=== PATIENT | female | born 1955 | race Caucasian/White ===

== ENCOUNTER → 2016-10-09 | Outpatient (CLI) | payer MEDICARE, BC ==
[~2016-10-09] MED LIST: CYCL10TA2 PO; DICL75TA PO; DILT240C2 PO; DULO60CA6 PO; FLUT1DIS3 IH; FURO40TA4 PO; LEVO150T5 PO; MONT10TA9 PO; OMEP20CA9 PO; PRED-220 PO; RIVA20TA2 PO; ROPI1TAB2 PO
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
== END | disposition home or self-care (01) ==
LOC: PNCL 13:11
PROVIDERS: ATTEND Anesthesiology
DX: M54.5 Low back pain (principal)
CPT/HCPCS: G0463

== ENCOUNTER → 2016-10-23 | Outpatient (CLI) | payer MEDICARE, BC ==
[~2016-10-23] MED LIST changes: +IOHEXOL 180 MG/ML 10 ML VIAL. ONE; +methylPREDNISolone ACETATE 40 MG/ML VIAL. ONE; +methylPREDNISolone ACETATE 80 MG/ML VIAL. ONE
--- NOTE | 2016-10-24 06:00 | PAIN ---
DATE OF SERVICE: 10/23/2016 DIAGNOSES: Lumbar radiculopathy with lumbar degenerative disk disease. HISTORY OF PRESENT ILLNESS: The patient is a 61-year-old female who returns for followup status post initial evaluation and holding for Xarelto, which was cleared by her prescribing physician; she has been off of it for the past 3 days now. The patient reports still pain in the low back and right lower extremity, mostly in the posterior gluteus and posterior thigh. The patient reports no new motor or sensory deficits. She has significant pain, it is rated as a 6-8 on a scale of 10, currently it is 6, but worse with walking and standing. The patient reports an aching, dull, radiating constant pain; it awakens her up from sleep occasionally but not every night. The patient reports it is much better with lying down or sitting down, much worse with standing and walking. The patient reports no new motor or sensory deficits, no new bowel or bladder incontinence or other complaints. PHYSICAL EXAMINATION: VITAL SIGNS: Today, the patient's blood pressure is 141/100, pulse is 96, respirations are 18, temperature is 98.2 degrees Fahrenheit, height is 5 feet 3 inches, weight is 357 pounds. GENERAL: The patient is awake, alert, oriented, appropriate, very pleasant demeanor. HEENT: Shows normocephalic and atraumatic. Extraocular movements are intact, symmetrical. Oral cavity: Mucous membranes are moist and pink. Dentition is intact. NECK: Shows anterior throat supple without palpable lymphadenopathy noted. Swallow reflex is symmetrical. CHEST: Shows normal on inspection. Breath sounds are clear to auscultation bilaterally. HEART: Shows S1 and S2 clear. No murmurs auscultated. ABDOMEN: Obese, soft, nontender, nondistended. Sizable pannus is again appreciated. BACK: The patient's back shows spine grossly in the midline. Slight exaggeration of thoracic kyphosis and some flattening of the lumbar lordotic curvature. Lumbar lordosis is again flattened; with inspection, it shows symmetrical lumbar paraspinous musculature; with palpation, it shows some tenderness more on the right than the left in the lower lumbar distribution, but only with deep palpation and without significant asymmetry. No tenderness over the sacrum and sacroiliac regions. EXTREMITIES: The patient's lower extremities showed deep tendon reflexes at 1+ in the patellar and tendo calcaneus tendons. Motor exam is approximately 4 on a scale of 5, but equal with quadriceps and hamstring flexion and dorsiflexion and extension bilaterally. Options were discussed with the patient at this time. The patient's old chart was reviewed as her current medication regimen and updated. Current review of systems updated today as well, and we will proceed with a lumbar epidural steroid injection today with fluoroscopic guidance. Risks were again discussed including but not limited to bleeding, infection, possibility of epidural hematoma and subsequent neurologic compromise, dural puncture, headaches, spinal cord and/or nerve damage, side effects of steroid medication and poor results regarding pain control. The patient understands and wishes to proceed. The patient will return to the clinic in approximately 2 weeks for followup, was counseled on return appointment, activity level and side effects to be aware of. DIAGNOSIS: Lumbar radiculopathy with lumbar degenerative disk disease. PROCEDURE: Lumbar epidural steroid injection in translaminar approach at the L4-L5 level using C-arm fluoroscopic guidance under sterile prep and drape using local anesthetic. MEDICATIONS INJECTED: Depo-Medrol 120 mg plus 10 mL of preservative-free normal saline and 2 mL of Isovue for contrast. CONDITION AT DISCHARGE: Stable. The patient tolerated procedure well, had no complications. YEISON SINGLETON MD DR: JIMMIE/samreen JOB#: [id number] / [id number]
== END | disposition home or self-care (01) ==
LOC: PNCL 13:36
PROVIDERS: ATTEND Anesthesiology
DX: M51.16 Intervertebral disc disorders with radiculopathy, lumbar region (principal)
CPT/HCPCS: 62323; J1030; J1040

== ENCOUNTER → 2016-11-22 | Outpatient (CLI) | payer MEDICARE, BC ==
[~2016-11-22] MED LIST changes: -IOHEXOL 180 MG/ML 10 ML VIAL. ONE; -methylPREDNISolone ACETATE 40 MG/ML VIAL. ONE; -methylPREDNISolone ACETATE 80 MG/ML VIAL. ONE
--- NOTE | 2016-11-22 16:32 | KCIC ---
Chest, 2 views, 11/22/2016: HISTORY: Pneumonia The heart is at the upper limits of normal in size. The pulmonary vascularity is normal. There are prominent epicardial fat pads. No pulmonary infiltrate is seen. There is no evidence of pleural fluid. Mild spurring is present in the spine. IMPRESSION: 1. Borderline cardiomegaly. 2. No acute abnormality is detected. Electronically signed by: Gavin Michaud MD (11/22/2016 4:28 PM)
== END | disposition home or self-care (01) ==
LOC: KCIC 16:05
PROVIDERS: ATTEND Family Medicine
DX: I51.7 Cardiomegaly (principal); J18.9 Pneumonia, unspecified organism
CPT/HCPCS: 71020

== ENCOUNTER 2018-12-17 11:22 | Day surgery (SDC) | payer MEDICARE, BC ==
[~2018-12-17 11:22] MED LIST changes: +ALBU2.5V5 NEB; +ALBU2.5V8 INH; +BUPR300T4 PO; +CLON0.5T11 PO; +DEXTROSE 5% IV PRN; +DIGO125T PO; +FERR325T14 PO; +GABA600T7 PO; +GENTAMICIN SULFATE IV PRN; +HYDROmorphone 2 MG/ML VIAL IV PRN; +IV RINGERS,LACTATED 1000ML 1,000 ML IV SCH; +LIDOCAINE 1% PF 2 ML VIAL. ID PRN; +LOPE2CAP88 PO; +METO-239 PO; +MOME13HF IH; +MONT10TA49 PO; -MONT10TA9 PO; +MORPHINE SULFATE 2 MG/ML VIAL. IV PRN; +OMEP20CA10 PO; -OMEP20CA9 PO; +ONDANSETRON PF 4 MG/2 ML VIAL. IV PRN; +POTA20TA82 PO; +PROCHLORPERAZINE 10 MG/2 ML VIAL. IV PRN; +TIOT18CA IH; +fentaNYL PF VIAL 100 MCG/2 ML VIAL IV PRN
[2018-12-17] MEDS ORDERED: IOHEXOL 300 MG/ML 50 ML VIAL. ONE (11:45)
[2018-12-17] MEDS ORDERED: LIDOCAINE 2% JELLY 6ML IN APPLICATOR. ONE (11:46)
[2018-12-17] MEDS ORDERED: DEXAMETHASONE SOD PHOS 4 MG/ML VIAL ONE (12:37)
[2018-12-17] MEDS ORDERED: ONDANSETRON PF 4 MG/2 ML VIAL. ONE (12:38)
[2018-12-17] MEDS ORDERED: MIDAZOLAM HCL/PF 2 MG/2 ML VIAL. ONE (12:38)
[2018-12-17] MEDS ORDERED: LIDOCAINE 2% PF 5 ML VIAL. ONE (12:38)
[2018-12-17] MEDS ORDERED: PROPOFOL 20 ML IV ONE (12:38)
[2018-12-17] MEDS ORDERED: HYDROCORTISONE SOD SUCC/PF 100 MG/2 ML VIAL. ONE (13:12)
[2018-12-17] MEDS ORDERED: SEVOFLURANE 61 TO 120 MINUTES. IH ONE (13:42)
--- NOTE | 2018-12-17 14:18 | PDOC4 ---
OPERATIVE NOTE Date: Date: Dec 17, 2018 Pre-Op Diagnosis: right kidney stone Post-Op Diagnosis: same Procedure Performed: right ureteroscopy, laser of stone, stent placement, retrograde pyelogram Surgeon: Pedro Montano MD Anesthesia Type: general Blood Loss: 0 Specimans Obtained: none Findings: right kidney stone pelvic kidney Complications: none Operative Note: see dictation PEDRO MONTANO MD Dec 17, 2018 14:18
[2018-12-17] MEDS ORDERED: HYDR-3164 PO (14:27)
--- NOTE | 2018-12-17 14:29 | DISCH ---
DISCHARGE INSTRUCTIONS Condition on Discharge Condition on Discharge: Stable Activity After Discharge Activity Instructions for Disc: No restrictions Diet after Discharge Diet after Discharge: Regular Contacting the DRTaty after DC Call your doctor for: Concerns you may have Follow-Up Follow up with: Dr. Montano 1 week for stent removal in office [phone] PEDRO MONTANO MD Dec 17, 2018 14:29
--- NOTE | 2018-12-17 15:19 | OP ---
DATE OF SURGERY: 12/17/2018 SURGEON: Pedro Montano MD [employer] GOODS: None. PREOPERATIVE DIAGNOSIS: Right kidney stones. POSTOPERATIVE DIAGNOSIS: Right kidney stones. PROCEDURE PERFORMED: Right ureteroscopy with laser of stone, stent placement and retrograde pyelogram. ANESTHESIA TYPE: General. DESCRIPTION OF PROCEDURE: This is a 63-year-old female with a 1.4 cm right kidney stone. After discussion of risks, benefits and alternatives, she agreed to the above procedure. Informed consent was obtained. The patient was taken to the operating room. General anesthesia was induced. She was placed in dorsal lithotomy position, sterilely prepped and draped. Timeout was performed. A rigid cystoscope was advanced through the urethra into the bladder. The right ureteral orifice was cannulated with a guidewire and advanced up into the renal pelvis. Retrograde pyelogram was performed, which showed a right pelvic kidney with an acute right angle of the ureter near the ureteropelvic junction. The guidewire was replaced and then an access sheath was easily advanced and a second wire was placed and the access sheath was repositioned. A flexible ureteroscope was easily able to advance up into the kidney. A large stone was seen within the central portion of the renal pelvis. The stone was fragmented with the holmium laser into multiple tiny fragments. The stone was very soft and easily fragmented. All the stone fragments were too small to grasp. Due to the acute angle of the proximal ureter, manipulation of the scope into the lateral and lower poles of the kidney was not possible; however, there did not appear to be any stone fragments in those locations on fluoroscopy or visually. The scope and access sheath were slowly withdrawn, and the ureter was inspected and was free of injury. A 6 x 22 cm stent was then advanced over the wire and deployed under fluoroscopic guidance. Due to the acute angle of the ureter, the stent would not properly curl despite multiple attempts involving manipulating the stent and removing and replacing it. Only about 1/2 curl of the stent was possible in the kidney. Appropriate stent curl was noted in the bladder. The bladder contents were emptied. The patient was then awoken and taken to the recovery room in stable condition. BLOOD LOSS: None. COMPLICATIONS: None. SPECIMENS: None. DISPOSITION: We will plan for stent removal in the office next week. PEDRO MONTANO MD DR: PRETTY/samreen JOB#: [id number] / [id number]
[2018-12-17] MEDS ORDERED: HYDROcodone/APAP 5/325MG 1 TAB TABLET PO ONE (15:30)
[2018-12-17] MEDS ORDERED: IPRATRPIUM/ALBUTEROL 0.5/2.5MG 3 ML NEBU. NEB ONE (16:30)
[2018-12-17 17:00] VITALS: BP 125/65
== END 2018-12-17 17:30 | disposition home or self-care (01) ==
LOC: SURG 11:22
PROVIDERS: ATTEND Urology
DX: N20.0 Calculus of kidney (principal); Z88.1 Allergy status to other antibiotic agents; Z88.0 Allergy status to penicillin; Z88.8 Allergy status to other drugs, medicaments and biological substances
CPT/HCPCS: 52356; 74420; 94640; A7015; C1769; C2617; J1100; J1720; J2001; J2405; J2704; J3010; J7620; Q9967; J2250

== ENCOUNTER 2019-01-13 14:31 | Inpatient (IN) | payer MEDICARE, BC ==
[2019-01-13] VITALS (8 sets, daily range): BP systolic 106–151; BP diastolic 53–84
[~2019-01-13] VITALS: Ht 157.5 cm; Wt 137.1 kg
[~2019-01-13 14:31] MED LIST changes: -DEXTROSE 5% IV PRN; -GENTAMICIN SULFATE IV PRN; +HYDR-3164 PO; -HYDROmorphone 2 MG/ML VIAL IV PRN; -IV RINGERS,LACTATED 1000ML 1,000 ML IV SCH; -LIDOCAINE 1% PF 2 ML VIAL. ID PRN; -MORPHINE SULFATE 2 MG/ML VIAL. IV PRN; -ONDANSETRON PF 4 MG/2 ML VIAL. IV PRN; -PROCHLORPERAZINE 10 MG/2 ML VIAL. IV PRN; -fentaNYL PF VIAL 100 MCG/2 ML VIAL IV PRN
[2019-01-13] MEDS ORDERED: DIGOXIN 125 MCG TABLET. PO STA (15:15)
[2019-01-13 15:24] LABS: BASO # 0.1 x10^3/uL (0.0-0.2); BASO % 1 % (0-3); EOS # 0.3 x10^3/uL (0.0-0.7); EOS % 1 % (0-3); HEMATOCRIT 25.4 % (36.0-47.0); LYMPH # 6.3 x10^3/uL (1.0-4.8); LYMPH % 27 % (24-48); MEAN CORPUSCULAR HEMOGLOBIN 28 pg (25-35); MEAN CORPUSCULAR HGB CONC 31 g/dL (31-37); MEAN CORPUSCULAR VOLUME 90 fL (79-100); MONO # 1.3 x10^3/uL (0.0-1.1); MONO % 6 % (0-9); NEUT # 15.6 x10^3/uL (1.8-7.7); NEUT % 66 % (31-73); PLATELET COUNT 252 x10^3/uL (140-400); RED BLOOD COUNT 2.82 x10^6/uL (3.50-5.40); RED CELL DISTRIBUTION WIDTH 17.5 % (11.5-14.5); WHITE BLOOD COUNT 23.7 x10^3/uL (4.0-11.0)
--- NOTE | 2019-01-13 15:32 | PHYS DOC ---
Past Medical History Past Medical History: A-Fib, Asthma, CHF, COPD, Other Additional Past Medical Histor: OBESITY Past Surgical History: Cholecystectomy, Other Additional Past Surgical Histo: R. BREAST BIOPSY Alcohol Use: None Drug Use: None Adult General Chief Complaint Chief Complaint: SHORTNESS OF BREATH HPI HPI Patient is a 63 year old female presents with multiple complaints. The patient states that she's been having rectal bleeding along with diarrhea since Friday night. Has a history of hemorrhoids. Is normally only on oxygen at night. Is on 3 L in the room at 93%. Also states that she's been having increased shortness of breath and dizziness since last night, and also states that she's been having a fever. Has a history of A. fib. States she stopped her Xarelto on Friday. Has had multiple clots in the past. Rates her pain is 1 out of 10 in severity at this time describes as achy. Has not taken any medicine at home for this pain. Review of Systems Review of Systems Constitutional: Reports subjective fever or chills [] Eyes: Denies change in visual acuity, redness, or eye pain [] HENT: Denies nasal congestion or sore throat [] Respiratory: Reports increased shortness of breath [] Cardiovascular: No additional information not addressed in HPI [] GI: Denies abdominal pain, nausea, vomiting Reports bloody stools and diarrhea [] : Denies dysuria or hematuria [] Musculoskeletal: Denies back pain or joint pain [] Integument: Denies rash or skin lesions [] Neurologic: Denies headache, focal weakness or sensory changes [] Endocrine: Denies polyuria or polydipsia [] Complete systems were reviewed and found to be within normal limits, except as documented in this note. Current Medications Current Medications Current Medications Medications (Trade) Dose Ordered Sig/Ijeoma Start Time Stop Time Status Last Admin Dose Admin Albuterol/ Ipratropium (Duoneb) 3 ml 1X ONCE 01/13/19 16:30 01/13/19 16:31 DC 01/13/19 16:07 3 ML Digoxin (Lanoxin) 125 mcg 1X STAT 01/13/19 15:15 01/13/19 15:19 DC 01/13/19 15:50 125 MCG Sodium Chloride 500 ml @ 500 mls/hr 1X ONCE 01/13/19 17:00 01/13/19 17:59 DC 01/13/19 19:41 500 MLS/HR Allergies Allergies Allergies Coded Allergies Type Severity Reaction Last Updated Verified levofloxacin Allergy Severe Anaphylaxis 12/17/18 Yes Influenza Virus Vaccines Adverse Reaction Intermediate 12/17/18 Yes Penicillins Adverse Reaction Intermediate Rash 12/17/18 Yes Sulfa (Sulfonamide Antibiotics) Adverse Reaction Intermediate Rash 12/17/18 Yes Physical Exam Physical Exam Constitutional: Well developed, well nourished HENT: Normocephalic, atraumatic, bilateral external ears normal, oropharynx moist, no oral exudates, nose normal. [] Eyes: PERRLA, EOMI, conjunctiva normal, no discharge. [] Neck: Normal range of motion, no tenderness, supple, no stridor. [] Cardiovascular:Heart rate irregular rhythm, no murmur [] Lungs & Thorax: Bilateral breath sounds with scattered rhonchi. Abdomen: Bowel sounds normal, soft, no tenderness, no masses, no pulsatile masses. [] Skin: Warm, dry, no erythema, no rash. [] Back: No tenderness, no CVA tenderness. [] Extremities: No tenderness, no cyanosis, no clubbing, ROM intact, no edema. [] Neurologic: Alert and oriented X 3, normal motor function, normal sensory function, no focal deficits noted. [] Psychologic: Affect normal, judgement normal, mood normal. [] Rectal Exam: Patient has dried blood around rectum, copious amounts of blood on finger during digital exam. No external hemorrhoids noted. Current Patient Data Vital Signs Vital Signs Date Time Temp Pulse Resp B/P (MAP) Pulse Ox O2 Delivery O2 Flow Rate FiO2 01/13/19 17:20 116 21 115/80 (92) 99 Nasal Cannula 3.0 01/13/19 14:55 98.5 98.5 Lab Values Laboratory Tests Test 01/13/19 15:15 01/13/19 15:38 01/13/19 15:50 01/13/19 17:05 White Blood Count 23.7 x10^3/uL (4.0-11.0) H Red Blood Count 2.82 x10^6/uL (3.50-5.40) L Hemoglobin 8.0 g/dL (12.0-15.5) L Hematocrit 25.4 % (36.0-47.0) L Mean Corpuscular Volume 90 fL (79-100) Mean Corpuscular Hemoglobin 28 pg (25-35) Mean Corpuscular Hemoglobin Concent 31 g/dL (31-37) Red Cell Distribution Width 17.5 % (11.5-14.5) H Platelet Count 252 x10^3/uL (140-400) Neutrophils (%) (Auto) 66 % (31-73) Lymphocytes (%) (Auto) 27 % (24-48) Monocytes (%) (Auto) 6 % (0-9) Eosinophils (%) (Auto) 1 % (0-3) Basophils (%) (Auto) 1 % (0-3) Neutrophils # (Auto) 15.6 x10^3/uL (1.8-7.7) H Lymphocytes # (Auto) 6.3 x10^3/uL (1.0-4.8) H Monocytes # (Auto) 1.3 x10^3/uL (0.0-1.1) H Eosinophils # (Auto) 0.3 x10^3/uL (0.0-0.7) Basophils # (Auto) 0.1 x10^3/uL (0.0-0.2) Segmented Neutrophils % 68 % (35-66) H Band Neutrophils % 3 % (0-9) Lymphocytes % 23 % (24-48) L Monocytes % 3 % (0-10) Eosinophils % 2 % (0-5) Myelocytes % 1 % (0-0) H Platelet Estimate Adequate (ADEQUATE) Polychromasia Slight Anisocytosis Slight Prothrombin Time 17.9 SEC (11.7-14.0) H Prothrombin Time INR 1.5 (0.8-1.1) H PTT 30 SEC (24-38) D-Dimer (Loretta) 0.52 ug/mlFEU (0.00-0.50) H Sodium Level 140 mmol/L (136-145) Potassium Level 4.2 mmol/L (3.5-5.1) Chloride Level 100 mmol/L (98-107) Carbon Dioxide Level 22 mmol/L (21-32) Anion Gap 18 (6-14) H Blood Urea Nitrogen 21 mg/dL (7-20) H Creatinine 1.4 mg/dL (0.6-1.0) H Estimated GFR (Cockcroft-Gault) 37.9 BUN/Creatinine Ratio 15 (6-20) Glucose Level 152 mg/dL (70-99) H Calcium Level 8.7 mg/dL (8.5-10.1) Total Bilirubin 0.4 mg/dL (0.2-1.0) Aspartate Amino Transferase (AST) 12 U/L (15-37) L Alanine Aminotransferase (ALT) 22 U/L (14-59) Alkaline Phosphatase 65 U/L (46-116) Troponin I Quantitative < 0.017 ng/mL (0.000-0.055) HM-Yio-T-Type Natriuretic Peptide 659 pg/mL (0-124) H Total Protein 6.8 g/dL (6.4-8.2) Albumin 3.0 g/dL (3.4-5.0) L Albumin/Globulin Ratio 0.8 (1.0-1.7) L Procalcitonin < 0.10 ng/mL (0.00-0.10) Lactic Acid Level 4.6 mmol/L (0.4-2.0) *H Stool Occult Blood Positive (NEG) Urine Collection Type U cath Urine Color Yellow Urine Clarity Clear Urine pH 8.5 Urine Specific Roland 1.020 Urine Protein 30 mg/dL (NEG-TRACE) Urine Glucose (UA) Negative mg/dL (NEG) Urine Ketones (Stick) 15 mg/dL (NEG) Urine Blood Negative (NEG) Urine Nitrite Negative (NEG) Urine Bilirubin Negative (NEG) Urine Urobilinogen Dipstick 0.2 mg/dL (0.2 mg/dL) Urine Leukocyte Esterase Moderate (NEG) Urine RBC Occ /HPF (0-2) Urine WBC >40 /HPF (0-4) Urine Squamous Epithelial Cells Mod /LPF Urine Bacteria Many /HPF (0-FEW) Laboratory Tests 01/13/19 15:15 Laboratory Tests 01/13/19 15:15 EKG EKG Interpreted by Dr. Ochoa EKG shows Afib with RVR at rate of 132. No STEMI.[] Radiology/Procedures Radiology/Procedures PATIENT: AARON MULLER ACCOUNT: [id number] : 1955 LOCATION: [facility] ICU AGE: 63 SEX: F EXAM STATUS: ADM IN ORD. PHYSICIAN: MONISHA AYALA APRN REASON: elevated d-dimer, shortness of breath, FLORIDALMA ON HER WAY PROCEDURE: LUNG VENT/PERFUSION SCAN(VQ) VQ Scan: Clinical History: Elevated d-dimer and dyspnea. Technique: 18 mCi of xenon gas was administered and spot views were obtained on a gamma camera for a Nuclear Medicine ventilation examination. 6.6 mCi of Tc 99m MAA was administered intravenously and spot views were obtained on the gamma camera for a Nuclear Medicine perfusion examination. Static images were reviewed as a V/Q scan in order to exclude pulmonary embolism. Correlation: Same day chest x-ray. Findings: There is poor ventilation and poor perfusion of the left lung base with no corresponding defect on chest x-ray. This is low probability for pulmonary embolism based on the modified PIOPED criteria. Impression: Low probability for pulmonary embolism. Electronically signed by: Ladonna Riggs III, MD (01/13/2019 7:56 PM) [facility] DICTATED and SIGNED BY: LADONNA RIGGS III, MD DATE: 01/13/191955 [][facility] [address] [place] [address] IMAGING REPORT Signed PATIENT: AARON MULLER ACCOUNT: [id number] : 1955 LOCATION: ER AGE: 63 SEX: F EXAM STATUS: REG ER ORD. PHYSICIAN: MONISHA AYALA APRN REASON: shortness of breath - @1539 nurses working on exams PROCEDURE: PORTABLE CHEST 1V PROCEDURE: PORTABLE CHEST 1V CLINICAL INDICATION: Shortness of breath. COMPARISON: None FINDINGS: No pneumothorax identified. Cardiac and mediastinal contours unremarkable. No pulmonary consolidation or acute airspace disease. No acute osseous abnormalities identified. IMPRESSION: No pulmonary consolidation or acute airspace disease. Electronically signed by: Lien Munroe DO (01/13/2019 4:16 PM) [facility] DICTATED and SIGNED BY: LIEN MUNROE DO DATE: 01/13/19 0833 Course & Med Decision Making Course & Med Decision Making Pertinent Labs and Imaging studies reviewed. (See chart for details) Has multiple complaints will get Labs, D-dimer, EKG, chest x-ray. Also will give patient 3 PM dose of digoxin as EKG shows A-fib with RVR. Labs show WBC of 23.7, Lactic of 4.6, Hemoglobin of 8.0 (Don't have labs to compare but states her last hemoglobin was 11 on October 14), D-Dimer of 0.52, and Positive Fecal Occult blood. Patient appears to be in Septic shock, and has a GI bleed. [place] body weight is 50 kg. Will give 30 mL/kg bolus to put at 1500 mL. Will also give Rocephin and Protonix due to GI bleed. Discussed with Dr. Cheung, who will admit to ICU. Dragon Disclaimer Dragon Disclaimer This electronic medical record was generated, in whole or in part, using a voice recognition dictation system. Departure Departure Impression: Primary Impression: Severe sepsis Additional Impressions: GI bleed Atrial fibrillation with RVR Elevated d-dimer Urinary tract infection Disposition: ADMITTED INPATIENT Admitting Physician: BHARATH Condition: CRITICAL Referrals: VARGHESE LAZARO MD (PCP) Date and Time of Reassessment Date: Jan 13, 2019 Time: 17:18 Fluid Challenge Is the fluid challenge complet: No IBW Target Volume Used: Yes BMI > 30: Yes Vital Signs Vital Signs: Vital Signs Date Time Temp Pulse Resp B/P (MAP) Pulse Ox O2 Delivery O2 Flow Rate FiO2 01/13/19 17:20 116 21 115/80 (92) 99 Nasal Cannula 3.0 01/13/19 14:55 98.5 98.5 Temperature Source: Oral Respirations Respiratory Effort: Labored Respiratory Pattern: Tachypnea Cardiovascular Pulse Rhythm: Irregular Heart: Irreg irreg rhythm w rate Lung Sounds Breath Sounds: Rhonchi Capillary Refil Capillary Refill: Rt Hand > 3 seconds Peripheral Pulse Pulse Location: Monitor Pulse Strength: Normal (2+) Pulse Assessment Method: Monitor Integumentary Skin: Warm Skin Moisture: Clammy Skin Turgor: Decreased Skin Color: warm, pallor Fingernail Color: WNL Problem Qualifiers Additional Impressions: GI bleed GI bleed type/associated pathology: unspecified gastrointestinal hemorrhage type Qualified Codes: K92.2 - Gastrointestinal hemorrhage, unspecified Urinary tract infection Urinary tract infection type: acute cystitis Hematuria presence: without hematuria Qualified Codes: N30.00 - Acute cystitis without hematuria MONISHA AYALA APRN Jan 13, 2019 15:32
[2019-01-13 15:35] LABS: CALCIUM 8.7 mg/dL (8.5-10.1); CREATININE 1.4 mg/dL (0.6-1.0); GFR 37.9; POTASSIUM 4.2 mmol/L (3.5-5.1)
[2019-01-13 15:37] LABS: PROTHROMBIN TIME PATIENT 17.9 SEC (11.7-14.0)
[2019-01-13 15:42] LABS: ALBUMIN/GLOBULIN RATIO 0.8 (1.0-1.7); TOTAL BILIRUBIN 0.4 mg/dL (0.2-1.0); TOTAL PROTEIN 6.8 g/dL (6.4-8.2)
[2019-01-13 15:51] LABS: % BANDS 3 % (0-9); % EOS 2 % (0-5); % LYMPHS 23 % (24-48); % MONOS 3 % (0-10); % MYELOS 1 % (0-0); % SEGS 68 % (35-66)
[2019-01-13 15:52] LABS: PLT ESTIMATE ADEQUATE (ADEQUATE)
--- NOTE | 2019-01-13 15:55 | EKG ---
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
[2019-01-13 15:57] LABS: ANISOCYTOSIS SLIGHT; POLYCHROMASIA SLIGHT
[2019-01-13 16:10] LABS: D-DIMER 0.52 ug/mlFEU (0.00-0.50)
--- NOTE | 2019-01-13 16:19 | RAD ---
PROCEDURE: PORTABLE CHEST 1V CLINICAL INDICATION: Shortness of breath. COMPARISON: None FINDINGS: No pneumothorax identified. Cardiac and mediastinal contours unremarkable. No pulmonary consolidation or acute airspace disease. No acute osseous abnormalities identified. IMPRESSION: No pulmonary consolidation or acute airspace disease. Electronically signed by: Arron Munroe DO (01/13/2019 4:16 PM) [facility]
[2019-01-13 16:26] LABS: FECAL OB PT POSITIVE (NEG)
[2019-01-13] MEDS ORDERED: IPRATRPIUM/ALBUTEROL 0.5/2.5MG 3 ML NEBU. NEB ONE (16:30)
[2019-01-13] MEDS ORDERED: IV NORMAL SALINE 500ML BAG 500 ML IV ONE (17:00)
--- NOTE | 2019-01-13 17:27 | PDOC1 ---
History and Physical Date of Admission Date of Admission DATE: 01/13/19 TIME: 17:27 Identification/Chief Complaint Chief Complaint SEEN IN ER , 63 year old female presents with multiple complaints. The patient states that she's been having rectal bleeding along with diarrhea since Friday night. Has a history of hemorrhoids. Is normally only on oxygen at night. Is on 3 L in the room at 93%. Also states that she's been having increased shortness of breath and dizziness since last night, and also states that she's been having a fever. Has a history of A. fib. States she stopped her Xarelto on Friday Past Medical History Past Medical History Past Medical History Past Medical History Past Medical History: A-Fib, Asthma, CHF, COPD, Other Additional Past Medical Histor: OBESITY Past Surgical History: Cholecystectomy, Other Additional Past Surgical Histo: R. BREAST BIOPSY Alcohol Use: None Drug Use: None FAMILY HX COPD, OBESITY Family History Family History: Hypertension Social History Smoke: No ALCOHOL: none Drugs: None Current Problem List Problem List Problems Medical Problems: (1) Atrial fibrillation with RVR Status: Acute (2) Elevated d-dimer Status: Acute (3) GI bleed Status: Acute (4) Severe sepsis Status: Acute Current Medications Current Medications Current Medications Digoxin (Lanoxin) 125 mcg 1X STAT PO Last administered on 01/13/19at 15:50; Start 01/13/19 at 15:15; Stop 01/13/19 at 15:19; Status DC Albuterol/ Ipratropium (Duoneb) 3 ml 1X ONCE NEB Last administered on 01/13/19 at 16:07; Start 01/13/19 at 16:30; Stop 01/13/19 at 16:31; Status DC Sodium Chloride 1,000 ml @ 1,000 mls/hr 1X ONCE IV ; Start 01/13/19 at 17:30; Stop 01/13/19 at 18:29 Sodium Chloride 500 ml @ 500 mls/hr 1X ONCE IV ; Start 01/13/19 at 17:00; Stop 01/13/19 at 17:59 Pantoprazole Sodium (PROTONIX VIAL for IV PUSH) 40 mg 1X ONCE IVP ; Start 01/13/19 at 17:30; Stop 01/13/19 at 17:31 Ceftriaxone Sodium (Rocephin) 1 gm 1X ONCE IVP ; Start 01/13/19 at 17:30; Stop 01/13/19 at 17:31 Active Scripts Active [place] 5-325 Tablet (Acetaminophen/Hydrocodone Bitart) 1 Each Tablet 1 Tab PO PRN Q6HRS PRN Reported Spiriva (Tiotropium [place]) 18 Mcg Cap.w.dev 1 Inh IH DAILY Proair Hfa Inhaler (Albuterol Sulfate) 8.5 Gm Hfa.aer.ad 2 Puff INH PRN Q6HRS PRN Metoprolol Succinate ( Xl ) (Metoprolol Succinate) 25 Mg Tab.er.24h 25 Mg PO DAILY Potassium Chloride 20 Meq Tablet.er 20 Meq PO DAILY Imodium A-D (Loperamide HCl) 2 Mg Capsule 2 Mg PO PRN DAILY PRN Digoxin 125 Mcg Tablet 125 Mcg PO DAILY Clonazepam 0.5 Mg Tablet 0.5 Mg PO HS Bupropion Xl (Bupropion Hcl) 300 Mg Tab.er.24h 300 Mg PO DAILY Albuterol Sulfate Neb Soln (Albuterol Sulfate) 2.5 Mg/3 Ml Vial.neb 2.5 Mg NEB PRN QID PRN Dulera 200 Mcg/5 Mcg Inhaler (Mometasone/Formoterol) 13 Gm Hfa.aer.ad 2 Puff IH BID Ferrous Sulfate 325 Mg Tablet 65 Mg PO DAILY Cyclobenzaprine Hcl 10 Mg Tablet 10 Mg PO PRN BID PRN Gabapentin 600 Mg Tablet 300 Mg PO BID Montelukast Sodium Tablet (Montelukast Sodium) 10 Mg Tablet 1 Tab PO HS Ropinirole Hcl 1 Mg Tablet 1 Mg PO HS Xarelto (Rivaroxaban) 20 Mg Tablet 20 Mg PO DAILY16 Cardizem Cd (Diltiazem Hcl) 240 Mg Cap.er.24h 1 Cap PO DAILY Prednisone (Prednisone) 10 Mg Tablet 15 Mg PO QODAY Furosemide 40 Mg Tablet 30 Mg PO DAILY Omeprazole 20 Mg Capsule.dr 1 Cap PO BID Diclofenac Sodium 75 Mg Tablet.dr 1 Tab PO BID Cymbalta (Duloxetine Hcl) 60 Mg Capsule.dr 1 Cap PO DAILY Levothyroxine Sodium 150 Mcg Tablet 175 Mcg PO DAILY Allergies Allergies: Coded Allergies: levofloxacin (Verified Allergy, Severe, Anaphylaxis, 12/17/18) Influenza Virus Vaccines (Verified Adverse Reaction, Intermediate, 12/17/18) asthma attack/reaction Penicillins (Verified Adverse Reaction, Intermediate, Rash, 12/17/18) also dyspnea Sulfa (Sulfonamide Antibiotics) (Verified Adverse Reaction, Intermediate, Rash, 12/17/18) ROS Review of System Review of Systems Review of Systems Constitutional: Reports subjective fever or chills [] Eyes: Denies change in visual acuity, redness, or eye pain [] HENT: Denies nasal congestion or sore throat [] Respiratory: Reports increased shortness of breath [] Cardiovascular: No additional information not addressed in HPI [] GI: Denies abdominal pain, nausea, vomiting Reports bloody stools and diarrhea [] : Denies dysuria or hematuria [] Musculoskeletal: Denies back pain or joint pain [] Integument: Denies rash or skin lesions [] Neurologic: Denies headache, focal weakness or sensory changes [] Endocrine: Denies polyuria or polydipsia [] 14 PT systems were reviewed and found to be within normal limits, except as documented Vitals Vitals Vital Signs Date Time Temp Pulse Resp B/P (MAP) Pulse Ox O2 Delivery O2 Flow Rate FiO2 01/13/19 16:08 96 Nasal Cannula 3.0 01/13/19 15:50 135 120/69 01/13/19 14:55 98.5 29 98.5 Labs Labs Laboratory Tests Test 01/13/19 15:15 01/13/19 15:38 01/13/19 15:50 White Blood Count 23.7 x10^3/uL (4.0-11.0) Red Blood Count 2.82 x10^6/uL (3.50-5.40) Hemoglobin 8.0 g/dL (12.0-15.5) Hematocrit 25.4 % (36.0-47.0) Mean Corpuscular Volume 90 fL (79-100) Mean Corpuscular Hemoglobin 28 pg (25-35) Mean Corpuscular Hemoglobin Concent 31 g/dL (31-37) Red Cell Distribution Width 17.5 % (11.5-14.5) Platelet Count 252 x10^3/uL (140-400) Neutrophils (%) (Auto) 66 % (31-73) Lymphocytes (%) (Auto) 27 % (24-48) Monocytes (%) (Auto) 6 % (0-9) Eosinophils (%) (Auto) 1 % (0-3) Basophils (%) (Auto) 1 % (0-3) Neutrophils # (Auto) 15.6 x10^3/uL (1.8-7.7) Lymphocytes # (Auto) 6.3 x10^3/uL (1.0-4.8) Monocytes # (Auto) 1.3 x10^3/uL (0.0-1.1) Eosinophils # (Auto) 0.3 x10^3/uL (0.0-0.7) Basophils # (Auto) 0.1 x10^3/uL (0.0-0.2) Segmented Neutrophils % 68 % (35-66) Band Neutrophils % 3 % (0-9) Lymphocytes % 23 % (24-48) Monocytes % 3 % (0-10) Eosinophils % 2 % (0-5) Myelocytes % 1 % (0-0) Platelet Estimate Adequate (ADEQUATE) Polychromasia Slight Anisocytosis Slight Prothrombin Time 17.9 SEC (11.7-14.0) Prothromb Time International Ratio 1.5 (0.8-1.1) Activated Partial Thromboplast Time 30 SEC (24-38) D-Dimer (Loretta) 0.52 ug/mlFEU (0.00-0.50) Sodium Level 140 mmol/L (136-145) Potassium Level 4.2 mmol/L (3.5-5.1) Chloride Level 100 mmol/L (98-107) Carbon Dioxide Level 22 mmol/L (21-32) Anion Gap 18 (6-14) Blood Urea Nitrogen 21 mg/dL (7-20) Creatinine 1.4 mg/dL (0.6-1.0) Estimated GFR (Cockcroft-Gault) 37.9 BUN/Creatinine Ratio 15 (6-20) Glucose Level 152 mg/dL (70-99) Calcium Level 8.7 mg/dL (8.5-10.1) Total Bilirubin 0.4 mg/dL (0.2-1.0) Aspartate Amino Transf (AST/SGOT) 12 U/L (15-37) Alanine Aminotransferase (ALT/SGPT) 22 U/L (14-59) Alkaline Phosphatase 65 U/L (46-116) Troponin I Quantitative < 0.017 ng/mL (0.000-0.055) WR-Fhh-K-Type Natriuretic Peptide 659 pg/mL (0-124) Total Protein 6.8 g/dL (6.4-8.2) Albumin 3.0 g/dL (3.4-5.0) Albumin/Globulin Ratio 0.8 (1.0-1.7) Lactic Acid Level 4.6 mmol/L (0.4-2.0) Stool Occult Blood Positive (NEG) Laboratory Tests Test 01/13/19 15:15 01/13/19 15:38 01/13/19 15:50 White Blood Count 23.7 x10^3/uL (4.0-11.0) Red Blood Count 2.82 x10^6/uL (3.50-5.40) Hemoglobin 8.0 g/dL (12.0-15.5) Hematocrit 25.4 % (36.0-47.0) Mean Corpuscular Volume 90 fL (79-100) Mean Corpuscular Hemoglobin 28 pg (25-35) Mean Corpuscular Hemoglobin Concent 31 g/dL (31-37) Red Cell Distribution Width 17.5 % (11.5-14.5) Platelet Count 252 x10^3/uL (140-400) Neutrophils (%) (Auto) 66 % (31-73) Lymphocytes (%) (Auto) 27 % (24-48) Monocytes (%) (Auto) 6 % (0-9) Eosinophils (%) (Auto) 1 % (0-3) Basophils (%) (Auto) 1 % (0-3) Neutrophils # (Auto) 15.6 x10^3/uL (1.8-7.7) Lymphocytes # (Auto) 6.3 x10^3/uL (1.0-4.8) Monocytes # (Auto) 1.3 x10^3/uL (0.0-1.1) Eosinophils # (Auto) 0.3 x10^3/uL (0.0-0.7) Basophils # (Auto) 0.1 x10^3/uL (0.0-0.2) Segmented Neutrophils % 68 % (35-66) Band Neutrophils % 3 % (0-9) Lymphocytes % 23 % (24-48) Monocytes % 3 % (0-10) Eosinophils % 2 % (0-5) Myelocytes % 1 % (0-0) Platelet Estimate Adequate (ADEQUATE) Polychromasia Slight Anisocytosis Slight Prothrombin Time 17.9 SEC (11.7-14.0) Prothromb Time International Ratio 1.5 (0.8-1.1) Activated Partial Thromboplast Time 30 SEC (24-38) D-Dimer (Loretta) 0.52 ug/mlFEU (0.00-0.50) Sodium Level 140 mmol/L (136-145) Potassium Level 4.2 mmol/L (3.5-5.1) Chloride Level 100 mmol/L (98-107) Carbon Dioxide Level 22 mmol/L (21-32) Anion Gap 18 (6-14) Blood Urea Nitrogen 21 mg/dL (7-20) Creatinine 1.4 mg/dL (0.6-1.0) Estimated GFR (Cockcroft-Gault) 37.9 BUN/Creatinine Ratio 15 (6-20) Glucose Level 152 mg/dL (70-99) Calcium Level 8.7 mg/dL (8.5-10.1) Total Bilirubin 0.4 mg/dL (0.2-1.0) Aspartate Amino Transf (AST/SGOT) 12 U/L (15-37) Alanine Aminotransferase (ALT/SGPT) 22 U/L (14-59) Alkaline Phosphatase 65 U/L (46-116) Troponin I Quantitative < 0.017 ng/mL (0.000-0.055) XH-Rae-L-Type Natriuretic Peptide 659 pg/mL (0-124) Total Protein 6.8 g/dL (6.4-8.2) Albumin 3.0 g/dL (3.4-5.0) Albumin/Globulin Ratio 0.8 (1.0-1.7) Lactic Acid Level 4.6 mmol/L (0.4-2.0) Stool Occult Blood Positive (NEG) Images Images PROCEDURE: PORTABLE CHEST 1V CLINICAL INDICATION: Shortness of breath. COMPARISON: None FINDINGS: No pneumothorax identified. Cardiac and mediastinal contours unremarkable. No pulmonary consolidation or acute airspace disease. No acute osseous abnormalities identified. IMPRESSION: No pulmonary consolidation or acute airspace disease. Electronically signed by: Arron Munroe DO (01/13/2019 4:16 PM) [facility] VQ Scan: Clinical History: Elevated d-dimer and dyspnea. Technique: 18 mCi of xenon gas was administered and spot views were obtained on a gamma camera for a Nuclear Medicine ventilation examination. 6.6 mCi of Tc 99m MAA was administered intravenously and spot views were obtained on the gamma camera for a Nuclear Medicine perfusion examination. Static images were reviewed as a V/Q scan in order to exclude pulmonary embolism. Correlation: Same day chest x-ray. Findings: There is poor ventilation and poor perfusion of the left lung base with no corresponding defect on chest x-ray. This is low probability for pulmonary embolism based on the modified PIOPED criteria. Impression: Low probability for pulmonary embolism. Electronically signed by: Bishop Reyna III, MD (01/13/2019 7:56 PM) [facility] VTE Prophylaxis Ordered VTE Prophylaxis Devices: Yes VTE Pharmacological Prophylaxi: Contraindicated Assessment/Plan Assessment/Plan Impression: Severe sepsis, ACUTE PYELONEPHRITIS GI bleed Atrial fibrillation with RVR No pulmonary consolidation or acute airspace disease. Elevated d-dimer MORBID OBESITY RECTAL BLEEDING, ACUTE ADMITTED/// INPATIENT ICU BED EMPERIC IV ANTIBIOTICS, ROCEPHIN 2 GM Q 24 HRS BLOOD CULT, URINE CULTURE ID CONSULT GI CONSULT 42 MIN CC TIME ZENY MAYA MD Jan 13, 2019 17:27
[2019-01-13 17:29] LABS: BILIRUBIN,URINE NEGATIVE (NEG); CLARITY,URINE CLEAR; COLOR,URINE YELLOW; NITRITE,URINE NEGATIVE (NEG); PH,URINE 8.5; PROTEIN,URINE 30 mg/dL (NEG-TRACE); UROBILINOGEN,URINE 0.2 mg/dL (0.2 mg/dL)
[2019-01-13] MEDS ORDERED: IV NORMAL SALINE 1000ML BAG 1,000 ML IV ONE (17:30)
[2019-01-13] MEDS ORDERED: cefTRIAXone IV Push 1 GM VIAL. IVP ONE (17:30)
[2019-01-13] MEDS ORDERED: ONDANSETRON PF 4 MG/2 ML VIAL. IV PRN (17:30)
[2019-01-13] MEDS ORDERED: PANTOPRAZOLE IV PUSH 40 MG VIAL. IVP ONE (17:30)
[2019-01-13 17:45] LABS: RBC,URINE OCC /HPF (0-2); WBC,URINE >40 /HPF (0-4)
[2019-01-13 17:46] LABS: BACTERIA,URINE MANY /HPF (0-FEW); SQUAMOUS EPITHELIAL CELL,UR MOD /LPF
--- NOTE | 2019-01-13 18:58 | NUR ---
1835: Pt brought from ED @ 1835 and settled into ICU bed. VQ scan RN at bedside ready to take pt to VQ scan. 1L NS infused. Pt taken to VQ scan at 1857, accompanied by LEI Mojica.
--- NOTE | 2019-01-13 19:10 | NUR ---
Routine consult paged to Dr. Kiser.
[2019-01-13] MEDS ORDERED: OMEP20CA10 PO (19:54)
--- NOTE | 2019-01-13 19:58 | RAD ---
VQ Scan: Clinical History: Elevated d-dimer and dyspnea. Technique: 18 mCi of xenon gas was administered and spot views were obtained on a gamma camera for a Nuclear Medicine ventilation examination. 6.6 mCi of Tc 99m MAA was administered intravenously and spot views were obtained on the gamma camera for a Nuclear Medicine perfusion examination. Static images were reviewed as a V/Q scan in order to exclude pulmonary embolism. Correlation: Same day chest x-ray. Findings: There is poor ventilation and poor perfusion of the left lung base with no corresponding defect on chest x-ray. This is low probability for pulmonary embolism based on the modified PIOPED criteria. Impression: Low probability for pulmonary embolism. Electronically signed by: Bishop Reyna III, MD (01/13/2019 7:56 PM) [facility]
[2019-01-13] MEDS ORDERED: CYCLOBENZAPRINE 10 MG TABLET. PO PRN (20:45)
[2019-01-13] MEDS ORDERED: HYDROcodone/APAP 5/325MG 1 TAB TABLET PO PRN (20:45)
[2019-01-13] MEDS ORDERED: ALBUTEROL SULFATE 2.5 MG/3 ML NEBU. NEB PRN (20:45)
[2019-01-13] MEDS ORDERED: IV NORMAL SALINE 1000ML BAG 1,500 ML IV SCH (20:47)
[2019-01-13] MEDS: MONTELUKAST SODIUM 10 MG TABLET. PO SCH (21:00)
[2019-01-13] MEDS ORDERED: NOREPINEPHRIN 8MG/250ML PREMIX 250 ML IV PRN (21:00)
[2019-01-13] MEDS ORDERED: cefTRIAXone IV Push 2 GM VIAL. IVP SCH (21:00)
[2019-01-13] MEDS: clonazePAM 0.5 MG TABLET PO SCH (21:00)
[2019-01-13] MEDS: rOPINIRole 1 MG TABLET. PO SCH (21:00)
[2019-01-13] MEDS ORDERED: IV NORMAL SALINE 500ML BAG 500 ML IV PRN (21:00)
[2019-01-13] MEDS: GABAPENTIN 300 MG CAPSULE. PO SCH (21:00)
[2019-01-13] MEDS: MEROPENEM 1 GM in IV NORMAL SALINE 100ML 100 ML IV SCH (21:39)
[2019-01-13] MEDS: BUDESONIDE 0.5 MG/2 ML NEBU. NEB SCH (22:00)
[2019-01-13] MEDS: IPRATRPIUM/ALBUTEROL 0.5/2.5MG 3 ML NEBU. NEB SCH (22:00)
[2019-01-13 22:27] LABS: BASO # 0.2 x10^3/uL (0.0-0.2); BASO % 1 % (0-3); EOS # 0.3 x10^3/uL (0.0-0.7); EOS % 2 % (0-3); LYMPH # 3.6 x10^3/uL (1.0-4.8); LYMPH % 24 % (24-48); MEAN CORPUSCULAR HEMOGLOBIN 29 pg (25-35); MEAN CORPUSCULAR HGB CONC 33 g/dL (31-37); MEAN CORPUSCULAR VOLUME 88 fL (79-100); MONO # 1.2 x10^3/uL (0.0-1.1); MONO % 8 % (0-9); NEUT # 10.1 x10^3/uL (1.8-7.7); NEUT % 66 % (31-73); PLATELET COUNT 193 x10^3/uL (140-400); RED BLOOD COUNT 2.25 x10^6/uL (3.50-5.40); RED CELL DISTRIBUTION WIDTH 17.7 % (11.5-14.5); WHITE BLOOD COUNT 15.5 x10^3/uL (4.0-11.0)
[2019-01-13 22:30] LABS: HEMATOCRIT 19.8 % (36.0-47.0); HEMOGLOBIN 6.4 g/dL (12.0-15.5)
[2019-01-13] MEDS: fentaNYL PF VIAL 100 MCG/2 ML VIAL IV PRN (23:05)
--- NOTE | 2019-01-13 23:24 | NUR ---
Patient went to V/Q scan, tolerated well. When patient returned, received the 500 mls of NS to complete the sepsis fluid bolus. Patient alert and oriented, able to answer admission questions when asked. VSS. Dr. Hoskins returned page for Dr. Kiser, no new orders given. Patient only received one antibiotic in the ED, notified Dr. Cheung, received orders. Sister aware of admission and given the passcode. At 2230, received a critical hgb/hct. Called Dr. Hoskins regarding critical results at 2240, received no call back. Called Dr. Cheung at 2310, orders received. Will continue to monitor.
[2019-01-13] MEDS: PANTOPRAZOLE SODIUM IV DRIP 80 MG in IV NORMAL SALINE 100ML 100 ML IV SCH (23:33)
[2019-01-14] VITALS (25 sets, daily range): BP systolic 96–140; BP diastolic 46–83
[2019-01-14] MEDS: fentaNYL PF VIAL 100 MCG/2 ML VIAL IV PRN (01:25)
[2019-01-14] MEDS: MEROPENEM 1 GM in IV NORMAL SALINE 100ML 100 ML IV SCH (05:29)
[2019-01-14] MEDS: LEVOTHYROXINE 175 MCG TABLET PO SCH ×2 (05:29→08:35)
--- NOTE | 2019-01-14 06:57 | PDOC ---
Infectious Disease Note Vital Sign Vital Signs Vital Signs Date Time Temp Pulse Resp B/P (MAP) Pulse Ox O2 Delivery O2 Flow Rate FiO2 01/14/19 06:00 98.4 99 24 135/83 (100) 100 Nasal Cannula 3.0 98.4 Labs Lab Laboratory Tests Test 01/13/19 15:15 01/13/19 15:38 01/13/19 15:50 01/13/19 17:05 White Blood Count 23.7 x10^3/uL (4.0-11.0) Red Blood Count 2.82 x10^6/uL (3.50-5.40) Hemoglobin 8.0 g/dL (12.0-15.5) Hematocrit 25.4 % (36.0-47.0) Mean Corpuscular Volume 90 fL (79-100) Mean Corpuscular Hemoglobin 28 pg (25-35) Mean Corpuscular Hemoglobin Concent 31 g/dL (31-37) Red Cell Distribution Width 17.5 % (11.5-14.5) Platelet Count 252 x10^3/uL (140-400) Neutrophils (%) (Auto) 66 % (31-73) Lymphocytes (%) (Auto) 27 % (24-48) Monocytes (%) (Auto) 6 % (0-9) Eosinophils (%) (Auto) 1 % (0-3) Basophils (%) (Auto) 1 % (0-3) Neutrophils # (Auto) 15.6 x10^3/uL (1.8-7.7) Lymphocytes # (Auto) 6.3 x10^3/uL (1.0-4.8) Monocytes # (Auto) 1.3 x10^3/uL (0.0-1.1) Eosinophils # (Auto) 0.3 x10^3/uL (0.0-0.7) Basophils # (Auto) 0.1 x10^3/uL (0.0-0.2) Segmented Neutrophils % 68 % (35-66) Band Neutrophils % 3 % (0-9) Lymphocytes % 23 % (24-48) Monocytes % 3 % (0-10) Eosinophils % 2 % (0-5) Myelocytes % 1 % (0-0) Platelet Estimate Adequate (ADEQUATE) Polychromasia Slight Anisocytosis Slight Prothrombin Time 17.9 SEC (11.7-14.0) Prothromb Time International Ratio 1.5 (0.8-1.1) Activated Partial Thromboplast Time 30 SEC (24-38) D-Dimer (Loretta) 0.52 ug/mlFEU (0.00-0.50) Sodium Level 140 mmol/L (136-145) Potassium Level 4.2 mmol/L (3.5-5.1) Chloride Level 100 mmol/L (98-107) Carbon Dioxide Level 22 mmol/L (21-32) Anion Gap 18 (6-14) Blood Urea Nitrogen 21 mg/dL (7-20) Creatinine 1.4 mg/dL (0.6-1.0) Estimated GFR (Cockcroft-Gault) 37.9 BUN/Creatinine Ratio 15 (6-20) Glucose Level 152 mg/dL (70-99) Calcium Level 8.7 mg/dL (8.5-10.1) Total Bilirubin 0.4 mg/dL (0.2-1.0) Aspartate Amino Transf (AST/SGOT) 12 U/L (15-37) Alanine Aminotransferase (ALT/SGPT) 22 U/L (14-59) Alkaline Phosphatase 65 U/L (46-116) Troponin I Quantitative < 0.017 ng/mL (0.000-0.055) AT-[id number]-Type Natriuretic Peptide 659 pg/mL (0-124) Total Protein 6.8 g/dL (6.4-8.2) Albumin 3.0 g/dL (3.4-5.0) Albumin/Globulin Ratio 0.8 (1.0-1.7) Procalcitonin < 0.10 ng/mL (0.00-0.10) Lactic Acid Level 4.6 mmol/L (0.4-2.0) Stool Occult Blood Positive (NEG) Urine Collection Type U cath Urine Color Yellow Urine Clarity Clear Urine pH 8.5 Urine Specific [place] 1.020 Urine Protein 30 mg/dL (NEG-TRACE) Urine Glucose (UA) Negative mg/dL (NEG) Urine Ketones (Stick) 15 mg/dL (NEG) Urine Blood Negative (NEG) Urine Nitrite Negative (NEG) Urine Bilirubin Negative (NEG) Urine Urobilinogen Dipstick 0.2 mg/dL (0.2 mg/dL) Urine Leukocyte Esterase Moderate (NEG) Urine RBC Occ /HPF (0-2) Urine WBC >40 /HPF (0-4) Urine Squamous Epithelial Cells Mod /LPF Urine Bacteria Many /HPF (0-FEW) Test 01/13/19 19:35 01/13/19 22:15 Lactic Acid Level 2.7 mmol/L (0.4-2.0) White Blood Count 15.5 x10^3/uL (4.0-11.0) Red Blood Count 2.25 x10^6/uL (3.50-5.40) Hemoglobin 6.4 g/dL (12.0-15.5) Hematocrit 19.8 % (36.0-47.0) Mean Corpuscular Volume 88 fL (79-100) Mean Corpuscular Hemoglobin 29 pg (25-35) Mean Corpuscular Hemoglobin Concent 33 g/dL (31-37) Red Cell Distribution Width 17.7 % (11.5-14.5) Platelet Count 193 x10^3/uL (140-400) Neutrophils (%) (Auto) 66 % (31-73) Lymphocytes (%) (Auto) 24 % (24-48) Monocytes (%) (Auto) 8 % (0-9) Eosinophils (%) (Auto) 2 % (0-3) Basophils (%) (Auto) 1 % (0-3) Neutrophils # (Auto) 10.1 x10^3/uL (1.8-7.7) Lymphocytes # (Auto) 3.6 x10^3/uL (1.0-4.8) Monocytes # (Auto) 1.2 x10^3/uL (0.0-1.1) Eosinophils # (Auto) 0.3 x10^3/uL (0.0-0.7) Basophils # (Auto) 0.2 x10^3/uL (0.0-0.2) Objective Assessment Rectal bleed Leukocytosis - reactive plus on steroids takes 15 mg po QOD for asthma ? UTI- POA - ? contamination with squamous cells and asymptomatic - recent kidney stones with stent and removal last month abx allergies - PCN - as child - rash and swelling - tolerated Rocephin, Sulfa- hives and swelling, Levoflox- swelling Low grade temp - likely from PRBCs Lactic acidosis Afib H/o PE and DVTs Plan Plan of Care D/c Rocephin Cont Meropenem but adjust dose with BOBO BMP this am labs in am F/u cults and hopefully taper to po May need Cardiology eval Thank you # [id number] ROHIT BLANCA MD Jan 14, 2019 06:57
[2019-01-14] MEDS: POTASSIUM CHLORIDE 20 MEQ TABLET.ER. PO SCH (08:00)
[2019-01-14] MEDS: IPRATRPIUM/ALBUTEROL 0.5/2.5MG 3 ML NEBU. NEB SCH ×4 (08:27→21:56)
[2019-01-14] MEDS ORDERED: DOCUSATE SODIUM 100 MG CAPSULE. PO ONE (08:27)
[2019-01-14] MEDS: BUDESONIDE 0.5 MG/2 ML NEBU. NEB SCH ×2 (08:27→20:00)
[2019-01-14] MEDS: FERROUS SULFATE 325 MG TABLET. PO SCH (08:35)
[2019-01-14] MEDS: DULoxetine HCL 30 MG CAPSULE.DR PO SCH (08:37)
[2019-01-14] MEDS: GABAPENTIN 300 MG CAPSULE. PO SCH ×2 (08:37→21:24)
[2019-01-14] MEDS: METOPROLOL SUCC 24HR ER 25 MG TAB.ER.24H. PO SCH (08:38)
[2019-01-14] MEDS: PANTOPRAZOLE SODIUM IV DRIP 80 MG in IV NORMAL SALINE 100ML 100 ML IV SCH (08:48)
[2019-01-14] MEDS: buPROPion XL 150 MG TAB.ER.24H. PO SCH (09:00)
[2019-01-14] MEDS ORDERED: DIGOXIN 125 MCG TABLET. PO SCH (09:00)
--- NOTE | 2019-01-14 10:32 | PDOC2 ---
GI CONSULT Reason For Consult: Rectal bleeding HPI: HPI: 63 y/o female w/ h/o A Fib and PE on Xarelto. Had diarrhea w/ red blood while traveling back from [place] on Friday. Took Imodium, diarrhea stopped, but bleeding continued w/ dark red clots. Stopped Xarelto when the bleeding didn't stop. Last occurred yesterday when arriving to ER. Associated w/ abd "pressure" once, sweats/chills, and SOA. Limited diet to [place] and other liquids. A Fib RVR. Noted w/ Hgb 8 to 6.4, fecal occult positive. S/p transfusion (has another ordered). Hospitalized for extended periods last year - describes sepsis, pneumonia, UTIs, renal failure, and anemia requiring transfusions. Thinks last Hgb was 11 ~3 months ago, on iron QD at home. H/o GERD controlled w/ omeprazole QD. Rare dysphagia w/ water and solid foods. No n/v. Typically no diarrhea or constipation. No melena. Weight loss w/ low sodium diet. No previous EGD. Colonoscopy >10 years ago in [place] w/ polyps but not diverticulosis. S/p vertical banded gastroplasty in the , says the pouch is still there but the suture line is not intact. Cholecystectomy during that surgery. No liver, pancreas, or PUD history. On diclofenac BID for OA pain, also hydrocodone PRN. PMH: PMH: A Fib, CAD, HTN, HLD, FREEMAN, pneumonia, PE, ureterolithiasis, OA, UTI, hemorrhoids, hypothyroidism cholecystectomy, vertical banded gastroplasty, right breast biopsy, tonsillectomy, right ureteroscopy/stent FH: Family History: Other (father - alcoholic liver disease) Social History: Smoke: No ALCOHOL: rare Drugs: None ROS: GEN: Denies fevers, chills, sweats HEENT: Denies blurred vision, sore throat CV: Denies chest pain RESP: +SOA GI: Per HPI : Denies hematuria, dysuria ENDO: +intentional weight loss NEURO: Denies confusion, dizziness MSK: +arthritis pain SKIN: Denies jaundice, pruritus Vitals: Vitals: Vital Signs Date Time Temp Pulse Resp B/P (MAP) Pulse Ox O2 Delivery O2 Flow Rate FiO2 01/14/19 09:00 98 123/60 (81) Nasal Cannula 3.0 01/14/19 08:34 98 01/14/19 08:00 98.0 98.0 01/14/19 06:00 24 Labs: Labs: Laboratory Tests Test 01/13/19 15:15 01/13/19 15:38 01/13/19 15:50 01/13/19 17:05 White Blood Count 23.7 x10^3/uL (4.0-11.0) Red Blood Count 2.82 x10^6/uL (3.50-5.40) Hemoglobin 8.0 g/dL (12.0-15.5) Hematocrit 25.4 % (36.0-47.0) Mean Corpuscular Volume 90 fL (79-100) Mean Corpuscular Hemoglobin 28 pg (25-35) Mean Corpuscular Hemoglobin Concent 31 g/dL (31-37) Red Cell Distribution Width 17.5 % (11.5-14.5) Platelet Count 252 x10^3/uL (140-400) Neutrophils (%) (Auto) 66 % (31-73) Lymphocytes (%) (Auto) 27 % (24-48) Monocytes (%) (Auto) 6 % (0-9) Eosinophils (%) (Auto) 1 % (0-3) Basophils (%) (Auto) 1 % (0-3) Neutrophils # (Auto) 15.6 x10^3/uL (1.8-7.7) Lymphocytes # (Auto) 6.3 x10^3/uL (1.0-4.8) Monocytes # (Auto) 1.3 x10^3/uL (0.0-1.1) Eosinophils # (Auto) 0.3 x10^3/uL (0.0-0.7) Basophils # (Auto) 0.1 x10^3/uL (0.0-0.2) Segmented Neutrophils % 68 % (35-66) Band Neutrophils % 3 % (0-9) Lymphocytes % 23 % (24-48) Monocytes % 3 % (0-10) Eosinophils % 2 % (0-5) Myelocytes % 1 % (0-0) Platelet Estimate Adequate (ADEQUATE) Polychromasia Slight Anisocytosis Slight Prothrombin Time 17.9 SEC (11.7-14.0) Prothromb Time International Ratio 1.5 (0.8-1.1) Activated Partial Thromboplast Time 30 SEC (24-38) D-Dimer (Loretta) 0.52 ug/mlFEU (0.00-0.50) Sodium Level 140 mmol/L (136-145) Potassium Level 4.2 mmol/L (3.5-5.1) Chloride Level 100 mmol/L (98-107) Carbon Dioxide Level 22 mmol/L (21-32) Anion Gap 18 (6-14) Blood Urea Nitrogen 21 mg/dL (7-20) Creatinine 1.4 mg/dL (0.6-1.0) Estimated GFR (Cockcroft-Gault) 37.9 BUN/Creatinine Ratio 15 (6-20) Glucose Level 152 mg/dL (70-99) Calcium Level 8.7 mg/dL (8.5-10.1) Total Bilirubin 0.4 mg/dL (0.2-1.0) Aspartate Amino Transf (AST/SGOT) 12 U/L (15-37) Alanine Aminotransferase (ALT/SGPT) 22 U/L (14-59) Alkaline Phosphatase 65 U/L (46-116) Troponin I Quantitative < 0.017 ng/mL (0.000-0.055) EZ-Unp-T-Type Natriuretic Peptide 659 pg/mL (0-124) Total Protein 6.8 g/dL (6.4-8.2) Albumin 3.0 g/dL (3.4-5.0) Albumin/Globulin Ratio 0.8 (1.0-1.7) Procalcitonin < 0.10 ng/mL (0.00-0.10) Lactic Acid Level 4.6 mmol/L (0.4-2.0) Stool Occult Blood Positive (NEG) Urine Collection Type U cath Urine Color Yellow Urine Clarity Clear Urine pH 8.5 Urine Specific [place] 1.020 Urine Protein 30 mg/dL (NEG-TRACE) Urine Glucose (UA) Negative mg/dL (NEG) Urine Ketones (Stick) 15 mg/dL (NEG) Urine Blood Negative (NEG) Urine Nitrite Negative (NEG) Urine Bilirubin Negative (NEG) Urine Urobilinogen Dipstick 0.2 mg/dL (0.2 mg/dL) Urine Leukocyte Esterase Moderate (NEG) Urine RBC Occ /HPF (0-2) Urine WBC >40 /HPF (0-4) Urine Squamous Epithelial Cells Mod /LPF Urine Bacteria Many /HPF (0-FEW) Test 01/13/19 19:35 01/13/19 22:15 Lactic Acid Level 2.7 mmol/L (0.4-2.0) White Blood Count 15.5 x10^3/uL (4.0-11.0) Red Blood Count 2.25 x10^6/uL (3.50-5.40) Hemoglobin 6.4 g/dL (12.0-15.5) Hematocrit 19.8 % (36.0-47.0) Mean Corpuscular Volume 88 fL (79-100) Mean Corpuscular Hemoglobin 29 pg (25-35) Mean Corpuscular Hemoglobin Concent 33 g/dL (31-37) Red Cell Distribution Width 17.7 % (11.5-14.5) Platelet Count 193 x10^3/uL (140-400) Neutrophils (%) (Auto) 66 % (31-73) Lymphocytes (%) (Auto) 24 % (24-48) Monocytes (%) (Auto) 8 % (0-9) Eosinophils (%) (Auto) 2 % (0-3) Basophils (%) (Auto) 1 % (0-3) Neutrophils # (Auto) 10.1 x10^3/uL (1.8-7.7) Lymphocytes # (Auto) 3.6 x10^3/uL (1.0-4.8) Monocytes # (Auto) 1.2 x10^3/uL (0.0-1.1) Eosinophils # (Auto) 0.3 x10^3/uL (0.0-0.7) Basophils # (Auto) 0.2 x10^3/uL (0.0-0.2) Allergies: Coded Allergies: levofloxacin (Verified Allergy, Severe, Anaphylaxis, 12/17/18) Influenza Virus Vaccines (Verified Adverse Reaction, Intermediate, 12/17/18) asthma attack/reaction Penicillins (Verified Adverse Reaction, Intermediate, Rash, 12/17/18) also dyspnea Sulfa (Sulfonamide Antibiotics) (Verified Adverse Reaction, Intermediate, Rash, 12/17/18) Medications: Current Medications Medications (Trade) Dose Ordered Sig/Ijeoma Route PRN Reason Start Time Stop Time Status Last Admin Dose Admin Digoxin (Lanoxin) 125 mcg 1X STAT PO 01/13/19 15:15 01/13/19 15:19 DC 01/13/19 15:50 Albuterol/ Ipratropium (Duoneb) 3 ml 1X ONCE NEB 01/13/19 16:30 01/13/19 16:31 DC 01/13/19 16:07 Sodium Chloride 1,000 ml @ 1,000 mls/hr 1X ONCE IV 01/13/19 17:30 01/13/19 18:29 DC 01/13/19 17:29 Sodium Chloride 500 ml @ 500 mls/hr 1X ONCE IV 01/13/19 17:00 01/13/19 17:59 DC 01/13/19 19:41 Pantoprazole Sodium (PROTONIX VIAL for IV PUSH) 40 mg 1X ONCE IVP 01/13/19 17:30 01/13/19 17:31 DC 01/13/19 17:45 Ceftriaxone Sodium (Rocephin) 1 gm 1X ONCE IVP 01/13/19 17:30 01/13/19 17:31 DC 01/13/19 17:47 Fentanyl Citrate (Fentanyl 2ml Vial) 50 mcg PRN Q1HR PRN IV PAIN 01/13/19 17:30 01/14/19 17:29 01/14/19 01:25 Cyclobenzaprine HCl (Flexeril) 10 mg PRN BID PRN PO MUSCLE SPASMS 01/13/19 20:45 01/14/19 08:36 Ferrous Sulfate (Feosol) 325 mg DAILY PO 01/14/19 09:00 01/14/19 08:35 Acetaminophen/ Hydrocodone Bitart (Lortab 5/325) 1 tab PRN Q6HRS PRN PO PAIN 01/13/19 20:45 01/14/19 08:34 Metoprolol Succinate (Toprol Xl) 25 mg DAILY PO 01/14/19 09:00 01/14/19 08:38 Diltiazem HCl (Cardizem 24hr Cd) 240 mg DAILY PO 01/14/19 09:00 01/14/19 08:35 Duloxetine HCl (Cymbalta) 60 mg DAILY PO 01/14/19 09:00 01/14/19 08:37 Gabapentin (Neurontin) 300 mg BID PO 01/13/19 21:00 01/14/19 08:37 Levothyroxine Sodium (Synthroid) 175 mcg DAILY06 PO 01/14/19 06:00 01/14/19 08:35 Budesonide (Pulmicort) 0.5 mg RTBID NEB 01/13/19 22:00 01/14/19 08:27 Albuterol/ Ipratropium (Duoneb) 3 ml RTQID NEB 01/13/19 22:00 01/14/19 08:27 Meropenem 1 gm/ Sodium Chloride 100 ml @ 200 mls/hr Q8HRS IV 01/13/19 22:00 01/14/19 07:32 DC 01/14/19 05:29 Pantoprazole Sodium 80 mg/ Sodium Chloride 100 ml @ 10 mls/hr Q10H IV 01/14/19 00:00 01/17/19 00:00 01/14/19 08:48 Imaging: Imaging: CXR IMPRESSION: No pulmonary consolidation or acute airspace disease. VQ scan Impression: Low probability for pulmonary embolism. PE: GEN: obese HEENT: Atraumatic, PERRL LUNGS: CTAB, NC HEART: irregularly irregular ABD: NABS, S/NT, large EXTREMITY: BLE edema SKIN: No rashes, no jaundice NEURO/PSYCH: A & O 3 A/P: A/P: SOA, sweats/chills, diarrhea (resolved) w/ hematochezia A Fib, h/o PE - on Xarelto (she held at home) Leukocytosis, lactic acidosis, ?BOBO/CKD Anemia - chronic, on iron QD at home GERD - controlled w/ PPI CRC screen, h/o polyps - last >10 years ago in [place] H/o hemorrhoids S/p vertical banded gastroplasty S/p cholecystectomy NSAID use -- Agree w/ NPO - ice chips okay. Continue PPI in some form. Monitor labs, observe for recurrent bleeding, transfuse as needed. Hold Xarelto. ?abd imaging JOSEPH ESCOBEDO Jan 14, 2019 10:32
[2019-01-14 10:47] LABS: BASO % 0 % (0-3); EOS # 0.4 x10^3/uL (0.0-0.7); EOS % 3 % (0-3); HEMATOCRIT 23.1 % (36.0-47.0); HEMOGLOBIN 7.5 g/dL (12.0-15.5); LYMPH # 1.8 x10^3/uL (1.0-4.8); LYMPH % 16 % (24-48); MEAN CORPUSCULAR HEMOGLOBIN 29 pg (25-35); MEAN CORPUSCULAR HGB CONC 33 g/dL (31-37); MEAN CORPUSCULAR VOLUME 89 fL (79-100); MONO % 9 % (0-9); NEUT # 8.4 x10^3/uL (1.8-7.7); NEUT % 72 % (31-73); PLATELET COUNT 160 x10^3/uL (140-400); RED CELL DISTRIBUTION WIDTH 16.7 % (11.5-14.5); WHITE BLOOD COUNT 11.6 x10^3/uL (4.0-11.0)
[2019-01-14 10:58] LABS: CALCIUM 7.7 mg/dL (8.5-10.1); CREATININE 1.1 mg/dL (0.6-1.0); POTASSIUM 3.4 mmol/L (3.5-5.1)
--- NOTE | 2019-01-14 12:36 | PDOC ---
PROGRESS NOTES Chief Complaint Chief Complaint Severe sepsis, ACUTE PYELONEPHRITIS GI bleed, acute blood loss anemia Atrial fibrillation with RVR No pulmonary consolidation or acute airspace disease. Elevated d-dimer morbid obesity, BMI 52 History of Present Illness History of Present Illness hgb stable fatigued, feels better sepsis treated, ID following hgb ok Vitals Vitals Vital Signs Date Time Temp Pulse Resp B/P (MAP) Pulse Ox O2 Delivery O2 Flow Rate FiO2 01/14/19 11:33 100 Nasal Cannula 2.0 01/14/19 10:00 70 17 101/62 (75) 01/14/19 08:00 98.0 98.0 Physical Exam General: Alert, Cooperative, No acute distress Heart: Regular rate, Normal S2 Lungs: Wheezing Extremities: No clubbing, No cyanosis Skin: No breakdown Labs LABS Laboratory Tests Test 01/13/19 15:15 01/13/19 15:38 01/13/19 15:50 01/13/19 17:05 White Blood Count 23.7 x10^3/uL (4.0-11.0) Red Blood Count 2.82 x10^6/uL (3.50-5.40) Hemoglobin 8.0 g/dL (12.0-15.5) Hematocrit 25.4 % (36.0-47.0) Mean Corpuscular Volume 90 fL (79-100) Mean Corpuscular Hemoglobin 28 pg (25-35) Mean Corpuscular Hemoglobin Concent 31 g/dL (31-37) Red Cell Distribution Width 17.5 % (11.5-14.5) Platelet Count 252 x10^3/uL (140-400) Neutrophils (%) (Auto) 66 % (31-73) Lymphocytes (%) (Auto) 27 % (24-48) Monocytes (%) (Auto) 6 % (0-9) Eosinophils (%) (Auto) 1 % (0-3) Basophils (%) (Auto) 1 % (0-3) Neutrophils # (Auto) 15.6 x10^3/uL (1.8-7.7) Lymphocytes # (Auto) 6.3 x10^3/uL (1.0-4.8) Monocytes # (Auto) 1.3 x10^3/uL (0.0-1.1) Eosinophils # (Auto) 0.3 x10^3/uL (0.0-0.7) Basophils # (Auto) 0.1 x10^3/uL (0.0-0.2) Segmented Neutrophils % 68 % (35-66) Band Neutrophils % 3 % (0-9) Lymphocytes % 23 % (24-48) Monocytes % 3 % (0-10) Eosinophils % 2 % (0-5) Myelocytes % 1 % (0-0) Platelet Estimate Adequate (ADEQUATE) Polychromasia Slight Anisocytosis Slight Prothrombin Time 17.9 SEC (11.7-14.0) Prothromb Time International Ratio 1.5 (0.8-1.1) Activated Partial Thromboplast Time 30 SEC (24-38) D-Dimer (Loretta) 0.52 ug/mlFEU (0.00-0.50) Sodium Level 140 mmol/L (136-145) Potassium Level 4.2 mmol/L (3.5-5.1) Chloride Level 100 mmol/L (98-107) Carbon Dioxide Level 22 mmol/L (21-32) Anion Gap 18 (6-14) Blood Urea Nitrogen 21 mg/dL (7-20) Creatinine 1.4 mg/dL (0.6-1.0) Estimated GFR (Cockcroft-Gault) 37.9 BUN/Creatinine Ratio 15 (6-20) Glucose Level 152 mg/dL (70-99) Calcium Level 8.7 mg/dL (8.5-10.1) Total Bilirubin 0.4 mg/dL (0.2-1.0) Aspartate Amino Transf (AST/SGOT) 12 U/L (15-37) Alanine Aminotransferase (ALT/SGPT) 22 U/L (14-59) Alkaline Phosphatase 65 U/L (46-116) Troponin I Quantitative < 0.017 ng/mL (0.000-0.055) BA-Hxl-D-Type Natriuretic Peptide 659 pg/mL (0-124) Total Protein 6.8 g/dL (6.4-8.2) Albumin 3.0 g/dL (3.4-5.0) Albumin/Globulin Ratio 0.8 (1.0-1.7) Procalcitonin < 0.10 ng/mL (0.00-0.10) Lactic Acid Level 4.6 mmol/L (0.4-2.0) Stool Occult Blood Positive (NEG) Urine Collection Type U cath Urine Color Yellow Urine Clarity Clear Urine pH 8.5 Urine Specific [place] 1.020 Urine Protein 30 mg/dL (NEG-TRACE) Urine Glucose (UA) Negative mg/dL (NEG) Urine Ketones (Stick) 15 mg/dL (NEG) Urine Blood Negative (NEG) Urine Nitrite Negative (NEG) Urine Bilirubin Negative (NEG) Urine Urobilinogen Dipstick 0.2 mg/dL (0.2 mg/dL) Urine Leukocyte Esterase Moderate (NEG) Urine RBC Occ /HPF (0-2) Urine WBC >40 /HPF (0-4) Urine Squamous Epithelial Cells Mod /LPF Urine Bacteria Many /HPF (0-FEW) Test 01/13/19 19:35 01/13/19 22:15 01/14/19 10:18 Lactic Acid Level 2.7 mmol/L (0.4-2.0) White Blood Count 15.5 x10^3/uL (4.0-11.0) 11.6 x10^3/uL (4.0-11.0) Red Blood Count 2.25 x10^6/uL (3.50-5.40) 2.60 x10^6/uL (3.50-5.40) Hemoglobin 6.4 g/dL (12.0-15.5) 7.5 g/dL (12.0-15.5) Hematocrit 19.8 % (36.0-47.0) 23.1 % (36.0-47.0) Mean Corpuscular Volume 88 fL (79-100) 89 fL (79-100) Mean Corpuscular Hemoglobin 29 pg (25-35) 29 pg (25-35) Mean Corpuscular Hemoglobin Concent 33 g/dL (31-37) 33 g/dL (31-37) Red Cell Distribution Width 17.7 % (11.5-14.5) 16.7 % (11.5-14.5) Platelet Count 193 x10^3/uL (140-400) 160 x10^3/uL (140-400) Neutrophils (%) (Auto) 66 % (31-73) 72 % (31-73) Lymphocytes (%) (Auto) 24 % (24-48) 16 % (24-48) Monocytes (%) (Auto) 8 % (0-9) 9 % (0-9) Eosinophils (%) (Auto) 2 % (0-3) 3 % (0-3) Basophils (%) (Auto) 1 % (0-3) 0 % (0-3) Neutrophils # (Auto) 10.1 x10^3/uL (1.8-7.7) 8.4 x10^3/uL (1.8-7.7) Lymphocytes # (Auto) 3.6 x10^3/uL (1.0-4.8) 1.8 x10^3/uL (1.0-4.8) Monocytes # (Auto) 1.2 x10^3/uL (0.0-1.1) 1.0 x10^3/uL (0.0-1.1) Eosinophils # (Auto) 0.3 x10^3/uL (0.0-0.7) 0.4 x10^3/uL (0.0-0.7) Basophils # (Auto) 0.2 x10^3/uL (0.0-0.2) 0.0 x10^3/uL (0.0-0.2) Sodium Level 142 mmol/L (136-145) Potassium Level 3.4 mmol/L (3.5-5.1) Chloride Level 104 mmol/L (98-107) Carbon Dioxide Level 27 mmol/L (21-32) Anion Gap 11 (6-14) Blood Urea Nitrogen 15 mg/dL (7-20) Creatinine 1.1 mg/dL (0.6-1.0) Estimated GFR (Cockcroft-Gault) 50.0 Glucose Level 111 mg/dL (70-99) Calcium Level 7.7 mg/dL (8.5-10.1) Review of Systems Review of Systems no stool days, but bloody stool yesteday Assessment and Plan Assessmemt and Plan Problems Medical Problems: (1) Atrial fibrillation with RVR Status: Acute (2) Elevated d-dimer Status: Acute (3) GI bleed Status: Acute (4) Severe sepsis Status: Acute (5) Urinary tract infection Status: Acute Comment Review of Relevant I have reviewed the following items jorge (where applicable) has been applied. Labs Laboratory Tests Test 01/13/19 15:15 01/13/19 15:38 01/13/19 15:50 01/13/19 17:05 White Blood Count 23.7 x10^3/uL (4.0-11.0) Red Blood Count 2.82 x10^6/uL (3.50-5.40) Hemoglobin 8.0 g/dL (12.0-15.5) Hematocrit 25.4 % (36.0-47.0) Mean Corpuscular Volume 90 fL (79-100) Mean Corpuscular Hemoglobin 28 pg (25-35) Mean Corpuscular Hemoglobin Concent 31 g/dL (31-37) Red Cell Distribution Width 17.5 % (11.5-14.5) Platelet Count 252 x10^3/uL (140-400) Neutrophils (%) (Auto) 66 % (31-73) Lymphocytes (%) (Auto) 27 % (24-48) Monocytes (%) (Auto) 6 % (0-9) Eosinophils (%) (Auto) 1 % (0-3) Basophils (%) (Auto) 1 % (0-3) Neutrophils # (Auto) 15.6 x10^3/uL (1.8-7.7) Lymphocytes # (Auto) 6.3 x10^3/uL (1.0-4.8) Monocytes # (Auto) 1.3 x10^3/uL (0.0-1.1) Eosinophils # (Auto) 0.3 x10^3/uL (0.0-0.7) Basophils # (Auto) 0.1 x10^3/uL (0.0-0.2) Segmented Neutrophils % 68 % (35-66) Band Neutrophils % 3 % (0-9) Lymphocytes % 23 % (24-48) Monocytes % 3 % (0-10) Eosinophils % 2 % (0-5) Myelocytes % 1 % (0-0) Platelet Estimate Adequate (ADEQUATE) Polychromasia Slight Anisocytosis Slight Prothrombin Time 17.9 SEC (11.7-14.0) Prothromb Time International Ratio 1.5 (0.8-1.1) Activated Partial Thromboplast Time 30 SEC (24-38) D-Dimer (Loretta) 0.52 ug/mlFEU (0.00-0.50) Sodium Level 140 mmol/L (136-145) Potassium Level 4.2 mmol/L (3.5-5.1) Chloride Level 100 mmol/L (98-107) Carbon Dioxide Level 22 mmol/L (21-32) Anion Gap 18 (6-14) Blood Urea Nitrogen 21 mg/dL (7-20) Creatinine 1.4 mg/dL (0.6-1.0) Estimated GFR (Cockcroft-Gault) 37.9 BUN/Creatinine Ratio 15 (6-20) Glucose Level 152 mg/dL (70-99) Calcium Level 8.7 mg/dL (8.5-10.1) Total Bilirubin 0.4 mg/dL (0.2-1.0) Aspartate Amino Transf (AST/SGOT) 12 U/L (15-37) Alanine Aminotransferase (ALT/SGPT) 22 U/L (14-59) Alkaline Phosphatase 65 U/L (46-116) Troponin I Quantitative < 0.017 ng/mL (0.000-0.055) SN-Wxk-M-Type Natriuretic Peptide 659 pg/mL (0-124) Total Protein 6.8 g/dL (6.4-8.2) Albumin 3.0 g/dL (3.4-5.0) Albumin/Globulin Ratio 0.8 (1.0-1.7) Procalcitonin < 0.10 ng/mL (0.00-0.10) Lactic Acid Level 4.6 mmol/L (0.4-2.0) Stool Occult Blood Positive (NEG) Urine Collection Type U cath Urine Color Yellow Urine Clarity Clear Urine pH 8.5 Urine Specific [place] 1.020 Urine Protein 30 mg/dL (NEG-TRACE) Urine Glucose (UA) Negative mg/dL (NEG) Urine Ketones (Stick) 15 mg/dL (NEG) Urine Blood Negative (NEG) Urine Nitrite Negative (NEG) Urine Bilirubin Negative (NEG) Urine Urobilinogen Dipstick 0.2 mg/dL (0.2 mg/dL) Urine Leukocyte Esterase Moderate (NEG) Urine RBC Occ /HPF (0-2) Urine WBC >40 /HPF (0-4) Urine Squamous Epithelial Cells Mod /LPF Urine Bacteria Many /HPF (0-FEW) Test 01/13/19 19:35 01/13/19 22:15 7/18/19 10:18 Lactic Acid Level 2.7 mmol/L (0.4-2.0) White Blood Count 15.5 x10^3/uL (4.0-11.0) 11.6 x10^3/uL (4.0-11.0) Red Blood Count 2.25 x10^6/uL (3.50-5.40) 2.60 x10^6/uL (3.50-5.40) Hemoglobin 6.4 g/dL (12.0-15.5) 7.5 g/dL (12.0-15.5) Hematocrit 19.8 % (36.0-47.0) 23.1 % (36.0-47.0) Mean Corpuscular Volume 88 fL (79-100) 89 fL (79-100) Mean Corpuscular Hemoglobin 29 pg (25-35) 29 pg (25-35) Mean Corpuscular Hemoglobin Concent 33 g/dL (31-37) 33 g/dL (31-37) Red Cell Distribution Width 17.7 % (11.5-14.5) 16.7 % (11.5-14.5) Platelet Count 193 x10^3/uL (140-400) 160 x10^3/uL (140-400) Neutrophils (%) (Auto) 66 % (31-73) 72 % (31-73) Lymphocytes (%) (Auto) 24 % (24-48) 16 % (24-48) Monocytes (%) (Auto) 8 % (0-9) 9 % (0-9) Eosinophils (%) (Auto) 2 % (0-3) 3 % (0-3) Basophils (%) (Auto) 1 % (0-3) 0 % (0-3) Neutrophils # (Auto) 10.1 x10^3/uL (1.8-7.7) 8.4 x10^3/uL (1.8-7.7) Lymphocytes # (Auto) 3.6 x10^3/uL (1.0-4.8) 1.8 x10^3/uL (1.0-4.8) Monocytes # (Auto) 1.2 x10^3/uL (0.0-1.1) 1.0 x10^3/uL (0.0-1.1) Eosinophils # (Auto) 0.3 x10^3/uL (0.0-0.7) 0.4 x10^3/uL (0.0-0.7) Basophils # (Auto) 0.2 x10^3/uL (0.0-0.2) 0.0 x10^3/uL (0.0-0.2) Sodium Level 142 mmol/L (136-145) Potassium Level 3.4 mmol/L (3.5-5.1) Chloride Level 104 mmol/L (98-107) Carbon Dioxide Level 27 mmol/L (21-32) Anion Gap 11 (6-14) Blood Urea Nitrogen 15 mg/dL (7-20) Creatinine 1.1 mg/dL (0.6-1.0) Estimated GFR (Cockcroft-Gault) 50.0 Glucose Level 111 mg/dL (70-99) Calcium Level 7.7 mg/dL (8.5-10.1) Laboratory Tests Test 01/13/19 15:15 01/13/19 15:38 01/13/19 15:50 01/13/19 17:05 White Blood Count 23.7 x10^3/uL (4.0-11.0) Red Blood Count 2.82 x10^6/uL (3.50-5.40) Hemoglobin 8.0 g/dL (12.0-15.5) Hematocrit 25.4 % (36.0-47.0) Mean Corpuscular Volume 90 fL (79-100) Mean Corpuscular Hemoglobin 28 pg (25-35) Mean Corpuscular Hemoglobin Concent 31 g/dL (31-37) Red Cell Distribution Width 17.5 % (11.5-14.5) Platelet Count 252 x10^3/uL (140-400) Neutrophils (%) (Auto) 66 % (31-73) Lymphocytes (%) (Auto) 27 % (24-48) Monocytes (%) (Auto) 6 % (0-9) Eosinophils (%) (Auto) 1 % (0-3) Basophils (%) (Auto) 1 % (0-3) Neutrophils # (Auto) 15.6 x10^3/uL (1.8-7.7) Lymphocytes # (Auto) 6.3 x10^3/uL (1.0-4.8) Monocytes # (Auto) 1.3 x10^3/uL (0.0-1.1) Eosinophils # (Auto) 0.3 x10^3/uL (0.0-0.7) Basophils # (Auto) 0.1 x10^3/uL (0.0-0.2) Segmented Neutrophils % 68 % (35-66) Band Neutrophils % 3 % (0-9) Lymphocytes % 23 % (24-48) Monocytes % 3 % (0-10) Eosinophils % 2 % (0-5) Myelocytes % 1 % (0-0) Platelet Estimate Adequate (ADEQUATE) Polychromasia Slight Anisocytosis Slight Prothrombin Time 17.9 SEC (11.7-14.0) Prothromb Time International Ratio 1.5 (0.8-1.1) Activated Partial Thromboplast Time 30 SEC (24-38) D-Dimer (Loretta) 0.52 ug/mlFEU (0.00-0.50) Sodium Level 140 mmol/L (136-145) Potassium Level 4.2 mmol/L (3.5-5.1) Chloride Level 100 mmol/L (98-107) Carbon Dioxide Level 22 mmol/L (21-32) Anion Gap 18 (6-14) Blood Urea Nitrogen 21 mg/dL (7-20) Creatinine 1.4 mg/dL (0.6-1.0) Estimated GFR (Cockcroft-Gault) 37.9 BUN/Creatinine Ratio 15 (6-20) Glucose Level 152 mg/dL (70-99) Calcium Level 8.7 mg/dL (8.5-10.1) Total Bilirubin 0.4 mg/dL (0.2-1.0) Aspartate Amino Transf (AST/SGOT) 12 U/L (15-37) Alanine Aminotransferase (ALT/SGPT) 22 U/L (14-59) Alkaline Phosphatase 65 U/L (46-116) Troponin I Quantitative < 0.017 ng/mL (0.000-0.055) EN-Vpk-X-Type Natriuretic Peptide 659 pg/mL (0-124) Total Protein 6.8 g/dL (6.4-8.2) Albumin 3.0 g/dL (3.4-5.0) Albumin/Globulin Ratio 0.8 (1.0-1.7) Procalcitonin < 0.10 ng/mL (0.00-0.10) Lactic Acid Level 4.6 mmol/L (0.4-2.0) Stool Occult Blood Positive (NEG) Urine Collection Type U cath Urine Color Yellow Urine Clarity Clear Urine pH 8.5 Urine Specific [place] 1.020 Urine Protein 30 mg/dL (NEG-TRACE) Urine Glucose (UA) Negative mg/dL (NEG) Urine Ketones (Stick) 15 mg/dL (NEG) Urine Blood Negative (NEG) Urine Nitrite Negative (NEG) Urine Bilirubin Negative (NEG) Urine Urobilinogen Dipstick 0.2 mg/dL (0.2 mg/dL) Urine Leukocyte Esterase Moderate (NEG) Urine RBC Occ /HPF (0-2) Urine WBC >40 /HPF (0-4) Urine Squamous Epithelial Cells Mod /LPF Urine Bacteria Many /HPF (0-FEW) Test 01/13/19 19:35 01/13/19 22:15 01/14/19 10:18 Lactic Acid Level 2.7 mmol/L (0.4-2.0) White Blood Count 15.5 x10^3/uL (4.0-11.0) 11.6 x10^3/uL (4.0-11.0) Red Blood Count 2.25 x10^6/uL (3.50-5.40) 2.60 x10^6/uL (3.50-5.40) Hemoglobin 6.4 g/dL (12.0-15.5) 7.5 g/dL (12.0-15.5) Hematocrit 19.8 % (36.0-47.0) 23.1 % (36.0-47.0) Mean Corpuscular Volume 88 fL (79-100) 89 fL (79-100) Mean Corpuscular Hemoglobin 29 pg (25-35) 29 pg (25-35) Mean Corpuscular Hemoglobin Concent 33 g/dL (31-37) 33 g/dL (31-37) Red Cell Distribution Width 17.7 % (11.5-14.5) 16.7 % (11.5-14.5) Platelet Count 193 x10^3/uL (140-400) 160 x10^3/uL (140-400) Neutrophils (%) (Auto) 66 % (31-73) 72 % (31-73) Lymphocytes (%) (Auto) 24 % (24-48) 16 % (24-48) Monocytes (%) (Auto) 8 % (0-9) 9 % (0-9) Eosinophils (%) (Auto) 2 % (0-3) 3 % (0-3) Basophils (%) (Auto) 1 % (0-3) 0 % (0-3) Neutrophils # (Auto) 10.1 x10^3/uL (1.8-7.7) 8.4 x10^3/uL (1.8-7.7) Lymphocytes # (Auto) 3.6 x10^3/uL (1.0-4.8) 1.8 x10^3/uL (1.0-4.8) Monocytes # (Auto) 1.2 x10^3/uL (0.0-1.1) 1.0 x10^3/uL (0.0-1.1) Eosinophils # (Auto) 0.3 x10^3/uL (0.0-0.7) 0.4 x10^3/uL (0.0-0.7) Basophils # (Auto) 0.2 x10^3/uL (0.0-0.2) 0.0 x10^3/uL (0.0-0.2) Sodium Level 142 mmol/L (136-145) Potassium Level 3.4 mmol/L (3.5-5.1) Chloride Level 104 mmol/L (98-107) Carbon Dioxide Level 27 mmol/L (21-32) Anion Gap 11 (6-14) Blood Urea Nitrogen 15 mg/dL (7-20) Creatinine 1.1 mg/dL (0.6-1.0) Estimated GFR (Cockcroft-Gault) 50.0 Glucose Level 111 mg/dL (70-99) Calcium Level 7.7 mg/dL (8.5-10.1) Medications Current Medications Digoxin (Lanoxin) 125 mcg 1X STAT PO Last administered on 01/13/19at 15:50; Start 01/13/19 at 15:15; Stop 01/13/19 at 15:19; Status DC Albuterol/ Ipratropium (Duoneb) 3 ml 1X ONCE NEB Last administered on 01/13/19at 16:07; Start 01/13/19 at 16:30; Stop 01/13/19 at 16:31; Status DC Sodium Chloride 1,000 ml @ 1,000 mls/hr 1X ONCE IV Last administered on 01/13/19at 17:29; Start 01/13/19 at 17:30; Stop 01/13/19 at 18:29; Status DC Sodium Chloride 500 ml @ 500 mls/hr 1X ONCE IV Last administered on 01/13/19at 19:41; Start 01/13/19 at 17:00; Stop 01/13/19 at 17:59; Status DC Pantoprazole Sodium (PROTONIX VIAL for IV PUSH) 40 mg 1X ONCE IVP Last administered on 01/13/19at 17:45; Start 01/13/19 at 17:30; Stop 01/13/19 at 17:31; Status DC Ceftriaxone Sodium (Rocephin) 1 gm 1X ONCE IVP Last administered on 01/13/19at 17:47; Start 01/13/19 at 17:30; Stop 01/13/19 at 17:31; Status DC Ondansetron HCl (Zofran) 4 mg PRN Q8HRS PRN IV NAUSEA/VOMITING; Start 01/13/19 at 17:30; Stop 01/14/19 at 17:29 Fentanyl Citrate (Fentanyl 2ml Vial) 50 mcg PRN Q1HR PRN IV PAIN Last administered on 01/14/19at 01:25; Start 01/13/19 at 17:30; Stop 01/14/19 at 17:29 Ceftriaxone Sodium (Rocephin) 2 gm Q24H IVP ; Start 01/13/19 at 21:00; Stop 01/13/19 at 22:52; Status DC Albuterol Sulfate (Ventolin Neb Soln) 2.5 mg PRN QID PRN NEB SHORTNESS OF BREATH; Start 01/13/19 at 20:45 Clonazepam (KlonoPIN) 0.5 mg HS PO ; Start 01/13/19 at 21:00 Cyclobenzaprine HCl (Flexeril) 10 mg PRN BID PRN PO MUSCLE SPASMS Last administered on 01/14/19at 08:36; Start 01/13/19 at 20:45 Digoxin (Lanoxin) 125 mcg DAILY PO ; Start 01/14/19 at 09:00 Ferrous Sulfate (Feosol) 325 mg DAILY PO Last administered on 01/14/19at 08:35; Start 01/14/19 at 09:00 Acetaminophen/ Hydrocodone Bitart (Lortab 5/325) 1 tab PRN Q6HRS PRN PO PAIN Last administered on 01/14/19at 08:34; Start 01/13/19 at 20:45 Metoprolol Succinate (Toprol Xl) 25 mg DAILY PO Last administered on 01/14/19at 08:38; Start 01/14/19 at 09:00 Montelukast Sodium (Singulair) 10 mg HS PO ; Start 01/13/19 at 21:00 Prednisone (Prednisone) 15 mg QODAY PO ; Start 01/15/19 at 09:00 Bupropion HCl (Wellbutrin Xl) 300 mg DAILY PO ; Start 01/14/19 at 09:00 Diltiazem HCl (Cardizem 24hr Cd) 240 mg DAILY PO Last administered on 01/14/19at 08:35; Start 01/14/19 at 09:00 Duloxetine HCl (Cymbalta) 60 mg DAILY PO Last administered on 01/14/19at 08:37; Start 01/14/19 at 09:00 Gabapentin (Neurontin) 300 mg BID PO Last administered on 01/14/19at 08:37; Start 01/13/19 at 21:00 Levothyroxine Sodium (Synthroid) 175 mcg DAILY06 PO Last administered on 01/14/19at 08:35; Start 01/14/19 at 06:00 Budesonide (Pulmicort) 0.5 mg RTBID NEB Last administered on 01/14/19at 08:27; Start 01/13/19 at 22:00 Potassium Chloride (Klor-Con) 20 meq DAILYWBKFT PO ; Start 01/14/19 at 08:00 Ropinirole HCl (Requip) 1 mg QHS PO ; Start 01/13/19 at 21:00 Albuterol/ Ipratropium (Duoneb) 3 ml RTQID NEB Last administered on 01/14/19at 11:32; Start 01/13/19 at 22:00 Sodium Chloride 1,500 ml @ 1,500 mls/hr Q1H IV ; Start 01/13/19 at 20:47; Stop 01/13/19 at 20:56; Status DC Sodium Chloride 500 ml @ 1,000 mls/hr PRN Q30MIN PRN IV SEE COMMENTS; Start 01/13/19 at 21:00 Meropenem 1 gm/ Sodium Chloride 100 ml @ 200 mls/hr Q8HRS IV Last administered on 01/14/19at 05:29; Start 01/13/19 at 22:00; Stop 01/14/19 at 07:32; Status DC Norepinephrine Bitartrate 250 ml @ 0 mls/hr CONT PRN IV SEE I/O RECORD; Start 01/13/19 at 21:00 Dobutamine HCl/ Dextrose 250 ml @ 0 mls/hr CONT PRN IV SEE I/O RECORD; Start 01/13/19 at 21:00 Ceftriaxone Sodium (Rocephin) 2 gm Q24H IVP ; Start 01/14/19 at 18:00; Stop 01/14/19 at 18:00; Status DC Pantoprazole Sodium 80 mg/ Sodium Chloride 100 ml @ 10 mls/hr Q10H IV Last administered on 01/14/19at 08:48; Start 01/14/19 at 00:00; Stop 01/17/19 at 00:00 Meropenem 500 mg/ Sodium Chloride 50 ml @ 100 mls/hr Q6HRS IV ; Start 01/14/19 at 12:00 Docusate Sodium (Colace) 100 mg STK-MED ONCE PO ; Start 01/14/19 at 08:27; Stop 01/14/19 at 08:28; Status DC Active Scripts Active [place] 5-325 Tablet (Acetaminophen/Hydrocodone Bitart) 1 Each Tablet 1 Tab PO PRN Q6HRS PRN Reported Omeprazole 20 Mg Capsule.dr 1 Cap PO DAILY Spiriva (Tiotropium [place]) 18 Mcg Cap.w.dev 1 Inh IH DAILY Proair Hfa Inhaler (Albuterol Sulfate) 8.5 Gm Hfa.aer.ad 2 Puff INH PRN Q6HRS PRN Metoprolol Succinate ( Xl ) (Metoprolol Succinate) 25 Mg Tab.er.24h 25 Mg PO DAILY Potassium Chloride 20 Meq Tablet.er 20 Meq PO DAILY Imodium A-D (Loperamide HCl) 2 Mg Capsule 2 Mg PO PRN DAILY PRN Digoxin 125 Mcg Tablet 125 Mcg PO DAILY Clonazepam 0.5 Mg Tablet 0.5 Mg PO HS Bupropion Xl (Bupropion Hcl) 300 Mg Tab.er.24h 300 Mg PO DAILY Albuterol Sulfate Neb Soln (Albuterol Sulfate) 2.5 Mg/3 Ml Vial.neb 2.5 Mg NEB PRN QID PRN Dulera 200 Mcg/5 Mcg Inhaler (Mometasone/Formoterol) 13 Gm Hfa.aer.ad 2 Puff IH BID Ferrous Sulfate 325 Mg Tablet 65 Mg PO DAILY Cyclobenzaprine Hcl 10 Mg Tablet 10 Mg PO PRN BID PRN Gabapentin 600 Mg Tablet 300 Mg PO BID Montelukast Sodium Tablet (Montelukast Sodium) 10 Mg Tablet 1 Tab PO HS Ropinirole Hcl 1 Mg Tablet 1 Mg PO HS Xarelto (Rivaroxaban) 20 Mg Tablet 20 Mg PO DAILY16 Cardizem Cd (Diltiazem Hcl) 240 Mg Cap.er.24h 1 Cap PO DAILY Prednisone (Prednisone) 10 Mg Tablet 15 Mg PO QODAY Furosemide 40 Mg Tablet 30 Mg PO DAILY Diclofenac Sodium 75 Mg Tablet.dr 1 Tab PO BID Cymbalta (Duloxetine Hcl) 60 Mg Capsule.dr 1 Cap PO DAILY Levothyroxine Sodium 150 Mcg Tablet 175 Mcg PO DAILY Vitals/I & O Vital Sign - Last 24 Hours 01/13/19 01/13/19 01/13/19 01/13/19 14:55 15:26 15:50 15:50 Temp 98.5 98.5 Pulse 165 122 135 130 Resp 27 B/P (MAP) 133/77 (95) 120/69 (86) 120/69 142/85 (104) Pulse Ox 98 92 100 O2 Delivery Nasal Cannula Nasal Cannula Nasal Cannula O2 Flow Rate 2.0 3.0 3.0 01/13/19 01/13/19 01/13/19 01/13/19 16:08 16:20 16:50 17:20 Pulse 126 122 116 Resp 28 21 B/P (MAP) 118/85 (96) 120/78 (92) 115/80 (92) Pulse Ox 96 91 97 99 O2 Delivery Nasal Cannula Nasal Cannula Nasal Cannula Nasal Cannula O2 Flow Rate 3.0 3.0 3.0 3.0 01/13/19 01/13/19 01/13/1917/19 17:50 18:15 19:00 19:15 Temp 98.3 98.3 Pulse 112 107 112 106 Resp 26 28 26 17 B/P (MAP) 122/79 (93) 117/70 (86) 106/71 (83) 110/68 (82) Pulse Ox 94 97 100 100 O2 Delivery Nasal Cannula Nasal Cannula Nasal Cannula Nasal Cannula O2 Flow Rate 3.0 3.0 3.0 3.0 01/13/19 01/13/19 01/13/19 01/13/19 19:30 19:45 20:00 20:00 Pulse 108 110 116 Resp 25 18 25 B/P (MAP) 106/53 (70) 127/69 (88) 151/84 (106) Pulse Ox 100 98 100 O2 Delivery Nasal Cannula Nasal Cannula Nasal Cannula Nasal Cannula O2 Flow Rate 3.0 3.0 3.0 3.0 01/13/19 01/13/19 01/13/19 01/13/19 21:00 22:00 23:00 23:05 Pulse 104 119 112 Resp 22 18 22 B/P (MAP) 124/83 (97) 127/63 (84) 131/78 (95) Pulse Ox 100 100 100 100 O2 Delivery Nasal Cannula Nasal Cannula Nasal Cannula Nasal Cannula O2 Flow Rate 3.0 3.0 3.0 3.0 01/13/1901/14/01/14/01/14/ 23:42 00:00 01:00 01:09 Temp 98.4 98.4 98.4 98.4 Pulse 112 108 103 Resp 22 16 18 B/P (MAP) 124/58 (80) 124/76 (92) 124/58 Pulse Ox 100 100 O2 Delivery Nasal Cannula Nasal Cannula Nasal Cannula O2 Flow Rate 3.0 3.0 3.0 01/14/19 01/14/19 //19 01/14/ 01:24 01:25 01:55 02:00 Temp 98.7 99.4 98.7 99.4 Pulse 90 108 Resp 20 20 18 16 B/P (MAP) 124/76 134/77 (96) Pulse Ox 100 100 100 O2 Delivery Nasal Cannula Nasal Cannula Nasal Cannula O2 Flow Rate 3.0 3.0 3.0 01/14/19 18/19 1801/14/19 03:00 03:42 04:00 05:00 Temp 99.6 98.6 98.6 99.6 98.6 98.6 Pulse 99 103 96 Resp 20 20 20 B/P (MAP) 140/64 (89) 123/78 (93) 125/76 (92) Pulse Ox 100 100 100 O2 Delivery Nasal Cannula Nasal Cannula Nasal Cannula Nasal Cannula O2 Flow Rate 3.0 3.0 3.0 3.0 01/14/19 01/14/19 01/14/19 01/14/19 05:15 05:30 05:30 06:00 Temp 98.6 98.8 98.8 98.4 98.6 98.8 98.8 98.4 Pulse 110 95 95 99 Resp 22 22 22 24 B/P (MAP) 125/76 121/69 121/69 135/83 (100) Pulse Ox 100 O2 Delivery Nasal Cannula O2 Flow Rate 3.0 01/14/19 01/14/19 01/14/19 01/14/19 07:00 08:00 08:00 08:27 Temp 98.0 98.0 Pulse 92 94 Resp 13 B/P (MAP) 140/70 (93) 134/65 (88) Pulse Ox 100 98 O2 Delivery Nasal Cannula Nasal Cannula Nasal Cannula Nasal Cannula O2 Flow Rate 3.0 3.0 3.0 3.0 01/14/19 01/14/19 01/14/19 01/14/19 08:34 08:35 08:38 09:00 Pulse 99 99 98 Resp 27 B/P (MAP) 135/83 135/83 123/60 (81) Pulse Ox 98 O2 Delivery Nasal Cannula Nasal Cannula O2 Flow Rate 3.0 3.0 01/14/19 01/14/19 01/14/19 09:35 10:00 11:33 Pulse 70 Resp 17 B/P (MAP) 101/62 (75) Pulse Ox 98 100 O2 Delivery Nasal Cannula Nasal Cannula Nasal Cannula O2 Flow Rate 3.0 3.0 2.0 Intake and Output 01/13/19 01/13/19 01/14/19 14:59 22:59 06:59 Intake Total 1600 ml 706 ml Balance 1600 ml 706 ml Nutrition Consultation Dietary Evaluation: Recommendations by RD: Decrease Calorie Intake, Protein supplementation Comments: REC advance diet as able to cardiac REC glucerna w/lunch trays Expected Outcomes/Goals: diet advancement Malnutrition Findings: Food and Nutrition Intake (Sev: <50% est energy req 5days Weight Status: Morbidly Obese ROSIE ALEGRE MD Jan 14, 2019 12:36
[2019-01-14] MEDS ORDERED: DOCUSATE SODIUM 100 MG CAPSULE. PO PRN (12:45)
[2019-01-14] MEDS ORDERED: POLYETHYLENE GLYCOL 3350 17 GM PACKET. PO PRN (12:45)
[2019-01-14] MEDS: DIGOXIN 125 MCG TABLET. PO SCH (15:03)
[2019-01-14] MEDS: MEROPENEM 500 MG in IV NORMAL SALINE 50ML 50 ML IV SCH ×2 (15:04→16:19)
--- NOTE | 2019-01-14 15:36 | NUR ---
SS following for discharge planning. SS reviewed pt chart. Pt is from home and is currently on oxygen. No discharge needs noted at this time. SS will continue to follow for discharge planning.
--- NOTE | 2019-01-14 15:55 | NUR ---
No active bleed observed . Last stool just prior to transfer to [facility]. Dr Hoskins in. Informed of H/H after blood. No new orders. Diet advance to clear liquid, good tolerance w/o adverse effect.Earlier pain med w resolve of FLOYD. Transfer to 4th floor per w/c( patients own),clothing items,cell phone/dry pan charger. Condition stable
[2019-01-14 16:13] LABS: BASO % 0 % (0-3); EOS # 0.4 x10^3/uL (0.0-0.7); EOS % 4 % (0-3); HEMATOCRIT 22.3 % (36.0-47.0); HEMOGLOBIN 7.4 g/dL (12.0-15.5); LYMPH # 1.4 x10^3/uL (1.0-4.8); LYMPH % 15 % (24-48); MEAN CORPUSCULAR HEMOGLOBIN 30 pg (25-35); MEAN CORPUSCULAR HGB CONC 33 g/dL (31-37); MEAN CORPUSCULAR VOLUME 89 fL (79-100); MONO # 0.8 x10^3/uL (0.0-1.1); MONO % 9 % (0-9); NEUT # 6.6 x10^3/uL (1.8-7.7); NEUT % 72 % (31-73); PLATELET COUNT 152 x10^3/uL (140-400); RED BLOOD COUNT 2.51 x10^6/uL (3.50-5.40); RED CELL DISTRIBUTION WIDTH 16.9 % (11.5-14.5); WHITE BLOOD COUNT 9.2 x10^3/uL (4.0-11.0)
--- NOTE | 2019-01-14 16:19 | NUR ---
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
--- NOTE | 2019-01-14 17:40 | CONS ---
DATE OF CONSULTATION: 01/14/2019 INFECTIOUS DISEASE CONSULTATION LOCATION: ICU, room #10. REQUESTING PHYSICIAN: Cooper Cheung MD REASONS FOR CONSULTATION: Sepsis and urinary tract infection. HISTORY OF PRESENT ILLNESS: The patient is a pleasant 63-year-old female with history of atrial fibrillation, takes anticoagulation, was returning home from [place] over this past weekend, developed diarrhea, and then developed rectal bleed. She does have a history of internal hemorrhoids. She denies any nausea or vomiting. She did not have any fever or chills; denies any other ill contacts. She took some Imodium for the diarrhea which improved; however, the rectal bleed continued and the other night, she had some feelings of coldness and sweats. She also developed some shortness of air. She presented to [facility] on the , had a white count of 23.7 with 68 segs, 3 bands, and 23 lymphocytes. Creatinine was 1.4. Urinalysis was concerning for potential urinary tract infection, although nitrite was negative, leukocyte esterase was moderate. She had greater than 40 wbc's, but she had moderate squamous cells and many bacteria; however, she did not have any urinary symptoms of frequency, no urgency, no dysuria, no change in color or odor of urine. She has been afebrile. Blood pressure has been stable. She is on home oxygen secondary to tracheobronchial malacia. Repeat CBC showed a hemoglobin drop from 8 to 6.4. Currently, she is now getting packed red blood cells. She is sitting in the bed. She is feeling some better. She has no gross headaches. She has no sinus issues. She has a chronic cough that is nonproductive. She denies any falls or trauma. She does have a history of neuropathy and currently her feet are bothering her and they did start on her way back from [place]. PAST MEDICAL HISTORY: Positive for atrial fibrillation, asthma, congestive heart failure, tracheobronchial malacia, history of cellulitis, history of strep sepsis, history of pulmonary embolism as well as deep vein thrombosis, history of acute kidney injury, not requiring dialysis, kidney stones, T4-T5 bulging disk, osteoarthritis, neuropathy, hypothyroidism, healthcare-associated pneumonia, previous urinary tract infections, history of kidney stones. PAST SURGICAL HISTORY: Positive for tonsillectomy, cholecystectomy, vertical banded gastroplasty, hernia repair with mesh, kidney stone removal. REVIEW OF SYSTEMS: Aside from what is mentioned above, she feels she has a mild hernia in her abdominal area, but otherwise negative except for what is mentioned. SOCIAL HISTORY: She is . No tobacco. She has 2 indoor cats, a dog, and [place]. FAMILY HISTORY: Father had cancer. CURRENT MEDICATIONS: Include Rocephin, meropenem, norepinephrine, pantoprazole, albuterol, Pulmicort, Wellbutrin, Klonopin, Flexeril, digoxin, Cardizem, Cymbalta, ferrous sulfate, Neurontin, albuterol, Atrovent, Synthroid, metoprolol, prednisone, Requip, PHYSICAL EXAMINATION: VITAL SIGNS: T-max is 99.6, currently 98.4, pulse 99, respirations 24, blood pressure 135/83, satting 100% on 3 liters. CONSTITUTIONAL: She is pleasant. She is cooperative. She is in no acute distress. HEENT: Pupils are equal and reactive with normal conjunctivae. Oral cavity, pharynx is clear. NECK: Supple, no JVD. LUNGS: Clear to auscultation. HEART: S1, S2. ABDOMEN: Morbidly obese, soft, nontender. No guarding, no rebound. She has well-healed scars. EXTREMITIES: No clubbing or cyanosis with no gross edema. SKIN: Warm to touch without generalized rash. NEUROLOGIC: She is nonfocal and appropriate. PSYCHIATRIC: Affect is appropriate. Peripheral intravenous sites are clean. LABORATORY VALUES: White count from last evening of 15.5, hemoglobin 6.4, and platelets of 193. Creatinine was 1.4 on arrival, glucose 152, AST 12, and ALT 22. Urine reviewed in history of present illness. Occult positive stool. IMAGING: Chest x-ray, no consolidation or airspace disease. V/Q scan shows low probability for pulmonary embolism. IMPRESSION: 1. Rectal bleed. 2. Leukocytosis, reactive, plus on steroids. 3. Questionable urinary tract infection, present on admission, versus contamination with squamous cells, asymptomatic. 4. Recent kidney stones with stent and removal last month. 5. ANTIBIOTIC ALLERGIES; PENICILLIN A CHILD, RASH AND SWELLING, UNCERTAIN IF SHE HAS EVER HAD AMOXICILLIN OR AUGMENTIN, BUT SHE TOLERATED ROCEPHIN. SULFA CAUSES HIVES AND SWELLING. LEVOFLOXACIN CAUSES SWELLING. 6. Low-grade temperature, likely secondary to packed red blood cells. 7. Lactic acidosis. 8. Atrial fibrillation. 9. History of pulmonary embolism and deep vein thrombosis. RECOMMENDATIONS: We will discontinue Rocephin, continue meropenem, but we will adjust the dose with acute kidney injury on arrival. Check a basic metabolic panel this morning. Follow up labs in the morning. Follow up cultures and hopefully taper to oral, may need a Cardiology evaluation. Thank you for allowing me to participate in the patient's care. Should you have any further questions, please do not hesitate to contact me. ROHIT BLANCA MD DR: JEAN/samreen JOB#: [id number] / [id number]
[2019-01-14] MEDS ORDERED: cefTRIAXone IV Push 2 GM VIAL. IVP SCH (18:00)
[2019-01-14] MEDS: rOPINIRole 1 MG TABLET. PO SCH (21:24)
[2019-01-14] MEDS: MONTELUKAST SODIUM 10 MG TABLET. PO SCH (21:24)
[2019-01-14] MEDS: clonazePAM 0.5 MG TABLET PO SCH (21:24)
[2019-01-14 22:04] LABS: BASO # 0.1 x10^3/uL (0.0-0.2); BASO % 1 % (0-3); EOS # 0.6 x10^3/uL (0.0-0.7); EOS % 5 % (0-3); HEMATOCRIT 22.8 % (36.0-47.0); HEMOGLOBIN 7.5 g/dL (12.0-15.5); LYMPH % 17 % (24-48); MEAN CORPUSCULAR HEMOGLOBIN 29 pg (25-35); MEAN CORPUSCULAR HGB CONC 33 g/dL (31-37); MEAN CORPUSCULAR VOLUME 90 fL (79-100); MONO # 1.1 x10^3/uL (0.0-1.1); MONO % 9 % (0-9); NEUT % 68 % (31-73); PLATELET COUNT 160 x10^3/uL (140-400); RED BLOOD COUNT 2.55 x10^6/uL (3.50-5.40); RED CELL DISTRIBUTION WIDTH 16.6 % (11.5-14.5); WHITE BLOOD COUNT 11.8 x10^3/uL (4.0-11.0)
[2019-01-15] VITALS (7 sets, daily range): BP systolic 91–148; BP diastolic 50–72
[2019-01-15] MEDS: MEROPENEM 500 MG in IV NORMAL SALINE 50ML 50 ML IV SCH ×5 (00:08→23:11)
[2019-01-15 05:47] LABS: BASO # 0.1 x10^3/uL (0.0-0.2); BASO % 1 % (0-3); EOS # 0.6 x10^3/uL (0.0-0.7); EOS % 5 % (0-3); HEMATOCRIT 21.6 % (36.0-47.0); HEMOGLOBIN 7.1 g/dL (12.0-15.5); LYMPH # 2.4 x10^3/uL (1.0-4.8); LYMPH % 22 % (24-48); MEAN CORPUSCULAR HEMOGLOBIN 29 pg (25-35); MEAN CORPUSCULAR HGB CONC 33 g/dL (31-37); MEAN CORPUSCULAR VOLUME 90 fL (79-100); MONO # 1.1 x10^3/uL (0.0-1.1); MONO % 10 % (0-9); NEUT # 6.9 x10^3/uL (1.8-7.7); NEUT % 62 % (31-73); PLATELET COUNT 159 x10^3/uL (140-400); RED BLOOD COUNT 2.42 x10^6/uL (3.50-5.40); RED CELL DISTRIBUTION WIDTH 16.9 % (11.5-14.5); WHITE BLOOD COUNT 11.2 x10^3/uL (4.0-11.0)
[2019-01-15 06:06] LABS: ALBUMIN 2.4 g/dL (3.4-5.0); ALBUMIN/GLOBULIN RATIO 0.8 (1.0-1.7); CALCIUM 7.6 mg/dL (8.5-10.1); GFR 55.8; POTASSIUM 3.5 mmol/L (3.5-5.1); TOTAL BILIRUBIN 0.4 mg/dL (0.2-1.0); TOTAL PROTEIN 5.5 g/dL (6.4-8.2)
[2019-01-15] MEDS: IPRATRPIUM/ALBUTEROL 0.5/2.5MG 3 ML NEBU. NEB SCH ×4 (07:48→20:39)
[2019-01-15] MEDS: BUDESONIDE 0.5 MG/2 ML NEBU. NEB SCH ×2 (07:49→20:39)
[2019-01-15] MEDS: buPROPion XL 150 MG TAB.ER.24H. PO SCH (08:29)
[2019-01-15] MEDS: DULoxetine HCL 30 MG CAPSULE.DR PO SCH (08:32)
[2019-01-15] MEDS: FERROUS SULFATE 325 MG TABLET. PO SCH (08:32)
[2019-01-15] MEDS: DOCUSATE SODIUM 100 MG CAPSULE. PO SCH (08:32)
[2019-01-15] MEDS: GABAPENTIN 300 MG CAPSULE. PO SCH ×2 (08:32→20:04)
[2019-01-15] MEDS: POTASSIUM CHLORIDE 20 MEQ TABLET.ER. PO SCH (08:33)
[2019-01-15] MEDS: PANTOPRAZOLE 40 MG TABLET.DR. PO SCH (08:33)
[2019-01-15] MEDS: METOPROLOL SUCC 24HR ER 25 MG TAB.ER.24H. PO SCH ×2 (08:33→15:21)
[2019-01-15] MEDS ORDERED: PROM25TA10 PO (08:38)
[2019-01-15] MEDS ORDERED: predniSONE 5 MG TABLET PO SCH (09:00)
--- NOTE | 2019-01-15 10:34 | PDOC ---
Infectious Disease Note Subjective Subjective Doing ok. No more bloody stools. No F/C/S/N/D/SOA No pain ROS ROS o/w neg Vital Sign Vital Signs Vital Signs Date Time Temp Pulse Resp B/P (MAP) Pulse Ox O2 Delivery O2 Flow Rate FiO2 01/15/19 08:33 91/50 01/15/19 07:49 95 Room Air 01/15/19 07:00 98.1 89 14 98.1 01/15/19 03:31 2.0 Physical Exam PHYSICAL EXAM CONSTITUTIONAL: She is pleasant. She is cooperative. She is in no acute distress. HEENT: Pupils are equal and reactive with normal conjunctivae. Oral cavity, pharynx is clear. NECK: Supple, no JVD. LUNGS: Clear to auscultation. HEART: S1, S2. ABDOMEN: Morbidly obese, soft, nontender. No guarding, no rebound. She has well-healed scars. EXTREMITIES: No clubbing or cyanosis with no gross edema. SKIN: Warm to touch without generalized rash. NEUROLOGIC: She is nonfocal and appropriate. PSYCHIATRIC: Affect is appropriate. Peripheral intravenous sites are clean. Labs Lab Laboratory Tests Test 01/14/19 14:16 01/14/19 21:55 01/15/19 04:40 White Blood Count 9.2 x10^3/uL (4.0-11.0) 11.8 x10^3/uL (4.0-11.0) 11.2 x10^3/uL (4.0-11.0) Red Blood Count 2.51 x10^6/uL (3.50-5.40) 2.55 x10^6/uL (3.50-5.40) 2.42 x10^6/uL (3.50-5.40) Hemoglobin 7.4 g/dL (12.0-15.5) 7.5 g/dL (12.0-15.5) 7.1 g/dL (12.0-15.5) Hematocrit 22.3 % (36.0-47.0) 22.8 % (36.0-47.0) 21.6 % (36.0-47.0) Mean Corpuscular Volume 89 fL (79-100) 90 fL (79-100) 90 fL (79-100) Mean Corpuscular Hemoglobin 30 pg (25-35) 29 pg (25-35) 29 pg (25-35) Mean Corpuscular Hemoglobin Concent 33 g/dL (31-37) 33 g/dL (31-37) 33 g/dL (31-37) Red Cell Distribution Width 16.9 % (11.5-14.5) 16.6 % (11.5-14.5) 16.9 % (11.5-14.5) Platelet Count 152 x10^3/uL (140-400) 160 x10^3/uL (140-400) 159 x10^3/uL (140-400) Neutrophils (%) (Auto) 72 % (31-73) 68 % (31-73) 62 % (31-73) Lymphocytes (%) (Auto) 15 % (24-48) 17 % (24-48) 22 % (24-48) Monocytes (%) (Auto) 9 % (0-9) 9 % (0-9) 10 % (0-9) Eosinophils (%) (Auto) 4 % (0-3) 5 % (0-3) 5 % (0-3) Basophils (%) (Auto) 0 % (0-3) 1 % (0-3) 1 % (0-3) Neutrophils # (Auto) 6.6 x10^3/uL (1.8-7.7) 8.0 x10^3/uL (1.8-7.7) 6.9 x10^3/uL (1.8-7.7) Lymphocytes # (Auto) 1.4 x10^3/uL (1.0-4.8) 2.0 x10^3/uL (1.0-4.8) 2.4 x10^3/uL (1.0-4.8) Monocytes # (Auto) 0.8 x10^3/uL (0.0-1.1) 1.1 x10^3/uL (0.0-1.1) 1.1 x10^3/uL (0.0-1.1) Eosinophils # (Auto) 0.4 x10^3/uL (0.0-0.7) 0.6 x10^3/uL (0.0-0.7) 0.6 x10^3/uL (0.0-0.7) Basophils # (Auto) 0.0 x10^3/uL (0.0-0.2) 0.1 x10^3/uL (0.0-0.2) 0.1 x10^3/uL (0.0-0.2) Sodium Level 142 mmol/L (136-145) Potassium Level 3.5 mmol/L (3.5-5.1) Chloride Level 106 mmol/L (98-107) Carbon Dioxide Level 28 mmol/L (21-32) Anion Gap 8 (6-14) Blood Urea Nitrogen 9 mg/dL (7-20) Creatinine 1.0 mg/dL (0.6-1.0) Estimated GFR (Cockcroft-Gault) 55.8 BUN/Creatinine Ratio 9 (6-20) Glucose Level 102 mg/dL (70-99) Calcium Level 7.6 mg/dL (8.5-10.1) Total Bilirubin 0.4 mg/dL (0.2-1.0) Aspartate Amino Transf (AST/SGOT) 10 U/L (15-37) Alanine Aminotransferase (ALT/SGPT) 16 U/L (14-59) Alkaline Phosphatase 52 U/L (46-116) Total Protein 5.5 g/dL (6.4-8.2) Albumin 2.4 g/dL (3.4-5.0) Albumin/Globulin Ratio 0.8 (1.0-1.7) Micro Microbiology 01/13/19 Blood Culture - Preliminary, Resulted NO GROWTH AFTER 1 DAY Objective Assessment Rectal bleed Leukocytosis - reactive plus on steroids takes 15 mg po QOD for asthma - stable ? UTI- POA - ? contamination with squamous cells and asymptomatic - recent kidney stones with stent and removal last month abx allergies - PCN - as child - rash and swelling - tolerated Rocephin, Sulfa- hives and swelling, Levoflox- swelling Low grade temp - likely from PRBCs Lactic acidosis Afib H/o PE and DVTs Plan Plan of Care Cont Meropenem labs in am F/u cults and hopefully taper to po May need Cardiology ROHIT Fisher MD Jan 15, 2019 10:34
--- NOTE | 2019-01-15 10:51 | PDOC ---
Subjective: Subjective: Really tired today. No bleeding or stooling. Tolerating clears, would like something to chew. Objective: Objective: Talked w/ Dr. Harkins - pt wondering if she'll have a colonoscopy. BP lowish. Vital Signs: Vital Signs Date Time Temp Pulse Resp B/P (MAP) Pulse Ox O2 Delivery O2 Flow Rate FiO2 01/15/19 08:33 91/50 01/15/19 07:49 95 Room Air 01/15/19 07:00 98.1 89 14 98.1 01/15/19 03:31 2.0 Labs: Laboratory Tests Test 01/14/19 14:16 01/14/19 21:55 01/15/19 04:40 White Blood Count 9.2 x10^3/uL 11.8 x10^3/uL 11.2 x10^3/uL Red Blood Count 2.51 x10^6/uL 2.55 x10^6/uL 2.42 x10^6/uL Hemoglobin 7.4 g/dL 7.5 g/dL 7.1 g/dL Hematocrit 22.3 % 22.8 % 21.6 % Mean Corpuscular Volume 89 fL 90 fL 90 fL Mean Corpuscular Hemoglobin 30 pg 29 pg 29 pg Mean Corpuscular Hemoglobin Concent 33 g/dL 33 g/dL 33 g/dL Red Cell Distribution Width 16.9 % 16.6 % 16.9 % Platelet Count 152 x10^3/uL 160 x10^3/uL 159 x10^3/uL Neutrophils (%) (Auto) 72 % 68 % 62 % Lymphocytes (%) (Auto) 15 % 17 % 22 % Monocytes (%) (Auto) 9 % 9 % 10 % Eosinophils (%) (Auto) 4 % 5 % 5 % Basophils (%) (Auto) 0 % 1 % 1 % Neutrophils # (Auto) 6.6 x10^3/uL 8.0 x10^3/uL 6.9 x10^3/uL Lymphocytes # (Auto) 1.4 x10^3/uL 2.0 x10^3/uL 2.4 x10^3/uL Monocytes # (Auto) 0.8 x10^3/uL 1.1 x10^3/uL 1.1 x10^3/uL Eosinophils # (Auto) 0.4 x10^3/uL 0.6 x10^3/uL 0.6 x10^3/uL Basophils # (Auto) 0.0 x10^3/uL 0.1 x10^3/uL 0.1 x10^3/uL Sodium Level 142 mmol/L Potassium Level 3.5 mmol/L Chloride Level 106 mmol/L Carbon Dioxide Level 28 mmol/L Anion Gap 8 Blood Urea Nitrogen 9 mg/dL Creatinine 1.0 mg/dL Estimated GFR (Cockcroft-Gault) 55.8 BUN/Creatinine Ratio 9 Glucose Level 102 mg/dL Calcium Level 7.6 mg/dL Total Bilirubin 0.4 mg/dL Aspartate Amino Transf (AST/SGOT) 10 U/L Alanine Aminotransferase (ALT/SGPT) 16 U/L Alkaline Phosphatase 52 U/L Total Protein 5.5 g/dL Albumin 2.4 g/dL Albumin/Globulin Ratio 0.8 BLOOD CULTURE Preliminary NO GROWTH AFTER 1 DAY PE: GEN: NAD LUNGS: room air HEART: irregular ABD: obese, non-tender NEURO/PSYCH: A & O 3 A/P: Hematochezia - Chronic anemia - Hgb stable in 7s Leukocytosis, lactic acidosis - atbx per ID A Fib, h/o PE, h/o asthma - Xarelto held, remains on prednisone -- Tolerating clears - ?advance - will check w/ Dr. Hoskins. Continue PPI, monitor Hgb. Outpt 'scopes. JOSEPH ESCOBEDO Jan 15, 2019 10:51
--- NOTE | 2019-01-15 12:11 | PDOC ---
PROGRESS NOTES Chief Complaint Chief Complaint impression Severe sepsis, ACUTE PYELONEPHRITIS GI bleed, acute blood loss anemia Atrial fibrillation with RVR No pulmonary consolidation or acute airspace disease. Elevated d-dimer morbid obesity, BMI 52 SEVERE PROTEIN-CALORIC MALNUTRITION plan ID FOLLOWING Cont Meropenem IV labs in am 38 MIN PT EXAM, CHART REVIEW, > 50% OF TIME SPENT WITH EXAM, CHART REVIEW, PT CARE COORDINATION History of Present Illness History of Present Illness fatigued, feels better sepsis treated, ID following hgb ok, LOW CARDIOLOGY CONSULTED Vitals Vitals Vital Signs Date Time Temp Pulse Resp B/P (MAP) Pulse Ox O2 Delivery O2 Flow Rate FiO2 01/15/19 11:24 98 Room Air 01/15/19 11:00 98.6 79 14 126/65 (85) 98.6 01/15/19 03:31 2.0 Physical Exam Physical Exam CONSTITUTIONAL: She is pleasant. She is cooperative. She is in no acute distress. HEENT: Pupils are equal and reactive with normal conjunctivae. Oral cavity, pharynx is clear. NECK: Supple, no JVD. LUNGS: Clear to auscultation. HEART: S1, S2. ABDOMEN: Morbidly obese, soft, nontender. No guarding, no rebound. She has well-healed scars. EXTREMITIES: No clubbing or cyanosis with no gross edema. SKIN: Warm to touch without generalized rash. NEUROLOGIC: She is nonfocal and appropriate. PSYCHIATRIC: Affect is appropriate. Peripheral intravenous sites are clean. General: Alert, Oriented X3, Cooperative, No acute distress Heart: Regular rate, Normal S2 Lungs: Wheezing Abdomen: Normal bowel sounds Extremities: No clubbing, No cyanosis Skin: No breakdown Labs LABS DATE OF SURGERY: 12/17/2018 SURGEON: Quinn Hernandez MD [facility] SC[place]ION: None. PREOPERATIVE DIAGNOSIS: Right kidney stones. POSTOPERATIVE DIAGNOSIS: Right kidney stones. PROCEDURE PERFORMED: Right ureteroscopy with laser of stone, stent placement and retrograde pyelogram. ANESTHESIA TYPE: General. DESCRIPTION OF PROCEDURE: This is a 63-year-old female with a 1.4 cm right kidney stone. After discussion of risks, benefits and alternatives, she agreed to the above procedure. Informed consent was obtained. The patient was taken to the operating room. General anesthesia was induced. She was placed in dorsal lithotomy position, sterilely prepped and draped. Timeout was performed. A rigid cystoscope was advanced through the urethra into the bladder. The right ureteral orifice was cannulated with a guidewire and advanced up into the renal pelvis. Retrograde pyelogram was performed, which showed a right pelvic kidney with an acute right angle of the ureter near the ureteropelvic junction. The guidewire was replaced and then an access sheath was easily advanced and a second wire was placed and the access sheath was repositioned. A flexible ureteroscope was easily able to advance up into the kidney. A large stone was seen within the central portion of the renal pelvis. The stone was fragmented with the holmium laser into multiple tiny fragments. The stone was very soft and easily fragmented. All the stone fragments were too small to grasp. Due to the acute angle of the proximal ureter, manipulation of the scope into the lateral and lower poles of the kidney was not possible; however, there did not appear to be any stone fragments in those locations on fluoroscopy or visually. The scope and access sheath were slowly withdrawn, and the ureter was inspected and was free of injury. A 6 x 22 cm stent was then advanced over the wire and deployed under fluoroscopic guidance. Due to the acute angle of the ureter, the stent would not properly curl despite multiple attempts involving manipulating the stent and removing and replacing it. Only about 1/2 curl of the stent was possible in the kidney. Appropriate stent curl was noted in the bladder. The bladder contents were emptied. The patient was then awoken and taken to the recovery room in stable condition. BLOOD LOSS: None. COMPLICATIONS: None. SPECIMENS: None. Laboratory Tests Test 01/14/19 14:16 01/14/19 21:55 01/15/19 04:40 White Blood Count 9.2 x10^3/uL (4.0-11.0) 11.8 x10^3/uL (4.0-11.0) 11.2 x10^3/uL (4.0-11.0) Red Blood Count 2.51 x10^6/uL (3.50-5.40) 2.55 x10^6/uL (3.50-5.40) 2.42 x10^6/uL (3.50-5.40) Hemoglobin 7.4 g/dL (12.0-15.5) 7.5 g/dL (12.0-15.5) 7.1 g/dL (12.0-15.5) Hematocrit 22.3 % (36.0-47.0) 22.8 % (36.0-47.0) 21.6 % (36.0-47.0) Mean Corpuscular Volume 89 fL (79-100) 90 fL (79-100) 90 fL (79-100) Mean Corpuscular Hemoglobin 30 pg (25-35) 29 pg (25-35) 29 pg (25-35) Mean Corpuscular Hemoglobin Concent 33 g/dL (31-37) 33 g/dL (31-37) 33 g/dL (31-37) Red Cell Distribution Width 16.9 % (11.5-14.5) 16.6 % (11.5-14.5) 16.9 % (11.5-14.5) Platelet Count 152 x10^3/uL (140-400) 160 x10^3/uL (140-400) 159 x10^3/uL (140-400) Neutrophils (%) (Auto) 72 % (31-73) 68 % (31-73) 62 % (31-73) Lymphocytes (%) (Auto) 15 % (24-48) 17 % (24-48) 22 % (24-48) Monocytes (%) (Auto) 9 % (0-9) 9 % (0-9) 10 % (0-9) Eosinophils (%) (Auto) 4 % (0-3) 5 % (0-3) 5 % (0-3) Basophils (%) (Auto) 0 % (0-3) 1 % (0-3) 1 % (0-3) Neutrophils # (Auto) 6.6 x10^3/uL (1.8-7.7) 8.0 x10^3/uL (1.8-7.7) 6.9 x10^3/uL (1.8-7.7) Lymphocytes # (Auto) 1.4 x10^3/uL (1.0-4.8) 2.0 x10^3/uL (1.0-4.8) 2.4 x10^3/uL (1.0-4.8) Monocytes # (Auto) 0.8 x10^3/uL (0.0-1.1) 1.1 x10^3/uL (0.0-1.1) 1.1 x10^3/uL (0.0-1.1) Eosinophils # (Auto) 0.4 x10^3/uL (0.0-0.7) 0.6 x10^3/uL (0.0-0.7) 0.6 x10^3/uL (0.0-0.7) Basophils # (Auto) 0.0 x10^3/uL (0.0-0.2) 0.1 x10^3/uL (0.0-0.2) 0.1 x10^3/uL (0.0-0.2) Sodium Level 142 mmol/L (136-145) Potassium Level 3.5 mmol/L (3.5-5.1) Chloride Level 106 mmol/L (98-107) Carbon Dioxide Level 28 mmol/L (21-32) Anion Gap 8 (6-14) Blood Urea Nitrogen 9 mg/dL (7-20) Creatinine 1.0 mg/dL (0.6-1.0) Estimated GFR (Cockcroft-Gault) 55.8 BUN/Creatinine Ratio 9 (6-20) Glucose Level 102 mg/dL (70-99) Calcium Level 7.6 mg/dL (8.5-10.1) Total Bilirubin 0.4 mg/dL (0.2-1.0) Aspartate Amino Transf (AST/SGOT) 10 U/L (15-37) Alanine Aminotransferase (ALT/SGPT) 16 U/L (14-59) Alkaline Phosphatase 52 U/L (46-116) Total Protein 5.5 g/dL (6.4-8.2) Albumin 2.4 g/dL (3.4-5.0) Albumin/Globulin Ratio 0.8 (1.0-1.7) Assessment and Plan Assessmemt and Plan Problems Medical Problems: (1) Atrial fibrillation with RVR Status: Acute (2) Elevated d-dimer Status: Acute (3) GI bleed Status: Acute (4) Severe sepsis Status: Acute (5) Urinary tract infection Status: Acute ACUTE PYELONEPHRITIS GI bleed Atrial fibrillation with RVR No pulmonary consolidation or acute airspace disease. Elevated d-dimer MORBID OBESITY RECTAL BLEEDING, ACUTE Comment Review of Relevant I have reviewed the following items jorge (where applicable) has been applied. Labs Laboratory Tests Test 01/13/19 15:15 01/13/19 15:38 01/13/19 15:50 01/13/19 17:05 White Blood Count 23.7 x10^3/uL (4.0-11.0) Red Blood Count 2.82 x10^6/uL (3.50-5.40) Hemoglobin 8.0 g/dL (12.0-15.5) Hematocrit 25.4 % (36.0-47.0) Mean Corpuscular Volume 90 fL (79-100) Mean Corpuscular Hemoglobin 28 pg (25-35) Mean Corpuscular Hemoglobin Concent 31 g/dL (31-37) Red Cell Distribution Width 17.5 % (11.5-14.5) Platelet Count 252 x10^3/uL (140-400) Neutrophils (%) (Auto) 66 % (31-73) Lymphocytes (%) (Auto) 27 % (24-48) Monocytes (%) (Auto) 6 % (0-9) Eosinophils (%) (Auto) 1 % (0-3) Basophils (%) (Auto) 1 % (0-3) Neutrophils # (Auto) 15.6 x10^3/uL (1.8-7.7) Lymphocytes # (Auto) 6.3 x10^3/uL (1.0-4.8) Monocytes # (Auto) 1.3 x10^3/uL (0.0-1.1) Eosinophils # (Auto) 0.3 x10^3/uL (0.0-0.7) Basophils # (Auto) 0.1 x10^3/uL (0.0-0.2) Segmented Neutrophils % 68 % (35-66) Band Neutrophils % 3 % (0-9) Lymphocytes % 23 % (24-48) Monocytes % 3 % (0-10) Eosinophils % 2 % (0-5) Myelocytes % 1 % (0-0) Platelet Estimate Adequate (ADEQUATE) Polychromasia Slight Anisocytosis Slight Prothrombin Time 17.9 SEC (11.7-14.0) Prothromb Time International Ratio 1.5 (0.8-1.1) Activated Partial Thromboplast Time 30 SEC (24-38) D-Dimer (Loretta) 0.52 ug/mlFEU (0.00-0.50) Sodium Level 140 mmol/L (136-145) Potassium Level 4.2 mmol/L (3.5-5.1) Chloride Level 100 mmol/L (98-107) Carbon Dioxide Level 22 mmol/L (21-32) Anion Gap 18 (6-14) Blood Urea Nitrogen 21 mg/dL (7-20) Creatinine 1.4 mg/dL (0.6-1.0) Estimated GFR (Cockcroft-Gault) 37.9 BUN/Creatinine Ratio 15 (6-20) Glucose Level 152 mg/dL (70-99) Calcium Level 8.7 mg/dL (8.5-10.1) Total Bilirubin 0.4 mg/dL (0.2-1.0) Aspartate Amino Transf (AST/SGOT) 12 U/L (15-37) Alanine Aminotransferase (ALT/SGPT) 22 U/L (14-59) Alkaline Phosphatase 65 U/L (46-116) Troponin I Quantitative < 0.017 ng/mL (0.000-0.055) XX-Rwv-C-Type Natriuretic Peptide 659 pg/mL (0-124) Total Protein 6.8 g/dL (6.4-8.2) Albumin 3.0 g/dL (3.4-5.0) Albumin/Globulin Ratio 0.8 (1.0-1.7) Procalcitonin < 0.10 ng/mL (0.00-0.10) Lactic Acid Level 4.6 mmol/L (0.4-2.0) Stool Occult Blood Positive (NEG) Urine Collection Type U cath Urine Color Yellow Urine Clarity Clear Urine pH 8.5 Urine Specific [place] 1.020 Urine Protein 30 mg/dL (NEG-TRACE) Urine Glucose (UA) Negative mg/dL (NEG) Urine Ketones (Stick) 15 mg/dL (NEG) Urine Blood Negative (NEG) Urine Nitrite Negative (NEG) Urine Bilirubin Negative (NEG) Urine Urobilinogen Dipstick 0.2 mg/dL (0.2 mg/dL) Urine Leukocyte Esterase Moderate (NEG) Urine RBC Occ /HPF (0-2) Urine WBC >40 /HPF (0-4) Urine Squamous Epithelial Cells Mod /LPF Urine Bacteria Many /HPF (0-FEW) Test 01/13/19 18:30 01/13/19 19:35 01/13/19 22:15 01/14/19 10:18 Nasal Screen MRSA (PCR) Positive (Negative) Lactic Acid Level 2.7 mmol/L (0.4-2.0) White Blood Count 15.5 x10^3/uL (4.0-11.0) 11.6 x10^3/uL (4.0-11.0) Red Blood Count 2.25 x10^6/uL (3.50-5.40) 2.60 x10^6/uL (3.50-5.40) Hemoglobin 6.4 g/dL (12.0-15.5) 7.5 g/dL (12.0-15.5) Hematocrit 19.8 % (36.0-47.0) 23.1 % (36.0-47.0) Mean Corpuscular Volume 88 fL (79-100) 89 fL (79-100) Mean Corpuscular Hemoglobin 29 pg (25-35) 29 pg (25-35) Mean Corpuscular Hemoglobin Concent 33 g/dL (31-37) 33 g/dL (31-37) Red Cell Distribution Width 17.7 % (11.5-14.5) 16.7 % (11.5-14.5) Platelet Count 193 x10^3/uL (140-400) 160 x10^3/uL (140-400) Neutrophils (%) (Auto) 66 % (31-73) 72 % (31-73) Lymphocytes (%) (Auto) 24 % (24-48) 16 % (24-48) Monocytes (%) (Auto) 8 % (0-9) 9 % (0-9) Eosinophils (%) (Auto) 2 % (0-3) 3 % (0-3) Basophils (%) (Auto) 1 % (0-3) 0 % (0-3) Neutrophils # (Auto) 10.1 x10^3/uL (1.8-7.7) 8.4 x10^3/uL (1.8-7.7) Lymphocytes # (Auto) 3.6 x10^3/uL (1.0-4.8) 1.8 x10^3/uL (1.0-4.8) Monocytes # (Auto) 1.2 x10^3/uL (0.0-1.1) 1.0 x10^3/uL (0.0-1.1) Eosinophils # (Auto) 0.3 x10^3/uL (0.0-0.7) 0.4 x10^3/uL (0.0-0.7) Basophils # (Auto) 0.2 x10^3/uL (0.0-0.2) 0.0 x10^3/uL (0.0-0.2) Sodium Level 142 mmol/L (136-145) Potassium Level 3.4 mmol/L (3.5-5.1) Chloride Level 104 mmol/L (98-107) Carbon Dioxide Level 27 mmol/L (21-32) Anion Gap 11 (6-14) Blood Urea Nitrogen 15 mg/dL (7-20) Creatinine 1.1 mg/dL (0.6-1.0) Estimated GFR (Cockcroft-Gault) 50.0 Glucose Level 111 mg/dL (70-99) Calcium Level 7.7 mg/dL (8.5-10.1) Test 01/14/19 14:16 01/14/19 21:55 01/15/19 04:40 White Blood Count 9.2 x10^3/uL (4.0-11.0) 11.8 x10^3/uL (4.0-11.0) 11.2 x10^3/uL (4.0-11.0) Red Blood Count 2.51 x10^6/uL (3.50-5.40) 2.55 x10^6/uL (3.50-5.40) 2.42 x10^6/uL (3.50-5.40) Hemoglobin 7.4 g/dL (12.0-15.5) 7.5 g/dL (12.0-15.5) 7.1 g/dL (12.0-15.5) Hematocrit 22.3 % (36.0-47.0) 22.8 % (36.0-47.0) 21.6 % (36.0-47.0) Mean Corpuscular Volume 89 fL (79-100) 90 fL (79-100) 90 fL (79-100) Mean Corpuscular Hemoglobin 30 pg (25-35) 29 pg (25-35) 29 pg (25-35) Mean Corpuscular Hemoglobin Concent 33 g/dL (31-37) 33 g/dL (31-37) 33 g/dL (31-37) Red Cell Distribution Width 16.9 % (11.5-14.5) 16.6 % (11.5-14.5) 16.9 % (11.5-14.5) Platelet Count 152 x10^3/uL (140-400) 160 x10^3/uL (140-400) 159 x10^3/uL (140-400) Neutrophils (%) (Auto) 72 % (31-73) 68 % (31-73) 62 % (31-73) Lymphocytes (%) (Auto) 15 % (24-48) 17 % (24-48) 22 % (24-48) Monocytes (%) (Auto) 9 % (0-9) 9 % (0-9) 10 % (0-9) Eosinophils (%) (Auto) 4 % (0-3) 5 % (0-3) 5 % (0-3) Basophils (%) (Auto) 0 % (0-3) 1 % (0-3) 1 % (0-3) Neutrophils # (Auto) 6.6 x10^3/uL (1.8-7.7) 8.0 x10^3/uL (1.8-7.7) 6.9 x10^3/uL (1.8-7.7) Lymphocytes # (Auto) 1.4 x10^3/uL (1.0-4.8) 2.0 x10^3/uL (1.0-4.8) 2.4 x10^3/uL (1.0-4.8) Monocytes # (Auto) 0.8 x10^3/uL (0.0-1.1) 1.1 x10^3/uL (0.0-1.1) 1.1 x10^3/uL (0.0-1.1) Eosinophils # (Auto) 0.4 x10^3/uL (0.0-0.7) 0.6 x10^3/uL (0.0-0.7) 0.6 x10^3/uL (0.0-0.7) Basophils # (Auto) 0.0 x10^3/uL (0.0-0.2) 0.1 x10^3/uL (0.0-0.2) 0.1 x10^3/uL (0.0-0.2) Sodium Level 142 mmol/L (136-145) Potassium Level 3.5 mmol/L (3.5-5.1) Chloride Level 106 mmol/L (98-107) Carbon Dioxide Level 28 mmol/L (21-32) Anion Gap 8 (6-14) Blood Urea Nitrogen 9 mg/dL (7-20) Creatinine 1.0 mg/dL (0.6-1.0) Estimated GFR (Cockcroft-Gault) 55.8 BUN/Creatinine Ratio 9 (6-20) Glucose Level 102 mg/dL (70-99) Calcium Level 7.6 mg/dL (8.5-10.1) Total Bilirubin 0.4 mg/dL (0.2-1.0) Aspartate Amino Transf (AST/SGOT) 10 U/L (15-37) Alanine Aminotransferase (ALT/SGPT) 16 U/L (14-59) Alkaline Phosphatase 52 U/L (46-116) Total Protein 5.5 g/dL (6.4-8.2) Albumin 2.4 g/dL (3.4-5.0) Albumin/Globulin Ratio 0.8 (1.0-1.7) Laboratory Tests Test 01/14/19 14:16 01/14/19 21:55 01/15/19 04:40 White Blood Count 9.2 x10^3/uL (4.0-11.0) 11.8 x10^3/uL (4.0-11.0) 11.2 x10^3/uL (4.0-11.0) Red Blood Count 2.51 x10^6/uL (3.50-5.40) 2.55 x10^6/uL (3.50-5.40) 2.42 x10^6/uL (3.50-5.40) Hemoglobin 7.4 g/dL (12.0-15.5) 7.5 g/dL (12.0-15.5) 7.1 g/dL (12.0-15.5) Hematocrit 22.3 % (36.0-47.0) 22.8 % (36.0-47.0) 21.6 % (36.0-47.0) Mean Corpuscular Volume 89 fL (79-100) 90 fL (79-100) 90 fL (79-100) Mean Corpuscular Hemoglobin 30 pg (25-35) 29 pg (25-35) 29 pg (25-35) Mean Corpuscular Hemoglobin Concent 33 g/dL (31-37) 33 g/dL (31-37) 33 g/dL (31-37) Red Cell Distribution Width 16.9 % (11.5-14.5) 16.6 % (11.5-14.5) 16.9 % (11.5-14.5) Platelet Count 152 x10^3/uL (140-400) 160 x10^3/uL (140-400) 159 x10^3/uL (140-400) Neutrophils (%) (Auto) 72 % (31-73) 68 % (31-73) 62 % (31-73) Lymphocytes (%) (Auto) 15 % (24-48) 17 % (24-48) 22 % (24-48) Monocytes (%) (Auto) 9 % (0-9) 9 % (0-9) 10 % (0-9) Eosinophils (%) (Auto) 4 % (0-3) 5 % (0-3) 5 % (0-3) Basophils (%) (Auto) 0 % (0-3) 1 % (0-3) 1 % (0-3) Neutrophils # (Auto) 6.6 x10^3/uL (1.8-7.7) 8.0 x10^3/uL (1.8-7.7) 6.9 x10^3/uL (1.8-7.7) Lymphocytes # (Auto) 1.4 x10^3/uL (1.0-4.8) 2.0 x10^3/uL (1.0-4.8) 2.4 x10^3/uL (1.0-4.8) Monocytes # (Auto) 0.8 x10^3/uL (0.0-1.1) 1.1 x10^3/uL (0.0-1.1) 1.1 x10^3/uL (0.0-1.1) Eosinophils # (Auto) 0.4 x10^3/uL (0.0-0.7) 0.6 x10^3/uL (0.0-0.7) 0.6 x10^3/uL (0.0-0.7) Basophils # (Auto) 0.0 x10^3/uL (0.0-0.2) 0.1 x10^3/uL (0.0-0.2) 0.1 x10^3/uL (0.0-0.2) Sodium Level 142 mmol/L (136-145) Potassium Level 3.5 mmol/L (3.5-5.1) Chloride Level 106 mmol/L (98-107) Carbon Dioxide Level 28 mmol/L (21-32) Anion Gap 8 (6-14) Blood Urea Nitrogen 9 mg/dL (7-20) Creatinine 1.0 mg/dL (0.6-1.0) Estimated GFR (Cockcroft-Gault) 55.8 BUN/Creatinine Ratio 9 (6-20) Glucose Level 102 mg/dL (70-99) Calcium Level 7.6 mg/dL (8.5-10.1) Total Bilirubin 0.4 mg/dL (0.2-1.0) Aspartate Amino Transf (AST/SGOT) 10 U/L (15-37) Alanine Aminotransferase (ALT/SGPT) 16 U/L (14-59) Alkaline Phosphatase 52 U/L (46-116) Total Protein 5.5 g/dL (6.4-8.2) Albumin 2.4 g/dL (3.4-5.0) Albumin/Globulin Ratio 0.8 (1.0-1.7) Microbiology 01/13/19 Blood Culture - Preliminary, Resulted NO GROWTH AFTER 1 DAY Medications Current Medications Digoxin (Lanoxin) 125 mcg 1X STAT PO Last administered on 01/13/19at 15:50; Start 01/13/19 at 15:15; Stop 01/13/19 at 15:19; Status DC Albuterol/ Ipratropium (Duoneb) 3 ml 1X ONCE NEB Last administered on 01/13/19at 16:07; Start 01/13/19 at 16:30; Stop 01/13/19 at 16:31; Status DC Sodium Chloride 1,000 ml @ 1,000 mls/hr 1X ONCE IV Last administered on 01/13/19at 17:29; Start 01/13/19 at 17:30; Stop 01/13/19 at 18:29; Status DC Sodium Chloride 500 ml @ 500 mls/hr 1X ONCE IV Last administered on 01/13/19at 19:41; Start 01/13/19 at 17:00; Stop 01/13/19 at 17:59; Status DC Pantoprazole Sodium (PROTONIX VIAL for IV PUSH) 40 mg 1X ONCE IVP Last administered on 01/13/19at 17:45; Start 01/13/19 at 17:30; Stop 01/14/19 at 14:15; Status DC Ceftriaxone Sodium (Rocephin) 1 gm 1X ONCE IVP Last administered on 01/13/19at 17:47; Start 01/13/19 at 17:30; Stop 01/13/19 at 17:31; Status DC Ondansetron HCl (Zofran) 4 mg PRN Q8HRS PRN IV NAUSEA/VOMITING; Start 01/13/19 at 17:30; Stop 01/14/19 at 17:29; Status DC Fentanyl Citrate (Fentanyl 2ml Vial) 50 mcg PRN Q1HR PRN IV PAIN Last administered on 01/14/19at 01:25; Start 01/13/19 at 17:30; Stop 01/14/19 at 17:29; Status DC Ceftriaxone Sodium (Rocephin) 2 gm Q24H IVP ; Start 01/13/19 at 21:00; Stop 01/13/19 at 22:52; Status DC Albuterol Sulfate (Ventolin Neb Soln) 2.5 mg PRN QID PRN NEB SHORTNESS OF BR EATH; Start 01/13/19 at 20:45 Clonazepam (KlonoPIN) 0.5 mg HS PO Last administered on 01/14/19at 21:24; Start 01/13/19 at 21:00 Cyclobenzaprine HCl (Flexeril) 10 mg PRN BID PRN PO MUSCLE SPASMS Last administered on 01/14/19at 08:36; Start 01/13/19 at 20:45 Digoxin (Lanoxin) 125 mcg DAILY PO ; Start 01/14/19 at 09:00; Stop 01/14/19 at 13:30; Status DC Ferrous Sulfate (Feosol) 325 mg DAILY PO Last administered on 01/15/19 08:32; Start 01/14/19 at 09:00 Acetaminophen/ Hydrocodone Bitart (Lortab 5/325) 1 tab PRN Q6HRS PRN PO PAIN Last administered on 01/14/19 08:34; Start 01/13/19 at 20:45 Metoprolol Succinate (Toprol Xl) 25 mg DAILY PO Last administered on 01/14/19 08:38; Start 01/14/19 at 09:00 Montelukast Sodium (Singulair) 10 mg HS PO Last administered on 01/14/19 21:24; Start 01/13/19 at 21:00 Prednisone (Prednisone) 15 mg QODAY PO Last administered on 01/15/19 08:29; Start 01/15/19 at 09:00 Bupropion HCl (Wellbutrin Xl) 300 mg DAILY PO Last administered on 01/15/19 08:29; Start 01/14/19 at 09:00 Diltiazem HCl (Cardizem 24hr Cd) 240 mg DAILY PO Last administered on 01/14/19 08:35; Start 01/14/19 at 09:00 Duloxetine HCl (Cymbalta) 60 mg DAILY PO Last administered on 01/15/19 08:32; Start 01/14/19 at 09:00 Gabapentin (Neurontin) 300 mg BID PO Last administered on 01/15/19 08:32; Start 01/13/19 at 21:00 Levothyroxine Sodium (Synthroid) 175 mcg DAILY06 PO Last administered on 01/14/19 08:35; Start 01/14/19 at 06:00 Budesonide (Pulmicort) 0.5 mg RTBID NEB Last administered on 01/15/19 07:49; Start 01/13/19 at 22:00 Potassium Chloride (Klor-Con) 20 meq [id number] PO Last administered on 01/15/19 08:33; Start 01/14/19 at 08:00 Ropinirole HCl (Requip) 1 mg QHS PO Last administered on 01/14/19at 21:24; Start 01/13/19 at 21:00 Albuterol/ Ipratropium (Duoneb) 3 ml RTQID NEB Last administered on 01/15/19at 11:24; Start 01/13/19 at 22:00 Sodium Chloride 1,500 ml @ 1,500 mls/hr Q1H IV ; Start 01/13/19 at 20:47; Stop 01/13/19 at 20:56; Status DC Sodium Chloride 500 ml @ 1,000 mls/hr PRN Q30MIN PRN IV SEE COMMENTS; Start 01/13/19 at 21:00 Meropenem 1 gm/ Sodium Chloride 100 ml @ 200 mls/hr Q8HRS IV Last administered on 01/14/19at 05:29; Start 01/13/19 at 22:00; Stop 01/14/19 at 07:32; Status DC Norepinephrine Bitartrate 250 ml @ 0 mls/hr CONT PRN IV SEE I/O RECORD; Start 01/13/19 at 21:00; Stop 01/14/19 at 16:04; Status DC Dobutamine HCl/ Dextrose 250 ml @ 0 mls/hr CONT PRN IV SEE I/O RECORD; Start 01/13/19 at 21:00; Stop 01/14/19 at 16:04; Status DC Ceftriaxone Sodium (Rocephin) 2 gm Q24H IVP ; Start 01/14/19 at 18:00; Stop 01/14/19 at 18:00; Status DC Pantoprazole Sodium 80 mg/ Sodium Chloride 100 ml @ 10 mls/hr Q10H IV Last administered on 01/14/19at 08:48; Start 01/14/19 at 00:00; Stop 01/14/19 at 16:29; Status DC Meropenem 500 mg/ Sodium Chloride 50 ml @ 100 mls/hr Q6HRS IV Last administered on 01/15/19at 05:43; Start 01/14/19 at 12:00 Docusate Sodium (Colace) 100 mg STK-MED ONCE PO ; Start 01/14/19 at 08:27; Stop 01/14/19 at 08:28; Status DC Docusate Sodium (Colace) 100 mg PRN DAILY PRN PO CONSTIPATION; Start 01/14/19 at 12:45 Docusate Sodium (Colace) 100 mg DAILY PO Last administered on 01/15/19at 08:32; Start 01/15/19 at 09:00 Polyethylene Glycol (miraLAX PACKET) 17 gm PRN DAILY PRN PO CONSTIPATION; Start 01/14/19 at 12:45 Digoxin (Lanoxin) 125 mcg Q24H PO Last administered on 01/14/19at 15:03; Start 01/14/19 at 15:00 Pantoprazole Sodium (Protonix) 40 mg DAILYAC PO Last administered on 01/15/19at 08:33; Start 01/15/19 at 07:30 Active Scripts Active [place] 5-325 Tablet (Acetaminophen/Hydrocodone Bitart) 1 Each Tablet 1 Tab PO PRN Q6HRS PRN Reported Promethazine Hcl 25 Mg Tablet 1 Tab PO PRN Q6HRS Omeprazole 20 Mg Capsule.dr 1 Cap PO DAILY Spiriva (Tiotropium Pierce) 18 Mcg Cap.w.dev 1 Inh IH DAILY Proair Hfa Inhaler (Albuterol Sulfate) 8.5 Gm Hfa.aer.ad 2 Puff INH PRN Q6HRS PRN Metoprolol Succinate ( Xl ) (Metoprolol Succinate) 25 Mg Tab.er.24h 25 Mg PO DAILY Potassium Chloride 20 Meq Tablet.er 20 Meq PO DAILY Imodium A-D (Loperamide HCl) 2 Mg Capsule 2 Mg PO PRN DAILY PRN Digoxin 125 Mcg Tablet 125 Mcg PO DAILY Clonazepam 0.5 Mg Tablet 0.5 Mg PO HS Bupropion Xl (Bupropion Hcl) 300 Mg Tab.er.24h 300 Mg PO DAILY Albuterol Sulfate Neb Soln (Albuterol Sulfate) 2.5 Mg/3 Ml Vial.neb 2.5 Mg NEB PRN QID PRN Dulera 200 Mcg/5 Mcg Inhaler (Mometasone/Formoterol) 13 Gm Hfa.aer.ad 2 Puff IH BID Ferrous Sulfate 325 Mg Tablet 65 Mg PO DAILY Cyclobenzaprine Hcl 10 Mg Tablet 10 Mg PO PRN BID PRN Gabapentin 600 Mg Tablet 300 Mg PO BID Montelukast Sodium Tablet (Montelukast Sodium) 10 Mg Tablet 1 Tab PO HS Ropinirole Hcl 1 Mg Tablet 1 Mg PO HS Xarelto (Rivaroxaban) 20 Mg Tablet 20 Mg PO DAILY16 Cardizem Cd (Diltiazem Hcl) 240 Mg Cap.er.24h 1 Cap PO DAILY Prednisone (Prednisone) 10 Mg Tablet 15 Mg PO QODAY Furosemide 40 Mg Tablet 30 Mg PO DAILY Diclofenac Sodium 75 Mg Tablet.dr 1 Tab PO BID Cymbalta (Duloxetine Hcl) 60 Mg Capsule. 1 Cap PO DAILY Levothyroxine Sodium 150 Mcg Tablet 175 Mcg PO DAILY Vitals/I & O Vital Sign - Last 24 Hours 01/14/19 01/14/19 01/14/19 01/14/19 13:01 14:05 15:00 15:03 Pulse 72 72 70 78 Resp 22 16 20 B/P (MAP) 96/46 (63) 121/51 (74) 116/60 (78) 116/48 Pulse Ox 100 100 O2 Delivery Nasal Cannula Nasal Cannula Nasal Cannula O2 Flow Rate 3.0 3.0 3.0 01/14/19 01/14/19 01/14/19 01/14/19 16:30 16:34 17:00 19:15 Temp 98.1 98.1 98.6 98.1 98.1 98.6 Pulse 92 92 85 Resp 16 16 18 B/P (MAP) 101/57 101/57 (72) 122/66 (84) Pulse Ox 97 99 97 O2 Delivery Room Air Room Air Room Air 01/14/19 01/14/19 01/14/19 01/15/19 20:00 21:59 23:29 03:31 Temp 98.5 98.6 98.5 98.6 Pulse 98 85 Resp 18 18 B/P (MAP) 101/52 (68) 110/62 (78) Pulse Ox 95 98 98 O2 Delivery Room Air Room Air Nasal Cannula Nasal Cannula O2 Flow Rate 2.0 2.0 01/15/19 01/15/19 01/15/19 01/15/19 07:00 07:49 08:00 08:33 Temp 98.1 98.1 Pulse 89 Resp 14 B/P (MAP) 91/50 (64) 91/50 Pulse Ox 95 95 O2 Delivery Room Air Room Air Room Air 01/15/19 01/15/19 01/15/19 08:33 11:00 11:24 Temp 98.6 98.6 Pulse 79 Resp 14 B/P (MAP) 91/50 126/65 (85) Pulse Ox 95 98 O2 Delivery Room Air Room Air Intake and Output 01/14/19 01/14/19 01/15/19 15:00 23:00 07:00 Intake Total 288 ml 650 ml Output Total 300 ml Balance -12 ml 650 ml Nutrition Consultation Dietary Evaluation: Recommendations by RD: Decrease Calorie Intake, Protein supplementation Comments: REC advance diet as able to cardiac REC glucerna w/lunch trays Expected Outcomes/Goals: diet advancement Malnutrition Findings: Food and Nutrition Intake (Sev: <50% est energy req 5days Weight Status: Morbidly Obese ZENY MAYA MD Jan 15, 2019 12:11
--- NOTE | 2019-01-15 13:27 | NUR ---
SS following up with discharge planning. Pt is currently on room air. No discharge needs noted at this time. SS will continue to follow for discharge planning.
--- NOTE | 2019-01-15 14:58 | PDOC2 ---
CARDIAC CONSULT DATE OF CONSULT Date of Consult DATE: 01/15/19 TIME: 14:42 REASON FOR CONSULT Reason for Consult: Resumption of xarelto timing REFERRING PHYSICIAN Referring Physician: Fullbright SOURCE Source: Chart review, Patient HISTORY OF PRESENT ILLNESS HISTORY OF PRESENT ILLNESS This is a pleasant 63 yo female admitted for complains of shortness of breath and rectal bleeding. She went [place] recently, drove for a and just got back Friday. Friday she was not feeling good and started having blood in her stool. Sometimes it bright red blood like cranberry and it was a lot. She has been having some palpitations and SOA more with exertion. No falls, injury, fever and has not any any GI bleed in the past but she is on xarelto due to past PE/DVT and AFIB. No chest pain but her AFIB is chronic. She see [facility] cardiology No orthopnea, nausea or vomiting. PAST MEDICAL HISTORY Cardiovascular: AFIB, CHF, HTN Pulmonary: Asthma, Pulmonary embolus (DVT), Pneumonia, Other (FREEMAN; tracheobronchomalacia) CENTRAL NERVOUS SYSTEM: Migraine, Other (rls) GI: GERD, Hemorrhoids Heme/Onc: Anemia NOS, Other (chronic anticoagulation) Hepatobiliary: Cholelithiasis Psych: Depression Musculoskeletal: Osteoarthritis Infectious disease: Other (cdiff) Renal/: UTI Endocrine: Hypothyroidism Dermatology: No pertinent hx PAST SURGICAL HISTORY Past Surgical History: Cholecystectomy, Tonsillectomy, Other (vertical banded gastroplasty, right breast biopsy, right ureteroscopy/stent) FAMILY HISTORY Family History: Heart Disease, Other (clotting diorders) SOCIAL HISTORY Smoke: No ALCOHOL: occassional Drugs: None Lives: with Family CURRENT MEDICATIONS CURRENT MEDICATIONS Current Medications Medications (Trade) Dose Ordered Sig/Ijeoma Route PRN Reason Start Time Stop Time Status Last Admin Dose Admin Prednisone (Prednisone) 15 mg QODAY PO 01/15/19 09:00 01/15/19 08:29 Docusate Sodium (Colace) 100 mg DAILY PO 01/15/19 09:00 01/15/19 08:32 Digoxin (Lanoxin) 125 mcg Q24H PO 01/14/19 15:00 01/14/19 15:03 Pantoprazole Sodium (Protonix) 40 mg DAILYAC PO 01/15/19 07:30 01/15/19 08:33 ALLERGIES ALLERGIES: Coded Allergies: levofloxacin (Verified Allergy, Severe, Anaphylaxis, 12/17/18) Influenza Virus Vaccines (Verified Adverse Reaction, Intermediate, 12/17/18) asthma attack/reaction Penicillins (Verified Adverse Reaction, Intermediate, Rash, 12/17/18) also dyspnea Sulfa (Sulfonamide Antibiotics) (Verified Adverse Reaction, Intermediate, Rash, 12/17/18) ROS Review of System 14 point ROS with pertinent positives in HPI PHYSICAL EXAM General: Alert, Oriented X3, Cooperative, No acute distress HEENT: Atraumatic, Mucous membr. moist/pink Lungs: Other (diminished bases) Heart: Other (AFIB; 3/6 systolic murmur to LLS border) Abdomen: Soft Extremities: Other (leg edema/obesity) Skin: No breakdown, No significant lesion Neuro: Normal speech, Sensation intact Psych/Mental Status: Mental status NL, Mood NL MUSCULOSKELETAL: Osteoarthritic changes both hands VITALS/I&O VITALS/I&O: Vital Signs Date Time Temp Pulse Resp B/P (MAP) Pulse Ox O2 Delivery O2 Flow Rate FiO2 01/15/19 11:24 98 Room Air 01/15/19 11:00 98.6 79 14 126/65 (85) 98.6 01/15/19 03:31 2.0 I & O 01/14/19 01/14/19 01/15/19 15:00 23:00 07:00 Intake Total 288 ml 650 ml Output Total 300 ml Balance -12 ml 650 ml LABS Lab: Laboratory Tests Test 01/14/19 21:55 01/15/19 04:40 White Blood Count 11.8 x10^3/uL (4.0-11.0) H 11.2 x10^3/uL (4.0-11.0) H Red Blood Count 2.55 x10^6/uL (3.50-5.40) L 2.42 x10^6/uL (3.50-5.40) L Hemoglobin 7.5 g/dL (12.0-15.5) L 7.1 g/dL (12.0-15.5) L Hematocrit 22.8 % (36.0-47.0) L 21.6 % (36.0-47.0) L Mean Corpuscular Volume 90 fL (79-100) 90 fL (79-100) Mean Corpuscular Hemoglobin 29 pg (25-35) 29 pg (25-35) Mean Corpuscular Hemoglobin Concent 33 g/dL (31-37) 33 g/dL (31-37) Red Cell Distribution Width 16.6 % (11.5-14.5) H 16.9 % (11.5-14.5) H Platelet Count 160 x10^3/uL (140-400) 159 x10^3/uL (140-400) Neutrophils (%) (Auto) 68 % (31-73) 62 % (31-73) Lymphocytes (%) (Auto) 17 % (24-48) L 22 % (24-48) L Monocytes (%) (Auto) 9 % (0-9) 10 % (0-9) H Eosinophils (%) (Auto) 5 % (0-3) H 5 % (0-3) H Basophils (%) (Auto) 1 % (0-3) 1 % (0-3) Neutrophils # (Auto) 8.0 x10^3/uL (1.8-7.7) H 6.9 x10^3/uL (1.8-7.7) Lymphocytes # (Auto) 2.0 x10^3/uL (1.0-4.8) 2.4 x10^3/uL (1.0-4.8) Monocytes # (Auto) 1.1 x10^3/uL (0.0-1.1) 1.1 x10^3/uL (0.0-1.1) Eosinophils # (Auto) 0.6 x10^3/uL (0.0-0.7) 0.6 x10^3/uL (0.0-0.7) Basophils # (Auto) 0.1 x10^3/uL (0.0-0.2) 0.1 x10^3/uL (0.0-0.2) Sodium Level 142 mmol/L (136-145) Potassium Level 3.5 mmol/L (3.5-5.1) Chloride Level 106 mmol/L (98-107) Carbon Dioxide Level 28 mmol/L (21-32) Anion Gap 8 (6-14) Blood Urea Nitrogen 9 mg/dL (7-20) Creatinine 1.0 mg/dL (0.6-1.0) Estimated GFR (Cockcroft-Gault) 55.8 BUN/Creatinine Ratio 9 (6-20) Glucose Level 102 mg/dL (70-99) H Calcium Level 7.6 mg/dL (8.5-10.1) L Total Bilirubin 0.4 mg/dL (0.2-1.0) Aspartate Amino Transferase (AST) 10 U/L (15-37) L Alanine Aminotransferase (ALT) 16 U/L (14-59) Alkaline Phosphatase 52 U/L (46-116) Total Protein 5.5 g/dL (6.4-8.2) L Albumin 2.4 g/dL (3.4-5.0) L Albumin/Globulin Ratio 0.8 (1.0-1.7) L Laboratory Tests 01/14/19 21:55 01/15/19 04:40 Laboratory Tests 01/15/19 04:40 ASSESSMENT/PLAN ASSESSMENT/PLAN 1. Acute GI bleed: Hgb initially at 6.4 and trending down again at 7.1 post 2UPRBC 2. CAD: clinically stable 3. Chronic AFIB: initially with RVR reactive to anemia. Rate controlled 4. HTN: controlled 5. HLP 6. Hx of PE/DVT: DVT 1990s and last PE was 12/2017 7. Recent right ureteral stent (12/17/18) with possible underlying UTI. ID following 8. Strong family hx of clotting disorders 9. Dyspnea: due to anemia, V/Q low probability for PE. Recommendations 1. Follow GI recommendation 2. Continue toprol and may hold home cardizem per BP trend. Continue Dig. 3. Transfuse per protocol 4. ECASA 81 mg for stroke prevention. DC xarelto no anticoagulation 5. Discussed with pt in regards to risk for stroke and VTE but GI bleed with significant anemia negates the use of anticoagulation at this time Resumption of future NOAC will depend on the source of bleed. Follow with [facility] cardiology. 6. Will obtain venous doppler with leg swelling and recent long distance travel 7. Unknown what coag studies she has had in the past but will likely need IVC filter 8. She would be a good candidate for LAAO as well. 9. Transfer to CVC. ROSEMARY DANIEL APRN Jan 15, 2019 14:58
[2019-01-15] MEDS: ASPIRIN CHEWABLE 81 MG TABLET. PO SCH (15:17)
[2019-01-15] MEDS: DIGOXIN 125 MCG TABLET. PO SCH (15:21)
--- NOTE | 2019-01-15 15:51 | EKG ---
[facility] [address] [place] [address] Test Date: 2019-01-15 Test Time: 15:38:01 Pat Name: AARON MULLER Department: Room: 426 1 Gender: F [employer]: DEREK : [id number] Requested By: ROSEMARY DANIEL Order Number: [id number] Reading MD: Measurements Intervals [place] Rate: 96 P: [place]: QRS: 31 QRSD: 74 T: 142 QT: 358 QTc: 453 Interpretive Statements IRREGULAR RHYTHM, NO P-WAVE FOUND ST & T ABNORMALITY, CONSIDER HIGH LATERAL ISCHEMIA OR LEFT VENTRICULAR STRAIN ABNORMAL ECG RI6.01 Unconfirmed report No previous ECG available for comparison
--- NOTE | 2019-01-15 18:47 | NUR ---
Recommended by cardiology COTTON SEED CULLER to move patient to CVC due to chronic afib. Patient transferred at 1640 to room 207. This RN and a JAVA PROGRAMMER assisted getting patient settled into room. Report and chart given.
--- NOTE | 2019-01-15 19:15 | NUR ---
Patient arrived to room 207 via personal wheelchair, patient transferred to bed with minimal assist. Patient alert and oriented, afib on monitor, no complaints at the moment. Will continue to monitor.
[2019-01-15] MEDS: rOPINIRole 1 MG TABLET. PO SCH (20:04)
[2019-01-15] MEDS: MONTELUKAST SODIUM 10 MG TABLET. PO SCH (20:04)
[2019-01-15] MEDS: clonazePAM 0.5 MG TABLET PO SCH (20:04)
[2019-01-15] MEDS ORDERED: ONDANSETRON PF 4 MG/2 ML VIAL. IV PRN (23:00)
[2019-01-16] VITALS (10 sets, daily range): BP systolic 101–139; BP diastolic 51–75
[2019-01-16] MEDS: MEROPENEM 500 MG in IV NORMAL SALINE 50ML 50 ML IV SCH ×4 (05:15→23:16)
[2019-01-16] MEDS: LEVOTHYROXINE 175 MCG TABLET PO SCH (05:15)
[2019-01-16 06:35] LABS: BASO % 1 % (0-3); EOS # 0.3 x10^3/uL (0.0-0.7); EOS % 4 % (0-3); HEMATOCRIT 21.2 % (36.0-47.0); LYMPH # 1.9 x10^3/uL (1.0-4.8); LYMPH % 20 % (24-48); MEAN CORPUSCULAR HEMOGLOBIN 30 pg (25-35); MEAN CORPUSCULAR HGB CONC 33 g/dL (31-37); MEAN CORPUSCULAR VOLUME 90 fL (79-100); MONO # 0.9 x10^3/uL (0.0-1.1); MONO % 9 % (0-9); NEUT # 6.3 x10^3/uL (1.8-7.7); NEUT % 67 % (31-73); PLATELET COUNT 163 x10^3/uL (140-400); RED BLOOD COUNT 2.35 x10^6/uL (3.50-5.40); RED CELL DISTRIBUTION WIDTH 17.2 % (11.5-14.5); WHITE BLOOD COUNT 9.4 x10^3/uL (4.0-11.0)
[2019-01-16 06:56] LABS: ALBUMIN 2.5 g/dL (3.4-5.0); ALBUMIN/GLOBULIN RATIO 0.8 (1.0-1.7); CALCIUM 7.8 mg/dL (8.5-10.1); CREATININE 1.1 mg/dL (0.6-1.0); POTASSIUM 3.4 mmol/L (3.5-5.1); TOTAL BILIRUBIN 0.2 mg/dL (0.2-1.0); TOTAL PROTEIN 5.8 g/dL (6.4-8.2)
[2019-01-16] MEDS: BUDESONIDE 0.5 MG/2 ML NEBU. NEB SCH ×2 (08:02→20:36)
[2019-01-16] MEDS: IPRATRPIUM/ALBUTEROL 0.5/2.5MG 3 ML NEBU. NEB SCH ×4 (08:02→20:36)
--- NOTE | 2019-01-16 08:08 | RAD ---
Ultrasound venous Doppler INDICATION:Bilateral leg edema. History of DVT. TECHNIQUE: Grayscale, color Doppler and spectral waveform ultrasound images of the bilateral lower extremities deep veins obtained. COMPARISON: None FINDINGS: Limited exam due to large body habitus. Calf veins are not visualized. The interrogated deep veins are compressible and demonstrate evidence of blood flow with normal respiratory variation and response to augmentation. IMPRESSION:Limited exam due to large body habitus. Calf veins are not visualized. Otherwise, No sonographic evidence of acute DVT of the lower extremity deep veins. Electronically signed by: Arron Munroe DO (01/16/2019 8:05 AM) [facility]
[2019-01-16] MEDS: POTASSIUM CHLORIDE 20 MEQ TABLET.ER. PO SCH (08:23)
[2019-01-16] MEDS: ASPIRIN CHEWABLE 81 MG TABLET. PO SCH (08:23)
[2019-01-16] MEDS: FERROUS SULFATE 325 MG TABLET. PO SCH (08:23)
[2019-01-16] MEDS: GABAPENTIN 300 MG CAPSULE. PO SCH ×2 (08:24→20:27)
[2019-01-16] MEDS: DULoxetine HCL 30 MG CAPSULE.DR PO SCH (08:24)
[2019-01-16] MEDS: METOPROLOL SUCC 24HR ER 25 MG TAB.ER.24H. PO SCH (08:24)
[2019-01-16] MEDS: predniSONE 10 MG TABLET PO SCH (08:25)
[2019-01-16] MEDS: DOCUSATE SODIUM 100 MG CAPSULE. PO SCH (08:25)
[2019-01-16] MEDS: buPROPion XL 150 MG TAB.ER.24H. PO SCH (08:25)
[2019-01-16] MEDS: PANTOPRAZOLE 40 MG TABLET.DR. PO SCH (08:25)
--- NOTE | 2019-01-16 09:40 | PDOC ---
G I PROGRESS NOTE Reason for Follow-up Anemia/rectal bleed Subjective Nauseated. No further bleeding despite decreased Hg Physical Exam Lungs decreased BS CV S1 S2 ABD +BS, soft, distended, nontender Review of Relevant I have reviewed the following items jorge (where applicable) has been applied. Labs Laboratory Tests Test 01/14/19 10:18 01/14/19 14:16 01/14/19 21:55 01/15/19 04:40 White Blood Count 11.6 x10^3/uL (4.0-11.0) 9.2 x10^3/uL (4.0-11.0) 11.8 x10^3/uL (4.0-11.0) 11.2 x10^3/uL (4.0-11.0) Red Blood Count 2.60 x10^6/uL (3.50-5.40) 2.51 x10^6/uL (3.50-5.40) 2.55 x10^6/uL (3.50-5.40) 2.42 x10^6/uL (3.50-5.40) Hemoglobin 7.5 g/dL (12.0-15.5) 7.4 g/dL (12.0-15.5) 7.5 g/dL (12.0-15.5) 7.1 g/dL (12.0-15.5) Hematocrit 23.1 % (36.0-47.0) 22.3 % (36.0-47.0) 22.8 % (36.0-47.0) 21.6 % (36.0-47.0) Mean Corpuscular Volume 89 fL (79-100) 89 fL (79-100) 90 fL (79-100) 90 fL (79-100) Mean Corpuscular Hemoglobin 29 pg (25-35) 30 pg (25-35) 29 pg (25-35) 29 pg (25-35) Mean Corpuscular Hemoglobin Concent 33 g/dL (31-37) 33 g/dL (31-37) 33 g/dL (31-37) 33 g/dL (31-37) Red Cell Distribution Width 16.7 % (11.5-14.5) 16.9 % (11.5-14.5) 16.6 % (11.5-14.5) 16.9 % (11.5-14.5) Platelet Count 160 x10^3/uL (140-400) 152 x10^3/uL (140-400) 160 x10^3/uL (140-400) 159 x10^3/uL (140-400) Neutrophils (%) (Auto) 72 % (31-73) 72 % (31-73) 68 % (31-73) 62 % (31-73) Lymphocytes (%) (Auto) 16 % (24-48) 15 % (24-48) 17 % (24-48) 22 % (24-48) Monocytes (%) (Auto) 9 % (0-9) 9 % (0-9) 9 % (0-9) 10 % (0-9) Eosinophils (%) (Auto) 3 % (0-3) 4 % (0-3) 5 % (0-3) 5 % (0-3) Basophils (%) (Auto) 0 % (0-3) 0 % (0-3) 1 % (0-3) 1 % (0-3) Neutrophils # (Auto) 8.4 x10^3/uL (1.8-7.7) 6.6 x10^3/uL (1.8-7.7) 8.0 x10^3/uL (1.8-7.7) 6.9 x10^3/uL (1.8-7.7) Lymphocytes # (Auto) 1.8 x10^3/uL (1.0-4.8) 1.4 x10^3/uL (1.0-4.8) 2.0 x10^3/uL (1.0-4.8) 2.4 x10^3/uL (1.0-4.8) Monocytes # (Auto) 1.0 x10^3/uL (0.0-1.1) 0.8 x10^3/uL (0.0-1.1) 1.1 x10^3/uL (0.0-1.1) 1.1 x10^3/uL (0.0-1.1) Eosinophils # (Auto) 0.4 x10^3/uL (0.0-0.7) 0.4 x10^3/uL (0.0-0.7) 0.6 x10^3/uL (0.0-0.7) 0.6 x10^3/uL (0.0-0.7) Basophils # (Auto) 0.0 x10^3/uL (0.0-0.2) 0.0 x10^3/uL (0.0-0.2) 0.1 x10^3/uL (0.0-0.2) 0.1 x10^3/uL (0.0-0.2) Sodium Level 142 mmol/L (136-145) 142 mmol/L (136-145) Potassium Level 3.4 mmol/L (3.5-5.1) 3.5 mmol/L (3.5-5.1) Chloride Level 104 mmol/L (98-107) 106 mmol/L (98-107) Carbon Dioxide Level 27 mmol/L (21-32) 28 mmol/L (21-32) Anion Gap 11 (6-14) 8 (6-14) Blood Urea Nitrogen 15 mg/dL (7-20) 9 mg/dL (7-20) Creatinine 1.1 mg/dL (0.6-1.0) 1.0 mg/dL (0.6-1.0) Estimated GFR (Cockcroft-Gault) 50.0 55.8 Glucose Level 111 mg/dL (70-99) 102 mg/dL (70-99) Calcium Level 7.7 mg/dL (8.5-10.1) 7.6 mg/dL (8.5-10.1) BUN/Creatinine Ratio 9 (6-20) Total Bilirubin 0.4 mg/dL (0.2-1.0) Aspartate Amino Transf (AST/SGOT) 10 U/L (15-37) Alanine Aminotransferase (ALT/SGPT) 16 U/L (14-59) Alkaline Phosphatase 52 U/L (46-116) Total Protein 5.5 g/dL (6.4-8.2) Albumin 2.4 g/dL (3.4-5.0) Albumin/Globulin Ratio 0.8 (1.0-1.7) Thyroid Stimulating Hormone (TSH) 2.554 uIU/mL (0.358-3.74) Test 01/16/19 06:05 White Blood Count 9.4 x10^3/uL (4.0-11.0) Red Blood Count 2.35 x10^6/uL (3.50-5.40) Hemoglobin 7.0 g/dL (12.0-15.5) Hematocrit 21.2 % (36.0-47.0) Mean Corpuscular Volume 90 fL (79-100) Mean Corpuscular Hemoglobin 30 pg (25-35) Mean Corpuscular Hemoglobin Concent 33 g/dL (31-37) Red Cell Distribution Width 17.2 % (11.5-14.5) Platelet Count 163 x10^3/uL (140-400) Neutrophils (%) (Auto) 67 % (31-73) Lymphocytes (%) (Auto) 20 % (24-48) Monocytes (%) (Auto) 9 % (0-9) Eosinophils (%) (Auto) 4 % (0-3) Basophils (%) (Auto) 1 % (0-3) Neutrophils # (Auto) 6.3 x10^3/uL (1.8-7.7) Lymphocytes # (Auto) 1.9 x10^3/uL (1.0-4.8) Monocytes # (Auto) 0.9 x10^3/uL (0.0-1.1) Eosinophils # (Auto) 0.3 x10^3/uL (0.0-0.7) Basophils # (Auto) 0.0 x10^3/uL (0.0-0.2) Sodium Level 141 mmol/L (136-145) Potassium Level 3.4 mmol/L (3.5-5.1) Chloride Level 105 mmol/L (98-107) Carbon Dioxide Level 27 mmol/L (21-32) Anion Gap 9 (6-14) Blood Urea Nitrogen 8 mg/dL (7-20) Creatinine 1.1 mg/dL (0.6-1.0) Estimated GFR (Cockcroft-Gault) 50.0 BUN/Creatinine Ratio 7 (6-20) Glucose Level 108 mg/dL (70-99) Calcium Level 7.8 mg/dL (8.5-10.1) Total Bilirubin 0.2 mg/dL (0.2-1.0) Aspartate Amino Transf (AST/SGOT) 11 U/L (15-37) Alanine Aminotransferase (ALT/SGPT) 18 U/L (14-59) Alkaline Phosphatase 54 U/L (46-116) Total Protein 5.8 g/dL (6.4-8.2) Albumin 2.5 g/dL (3.4-5.0) Albumin/Globulin Ratio 0.8 (1.0-1.7) Laboratory Tests Test 01/16/19 06:05 White Blood Count 9.4 x10^3/uL (4.0-11.0) Red Blood Count 2.35 x10^6/uL (3.50-5.40) Hemoglobin 7.0 g/dL (12.0-15.5) Hematocrit 21.2 % (36.0-47.0) Mean Corpuscular Volume 90 fL (79-100) Mean Corpuscular Hemoglobin 30 pg (25-35) Mean Corpuscular Hemoglobin Concent 33 g/dL (31-37) Red Cell Distribution Width 17.2 % (11.5-14.5) Platelet Count 163 x10^3/uL (140-400) Neutrophils (%) (Auto) 67 % (31-73) Lymphocytes (%) (Auto) 20 % (24-48) Monocytes (%) (Auto) 9 % (0-9) Eosinophils (%) (Auto) 4 % (0-3) Basophils (%) (Auto) 1 % (0-3) Neutrophils # (Auto) 6.3 x10^3/uL (1.8-7.7) Lymphocytes # (Auto) 1.9 x10^3/uL (1.0-4.8) Monocytes # (Auto) 0.9 x10^3/uL (0.0-1.1) Eosinophils # (Auto) 0.3 x10^3/uL (0.0-0.7) Basophils # (Auto) 0.0 x10^3/uL (0.0-0.2) Sodium Level 141 mmol/L (136-145) Potassium Level 3.4 mmol/L (3.5-5.1) Chloride Level 105 mmol/L (98-107) Carbon Dioxide Level 27 mmol/L (21-32) Anion Gap 9 (6-14) Blood Urea Nitrogen 8 mg/dL (7-20) Creatinine 1.1 mg/dL (0.6-1.0) Estimated GFR (Cockcroft-Gault) 50.0 BUN/Creatinine Ratio 7 (6-20) Glucose Level 108 mg/dL (70-99) Calcium Level 7.8 mg/dL (8.5-10.1) Total Bilirubin 0.2 mg/dL (0.2-1.0) Aspartate Amino Transf (AST/SGOT) 11 U/L (15-37) Alanine Aminotransferase (ALT/SGPT) 18 U/L (14-59) Alkaline Phosphatase 54 U/L (46-116) Total Protein 5.8 g/dL (6.4-8.2) Albumin 2.5 g/dL (3.4-5.0) Albumin/Globulin Ratio 0.8 (1.0-1.7) Microbiology 01/13/19 Blood Culture - Preliminary, Resulted NO GROWTH AFTER 2 DAYS 01/13/19 Urine Culture - Preliminary, Resulted 01/13/19 Urine Culture Result 1 (JAY) - Preliminary, Resulted Medications Current Medications Digoxin (Lanoxin) 125 mcg 1X STAT PO Last administered on 01/13/19at 15:50; Start 01/13/19 at 15:15; Stop 01/13/19 at 15:19; Status DC Albuterol/ Ipratropium (Duoneb) 3 ml 1X ONCE NEB Last administered on 01/13/19at 16:07; Start 01/13/19 at 16:30; Stop 01/13/19 at 16:31; Status DC Sodium Chloride 1,000 ml @ 1,000 mls/hr 1X ONCE IV Last administered on 01/13/19at 17:29; Start 01/13/19 at 17:30; Stop 01/13/19 at 18:29; Status DC Sodium Chloride 500 ml @ 500 mls/hr 1X ONCE IV Last administered on 01/13/19at 19:41; Start 01/13/19 at 17:00; Stop 01/13/19 at 17:59; Status DC Pantoprazole Sodium (PROTONIX VIAL for IV PUSH) 40 mg 1X ONCE IVP Last administered on 01/13/19at 17:45; Start 01/13/19 at 17:30; Stop 01/14/19 at 14:15; Status DC Ceftriaxone Sodium (Rocephin) 1 gm 1X ONCE IVP Last administered on 01/13/19at 17:47; Start 01/13/19 at 17:30; Stop 01/13/19 at 17:31; Status DC Ondansetron HCl (Zofran) 4 mg PRN Q8HRS PRN IV NAUSEA/VOMITING; Start 01/13/19 at 17:30; Stop 01/14/19 at 17:29; Status DC Fentanyl Citrate (Fentanyl 2ml Vial) 50 mcg PRN Q1HR PRN IV PAIN Last administered on 01/14/19at 01:25; Start 01/13/19 at 17:30; Stop 01/14/19 at 17:29; Status DC Ceftriaxone Sodium (Rocephin) 2 gm Q24H IVP ; Start 01/13/19 at 21:00; Stop 01/13/19 at 22:52; Status DC Albuterol Sulfate (Ventolin Neb Soln) 2.5 mg PRN QID PRN NEB SHORTNESS OF BREATH; Start 01/13/19 at 20:45 Clonazepam (KlonoPIN) 0.5 mg HS PO Last administered on 01/15/19 20:04; Start 01/13/19 at 21:00 Cyclobenzaprine HCl (Flexeril) 10 mg PRN BID PRN PO MUSCLE SPASMS Last administered on 01/14/19at 08:36; Start 01/13/19 at 20:45 Digoxin (Lanoxin) 125 mcg DAILY PO ; Start 01/14/19 at 09:00; Stop 01/14/19 at 13:30; Status DC Ferrous Sulfate (Feosol) 325 mg DAILY PO Last administered on 01/16/19at 08:23; Start 01/14/19 at 09:00 Acetaminophen/ Hydrocodone Bitart (Lortab 5/325) 1 tab PRN Q6HRS PRN PO PAIN Last administered on 01/14/19at 08:34; Start 01/13/19 at 20:45 Metoprolol Succinate (Toprol Xl) 25 mg DAILY PO Last administered on 01/16/19at 08:24; Start 01/14/19 at 09:00 Montelukast Sodium (Singulair) 10 mg HS PO Last administered on 01/15/19at 20:04; Start 01/13/19 at 21:00 Prednisone (Prednisone) 15 mg QODAY PO Last administered on 01/15/19 08:29; Start 01/15/19 at 09:00; Stop 01/16/19 at 04:16; Status DC Bupropion HCl (Wellbutrin Xl) 300 mg DAILY PO Last administered on 01/16/19 08:25; Start 01/14/19 at 09:00 Diltiazem HCl (Cardizem 24hr Cd) 240 mg DAILY PO Last administered on 01/16/19 08:25; Start 01/14/19 at 09:00 Duloxetine HCl (Cymbalta) 60 mg DAILY PO Last administered on 01/16/19 08:24; Start 01/14/19 at 09:00 Gabapentin (Neurontin) 300 mg BID PO Last administered on 01/16/19 08:24; Start 01/13/19 at 21:00 Levothyroxine Sodium (Synthroid) 175 mcg DAILY06 PO Last administered on 01/16/19 05:15; Start 01/14/19 at 06:00 Budesonide (Pulmicort) 0.5 mg RTBID NEB Last administered on 01/16/19 08:02; Start 01/13/19 at 22:00 Potassium Chloride (Klor-Con) 20 meq DAILYWBKFT PO Last administered on 01/16/19 08:23; Start 01/14/19 at 08:00 Ropinirole HCl (Requip) 1 mg QHS PO Last administered on 01/15/19at 20:04; Start 01/13/19 at 21:00 Albuterol/ Ipratropium (Duoneb) 3 ml RTQID NEB Last administered on 01/16/19at 08:02; Start 01/13/19 at 22:00 Sodium Chloride 1,500 ml @ 1,500 mls/hr Q1H IV ; Start 01/13/19 at 20:47; Stop 01/13/19 at 20:56; Status DC Sodium Chloride 500 ml @ 1,000 mls/hr PRN Q30MIN PRN IV SEE COMMENTS; Start 01/13/19 at 21:00 Meropenem 1 gm/ Sodium Chloride 100 ml @ 200 mls/hr Q8HRS IV Last administered on 01/14/19at 05:29; Start 01/13/19 at 22:00; Stop 01/14/19 at 07:32; Status DC Norepinephrine Bitartrate 250 ml @ 0 mls/hr CONT PRN IV SEE I/O RECORD; Start 01/13/19 at 21:00; Stop 01/14/19 at 16:04; Status DC Dobutamine HCl/ Dextrose 250 ml @ 0 mls/hr CONT PRN IV SEE I/O RECORD; Start 01/13/19 at 21:00; Stop 01/14/19 at 16:04; Status DC Ceftriaxone Sodium (Rocephin) 2 gm Q24H IVP ; Start 01/14/19 at 18:00; Stop 01/14/19 at 18:00; Status DC Pantoprazole Sodium 80 mg/ Sodium Chloride 100 ml @ 10 mls/hr Q10H IV Last administered on 01/14/19at 08:48; Start 01/14/19 at 00:00; Stop 01/14/19 at 16:29; Status DC Meropenem 500 mg/ Sodium Chloride 50 ml @ 100 mls/hr Q6HRS IV Last administered on 01/16/19at 05:15; Start 01/14/19 at 12:00 Docusate Sodium (Colace) 100 mg STK-MED ONCE PO ; Start 01/14/19 at 08:27; Stop 01/14/19 at 08:28; Status DC Docusate Sodium (Colace) 100 mg PRN DAILY PRN PO STOOL SOFTENER; Start 01/14/19 at 12:45 Docusate Sodium (Colace) 100 mg DAILY PO Last administered on 01/16/19at 08:25; Start 01/15/19 at 09:00 Polyethylene Glycol (miraLAX PACKET) 17 gm PRN DAILY PRN PO CONSTIPATION; Start 01/14/19 at 12:45 Digoxin (Lanoxin) 125 mcg Q24H PO Last administered on 01/15/19at 15:21; Start 01/14/19 at 15:00 Pantoprazole Sodium (Protonix) 40 mg DAILYAC PO Last administered on 01/16/19at 08:25; Start 01/15/19 at 07:30 Aspirin (Children'S Aspirin) 81 mg DAILYWBKFT PO Last administered on 01/16/19at 08:23; Start 01/15/19 at 14:00 Ondansetron HCl (Zofran) 4 mg PRN Q4HRS PRN IV NAUSEA/VOMITING 1ST CHOICE; Start 01/15/19 at 23:00 Prednisone (Prednisone) 15 mg QODAY PO Last administered on 01/16/19at 08:25; Start 01/16/19 at 09:00 Active Scripts Active Friendly 5-325 Tablet (Acetaminophen/Hydrocodone Bitart) 1 Each Tablet 1 Tab PO PRN Q6HRS PRN Reported Promethazine Hcl 25 Mg Tablet 1 Tab PO PRN Q6HRS Omeprazole 20 Mg Capsule.dr 1 Cap PO DAILY Spiriva (Tiotropium [place]) 18 Mcg Cap.w.dev 1 Inh IH DAILY Proair Hfa Inhaler (Albuterol Sulfate) 8.5 Gm Hfa.aer.ad 2 Puff INH PRN Q6HRS PRN Metoprolol Succinate ( Xl ) (Metoprolol Succinate) 25 Mg Tab.er.24h 25 Mg PO DAILY Potassium Chloride 20 Meq Tablet.er 20 Meq PO DAILY Imodium A-D (Loperamide HCl) 2 Mg Capsule 2 Mg PO PRN DAILY PRN Digoxin 125 Mcg Tablet 125 Mcg PO DAILY Clonazepam 0.5 Mg Tablet 0.5 Mg PO HS Bupropion Xl (Bupropion Hcl) 300 Mg Tab.er.24h 300 Mg PO DAILY Albuterol Sulfate Neb Soln (Albuterol Sulfate) 2.5 Mg/3 Ml Vial.neb 2.5 Mg NEB PRN QID PRN Dulera 200 Mcg/5 Mcg Inhaler (Mometasone/Formoterol) 13 Gm Hfa.aer.ad 2 Puff IH BID Ferrous Sulfate 325 Mg Tablet 65 Mg PO DAILY Cyclobenzaprine Hcl 10 Mg Tablet 10 Mg PO PRN BID PRN Gabapentin 600 Mg Tablet 300 Mg PO BID Montelukast Sodium Tablet (Montelukast Sodium) 10 Mg Tablet 1 Tab PO HS Ropinirole Hcl 1 Mg Tablet 1 Mg PO HS Xarelto (Rivaroxaban) 20 Mg Tablet 20 Mg PO DAILY16 Cardizem Cd (Diltiazem Hcl) 240 Mg Cap.er.24h 1 Cap PO DAILY Prednisone (Prednisone) 10 Mg Tablet 15 Mg PO QODAY Furosemide 40 Mg Tablet 30 Mg PO DAILY Diclofenac Sodium 75 Mg Tablet. 1 Tab PO BID Cymbalta (Duloxetine Hcl) 60 Mg Capsule.dr 1 Cap PO DAILY Levothyroxine Sodium 150 Mcg Tablet 175 Mcg PO DAILY Vitals/I & O Vital Sign - Last 24 Hours 01/15/19 01/15/19 01/15/19 01/15/19 11:00 11:24 15:00 15:21 Temp 98.6 99.6 98.6 99.6 Pulse 79 95 95 Resp 14 14 B/P (MAP) 126/65 (85) 103/50 (67) 103/50 Pulse Ox 95 98 94 O2 Delivery Room Air Room Air Room Air 01/15/19 01/15/19 01/15/19 01/15/19 15:21 16:00 17:07 17:30 Temp 98.1 98.1 Pulse 95 87 Resp 20 B/P (MAP) 103/50 148/72 (97) Pulse Ox 97 97 O2 Delivery Room Air Room Air Room Air 01/15/19 01/15/19 01/15/19 01/15/19 19:05 19:29 20:39 22:42 Temp 98.4 99.1 98.4 99.1 Pulse 104 96 Resp 16 22 B/P (MAP) 112/55 (74) 124/71 (88) Pulse Ox 96 97 97 O2 Delivery Room Air Room Air Room Air Room Air 01/16/19 01/16/19 01/16/19 01/16/19 03:31 07:20 07:40 08:04 Temp 98.5 98.2 98.5 98.2 Pulse 81 83 Resp 18 18 B/P (MAP) 125/68 (87) 128/65 (86) Pulse Ox 96 93 100 O2 Delivery Room Air Room Air Room Air Room Air 01/16/19 01/16/19 01/16/19 01/16/19 08:05 08:24 08:25 09:28 Temp 98.3 98.3 Pulse 83 83 75 Resp 16 B/P (MAP) 128/65 128/65 136/65 Pulse Ox 100 O2 Delivery Room Air Intake and Output 01/15/19 01/15/19 01/16/19 14:59 22:59 06:59 Intake Total 410 ml Output Total 100 ml Balance 310 ml Problem List Problems Medical Problems: (1) Atrial fibrillation with RVR Status: Acute (2) Elevated d-dimer Status: Acute (3) GI bleed Status: Acute (4) Severe sepsis Status: Acute (5) Urinary tract infection Status: Acute Assessment Rectal bleed- with anemia, colonic source likely. Await response to transfusion, colonoscopy tentatively Friday after prep SERENITY KATE MD Jan 16, 2019 09:40
--- NOTE | 2019-01-16 09:46 | PDOC ---
Infectious Disease Note Subjective Subjective Some N/V and tossed and turned last night Feeling better this morning Eating most of breakfast Denies F/C/S/D/cramps Vital Sign Vital Signs Vital Signs Date Time Temp Pulse Resp B/P (MAP) Pulse Ox O2 Delivery O2 Flow Rate FiO2 01/16/19 09:28 98.3 75 16 136/65 98.3 01/16/19 08:05 100 Room Air Physical Exam PHYSICAL EXAM CONSTITUTIONAL: She is pleasant. She is cooperative. She is in no acute distress. HEENT: Pupils are equal and reactive with normal conjunctivae. Oral cavity, pharynx is clear. NECK: Supple, no JVD. LUNGS: Clear to auscultation. HEART: S1, S2. ABDOMEN: Morbidly obese, soft, nontender. No guarding, no rebound. She has well-healed scars. EXTREMITIES: No clubbing or cyanosis with no gross edema. SKIN: Warm to touch without generalized rash. NEUROLOGIC: She is nonfocal and appropriate. PSYCHIATRIC: Affect is appropriate. Peripheral intravenous sites are clean. Labs Lab Laboratory Tests Test 01/16/19 06:05 White Blood Count 9.4 x10^3/uL (4.0-11.0) Red Blood Count 2.35 x10^6/uL (3.50-5.40) Hemoglobin 7.0 g/dL (12.0-15.5) Hematocrit 21.2 % (36.0-47.0) Mean Corpuscular Volume 90 fL (79-100) Mean Corpuscular Hemoglobin 30 pg (25-35) Mean Corpuscular Hemoglobin Concent 33 g/dL (31-37) Red Cell Distribution Width 17.2 % (11.5-14.5) Platelet Count 163 x10^3/uL (140-400) Neutrophils (%) (Auto) 67 % (31-73) Lymphocytes (%) (Auto) 20 % (24-48) Monocytes (%) (Auto) 9 % (0-9) Eosinophils (%) (Auto) 4 % (0-3) Basophils (%) (Auto) 1 % (0-3) Neutrophils # (Auto) 6.3 x10^3/uL (1.8-7.7) Lymphocytes # (Auto) 1.9 x10^3/uL (1.0-4.8) Monocytes # (Auto) 0.9 x10^3/uL (0.0-1.1) Eosinophils # (Auto) 0.3 x10^3/uL (0.0-0.7) Basophils # (Auto) 0.0 x10^3/uL (0.0-0.2) Sodium Level 141 mmol/L (136-145) Potassium Level 3.4 mmol/L (3.5-5.1) Chloride Level 105 mmol/L (98-107) Carbon Dioxide Level 27 mmol/L (21-32) Anion Gap 9 (6-14) Blood Urea Nitrogen 8 mg/dL (7-20) Creatinine 1.1 mg/dL (0.6-1.0) Estimated GFR (Cockcroft-Gault) 50.0 BUN/Creatinine Ratio 7 (6-20) Glucose Level 108 mg/dL (70-99) Calcium Level 7.8 mg/dL (8.5-10.1) Total Bilirubin 0.2 mg/dL (0.2-1.0) Aspartate Amino Transf (AST/SGOT) 11 U/L (15-37) Alanine Aminotransferase (ALT/SGPT) 18 U/L (14-59) Alkaline Phosphatase 54 U/L (46-116) Total Protein 5.8 g/dL (6.4-8.2) Albumin 2.5 g/dL (3.4-5.0) Albumin/Globulin Ratio 0.8 (1.0-1.7) Micro Microbiology 01/13/19 Blood Culture - Preliminary, Resulted NO GROWTH AFTER 2 DAYS 01/13. URINE CULTURE RES 1 Preliminary Escherichia coli Greater than 100,000 colony forming units per mL Objective Assessment Rectal bleed Leukocytosis - reactive plus on steroids takes 15 mg po QOD for asthma - improved ? UTI- POA - ? contamination with squamous cells and asymptomatic - recent kidney stones with stent and removal last month. E. coli abx allergies - PCN - as child - rash and swelling - tolerated Rocephin, Sulfa- hives and swelling, Levoflox- swelling Low grade temp - likely from PRBCs Lactic acidosis Afib H/o PE and DVTs MRSA screen positive Plan Plan of Care Cont Meropenem F/u cults and hopefully taper to po Supportive care D/w nursing Attending Co-Sign The patient was seen and interviewed as well as examined at the bedside. The chart was reviewed. The case was discussed. Agree with the plan of care. URINE e coli ROBB JOHNSON APRN Jan 16, 2019 09:46 BRANDON MENDEZ MD Jan 16, 2019 11:29
[2019-01-16] MEDS ORDERED: ACETAMINOPHEN 325 MG TABLET. PO PRN (10:00)
--- NOTE | 2019-01-16 13:41 | PDOC ---
PROGRESS NOTES Chief Complaint Chief Complaint Severe sepsis, pyelonephritis, GI bleed, acute blood loss anemia Atrial fibrillation with RVR No pulmonary consolidation or acute airspace disease. Elevated d-dimer morbid obesity, BMI 52 w/ also severe malnutrition broncho-trachial malacia, History of Present Illness History of Present Illness fatigued, feels better sepsis treated, ID following hgb ok, anemia of chronic dz Vitals Vitals Vital Signs Date Time Temp Pulse Resp B/P (MAP) Pulse Ox O2 Delivery O2 Flow Rate FiO2 01/16/19 12:00 98.1 76 18 132/58 98.1 01/16/19 11:48 100 Room Air Physical Exam Physical Exam CONSTITUTIONAL: She is pleasant. She is cooperative. She is in no acute distress. HEENT: Pupils are equal and reactive with normal conjunctivae. Oral cavity, pharynx is clear. NECK: Supple, no JVD. LUNGS: Clear to auscultation. HEART: S1, S2. ABDOMEN: Morbidly obese, soft, nontender. No guarding, no rebound. She has well-healed scars. EXTREMITIES: No clubbing or cyanosis with no gross edema. SKIN: Warm to touch without generalized rash. NEUROLOGIC: She is nonfocal and appropriate. PSYCHIATRIC: Affect is appropriate. Peripheral intravenous sites are clean. General: Alert, Oriented X3, Cooperative, No acute distress Heart: Other (AFIB; 3/6 systolic murmur to LLS border) Lungs: Wheezing Abdomen: Soft Extremities: Other (leg edema/obesity) Skin: No breakdown, No significant lesion Labs LABS Laboratory Tests Test 01/16/19 06:05 White Blood Count 9.4 x10^3/uL (4.0-11.0) Red Blood Count 2.35 x10^6/uL (3.50-5.40) Hemoglobin 7.0 g/dL (12.0-15.5) Hematocrit 21.2 % (36.0-47.0) Mean Corpuscular Volume 90 fL (79-100) Mean Corpuscular Hemoglobin 30 pg (25-35) Mean Corpuscular Hemoglobin Concent 33 g/dL (31-37) Red Cell Distribution Width 17.2 % (11.5-14.5) Platelet Count 163 x10^3/uL (140-400) Neutrophils (%) (Auto) 67 % (31-73) Lymphocytes (%) (Auto) 20 % (24-48) Monocytes (%) (Auto) 9 % (0-9) Eosinophils (%) (Auto) 4 % (0-3) Basophils (%) (Auto) 1 % (0-3) Neutrophils # (Auto) 6.3 x10^3/uL (1.8-7.7) Lymphocytes # (Auto) 1.9 x10^3/uL (1.0-4.8) Monocytes # (Auto) 0.9 x10^3/uL (0.0-1.1) Eosinophils # (Auto) 0.3 x10^3/uL (0.0-0.7) Basophils # (Auto) 0.0 x10^3/uL (0.0-0.2) Sodium Level 141 mmol/L (136-145) Potassium Level 3.4 mmol/L (3.5-5.1) Chloride Level 105 mmol/L (98-107) Carbon Dioxide Level 27 mmol/L (21-32) Anion Gap 9 (6-14) Blood Urea Nitrogen 8 mg/dL (7-20) Creatinine 1.1 mg/dL (0.6-1.0) Estimated GFR (Cockcroft-Gault) 50.0 BUN/Creatinine Ratio 7 (6-20) Glucose Level 108 mg/dL (70-99) Calcium Level 7.8 mg/dL (8.5-10.1) Total Bilirubin 0.2 mg/dL (0.2-1.0) Aspartate Amino Transf (AST/SGOT) 11 U/L (15-37) Alanine Aminotransferase (ALT/SGPT) 18 U/L (14-59) Alkaline Phosphatase 54 U/L (46-116) Total Protein 5.8 g/dL (6.4-8.2) Albumin 2.5 g/dL (3.4-5.0) Albumin/Globulin Ratio 0.8 (1.0-1.7) Assessment and Plan Assessmemt and Plan Problems Medical Problems: (1) Atrial fibrillation with RVR Status: Acute (2) Elevated d-dimer Status: Acute (3) GI bleed Status: Acute (4) Severe sepsis Status: Acute (5) Urinary tract infection Status: Acute Comment Review of Relevant I have reviewed the following items jorge (where applicable) has been applied. Labs Laboratory Tests Test 01/14/19 14:16 01/14/19 21:55 01/15/19 04:40 01/16/19 06:05 White Blood Count 9.2 x10^3/uL (4.0-11.0) 11.8 x10^3/uL (4.0-11.0) 11.2 x10^3/uL (4.0-11.0) 9.4 x10^3/uL (4.0-11.0) Red Blood Count 2.51 x10^6/uL (3.50-5.40) 2.55 x10^6/uL (3.50-5.40) 2.42 x10^6/uL (3.50-5.40) 2.35 x10^6/uL (3.50-5.40) Hemoglobin 7.4 g/dL (12.0-15.5) 7.5 g/dL (12.0-15.5) 7.1 g/dL (12.0-15.5) 7.0 g/dL (12.0-15.5) Hematocrit 22.3 % (36.0-47.0) 22.8 % (36.0-47.0) 21.6 % (36.0-47.0) 21.2 % (36.0-47.0) Mean Corpuscular Volume 89 fL (79-100) 90 fL (79-100) 90 fL (79-100) 90 fL (79-100) Mean Corpuscular Hemoglobin 30 pg (25-35) 29 pg (25-35) 29 pg (25-35) 30 pg (25-35) Mean Corpuscular Hemoglobin Concent 33 g/dL (31-37) 33 g/dL (31-37) 33 g/dL (31-37) 33 g/dL (31-37) Red Cell Distribution Width 16.9 % (11.5-14.5) 16.6 % (11.5-14.5) 16.9 % (11.5-14.5) 17.2 % (11.5-14.5) Platelet Count 152 x10^3/uL (140-400) 160 x10^3/uL (140-400) 159 x10^3/uL (140-400) 163 x10^3/uL (140-400) Neutrophils (%) (Auto) 72 % (31-73) 68 % (31-73) 62 % (31-73) 67 % (31-73) Lymphocytes (%) (Auto) 15 % (24-48) 17 % (24-48) 22 % (24-48) 20 % (24-48) Monocytes (%) (Auto) 9 % (0-9) 9 % (0-9) 10 % (0-9) 9 % (0-9) Eosinophils (%) (Auto) 4 % (0-3) 5 % (0-3) 5 % (0-3) 4 % (0-3) Basophils (%) (Auto) 0 % (0-3) 1 % (0-3) 1 % (0-3) 1 % (0-3) Neutrophils # (Auto) 6.6 x10^3/uL (1.8-7.7) 8.0 x10^3/uL (1.8-7.7) 6.9 x10^3/uL (1.8-7.7) 6.3 x10^3/uL (1.8-7.7) Lymphocytes # (Auto) 1.4 x10^3/uL (1.0-4.8) 2.0 x10^3/uL (1.0-4.8) 2.4 x10^3/uL (1.0-4.8) 1.9 x10^3/uL (1.0-4.8) Monocytes # (Auto) 0.8 x10^3/uL (0.0-1.1) 1.1 x10^3/uL (0.0-1.1) 1.1 x10^3/uL (0.0-1.1) 0.9 x10^3/uL (0.0-1.1) Eosinophils # (Auto) 0.4 x10^3/uL (0.0-0.7) 0.6 x10^3/uL (0.0-0.7) 0.6 x10^3/uL (0.0-0.7) 0.3 x10^3/uL (0.0-0.7) Basophils # (Auto) 0.0 x10^3/uL (0.0-0.2) 0.1 x10^3/uL (0.0-0.2) 0.1 x10^3/uL (0.0-0.2) 0.0 x10^3/uL (0.0-0.2) Sodium Level 142 mmol/L (136-145) 141 mmol/L (136-145) Potassium Level 3.5 mmol/L (3.5-5.1) 3.4 mmol/L (3.5-5.1) Chloride Level 106 mmol/L (98-107) 105 mmol/L (98-107) Carbon Dioxide Level 28 mmol/L (21-32) 27 mmol/L (21-32) Anion Gap 8 (6-14) 9 (6-14) Blood Urea Nitrogen 9 mg/dL (7-20) 8 mg/dL (7-20) Creatinine 1.0 mg/dL (0.6-1.0) 1.1 mg/dL (0.6-1.0) Estimated GFR (Cockcroft-Gault) 55.8 50.0 BUN/Creatinine Ratio 9 (6-20) 7 (6-20) Glucose Level 102 mg/dL (70-99) 108 mg/dL (70-99) Calcium Level 7.6 mg/dL (8.5-10.1) 7.8 mg/dL (8.5-10.1) Total Bilirubin 0.4 mg/dL (0.2-1.0) 0.2 mg/dL (0.2-1.0) Aspartate Amino Transf (AST/SGOT) 10 U/L (15-37) 11 U/L (15-37) Alanine Aminotransferase (ALT/SGPT) 16 U/L (14-59) 18 U/L (14-59) Alkaline Phosphatase 52 U/L (46-116) 54 U/L (46-116) Total Protein 5.5 g/dL (6.4-8.2) 5.8 g/dL (6.4-8.2) Albumin 2.4 g/dL (3.4-5.0) 2.5 g/dL (3.4-5.0) Albumin/Globulin Ratio 0.8 (1.0-1.7) 0.8 (1.0-1.7) Thyroid Stimulating Hormone (TSH) 2.554 uIU/mL (0.358-3.74) Laboratory Tests Test 01/16/19 06:05 White Blood Count 9.4 x10^3/uL (4.0-11.0) Red Blood Count 2.35 x10^6/uL (3.50-5.40) Hemoglobin 7.0 g/dL (12.0-15.5) Hematocrit 21.2 % (36.0-47.0) Mean Corpuscular Volume 90 fL (79-100) Mean Corpuscular Hemoglobin 30 pg (25-35) Mean Corpuscular Hemoglobin Concent 33 g/dL (31-37) Red Cell Distribution Width 17.2 % (11.5-14.5) Platelet Count 163 x10^3/uL (140-400) Neutrophils (%) (Auto) 67 % (31-73) Lymphocytes (%) (Auto) 20 % (24-48) Monocytes (%) (Auto) 9 % (0-9) Eosinophils (%) (Auto) 4 % (0-3) Basophils (%) (Auto) 1 % (0-3) Neutrophils # (Auto) 6.3 x10^3/uL (1.8-7.7) Lymphocytes # (Auto) 1.9 x10^3/uL (1.0-4.8) Monocytes # (Auto) 0.9 x10^3/uL (0.0-1.1) Eosinophils # (Auto) 0.3 x10^3/uL (0.0-0.7) Basophils # (Auto) 0.0 x10^3/uL (0.0-0.2) Sodium Level 141 mmol/L (136-145) Potassium Level 3.4 mmol/L (3.5-5.1) Chloride Level 105 mmol/L (98-107) Carbon Dioxide Level 27 mmol/L (21-32) Anion Gap 9 (6-14) Blood Urea Nitrogen 8 mg/dL (7-20) Creatinine 1.1 mg/dL (0.6-1.0) Estimated GFR (Cockcroft-Gault) 50.0 BUN/Creatinine Ratio 7 (6-20) Glucose Level 108 mg/dL (70-99) Calcium Level 7.8 mg/dL (8.5-10.1) Total Bilirubin 0.2 mg/dL (0.2-1.0) Aspartate Amino Transf (AST/SGOT) 11 U/L (15-37) Alanine Aminotransferase (ALT/SGPT) 18 U/L (14-59) Alkaline Phosphatase 54 U/L (46-116) Total Protein 5.8 g/dL (6.4-8.2) Albumin 2.5 g/dL (3.4-5.0) Albumin/Globulin Ratio 0.8 (1.0-1.7) Microbiology 01/13/19 Blood Culture - Preliminary, Resulted NO GROWTH AFTER 2 DAYS 01/13/19 Urine Culture - Preliminary, Resulted 01/13/19 Urine Culture Result 1 (JAY) - Preliminary, Resulted Medications Current Medications Digoxin (Lanoxin) 125 mcg 1X STAT PO Last administered on 01/13/19at 15:50; Start 01/13/19 at 15:15; Stop 01/13/19 at 15:19; Status DC Albuterol/ Ipratropium (Duoneb) 3 ml 1X ONCE NEB Last administered on 01/13/19at 16:07; Start 01/13/19 at 16:30; Stop 01/13/19 at 16:31; Status DC Sodium Chloride 1,000 ml @ 1,000 mls/hr 1X ONCE IV Last administered on 01/13/19at 17:29; Start 01/13/19 at 17:30; Stop 01/13/19 at 18:29; Status DC Sodium Chloride 500 ml @ 500 mls/hr 1X ONCE IV Last administered on 01/13/19at 19:41; Start 01/13/19 at 17:00; Stop 01/13/19 at 17:59; Status DC Pantoprazole Sodium (PROTONIX VIAL for IV PUSH) 40 mg 1X ONCE IVP Last adm inistered on 01/13/19at 17:45; Start 01/13/19 at 17:30; Stop 01/14/19 at 14:15; Status DC Ceftriaxone Sodium (Rocephin) 1 gm 1X ONCE IVP Last administered on 01/13/19at 17:47; Start 01/13/19 at 17:30; Stop 01/13/19 at 17:31; Status DC Ondansetron HCl (Zofran) 4 mg PRN Q8HRS PRN IV NAUSEA/VOMITING; Start 01/13/19 at 17:30; Stop 01/14/19 at 17:29; Status DC Fentanyl Citrate (Fentanyl 2ml Vial) 50 mcg PRN Q1HR PRN IV PAIN Last administered on 01/14/19at 01:25; Start 01/13/19 at 17:30; Stop 01/14/19 at 17:2 9; Status DC Ceftriaxone Sodium (Rocephin) 2 gm Q24H IVP ; Start 01/13/19 at 21:00; Stop 01/13/19 at 22:52; Status DC Albuterol Sulfate (Ventolin Neb Soln) 2.5 mg PRN QID PRN NEB SHORTNESS OF BREATH; Start 01/13/19 at 20:45 Clonazepam (KlonoPIN) 0.5 mg HS PO Last administered on 01/15/19at 20:04; Start 01/13/19 at 21:00 Cyclobenzaprine HCl (Flexeril) 10 mg PRN BID PRN PO MUSCLE SPASMS Last administered on 01/14/19at 08:36; Start 01/13/19 at 20:45 Digoxin (Lanoxin) 125 mcg DAILY PO ; Start 01/14/19 at 09:00; Stop 01/14/19 at 13:30; Status DC Ferrous Sulfate (Feosol) 325 mg DAILY PO Last administered on 01/16/19at 08:23; Start 01/14/19 at 09:00 Acetaminophen/ Hydrocodone Bitart (Lortab 5/325) 1 tab PRN Q6HRS PRN PO PAIN Last administered on 01/14/19at 08:34; Start 01/13/19 at 20:45 Metoprolol Succinate (Toprol Xl) 25 mg DAILY PO Last administered on 01/16/19at 08:24; Start 01/14/19 at 09:00 Montelukast Sodium (Singulair) 10 mg HS PO Last administered on 01/15/19at 20:04; Start 01/13/19 at 21:00 Prednisone (Prednisone) 15 mg QODAY PO Last administered on 01/15/19at 08:29; Start 01/15/19 at 09:00; Stop 01/16/19 at 04:16; Status DC Bupropion HCl (Wellbutrin Xl) 300 mg DAILY PO Last administered on 01/16/19 08:25; Start 01/14/19 at 09:00 Diltiazem HCl (Cardizem 24hr Cd) 240 mg DAILY PO Last administered on 01/16/19at 08:25; Start 01/14/19 at 09:00 Duloxetine HCl (Cymbalta) 60 mg DAILY PO Last administered on 01/16/19at 08:24; Start 01/14/19 at 09:00 Gabapentin (Neurontin) 300 mg BID PO Last administered on 01/16/19 08:24; Start 01/13/19 at 21:00 Levothyroxine Sodium (Synthroid) 175 mcg DAILY06 PO Last administered on 01/16/19 05:15; Start 01/14/19 at 06:00 Budesonide (Pulmicort) 0.5 mg RTBID NEB Last administered on 01/16/19 08:02; Start 01/13/19 at 22:00 Potassium Chloride (Klor-Con) 20 meq DAILYWBKFT PO Last administered on 01/16/19at 08:23; Start 01/14/19 at 08:00 Ropinirole HCl (Requip) 1 mg QHS PO Last administered on 01/15/19at 20:04; Start 01/13/19 at 21:00 Albuterol/ Ipratropium (Duoneb) 3 ml RTQID NEB Last administered on 01/16/19at 11:45; Start 01/13/19 at 22:00 Sodium Chloride 1,500 ml @ 1,500 mls/hr Q1H IV ; Start 01/13/19 at 20:47; Stop 01/13/19 at 20:56; Status DC Sodium Chloride 500 ml @ 1,000 mls/hr PRN Q30MIN PRN IV SEE COMMENTS; Start 01/13/19 at 21:00 Meropenem 1 gm/ Sodium Chloride 100 ml @ 200 mls/hr Q8HRS IV Last administered on 01/14/19at 05:29; Start 01/13/19 at 22:00; Stop 01/14/19 at 07:32; Status DC Norepinephrine Bitartrate 250 ml @ 0 mls/hr CONT PRN IV SEE I/O RECORD; Start 01/13/19 at 21:00; Stop 01/14/19 at 16:04; Status DC Dobutamine HCl/ Dextrose 250 ml @ 0 mls/hr CONT PRN IV SEE I/O RECORD; Start 01/13/19 at 21:00; Stop 01/14/19 at 16:04; Status DC Ceftriaxone Sodium (Rocephin) 2 gm Q24H IVP ; Start 01/14/19 at 18:00; Stop 01/14/19 at 18:00; Status DC Pantoprazole Sodium 80 mg/ Sodium Chloride 100 ml @ 10 mls/hr Q10H IV Last administered on 01/14/19at 08:48; Start 01/14/19 at 00:00; Stop 01/14/19 at 16:29; Status DC Meropenem 500 mg/ Sodium Chloride 50 ml @ 100 mls/hr Q6HRS IV Last administered on 01/16/19at 05:15; Start 01/14/19 at 12:00 Docusate Sodium (Colace) 100 mg STK-MED ONCE PO ; Start 01/14/19 at 08:27; Stop 01/14/19 at 08:28; Status DC Docusate Sodium (Colace) 100 mg PRN DAILY PRN PO STOOL SOFTENER; Start 01/14/19 at 12:45 Docusate Sodium (Colace) 100 mg DAILY PO Last administered on 01/16/19at 08:25; Start 01/15/19 at 09:00 Polyethylene Glycol (miraLAX PACKET) 17 gm PRN DAILY PRN PO CONSTIPATION; Start 01/14/19 at 12:45 Digoxin (Lanoxin) 125 mcg Q24H PO Last administered on 01/15/19at 15:21; Start 01/14/19 at 15:00 Pantoprazole Sodium (Protonix) 40 mg DAILYAC PO Last administered on 01/16/19 08:25; Start 01/15/19 at 07:30 Aspirin (Children'S Aspirin) 81 mg DAILYWBKFT PO Last administered on 01/16/19at 08:23; Start 01/15/19 at 14:00 Ondansetron HCl (Zofran) 4 mg PRN Q4HRS PRN IV NAUSEA/VOMITING 1ST CHOICE; Start 01/15/19 at 23:00 Prednisone (Prednisone) 15 mg QODAY PO Last administered on 01/16/19at 08:25; Start 01/16/19 at 09:00 Acetaminophen (Tylenol) 650 mg PRN Q6HRS PRN PO HEADACHE/FEVER Last administered on 01/16/19at 10:11; Start 01/16/19 at 10:00 Active Scripts Active [place] 5-325 Tablet (Acetaminophen/Hydrocodone Bitart) 1 Each Tablet 1 Tab PO PRN Q6HRS PRN Reported Promethazine Hcl 25 Mg Tablet 1 Tab PO PRN Q6HRS Omeprazole 20 Mg Capsule.dr 1 Cap PO DAILY Spiriva (Tiotropium Dennis) 18 Mcg Cap.w.dev 1 Inh IH DAILY Proair Hfa Inhaler (Albuterol Sulfate) 8.5 Gm Hfa.aer.ad 2 Puff INH PRN Q6HRS PRN Metoprolol Succinate ( Xl ) (Metoprolol Succinate) 25 Mg Tab.er.24h 25 Mg PO DAILY Potassium Chloride 20 Meq Tablet.er 20 Meq PO DAILY Imodium A-D (Loperamide HCl) 2 Mg Capsule 2 Mg PO PRN DAILY PRN Digoxin 125 Mcg Tablet 125 Mcg PO DAILY Clonazepam 0.5 Mg Tablet 0.5 Mg PO HS Bupropion Xl (Bupropion Hcl) 300 Mg Tab.er.24h 300 Mg PO DAILY Albuterol Sulfate Neb Soln (Albuterol Sulfate) 2.5 Mg/3 Ml Vial.neb 2.5 Mg NEB PRN QID PRN Dulera 200 Mcg/5 Mcg Inhaler (Mometasone/Formoterol) 13 Gm Hfa.aer.ad 2 Puff IH BID Ferrous Sulfate 325 Mg Tablet 65 Mg PO DAILY Cyclobenzaprine Hcl 10 Mg Tablet 10 Mg PO PRN BID PRN Gabapentin 600 Mg Tablet 300 Mg PO BID Montelukast Sodium Tablet (Montelukast Sodium) 10 Mg Tablet 1 Tab PO HS Ropinirole Hcl 1 Mg Tablet 1 Mg PO HS Xarelto (Rivaroxaban) 20 Mg Tablet 20 Mg PO DAILY16 Cardizem Cd (Diltiazem Hcl) 240 Mg Cap.er.24h 1 Cap PO DAILY Prednisone (Prednisone) 10 Mg Tablet 15 Mg PO QODAY Furosemide 40 Mg Tablet 30 Mg PO DAILY Diclofenac Sodium 75 Mg Tablet. 1 Tab PO BID Cymbalta (Duloxetine Hcl) 60 Mg Capsule. 1 Cap PO DAILY Levothyroxine Sodium 150 Mcg Tablet 175 Mcg PO DAILY Vitals/I & O Vital Sign - Last 24 Hours 01/15/19 01/15/19 01/15/19 01/15/19 15:00 15:21 15:21 16:00 Temp 99.6 99.6 Pulse 95 95 95 Resp 14 B/P (MAP) 103/50 (67) 103/50 103/50 Pulse Ox 94 97 O2 Delivery Room Air Room Air 01/15/19 01/15/19 01/15/19 01/15/19 17:07 17:30 19:05 19:29 Temp 98.1 98.4 98.1 98.4 Pulse 87 104 Resp 20 16 B/P (MAP) 148/72 (97) 112/55 (74) Pulse Ox 97 96 O2 Delivery Room Air Room Air Room Air Room Air 01/15/19 01/15/19 01/16/19 01/16/19 20:39 22:42 03:31 07:20 Temp 99.1 98.5 98.2 99.1 98.5 98.2 Pulse 96 81 83 Resp 22 18 18 B/P (MAP) 124/71 (88) 125/68 (87) 128/65 (86) Pulse Ox 97 97 96 93 O2 Delivery Room Air Room Air Room Air Room Air 01/16/19 01/16/19 01/16/19 01/16/19 07:40 08:04 08:05 08:24 Pulse 83 B/P (MAP) 128/65 Pulse Ox 100 100 O2 Delivery Room Air Room Air Room Air 01/16/19 01/16/19 01/16/19 01/16/19 08:25 09:28 09:43 10:38 Temp 98.3 98.2 97.9 98.3 98.2 97.9 Pulse 83 75 74 82 Resp 16 20 18 B/P (MAP) 128/65 136/65 139/75 138/63 01/16/19 01/16/19 01/16/19 10:38 11:48 12:00 Temp 97.9 98.1 97.9 98.1 Pulse 82 76 Resp 18 18 B/P (MAP) 138/63 (88) 132/58 Pulse Ox 93 100 O2 Delivery Room Air Room Air Intake and Output 01/15/19 01/15/19 01/16/19 15:00 23:00 07:00 Intake Total 410 ml Output Total 100 ml Balance 310 ml Nutrition Consultation Dietary Evaluation: Recommendations by RD: Decrease Calorie Intake, Protein supplementation Comments: REC advance diet as able to cardiac REC glucerna w/lunch trays Expected Outcomes/Goals: diet advancement Malnutrition Findings: Food and Nutrition Intake (Sev: <50% est energy req 5days Weight Status: Morbidly Obese ROSIE ALEGRE MD Jan 16, 2019 13:41
[2019-01-16] MEDS: DIGOXIN 125 MCG TABLET. PO SCH (15:11)
[2019-01-16] MEDS: clonazePAM 0.5 MG TABLET PO SCH (20:27)
[2019-01-16] MEDS: rOPINIRole 1 MG TABLET. PO SCH (20:27)
[2019-01-16] MEDS: MONTELUKAST SODIUM 10 MG TABLET. PO SCH (20:27)
[2019-01-17 03:32] VITALS: BP 115/53
[2019-01-17] MEDS: MEROPENEM 500 MG in IV NORMAL SALINE 50ML 50 ML IV SCH ×4 (05:07→23:17)
[2019-01-17] MEDS: LEVOTHYROXINE 175 MCG TABLET PO SCH (05:07)
[2019-01-17] MEDS: IPRATRPIUM/ALBUTEROL 0.5/2.5MG 3 ML NEBU. NEB SCH ×4 (07:20→19:34)
[2019-01-17] MEDS: BUDESONIDE 0.5 MG/2 ML NEBU. NEB SCH ×2 (07:20→19:34)
[2019-01-17 07:24] VITALS: BP 142/63
[2019-01-17] MEDS: ASPIRIN CHEWABLE 81 MG TABLET. PO SCH (08:12)
[2019-01-17] MEDS: DULoxetine HCL 30 MG CAPSULE.DR PO SCH (08:12)
[2019-01-17] MEDS: PANTOPRAZOLE 40 MG TABLET.DR. PO SCH (08:12)
[2019-01-17] MEDS: METOPROLOL SUCC 24HR ER 25 MG TAB.ER.24H. PO SCH (08:13)
[2019-01-17] MEDS: buPROPion XL 150 MG TAB.ER.24H. PO SCH (08:13)
[2019-01-17] MEDS: POTASSIUM CHLORIDE 20 MEQ TABLET.ER. PO SCH (08:14)
[2019-01-17] MEDS: GABAPENTIN 300 MG CAPSULE. PO SCH ×2 (08:14→20:39)
[2019-01-17] MEDS: DOCUSATE SODIUM 100 MG CAPSULE. PO SCH (08:14)
[2019-01-17] MEDS: FERROUS SULFATE 325 MG TABLET. PO SCH (08:14)
[2019-01-17 08:53] LABS: BASO % 1 % (0-3); EOS # 0.4 x10^3/uL (0.0-0.7); EOS % 4 % (0-3); HEMATOCRIT 23.7 % (36.0-47.0); HEMOGLOBIN 7.7 g/dL (12.0-15.5); LYMPH # 1.8 x10^3/uL (1.0-4.8); LYMPH % 21 % (24-48); MEAN CORPUSCULAR HEMOGLOBIN 30 pg (25-35); MEAN CORPUSCULAR HGB CONC 33 g/dL (31-37); MEAN CORPUSCULAR VOLUME 91 fL (79-100); MONO # 0.7 x10^3/uL (0.0-1.1); MONO % 8 % (0-9); NEUT % 67 % (31-73); PLATELET COUNT 148 x10^3/uL (140-400); RED BLOOD COUNT 2.61 x10^6/uL (3.50-5.40); RED CELL DISTRIBUTION WIDTH 17.1 % (11.5-14.5); WHITE BLOOD COUNT 8.9 x10^3/uL (4.0-11.0)
[2019-01-17] MEDS ORDERED: DICLOFENAC SODIUM 25 MG TABLET.DR PO PRN (10:00)
[2019-01-17 10:27] VITALS: BP 159/66
[2019-01-17] MEDS: BENZOCAINE/MENTHOL LOZENGE. PO PRN ×2 (10:55→18:10)
--- NOTE | 2019-01-17 10:55 | PDOC ---
Infectious Disease Note Subjective Subjective c/o sore throat and some wheezing earlier Slept a little better last night Vital Sign Vital Signs Vital Signs Date Time Temp Pulse Resp B/P (MAP) Pulse Ox O2 Delivery O2 Flow Rate FiO2 01/17/19 10:27 98.0 73 18 159/66 (97) 98 Room Air 98.0 Physical Exam PHYSICAL EXAM GENERAL: Sitting in the chair, alert, NAD HEENT: Oral cavity, pharynx is clear. NECK: Supple LUNGS: Clear to auscultation. no wheezes. HEART: S1, S2. ABDOMEN: Obese, + BS N EXTREMITIES: No cyanosis with no gross edema. SKIN: Warm to touch without generalized rash. NEUROLOGIC: Alert, nonfocal and appropriate. Labs Lab Laboratory Tests Test 01/17/19 08:00 White Blood Count 8.9 x10^3/uL (4.0-11.0) Red Blood Count 2.61 x10^6/uL (3.50-5.40) Hemoglobin 7.7 g/dL (12.0-15.5) Hematocrit 23.7 % (36.0-47.0) Mean Corpuscular Volume 91 fL (79-100) Mean Corpuscular Hemoglobin 30 pg (25-35) Mean Corpuscular Hemoglobin Concent 33 g/dL (31-37) Red Cell Distribution Width 17.1 % (11.5-14.5) Platelet Count 148 x10^3/uL (140-400) Neutrophils (%) (Auto) 67 % (31-73) Lymphocytes (%) (Auto) 21 % (24-48) Monocytes (%) (Auto) 8 % (0-9) Eosinophils (%) (Auto) 4 % (0-3) Basophils (%) (Auto) 1 % (0-3) Neutrophils # (Auto) 6.0 x10^3/uL (1.8-7.7) Lymphocytes # (Auto) 1.8 x10^3/uL (1.0-4.8) Monocytes # (Auto) 0.7 x10^3/uL (0.0-1.1) Eosinophils # (Auto) 0.4 x10^3/uL (0.0-0.7) Basophils # (Auto) 0.0 x10^3/uL (0.0-0.2) Micro Microbiology 01/13/19 Blood Culture - Preliminary, Resulted NO GROWTH AFTER 3 DAYS 01/13. URINE CULTURE RES 1 Preliminary Escherichia coli Greater than 100,000 colony forming units per mL ANTIMICROBIAL SUSCEPTIBILITY Final Comment S = Susceptible; I = Intermediate; R = Resistant P = Positive; N = Negative MICS are expressed in micrograms per mL Antibiotic RSLT#1 RSLT#2 RSLT#3 RSLT#4 Amoxicillin/Clavulanic Acid S =4 Ampicillin S =8 Cefepime S<=0.12 Ceftriaxone S<=0.25 Cefuroxime S =4 Ciprofloxacin S<=0.25 Ertapenem S<=0.12 Gentamicin S<=1 Imipenem S<=0.25 Levofloxacin S<=0.12 Meropenem S<=0.25 Nitrofurantoin R =128 Piperacillin/Tazobactam S<=4 Tetracycline S<=1 Tobramycin S<=1 Trimethoprim/Sulfa S<=20 Objective Assessment Rectal bleed Leukocytosis - reactive plus on steroids takes 15 mg po QOD for asthma - improved ? UTI- POA - ? contamination with squamous cells and asymptomatic - recent kidney stones with stent and removal last month. E. coli abx allergies - PCN - as child - rash and swelling - tolerated Rocephin, Sulfa- hives and swelling, Levoflox- swelling Low grade temp - likely from PRBCs Lactic acidosis Afib H/o PE and DVTs MRSA screen positive Plan Plan of Care Cont Meropenem (01/14) taper to po soon Supportive care Pt seen and examined case discussed agree with above a /p ROBB JOHNSON APRN Jan 17, 2019 10:55 OFE MENDEZ MD Jan 17, 2019 14:43
--- NOTE | 2019-01-17 12:44 | PDOC ---
G I PROGRESS NOTE Reason for Follow-up Anemia Subjective On liquid diet for colon prep Physical Exam Lungs decreased BS CV S1 S2 ABD +BS, soft, nontender Review of Relevant I have reviewed the following items jorge (where applicable) has been applied. Labs Laboratory Tests Test 01/16/19 06:05 01/17/19 08:00 White Blood Count 9.4 x10^3/uL (4.0-11.0) 8.9 x10^3/uL (4.0-11.0) Red Blood Count 2.35 x10^6/uL (3.50-5.40) 2.61 x10^6/uL (3.50-5.40) Hemoglobin 7.0 g/dL (12.0-15.5) 7.7 g/dL (12.0-15.5) Hematocrit 21.2 % (36.0-47.0) 23.7 % (36.0-47.0) Mean Corpuscular Volume 90 fL (79-100) 91 fL (79-100) Mean Corpuscular Hemoglobin 30 pg (25-35) 30 pg (25-35) Mean Corpuscular Hemoglobin Concent 33 g/dL (31-37) 33 g/dL (31-37) Red Cell Distribution Width 17.2 % (11.5-14.5) 17.1 % (11.5-14.5) Platelet Count 163 x10^3/uL (140-400) 148 x10^3/uL (140-400) Neutrophils (%) (Auto) 67 % (31-73) 67 % (31-73) Lymphocytes (%) (Auto) 20 % (24-48) 21 % (24-48) Monocytes (%) (Auto) 9 % (0-9) 8 % (0-9) Eosinophils (%) (Auto) 4 % (0-3) 4 % (0-3) Basophils (%) (Auto) 1 % (0-3) 1 % (0-3) Neutrophils # (Auto) 6.3 x10^3/uL (1.8-7.7) 6.0 x10^3/uL (1.8-7.7) Lymphocytes # (Auto) 1.9 x10^3/uL (1.0-4.8) 1.8 x10^3/uL (1.0-4.8) Monocytes # (Auto) 0.9 x10^3/uL (0.0-1.1) 0.7 x10^3/uL (0.0-1.1) Eosinophils # (Auto) 0.3 x10^3/uL (0.0-0.7) 0.4 x10^3/uL (0.0-0.7) Basophils # (Auto) 0.0 x10^3/uL (0.0-0.2) 0.0 x10^3/uL (0.0-0.2) Sodium Level 141 mmol/L (136-145) Potassium Level 3.4 mmol/L (3.5-5.1) Chloride Level 105 mmol/L (98-107) Carbon Dioxide Level 27 mmol/L (21-32) Anion Gap 9 (6-14) Blood Urea Nitrogen 8 mg/dL (7-20) Creatinine 1.1 mg/dL (0.6-1.0) Estimated GFR (Cockcroft-Gault) 50.0 BUN/Creatinine Ratio 7 (6-20) Glucose Level 108 mg/dL (70-99) Calcium Level 7.8 mg/dL (8.5-10.1) Total Bilirubin 0.2 mg/dL (0.2-1.0) Aspartate Amino Transf (AST/SGOT) 11 U/L (15-37) Alanine Aminotransferase (ALT/SGPT) 18 U/L (14-59) Alkaline Phosphatase 54 U/L (46-116) Total Protein 5.8 g/dL (6.4-8.2) Albumin 2.5 g/dL (3.4-5.0) Albumin/Globulin Ratio 0.8 (1.0-1.7) Laboratory Tests Test 01/17/19 08:00 White Blood Count 8.9 x10^3/uL (4.0-11.0) Red Blood Count 2.61 x10^6/uL (3.50-5.40) Hemoglobin 7.7 g/dL (12.0-15.5) Hematocrit 23.7 % (36.0-47.0) Mean Corpuscular Volume 91 fL (79-100) Mean Corpuscular Hemoglobin 30 pg (25-35) Mean Corpuscular Hemoglobin Concent 33 g/dL (31-37) Red Cell Distribution Width 17.1 % (11.5-14.5) Platelet Count 148 x10^3/uL (140-400) Neutrophils (%) (Auto) 67 % (31-73) Lymphocytes (%) (Auto) 21 % (24-48) Monocytes (%) (Auto) 8 % (0-9) Eosinophils (%) (Auto) 4 % (0-3) Basophils (%) (Auto) 1 % (0-3) Neutrophils # (Auto) 6.0 x10^3/uL (1.8-7.7) Lymphocytes # (Auto) 1.8 x10^3/uL (1.0-4.8) Monocytes # (Auto) 0.7 x10^3/uL (0.0-1.1) Eosinophils # (Auto) 0.4 x10^3/uL (0.0-0.7) Basophils # (Auto) 0.0 x10^3/uL (0.0-0.2) Microbiology 01/13/19 Blood Culture - Preliminary, Resulted NO GROWTH AFTER 3 DAYS 01/13/19 Urine Culture - Final, Complete 01/13/19 Urine Culture Result 1 (JAY) - Final, Complete 01/13/19 Antimicrobic Susceptibility - Final, Complete Medications Current Medications Digoxin (Lanoxin) 125 mcg 1X STAT PO Last administered on 01/13/19at 15:50; Start 01/13/19 at 15:15; Stop 01/13/19 at 15:19; Status DC Albuterol/ Ipratropium (Duoneb) 3 ml 1X ONCE NEB Last administered on 01/13/19at 16:07; Start 01/13/19 at 16:30; Stop 01/13/19 at 16:31; Status DC Sodium Chloride 1,000 ml @ 1,000 mls/hr 1X ONCE IV Last administered on 01/13/19at 17:29; Start 01/13/19 at 17:30; Stop 01/13/19 at 18:29; Status DC Sodium Chloride 500 ml @ 500 mls/hr 1X ONCE IV Last administered on 01/13/19at 19:41; Start 01/13/19 at 17:00; Stop 01/13/19 at 17:59; Status DC Pantoprazole Sodium (PROTONIX VIAL for IV PUSH) 40 mg 1X ONCE IVP Last administered on 01/13/19at 17:45; Start 01/13/19 at 17:30; Stop 01/14/19 at 14:15; Status DC Ceftriaxone Sodium (Rocephin) 1 gm 1X ONCE IVP Last administered on 01/13/19at 17:47; Start 01/13/19 at 17:30; Stop 01/13/19 at 17:31; Status DC Ondansetron HCl (Zofran) 4 mg PRN Q8HRS PRN IV NAUSEA/VOMITING; Start 01/13/19 at 17:30; Stop 01/14/19 at 17:29; Status DC Fentanyl Citrate (Fentanyl 2ml Vial) 50 mcg PRN Q1HR PRN IV PAIN Last administered on 01/14/19at 01:25; Start 01/13/19 at 17:30; Stop 01/14/19 at 17:29; Status DC Ceftriaxone Sodium (Rocephin) 2 gm Q24H IVP ; Start 01/13/19 at 21:00; Stop 01/13/19 at 22:52; Status DC Albuterol Sulfate (Ventolin Neb Soln) 2.5 mg PRN QID PRN NEB SHORTNESS OF MELL ATH; Start 01/13/19 at 20:45 Clonazepam (KlonoPIN) 0.5 mg HS PO Last administered on 01/16/19at 20:27; Start 01/13/19 at 21:00 Cyclobenzaprine HCl (Flexeril) 10 mg PRN BID PRN PO MUSCLE SPASMS Last administered on 01/14/19at 08:36; Start 01/13/19 at 20:45 Digoxin (Lanoxin) 125 mcg DAILY PO ; Start 01/14/19 at 09:00; Stop 01/14/19 at 13:30; Status DC Ferrous Sulfate (Feosol) 325 mg DAILY PO Last administered on 01/17/19at 08:14; Start 01/14/19 at 09:00 Acetaminophen/ Hydrocodone Bitart (Lortab 5/325) 1 tab PRN Q6HRS PRN PO PAIN Last administered on 01/14/19at 08:34; Start 01/13/19 at 20:45 Metoprolol Succinate (Toprol Xl) 25 mg DAILY PO Last administered on 7/21/19at 08:13; Start 01/14/19 at 09:00 Montelukast Sodium (Singulair) 10 mg HS PO Last administered on 01/16/19 20:27; Start 01/13/19 at 21:00 Prednisone (Prednisone) 15 mg QODAY PO Last administered on 01/15/19 08:29; Start 01/15/19 at 09:00; Stop 01/16/19 at 04:16; Status DC Bupropion HCl (Wellbutrin Xl) 300 mg DAILY PO Last administered on 01/17/19 08:13; Start 01/14/19 at 09:00 Diltiazem HCl (Cardizem 24hr Cd) 240 mg DAILY PO Last administered on 01/17/19 10:55; Start 01/14/19 at 09:00 Duloxetine HCl (Cymbalta) 60 mg DAILY PO Last administered on 01/17/19 08:12; Start 01/14/19 at 09:00 Gabapentin (Neurontin) 300 mg BID PO Last administered on 01/17/19 08:14; Start 01/13/19 at 21:00 Levothyroxine Sodium (Synthroid) 175 mcg DAILY06 PO Last administered on 01/17/19 05:07; Start 01/14/19 at 06:00 Budesonide (Pulmicort) 0.5 mg RTBID NEB Last administered on 01/17/19 07:20; Start 01/13/19 at 22:00 Potassium Chloride (Klor-Con) 20 meq DAILYWBKFT PO Last administered on 01/17/19 08:14; Start 01/14/19 at 08:00 Ropinirole HCl (Requip) 1 mg QHS PO Last administered on 01/16/19 20:27; Start 01/13/19 at 21:00 Albuterol/ Ipratropium (Duoneb) 3 ml RTQID NEB Last administered on 01/17/19 07:20; Start 01/13/19 at 22:00 Sodium Chloride 1,500 ml @ 1,500 mls/hr Q1H IV ; Start 01/13/19 at 20:47; Stop 01/13/19 at 20:56; Status DC Sodium Chloride 500 ml @ 1,000 mls/hr PRN Q30MIN PRN IV SEE COMMENTS; Start 01/13/19 at 21:00 Meropenem 1 gm/ Sodium Chloride 100 ml @ 200 mls/hr Q8HRS IV Last administered on 01/14/19at 05:29; Start 01/13/19 at 22:00; Stop 01/14/19 at 07:32; Status DC Norepinephrine Bitartrate 250 ml @ 0 mls/hr CONT PRN IV SEE I/O RECORD; Start 01/13/19 at 21:00; Stop 01/14/19 at 16:04; Status DC Dobutamine HCl/ Dextrose 250 ml @ 0 mls/hr CONT PRN IV SEE I/O RECORD; Start 01/13/19 at 21:00; Stop 01/14/19 at 16:04; Status DC Ceftriaxone Sodium (Rocephin) 2 gm Q24H IVP ; Start 01/14/19 at 18:00; Stop 01/14/19 at 18:00; Status DC Pantoprazole Sodium 80 mg/ Sodium Chloride 100 ml @ 10 mls/hr Q10H IV Last administered on 01/14/19at 08:48; Start 01/14/19 at 00:00; Stop 01/14/19 at 16:29; Status DC Meropenem 500 mg/ Sodium Chloride 50 ml @ 100 mls/hr Q6HRS IV Last administered on 01/17/19at 05:07; Start 01/14/19 at 12:00 Docusate Sodium (Colace) 100 mg STK-MED ONCE PO ; Start 01/14/19 at 08:27; Stop 01/14/19 at 08:28; Status DC Docusate Sodium (Colace) 100 mg PRN DAILY PRN PO STOOL SOFTENER; Start 01/14/19 at 12:45 Docusate Sodium (Colace) 100 mg DAILY PO Last administered on 01/17/19at 08:14; Start 01/15/19 at 09:00 Polyethylene Glycol (miraLAX PACKET) 17 gm PRN DAILY PRN PO CONSTIPATION; Start 01/14/19 at 12:45 Digoxin (Lanoxin) 125 mcg Q24H PO Last administered on 01/16/19at 15:11; Start 01/14/19 at 15:00 Pantoprazole Sodium (Protonix) 40 mg DAILYAC PO Last administered on 01/17/19at 08:12; Start 01/15/19 at 07:30 Aspirin (Children'S Aspirin) 81 mg DAILYWBKFT PO Last administered on 01/17/19at 08:12; Start 01/15/19 at 14:00 Ondansetron HCl (Zofran) 4 mg PRN Q4HRS PRN IV NAUSEA/VOMITING 1ST CHOICE; Start 01/15/19 at 23:00 Prednisone (Prednisone) 15 mg QODAY PO Last administered on 01/16/19at 08:25; Start 01/16/19 at 09:00 Acetaminophen (Tylenol) 650 mg PRN Q6HRS PRN PO HEADACHE/FEVER Last administered on 01/16/19at 10:11; Start 01/16/19 at 10:00 Throat Lozenges (Cepacol Sore Throat Lozenge) 1 darrell PRN Q2HRS PRN PO SORE THROAT Last administered on 01/17/19at 10:55; Start 01/17/19 at 10:00 Diclofenac Sodium (Voltaren) 25 mg PRN BID PRN PO pain Last administered on 01/17/19at 10:54; Start 01/17/19 at 10:00 Active Scripts Active [facility] 5-325 Tablet (Acetaminophen/Hydrocodone Bitart) 1 Each Tablet 1 Tab PO PRN Q6HRS PRN Reported Promethazine Hcl 25 Mg Tablet 1 Tab PO PRN Q6HRS Omeprazole 20 Mg Capsule.dr 1 Cap PO DAILY Spiriva (Tiotropium [place]) 18 Mcg Cap.w.dev 1 Inh IH DAILY Proair Hfa Inhaler (Albuterol Sulfate) 8.5 Gm Hfa.aer.ad 2 Puff INH PRN Q6HRS PRN Metoprolol Succinate ( Xl ) (Metoprolol Succinate) 25 Mg Tab.er.24h 25 Mg PO DAILY Potassium Chloride 20 Meq Tablet.er 20 Meq PO DAILY Imodium A-D (Loperamide HCl) 2 Mg Capsule 2 Mg PO PRN DAILY PRN Digoxin 125 Mcg Tablet 125 Mcg PO DAILY Clonazepam 0.5 Mg Tablet 0.5 Mg PO HS Bupropion Xl (Bupropion Hcl) 300 Mg Tab.er.24h 300 Mg PO DAILY Albuterol Sulfate Neb Soln (Albuterol Sulfate) 2.5 Mg/3 Ml Vial.neb 2.5 Mg NEB PRN QID PRN Dulera 200 Mcg/5 Mcg Inhaler (Mometasone/Formoterol) 13 Gm Hfa.aer.ad 2 Puff IH BID Ferrous Sulfate 325 Mg Tablet 65 Mg PO DAILY Cyclobenzaprine Hcl 10 Mg Tablet 10 Mg PO PRN BID PRN Gabapentin 600 Mg Tablet 300 Mg PO BID Montelukast Sodium Tablet (Montelukast Sodium) 10 Mg Tablet 1 Tab PO HS Ropinirole Hcl 1 Mg Tablet 1 Mg PO HS Xarelto (Rivaroxaban) 20 Mg Tablet 20 Mg PO DAILY16 Cardizem Cd (Diltiazem Hcl) 240 Mg Cap.er.24h 1 Cap PO DAILY Prednisone (Prednisone) 10 Mg Tablet 15 Mg PO QODAY Furosemide 40 Mg Tablet 30 Mg PO DAILY Diclofenac Sodium 75 Mg Tablet. 1 Tab PO BID Cymbalta (Duloxetine Hcl) 60 Mg Capsule. 1 Cap PO DAILY Levothyroxine Sodium 150 Mcg Tablet 175 Mcg PO DAILY Vitals/I & O Vital Sign - Last 24 Hours 01/16/19 01/16/19 01/16/19 01/16/19 14:00 14:41 15:11 15:55 Temp 98.0 98.0 98.0 98.0 Pulse 76 76 77 Resp 18 18 B/P (MAP) 131/58 131/58 (82) 131/58 Pulse Ox 97 100 O2 Delivery Room Air Room Air 01/16/19 01/16/19 01/16/19 01/16/19 19:10 19:45 20:37 22:48 Temp 97.8 98.1 97.8 98.1 Pulse 65 76 Resp 18 16 B/P (MAP) 101/51 (68) 126/67 (86) Pulse Ox 97 100 99 O2 Delivery Room Air Room Air Room Air Room Air 01/17/19 01/17/19 01/17/19 01/17/19 03:32 07:22 07:24 07:50 Temp 97.4 97.7 97.4 97.7 Pulse 87 64 Resp 18 18 B/P (MAP) 115/53 (73) 142/63 (89) Pulse Ox 96 100 100 O2 Delivery BiPAP/CPAP Room Air Room Air Room Air 01/17/19 01/17/19 01/17/19 08:13 10:27 10:55 Temp 98.0 98.0 Pulse 64 73 73 Resp 18 B/P (MAP) 142/63 159/66 (97) 159/66 Pulse Ox 98 O2 Delivery Room Air Intake and Output 01/16/19 01/16/19 01/17/19 14:59 22:59 06:59 Intake Total 800 ml 200 ml Balance 800 ml 200 ml Problem List Problems Medical Problems: (1) Atrial fibrillation with RVR Status: Acute (2) Elevated d-dimer Status: Acute (3) GI bleed Status: Acute (4) Severe sepsis Status: Acute (5) Urinary tract infection Status: Acute Assessment Anemia- etiology to be determined. Colonoscopy tomorrow after prep with SERENITY Marin MD Jan 17, 2019 12:44
[2019-01-17] MEDS ORDERED: POLYETHYLENE GLYCOL 3350 BTL 238 GM POWDER PO ONE (13:30)
[2019-01-17 14:29] VITALS: BP 123/58
[2019-01-17] MEDS: DIGOXIN 125 MCG TABLET. PO SCH (15:31)
--- NOTE | 2019-01-17 17:17 | PDOC ---
PROGRESS NOTES Chief Complaint Chief Complaint Severe sepsis, pyelonephritis, GI bleed, acute blood loss anemia Atrial fibrillation with RVR No pulmonary consolidation or acute airspace disease. Elevated d-dimer morbid obesity, BMI 52 w/ also severe malnutrition broncho-trachial malacia, History of Present Illness History of Present Illness u p to the chair, feels a little better fatigued, feels better sepsis treated, ID following hgb ok, anemia not great prep for colonoscpy, GI following Vitals Vitals Vital Signs Date Time Temp Pulse Resp B/P (MAP) Pulse Ox O2 Delivery O2 Flow Rate FiO2 01/17/19 16:16 Room Air 01/17/19 15:31 67 123/58 01/17/19 14:29 98.1 18 99 98.1 Physical Exam Physical Exam GENERAL: Sitting in the chair, alert, NAD HEENT: Oral cavity, pharynx is clear. NECK: Supple LUNGS: Clear to auscultation. no wheezes. HEART: S1, S2. ABDOMEN: Obese, + BS N EXTREMITIES: No cyanosis with no gross edema. SKIN: Warm to touch without generalized rash. NEUROLOGIC: Alert, nonfocal and appropriate. General: Alert, Oriented X3, Cooperative, No acute distress Heart: Other (AFIB; 3/6 systolic murmur to LLS border) Lungs: Wheezing Abdomen: Soft Extremities: Other (leg edema/obesity) Skin: No breakdown, No significant lesion Labs LABS Laboratory Tests Test 01/17/19 08:00 White Blood Count 8.9 x10^3/uL (4.0-11.0) Red Blood Count 2.61 x10^6/uL (3.50-5.40) Hemoglobin 7.7 g/dL (12.0-15.5) Hematocrit 23.7 % (36.0-47.0) Mean Corpuscular Volume 91 fL (79-100) Mean Corpuscular Hemoglobin 30 pg (25-35) Mean Corpuscular Hemoglobin Concent 33 g/dL (31-37) Red Cell Distribution Width 17.1 % (11.5-14.5) Platelet Count 148 x10^3/uL (140-400) Neutrophils (%) (Auto) 67 % (31-73) Lymphocytes (%) (Auto) 21 % (24-48) Monocytes (%) (Auto) 8 % (0-9) Eosinophils (%) (Auto) 4 % (0-3) Basophils (%) (Auto) 1 % (0-3) Neutrophils # (Auto) 6.0 x10^3/uL (1.8-7.7) Lymphocytes # (Auto) 1.8 x10^3/uL (1.0-4.8) Monocytes # (Auto) 0.7 x10^3/uL (0.0-1.1) Eosinophils # (Auto) 0.4 x10^3/uL (0.0-0.7) Basophils # (Auto) 0.0 x10^3/uL (0.0-0.2) Assessment and Plan Assessmemt and Plan Problems Medical Problems: (1) Atrial fibrillation with RVR Status: Acute (2) Elevated d-dimer Status: Acute (3) GI bleed Status: Acute (4) Severe sepsis Status: Acute (5) Urinary tract infection Status: Acute Comment Review of Relevant I have reviewed the following items jorge (where applicable) has been applied. Labs Laboratory Tests Test 01/16/19 06:05 01/17/19 08:00 White Blood Count 9.4 x10^3/uL (4.0-11.0) 8.9 x10^3/uL (4.0-11.0) Red Blood Count 2.35 x10^6/uL (3.50-5.40) 2.61 x10^6/uL (3.50-5.40) Hemoglobin 7.0 g/dL (12.0-15.5) 7.7 g/dL (12.0-15.5) Hematocrit 21.2 % (36.0-47.0) 23.7 % (36.0-47.0) Mean Corpuscular Volume 90 fL (79-100) 91 fL (79-100) Mean Corpuscular Hemoglobin 30 pg (25-35) 30 pg (25-35) Mean Corpuscular Hemoglobin Concent 33 g/dL (31-37) 33 g/dL (31-37) Red Cell Distribution Width 17.2 % (11.5-14.5) 17.1 % (11.5-14.5) Platelet Count 163 x10^3/uL (140-400) 148 x10^3/uL (140-400) Neutrophils (%) (Auto) 67 % (31-73) 67 % (31-73) Lymphocytes (%) (Auto) 20 % (24-48) 21 % (24-48) Monocytes (%) (Auto) 9 % (0-9) 8 % (0-9) Eosinophils (%) (Auto) 4 % (0-3) 4 % (0-3) Basophils (%) (Auto) 1 % (0-3) 1 % (0-3) Neutrophils # (Auto) 6.3 x10^3/uL (1.8-7.7) 6.0 x10^3/uL (1.8-7.7) Lymphocytes # (Auto) 1.9 x10^3/uL (1.0-4.8) 1.8 x10^3/uL (1.0-4.8) Monocytes # (Auto) 0.9 x10^3/uL (0.0-1.1) 0.7 x10^3/uL (0.0-1.1) Eosinophils # (Auto) 0.3 x10^3/uL (0.0-0.7) 0.4 x10^3/uL (0.0-0.7) Basophils # (Auto) 0.0 x10^3/uL (0.0-0.2) 0.0 x10^3/uL (0.0-0.2) Sodium Level 141 mmol/L (136-145) Potassium Level 3.4 mmol/L (3.5-5.1) Chloride Level 105 mmol/L (98-107) Carbon Dioxide Level 27 mmol/L (21-32) Anion Gap 9 (6-14) Blood Urea Nitrogen 8 mg/dL (7-20) Creatinine 1.1 mg/dL (0.6-1.0) Estimated GFR (Cockcroft-Gault) 50.0 BUN/Creatinine Ratio 7 (6-20) Glucose Level 108 mg/dL (70-99) Calcium Level 7.8 mg/dL (8.5-10.1) Total Bilirubin 0.2 mg/dL (0.2-1.0) Aspartate Amino Transf (AST/SGOT) 11 U/L (15-37) Alanine Aminotransferase (ALT/SGPT) 18 U/L (14-59) Alkaline Phosphatase 54 U/L (46-116) Total Protein 5.8 g/dL (6.4-8.2) Albumin 2.5 g/dL (3.4-5.0) Albumin/Globulin Ratio 0.8 (1.0-1.7) Laboratory Tests Test 01/17/19 08:00 White Blood Count 8.9 x10^3/uL (4.0-11.0) Red Blood Count 2.61 x10^6/uL (3.50-5.40) Hemoglobin 7.7 g/dL (12.0-15.5) Hematocrit 23.7 % (36.0-47.0) Mean Corpuscular Volume 91 fL (79-100) Mean Corpuscular Hemoglobin 30 pg (25-35) Mean Corpuscular Hemoglobin Concent 33 g/dL (31-37) Red Cell Distribution Width 17.1 % (11.5-14.5) Platelet Count 148 x10^3/uL (140-400) Neutrophils (%) (Auto) 67 % (31-73) Lymphocytes (%) (Auto) 21 % (24-48) Monocytes (%) (Auto) 8 % (0-9) Eosinophils (%) (Auto) 4 % (0-3) Basophils (%) (Auto) 1 % (0-3) Neutrophils # (Auto) 6.0 x10^3/uL (1.8-7.7) Lymphocytes # (Auto) 1.8 x10^3/uL (1.0-4.8) Monocytes # (Auto) 0.7 x10^3/uL (0.0-1.1) Eosinophils # (Auto) 0.4 x10^3/uL (0.0-0.7) Basophils # (Auto) 0.0 x10^3/uL (0.0-0.2) Microbiology 01/13/19 Blood Culture - Preliminary, Resulted NO GROWTH AFTER 3 DAYS 01/13/19 Urine Culture - Final, Complete 01/13/19 Urine Culture Result 1 (JAY) - Final, Complete 01/13/19 Antimicrobic Susceptibility - Final, Complete Medications Current Medications Digoxin (Lanoxin) 125 mcg 1X STAT PO Last administered on 01/13/19at 15:50; Start 01/13/19 at 15:15; Stop 01/13/19 at 15:19; Status DC Albuterol/ Ipratropium (Duoneb) 3 ml 1X ONCE NEB Last administered on 01/13/19at 16:07; Start 01/13/19 at 16:30; Stop 01/13/19 at 16:31; Status DC Sodium Chloride 1,000 ml @ 1,000 mls/hr 1X ONCE IV Last administered on 01/13/19at 17:29; Start 01/13/19 at 17:30; Stop 01/13/19 at 18:29; Status DC Sodium Chloride 500 ml @ 500 mls/hr 1X ONCE IV Last administered on 01/13/19at 19:41; Start 01/13/19 at 17:00; Stop 01/13/19 at 17:59; Status DC Pantoprazole Sodium (PROTONIX VIAL for IV PUSH) 40 mg 1X ONCE IVP Last administered on 01/13/19at 17:45; Start 01/13/19 at 17:30; Stop 01/14/19 at 14: 15; Status DC Ceftriaxone Sodium (Rocephin) 1 gm 1X ONCE IVP Last administered on 01/13/19at 17:47; Start 01/13/19 at 17:30; Stop 01/13/19 at 17:31; Status DC Ondansetron HCl (Zofran) 4 mg PRN Q8HRS PRN IV NAUSEA/VOMITING; Start 01/13/19 at 17:30; Stop 01/14/19 at 17:29; Status DC Fentanyl Citrate (Fentanyl 2ml Vial) 50 mcg PRN Q1HR PRN IV PAIN Last administered on 01/14/19at 01:25; Start 01/13/19 at 17:30; Stop 01/14/19 at 17:29; Status DC Ceftriaxone Sodium (Rocephin) 2 gm Q24H IVP ; Start 01/13/19 at 21:00; Stop 01/13/19 at 22:52; Status DC Albuterol Sulfate (Ventolin Neb Soln) 2.5 mg PRN QID PRN NEB SHORTNESS OF BREATH; Start 01/13/19 at 20:45 Clonazepam (KlonoPIN) 0.5 mg HS PO Last administered on 01/16/19at 20:27; Start 01/13/19 at 21:00 Cyclobenzaprine HCl (Flexeril) 10 mg PRN BID PRN PO MUSCLE SPASMS Last administered on 01/14/19 08:36; Start 01/13/19 at 20:45 Digoxin (Lanoxin) 125 mcg DAILY PO ; Start 01/14/19 at 09:00; Stop 01/14/19 at 13:30; Status DC Ferrous Sulfate (Feosol) 325 mg DAILY PO Last administered on 01/17/19 08:14; Start 01/14/19 at 09:00 Acetaminophen/ Hydrocodone Bitart (Lortab 5/325) 1 tab PRN Q6HRS PRN PO PAIN Last administered on 01/14/19 08:34; Start 01/13/19 at 20:45 Metoprolol Succinate (Toprol Xl) 25 mg DAILY PO Last administered on 01/17/19 08:13; Start 01/14/19 at 09:00 Montelukast Sodium (Singulair) 10 mg HS PO Last administered on 01/16/19at 20:27; Start 01/13/19 at 21:00 Prednisone (Prednisone) 15 mg QODAY PO Last administered on 01/15/19 08:29; Start 01/15/19 at 09:00; Stop 01/16/19 at 04:16; Status DC Bupropion HCl (Wellbutrin Xl) 300 mg DAILY PO Last administered on 01/17/19 08:13; Start 01/14/19 at 09:00 Diltiazem HCl (Cardizem 24hr Cd) 240 mg DAILY PO Last administered on 01/17/19at 10:55; Start 01/14/19 at 09:00 Duloxetine HCl (Cymbalta) 60 mg DAILY PO Last administered on 01/17/19 08:12; Start 01/14/19 at 09:00 Gabapentin (Neurontin) 300 mg BID PO Last administered on 01/17/19 08:14; Start 01/13/19 at 21:00 Levothyroxine Sodium (Synthroid) 175 mcg DAILY06 PO Last administered on 01/17/19 05:07; Start 01/14/19 at 06:00 Budesonide (Pulmicort) 0.5 mg RTBID NEB Last administered on 01/17/19at 07:20; Start 01/13/19 at 22:00 Potassium Chloride (Klor-Con) 20 meq DAILYWBKFT PO Last administered on at 08:14; Start 01/14/19 at 08:00 Ropinirole HCl (Requip) 1 mg QHS PO Last administered on 01/16/19at 20:27; Start 01/13/19 at 21:00 Albuterol/ Ipratropium (Duoneb) 3 ml RTQID NEB Last administered on 01/17/19at 16:16; Start 01/13/19 at 22:00 Sodium Chloride 1,500 ml @ 1,500 mls/hr Q1H IV ; Start 01/13/19 at 20:47; Stop 01/13/19 at 20:56; Status DC Sodium Chloride 500 ml @ 1,000 mls/hr PRN Q30MIN PRN IV SEE COMMENTS; Start 01/13/19 at 21:00 Meropenem 1 gm/ Sodium Chloride 100 ml @ 200 mls/hr Q8HRS IV Last administered on 01/14/19at 05:29; Start 01/13/19 at 22:00; Stop 01/14/19 at 07:32; Status DC Norepinephrine Bitartrate 250 ml @ 0 mls/hr CONT PRN IV SEE I/O RECORD; Start 01/13/19 at 21:00; Stop 01/14/19 at 16:04; Status DC Dobutamine HCl/ Dextrose 250 ml @ 0 mls/hr CONT PRN IV SEE I/O RECORD; Start 01/13/19 at 21:00; Stop 01/14/19 at 16:04; Status DC Ceftriaxone Sodium (Rocephin) 2 gm Q24H IVP ; Start 01/14/19 at 18:00; Stop 01/14/19 at 18:00; Status DC Pantoprazole Sodium 80 mg/ Sodium Chloride 100 ml @ 10 mls/hr Q10H IV Last administered on 01/14/19at 08:48; Start 01/14/19 at 00:00; Stop 01/14/19 at 16:29; Status DC Meropenem 500 mg/ Sodium Chloride 50 ml @ 100 mls/hr Q6HRS IV Last administered on 01/17/19at 12:58; Start 01/14/19 at 12:00 Docusate Sodium (Colace) 100 mg STK-MED ONCE PO ; Start 01/14/19 at 08:27; Stop 01/14/19 at 08:28; Status DC Docusate Sodium (Colace) 100 mg PRN DAILY PRN PO STOOL SOFTENER; Start 01/14/19 at 12:45 Docusate Sodium (Colace) 100 mg DAILY PO Last administered on 01/17/19 08:14; Start 01/15/19 at 09:00 Polyethylene Glycol (miraLAX PACKET) 17 gm PRN DAILY PRN PO CONSTIPATION; S tart 01/14/19 at 12:45 Digoxin (Lanoxin) 125 mcg Q24H PO Last administered on 01/17/19 15:31; Start 01/14/19 at 15:00 Pantoprazole Sodium (Protonix) 40 mg DAILYAC PO Last administered on 01/17/19 08:12; Start 01/15/19 at 07:30 Aspirin (Children'S Aspirin) 81 mg DAILYWBKFT PO Last administered on 01/17/19 08:12; Start 01/15/19 at 14:00 Ondansetron HCl (Zofran) 4 mg PRN Q4HRS PRN IV NAUSEA/VOMITING 1ST CHOICE; Start 01/15/19 at 23:00 Prednisone (Prednisone) 15 mg QODAY PO Last administered on 01/16/19 08:25; Start 01/16/19 at 09:00 Acetaminophen (Tylenol) 650 mg PRN Q6HRS PRN PO HEADACHE/FEVER Last administered on 01/16/19 10:11; Start 01/16/19 at 10:00 Throat Lozenges (Cepacol Sore Throat Lozenge) 1 darrell PRN Q2HRS PRN PO SORE THROAT Last administered on 01/17/19 10:55; Start 01/17/19 at 10:00 Diclofenac Sodium (Voltaren) 25 mg PRN BID PRN PO pain Last administered on 01/17/19 10:54; Start 01/17/19 at 10:00 Polyethylene Glycol (miraLAX Powder BULK BOTTLE) 238 gm 1X ONCE PO Last administered on 01/17/19 13:41; Start 01/17/19 at 13:30; Stop 01/17/19 at 13:31; Status DC Active Scripts Active [place] 5-325 Tablet (Acetaminophen/Hydrocodone Bitart) 1 Each Tablet 1 Tab PO PRN Q6HRS PRN Reported Promethazine Hcl 25 Mg Tablet 1 Tab PO PRN Q6HRS Omeprazole 20 Mg Capsule.dr 1 Cap PO DAILY Spiriva (Tiotropium [place]) 18 Mcg Cap.w.dev 1 Inh IH DAILY Proair Hfa Inhaler (Albuterol Sulfate) 8.5 Gm Hfa.aer.ad 2 Puff INH PRN Q6HRS PRN Metoprolol Succinate ( Xl ) (Metoprolol Succinate) 25 Mg Tab.er.24h 25 Mg PO DAILY Potassium Chloride 20 Meq Tablet.er 20 Meq PO DAILY Imodium A-D (Loperamide HCl) 2 Mg Capsule 2 Mg PO PRN DAILY PRN Digoxin 125 Mcg Tablet 125 Mcg PO DAILY Clonazepam 0.5 Mg Tablet 0.5 Mg PO HS Bupropion Xl (Bupropion Hcl) 300 Mg Tab.er.24h 300 Mg PO DAILY Albuterol Sulfate Neb Soln (Albuterol Sulfate) 2.5 Mg/3 Ml Vial.neb 2.5 Mg NEB PRN QID PRN Dulera 200 Mcg/5 Mcg Inhaler (Mometasone/Formoterol) 13 Gm Hfa.aer.ad 2 Puff IH BID Ferrous Sulfate 325 Mg Tablet 65 Mg PO DAILY Cyclobenzaprine Hcl 10 Mg Tablet 10 Mg PO PRN BID PRN Gabapentin 600 Mg Tablet 300 Mg PO BID Montelukast Sodium Tablet (Montelukast Sodium) 10 Mg Tablet 1 Tab PO HS Ropinirole Hcl 1 Mg Tablet 1 Mg PO HS Xarelto (Rivaroxaban) 20 Mg Tablet 20 Mg PO DAILY16 Cardizem Cd (Diltiazem Hcl) 240 Mg Cap.er.24h 1 Cap PO DAILY Prednisone (Prednisone) 10 Mg Tablet 15 Mg PO QODAY Furosemide 40 Mg Tablet 30 Mg PO DAILY Diclofenac Sodium 75 Mg Tablet.dr 1 Tab PO BID Cymbalta (Duloxetine Hcl) 60 Mg Capsule.dr 1 Cap PO DAILY Levothyroxine Sodium 150 Mcg Tablet 175 Mcg PO DAILY Vitals/I & O Vital Sign - Last 24 Hours 01/16/19 01/16/19 01/16/19 01/16/19 19:10 19:45 20:37 22:48 Temp 97.8 98.1 97.8 98.1 Pulse 65 76 Resp 18 16 B/P (MAP) 101/51 (68) 126/67 (86) Pulse Ox 97 100 99 O2 Delivery Room Air Room Air Room Air Room Air 01/17/19 01/17/19 01/17/19 01/17/19 03:32 07:22 07:24 07:50 Temp 97.4 97.7 97.4 97.7 Pulse 87 64 Resp 18 18 B/P (MAP) 115/53 (73) 142/63 (89) Pulse Ox 96 100 100 O2 Delivery BiPAP/CPAP Room Air Room Air Room Air 01/17/19 01/17/19 01/17/19 01/17/19 08:13 10:27 10:55 12:54 Temp 98.0 98.0 Pulse 64 73 73 Resp 18 B/P (MAP) 142/63 159/66 (97) 159/66 Pulse Ox 98 O2 Delivery Room Air Room Air 01/17/19 01/17/19 01/17/19 14:29 15:31 16:16 Temp 98.1 98.1 Pulse 57 67 Resp 18 B/P (MAP) 123/58 (79) 123/58 Pulse Ox 99 O2 Delivery Room Air Room Air Intake and Output 01/16/19 01/16/19 01/17/19 15:00 23:00 07:00 Intake Total 800 ml 200 ml Balance 800 ml 200 ml Nutrition Consultation Dietary Evaluation: Recommendations by RD: Decrease Calorie Intake, Protein supplementation Comments: REC advance diet as able to cardiac REC glucerna w/lunch trays Expected Outcomes/Goals: diet advancement Malnutrition Findings: Food and Nutrition Intake (Sev: <50% est energy req 5days Weight Status: Morbidly Obese ROSIE ALEGRE MD Jan 17, 2019 17:17
[2019-01-17 19:59] VITALS: BP 134/75
[2019-01-17] MEDS: rOPINIRole 1 MG TABLET. PO SCH (20:39)
[2019-01-17] MEDS: clonazePAM 0.5 MG TABLET PO SCH (20:39)
[2019-01-17] MEDS: MONTELUKAST SODIUM 10 MG TABLET. PO SCH (20:39)
[2019-01-17 23:06] VITALS: BP 101/65
[2019-01-18 02:10] VITALS: BP 114/60
[2019-01-18] MEDS: LEVOTHYROXINE 175 MCG TABLET PO SCH (02:26)
[2019-01-18] MEDS: MEROPENEM 500 MG in IV NORMAL SALINE 50ML 50 ML IV SCH (05:19)
[2019-01-18 05:20] LABS: BASO # 0.1 x10^3/uL (0.0-0.2); BASO % 1 % (0-3); EOS # 0.5 x10^3/uL (0.0-0.7); EOS % 5 % (0-3); HEMATOCRIT 25.1 % (36.0-47.0); HEMOGLOBIN 8.1 g/dL (12.0-15.5); LYMPH # 1.7 x10^3/uL (1.0-4.8); LYMPH % 17 % (24-48); MEAN CORPUSCULAR HEMOGLOBIN 30 pg (25-35); MEAN CORPUSCULAR HGB CONC 32 g/dL (31-37); MEAN CORPUSCULAR VOLUME 91 fL (79-100); MONO # 0.8 x10^3/uL (0.0-1.1); MONO % 9 % (0-9); NEUT # 6.8 x10^3/uL (1.8-7.7); NEUT % 69 % (31-73); PLATELET COUNT 166 x10^3/uL (140-400); RED BLOOD COUNT 2.75 x10^6/uL (3.50-5.40); RED CELL DISTRIBUTION WIDTH 17.1 % (11.5-14.5); WHITE BLOOD COUNT 9.9 x10^3/uL (4.0-11.0)
[2019-01-18 05:52] LABS: ALBUMIN 2.8 g/dL (3.4-5.0); ALBUMIN/GLOBULIN RATIO 0.8 (1.0-1.7); CALCIUM 8.1 mg/dL (8.5-10.1); CREATININE 0.9 mg/dL (0.6-1.0); POTASSIUM 3.6 mmol/L (3.5-5.1); TOTAL BILIRUBIN 0.3 mg/dL (0.2-1.0); TOTAL PROTEIN 6.1 g/dL (6.4-8.2)
[2019-01-18 07:00] VITALS: BP 122/50
[2019-01-18] MEDS: BUDESONIDE 0.5 MG/2 ML NEBU. NEB SCH ×2 (07:35→19:43)
[2019-01-18] MEDS: IPRATRPIUM/ALBUTEROL 0.5/2.5MG 3 ML NEBU. NEB SCH ×4 (07:35→19:43)
--- NOTE | 2019-01-18 08:55 | NUR ---
IP: Pt is mrsa screen + requiring contact precautions.
[2019-01-18] MEDS: GABAPENTIN 300 MG CAPSULE. PO SCH ×2 (09:00→20:46)
[2019-01-18] MEDS: DOCUSATE SODIUM 100 MG CAPSULE. PO SCH (09:00)
--- NOTE | 2019-01-18 09:12 | PDOC ---
Infectious Disease Note Subjective: Subjective pt says she is having some sob some cough but now getting loose awaiting colonoscopy today ROS: ROS Negative except for above. Vital Signs: Vital Signs Vital Signs Date Time Temp Pulse Resp B/P (MAP) Pulse Ox O2 Delivery O2 Flow Rate FiO2 01/18/19 07:35 98 Room Air 01/18/19 07:00 97.8 74 20 122/50 (74) 97.8 Physical Exam: PHYSICAL EXAM GENERAL: Sitting in the chair, alert, NAD HEENT: Oral cavity, pharynx is clear. NECK: Supple LUNGS: Clear to auscultation. no wheezes. HEART: S1, S2. ABDOMEN: Obese, + BS N EXTREMITIES: No cyanosis with no gross edema. SKIN: Warm to touch without generalized rash. NEUROLOGIC: Alert, nonfocal and appropriate. Medications: Inpatient Meds: Current Medications Medications (Trade) Dose Ordered Sig/Ijeoma Start Time Stop Time Status Last Admin Dose Admin Acetaminophen (Tylenol) 650 mg PRN Q6HRS PRN 01/16/19 10:00 01/16/19 10:11 650 MG Acetaminophen/ Hydrocodone Bitart (Lortab 5/325) 1 tab PRN Q6HRS PRN 01/13/19 20:45 01/14/19 08:34 1 TAB Albuterol Sulfate (Ventolin Neb Soln) 2.5 mg PRN QID PRN 01/13/19 20:45 Albuterol/ Ipratropium (Duoneb) 3 ml RTQID 01/13/19 22:00 01/18/19 07:35 3 ML Aspirin (Children'S Aspirin) 81 mg DAILYWBKFT 01/15/19 14:00 01/17/19 08:12 81 MG Budesonide (Pulmicort) 0.5 mg RTBID 01/13/19 22:00 01/18/19 07:35 0.5 MG Bupropion HCl (Wellbutrin Xl) 300 mg DAILY 01/14/19 09:00 01/17/19 08:13 300 MG Ceftriaxone Sodium (Rocephin) 2 gm Q24H 01/14/19 18:00 01/14/19 18:00 DC Clonazepam (KlonoPIN) 0.5 mg HS 01/13/19 21:00 01/17/19 20:39 0.5 MG Cyclobenzaprine HCl (Flexeril) 10 mg PRN BID PRN 01/13/19 20:45 01/14/19 08:36 10 MG Diclofenac Sodium (Voltaren) 25 mg PRN BID PRN 01/17/19 10:00 01/17/19 10:54 25 MG Digoxin (Lanoxin) 125 mcg Q24H 01/14/19 15:00 01/17/19 15:31 125 MCG Diltiazem HCl (Cardizem 24hr Cd) 240 mg DAILY 01/14/19 09:00 01/17/19 10:55 240 MG Dobutamine HCl/ Dextrose 250 ml @ 0 mls/hr CONT PRN 01/13/19 21:00 01/14/19 16:04 DC Docusate Sodium (Colace) 100 mg DAILY 01/15/19 09:00 01/17/19 08:14 100 MG Duloxetine HCl (Cymbalta) 60 mg DAILY 01/14/19 09:00 01/17/19 08:12 60 MG Fentanyl Citrate (Fentanyl 2ml Vial) 50 mcg PRN Q1HR PRN 01/13/19 17:30 01/14/19 17:29 DC 01/14/19 01:25 50 MCG Ferrous Sulfate (Feosol) 325 mg DAILY 01/14/19 09:00 01/17/19 08:14 325 MG Gabapentin (Neurontin) 300 mg BID 01/13/19 21:00 01/17/19 20:39 300 MG Levothyroxine Sodium (Synthroid) 175 mcg DAILY06 01/14/19 06:00 01/17/19 05:07 175 MCG Magnesium Citrate (Citroma) 296 ml 1X ONCE 01/18/19 09:30 01/18/19 09:31 01/18/19 08:59 296 ML Meropenem 1 gm/ Sodium Chloride 100 ml @ 200 mls/hr Q8HRS 01/13/19 22:00 01/14/19 07:32 DC 01/14/19 05:29 200 MLS/HR Meropenem 500 mg/ Sodium Chloride 50 ml @ 100 mls/hr Q6HRS 01/14/19 12:00 01/18/19 05:19 100 MLS/HR Metoprolol Succinate (Toprol Xl) 25 mg DAILY 01/14/19 09:00 01/17/19 08:13 25 MG Montelukast Sodium (Singulair) 10 mg HS 01/13/19 21:00 01/17/19 20:39 10 MG Norepinephrine Bitartrate 250 ml @ 0 mls/hr CONT PRN 01/13/19 21:00 01/14/19 16:04 DC Ondansetron HCl (Zofran) 4 mg PRN Q4HRS PRN 01/15/19 23:00 Pantoprazole Sodium (PROTONIX VIAL for IV PUSH) 40 mg 1X ONCE 01/13/19 17:30 01/14/19 14:15 DC 01/13/19 17:45 40 MG Pantoprazole Sodium (Protonix) 40 mg DAILYAC 01/15/19 07:30 01/17/19 08:12 40 MG Pantoprazole Sodium 80 mg/ Sodium Chloride 100 ml @ 10 mls/hr Q10H 01/14/19 00:00 01/14/19 16:29 DC 01/14/19 08:48 10 MLS/HR Polyethylene Glycol (miraLAX PACKET) 17 gm PRN DAILY PRN 01/14/19 12:45 Polyethylene Glycol (miraLAX Powder BULK BOTTLE) 238 gm 1X ONCE 01/17/19 13:30 01/17/19 13:31 DC 01/17/19 13:41 238 GM Potassium Chloride (Klor-Con) 20 meq DAILYWBKFT 01/14/19 08:00 01/17/19 08:14 20 MEQ Prednisone (Prednisone) 15 mg QODAY 01/16/19 09:00 01/16/19 08:25 15 MG Ropinirole HCl (Requip) 1 mg QHS 01/13/19 21:00 01/17/19 20:39 1 MG Sodium Chloride 500 ml @ 1,000 mls/hr PRN Q30MIN PRN 01/13/19 21:00 Throat Lozenges (Cepacol Sore Throat Lozenge) 1 latia PRN Q2HRS PRN 01/17/19 10:00 01/17/19 18:10 1 LATIA Labs: Lab Laboratory Tests Test 01/18/19 04:50 White Blood Count 9.9 x10^3/uL (4.0-11.0) Red Blood Count 2.75 x10^6/uL (3.50-5.40) Hemoglobin 8.1 g/dL (12.0-15.5) Hematocrit 25.1 % (36.0-47.0) Mean Corpuscular Volume 91 fL (79-100) Mean Corpuscular Hemoglobin 30 pg (25-35) Mean Corpuscular Hemoglobin Concent 32 g/dL (31-37) Red Cell Distribution Width 17.1 % (11.5-14.5) Platelet Count 166 x10^3/uL (140-400) Neutrophils (%) (Auto) 69 % (31-73) Lymphocytes (%) (Auto) 17 % (24-48) Monocytes (%) (Auto) 9 % (0-9) Eosinophils (%) (Auto) 5 % (0-3) Basophils (%) (Auto) 1 % (0-3) Neutrophils # (Auto) 6.8 x10^3/uL (1.8-7.7) Lymphocytes # (Auto) 1.7 x10^3/uL (1.0-4.8) Monocytes # (Auto) 0.8 x10^3/uL (0.0-1.1) Eosinophils # (Auto) 0.5 x10^3/uL (0.0-0.7) Basophils # (Auto) 0.1 x10^3/uL (0.0-0.2) Sodium Level 140 mmol/L (136-145) Potassium Level 3.6 mmol/L (3.5-5.1) Chloride Level 106 mmol/L (98-107) Carbon Dioxide Level 24 mmol/L (21-32) Anion Gap 10 (6-14) Blood Urea Nitrogen 9 mg/dL (7-20) Creatinine 0.9 mg/dL (0.6-1.0) Estimated GFR (Cockcroft-Gault) 63.0 BUN/Creatinine Ratio 10 (6-20) Glucose Level 85 mg/dL (70-99) Calcium Level 8.1 mg/dL (8.5-10.1) Total Bilirubin 0.3 mg/dL (0.2-1.0) Aspartate Amino Transf (AST/SGOT) 12 U/L (15-37) Alanine Aminotransferase (ALT/SGPT) 19 U/L (14-59) Alkaline Phosphatase 58 U/L (46-116) Total Protein 6.1 g/dL (6.4-8.2) Albumin 2.8 g/dL (3.4-5.0) Albumin/Globulin Ratio 0.8 (1.0-1.7) Micro Microbiology 01/13/19 Blood Culture - Preliminary, Resulted NO GROWTH AFTER 3 DAYS 01/13. URINE CULTURE RES 1 Preliminary Escherichia coli Greater than 100,000 colony forming units per mL ANTIMICROBIAL SUSCEPTIBILITY Final Comment S = Susceptible; I = Intermediate; R = Resistant P = Positive; N = Negative MICS are expressed in micrograms per mL Antibiotic RSLT#1 RSLT#2 RSLT#3 RSLT#4 Amoxicillin/Clavulanic Acid S =4 Ampicillin S =8 Cefepime S<=0.12 Ceftriaxone S<=0.25 Cefuroxime S =4 Ciprofloxacin S<=0.25 Ertapenem S<=0.12 Gentamicin S<=1 Imipenem S<=0.25 Levofloxacin S<=0.12 Meropenem S<=0.25 Nitrofurantoin R =128 Piperacillin/Tazobactam S<=4 Tetracycline S<=1 Tobramycin S<=1 Trimethoprim/Sulfa S<=20 Objective: Assessment: Rectal bleed Leukocytosis - reactive plus on steroids takes 15 mg po QOD for asthma - improved ? UTI- POA - ? contamination with squamous cells and asymptomatic - recent kidney stones with stent and removal last month. E. coli abx allergies - PCN - as child - rash and swelling - tolerated Rocephin, Sulfa- hives and swelling, Levoflox- swelling Low grade temp - likely from PRBCs Lactic acidosis Afib H/o PE and DVTs MRSA screen positive Plan: Plan of Care awaiting colonoscopy later today will rubi root and start pt on rocephin will deescalate soon OFE MENDEZ MD Jan 18, 2019 09:12
[2019-01-18] MEDS ORDERED: MAGNESIUM CITRATE 296 ML SOLUTION. PO ONE (09:30)
[2019-01-18] MEDS ORDERED: IV RINGERS,LACTATED 1000ML 1,000 ML IV ONE (09:30)
[2019-01-18] MEDS ORDERED: cefTRIAXone IV Push 2 GM VIAL. IVP SCH (10:00)
[2019-01-18 11:00] VITALS: BP 130/59
--- NOTE | 2019-01-18 11:31 | PDOC ---
PROGRESS NOTES Chief Complaint Chief Complaint Severe sepsis, pyelonephritis, GI bleed, acute blood loss anemia Atrial fibrillation with RVR No pulmonary consolidation or acute airspace disease. Elevated d-dimer morbid obesity, BMI 52 w/ also severe malnutrition broncho-trachial malacia, History of Present Illness History of Present Illness u p to the chair, feels a little better fatigued again, after colon prep last night feels better sepsis being treated, ID following s/p overnight prep for colonoscpy, GI following, scope today Vitals Vitals Vital Signs Date Time Temp Pulse Resp B/P (MAP) Pulse Ox O2 Delivery O2 Flow Rate FiO2 01/18/19 11:00 97.6 77 20 130/59 (82) 96 Nasal Cannula 2.0 97.6 Physical Exam Physical Exam GENERAL: Sitting in the chair, alert, NAD HEENT: Oral cavity, pharynx is clear. NECK: Supple LUNGS: Clear to auscultation. no wheezes. HEART: S1, S2. ABDOMEN: Obese, + BS N EXTREMITIES: No cyanosis with no gross edema. SKIN: Warm to touch without generalized rash. NEUROLOGIC: Alert, nonfocal and appropriate. General: Alert, Oriented X3, Cooperative, No acute distress Heart: Other (AFIB; 3/6 systolic murmur to LLS border) Lungs: Wheezing Abdomen: Soft Extremities: Other (leg edema/obesity) Skin: No breakdown, No significant lesion Labs LABS Laboratory Tests Test 01/18/19 04:50 White Blood Count 9.9 x10^3/uL (4.0-11.0) Red Blood Count 2.75 x10^6/uL (3.50-5.40) Hemoglobin 8.1 g/dL (12.0-15.5) Hematocrit 25.1 % (36.0-47.0) Mean Corpuscular Volume 91 fL (79-100) Mean Corpuscular Hemoglobin 30 pg (25-35) Mean Corpuscular Hemoglobin Concent 32 g/dL (31-37) Red Cell Distribution Width 17.1 % (11.5-14.5) Platelet Count 166 x10^3/uL (140-400) Neutrophils (%) (Auto) 69 % (31-73) Lymphocytes (%) (Auto) 17 % (24-48) Monocytes (%) (Auto) 9 % (0-9) Eosinophils (%) (Auto) 5 % (0-3) Basophils (%) (Auto) 1 % (0-3) Neutrophils # (Auto) 6.8 x10^3/uL (1.8-7.7) Lymphocytes # (Auto) 1.7 x10^3/uL (1.0-4.8) Monocytes # (Auto) 0.8 x10^3/uL (0.0-1.1) Eosinophils # (Auto) 0.5 x10^3/uL (0.0-0.7) Basophils # (Auto) 0.1 x10^3/uL (0.0-0.2) Sodium Level 140 mmol/L (136-145) Potassium Level 3.6 mmol/L (3.5-5.1) Chloride Level 106 mmol/L (98-107) Carbon Dioxide Level 24 mmol/L (21-32) Anion Gap 10 (6-14) Blood Urea Nitrogen 9 mg/dL (7-20) Creatinine 0.9 mg/dL (0.6-1.0) Estimated GFR (Cockcroft-Gault) 63.0 BUN/Creatinine Ratio 10 (6-20) Glucose Level 85 mg/dL (70-99) Calcium Level 8.1 mg/dL (8.5-10.1) Total Bilirubin 0.3 mg/dL (0.2-1.0) Aspartate Amino Transf (AST/SGOT) 12 U/L (15-37) Alanine Aminotransferase (ALT/SGPT) 19 U/L (14-59) Alkaline Phosphatase 58 U/L (46-116) Total Protein 6.1 g/dL (6.4-8.2) Albumin 2.8 g/dL (3.4-5.0) Albumin/Globulin Ratio 0.8 (1.0-1.7) Assessment and Plan Assessmemt and Plan Problems Medical Problems: (1) Atrial fibrillation with RVR Status: Acute (2) Elevated d-dimer Status: Acute (3) GI bleed Status: Acute (4) Severe sepsis Status: Acute (5) Urinary tract infection Status: Acute Comment Review of Relevant I have reviewed the following items jorge (where applicable) has been applied. Labs Laboratory Tests Test 01/17/19 08:00 01/18/19 04:50 White Blood Count 8.9 x10^3/uL (4.0-11.0) 9.9 x10^3/uL (4.0-11.0) Red Blood Count 2.61 x10^6/uL (3.50-5.40) 2.75 x10^6/uL (3.50-5.40) Hemoglobin 7.7 g/dL (12.0-15.5) 8.1 g/dL (12.0-15.5) Hematocrit 23.7 % (36.0-47.0) 25.1 % (36.0-47.0) Mean Corpuscular Volume 91 fL (79-100) 91 fL (79-100) Mean Corpuscular Hemoglobin 30 pg (25-35) 30 pg (25-35) Mean Corpuscular Hemoglobin Concent 33 g/dL (31-37) 32 g/dL (31-37) Red Cell Distribution Width 17.1 % (11.5-14.5) 17.1 % (11.5-14.5) Platelet Count 148 x10^3/uL (140-400) 166 x10^3/uL (140-400) Neutrophils (%) (Auto) 67 % (31-73) 69 % (31-73) Lymphocytes (%) (Auto) 21 % (24-48) 17 % (24-48) Monocytes (%) (Auto) 8 % (0-9) 9 % (0-9) Eosinophils (%) (Auto) 4 % (0-3) 5 % (0-3) Basophils (%) (Auto) 1 % (0-3) 1 % (0-3) Neutrophils # (Auto) 6.0 x10^3/uL (1.8-7.7) 6.8 x10^3/uL (1.8-7.7) Lymphocytes # (Auto) 1.8 x10^3/uL (1.0-4.8) 1.7 x10^3/uL (1.0-4.8) Monocytes # (Auto) 0.7 x10^3/uL (0.0-1.1) 0.8 x10^3/uL (0.0-1.1) Eosinophils # (Auto) 0.4 x10^3/uL (0.0-0.7) 0.5 x10^3/uL (0.0-0.7) Basophils # (Auto) 0.0 x10^3/uL (0.0-0.2) 0.1 x10^3/uL (0.0-0.2) Sodium Level 140 mmol/L (136-145) Potassium Level 3.6 mmol/L (3.5-5.1) Chloride Level 106 mmol/L (98-107) Carbon Dioxide Level 24 mmol/L (21-32) Anion Gap 10 (6-14) Blood Urea Nitrogen 9 mg/dL (7-20) Creatinine 0.9 mg/dL (0.6-1.0) Estimated GFR (Cockcroft-Gault) 63.0 BUN/Creatinine Ratio 10 (6-20) Glucose Level 85 mg/dL (70-99) Calcium Level 8.1 mg/dL (8.5-10.1) Total Bilirubin 0.3 mg/dL (0.2-1.0) Aspartate Amino Transf (AST/SGOT) 12 U/L (15-37) Alanine Aminotransferase (ALT/SGPT) 19 U/L (14-59) Alkaline Phosphatase 58 U/L (46-116) Total Protein 6.1 g/dL (6.4-8.2) Albumin 2.8 g/dL (3.4-5.0) Albumin/Globulin Ratio 0.8 (1.0-1.7) Laboratory Tests Test 01/18/19 04:50 White Blood Count 9.9 x10^3/uL (4.0-11.0) Red Blood Count 2.75 x10^6/uL (3.50-5.40) Hemoglobin 8.1 g/dL (12.0-15.5) Hematocrit 25.1 % (36.0-47.0) Mean Corpuscular Volume 91 fL (79-100) Mean Corpuscular Hemoglobin 30 pg (25-35) Mean Corpuscular Hemoglobin Concent 32 g/dL (31-37) Red Cell Distribution Width 17.1 % (11.5-14.5) Platelet Count 166 x10^3/uL (140-400) Neutrophils (%) (Auto) 69 % (31-73) Lymphocytes (%) (Auto) 17 % (24-48) Monocytes (%) (Auto) 9 % (0-9) Eosinophils (%) (Auto) 5 % (0-3) Basophils (%) (Auto) 1 % (0-3) Neutrophils # (Auto) 6.8 x10^3/uL (1.8-7.7) Lymphocytes # (Auto) 1.7 x10^3/uL (1.0-4.8) Monocytes # (Auto) 0.8 x10^3/uL (0.0-1.1) Eosinophils # (Auto) 0.5 x10^3/uL (0.0-0.7) Basophils # (Auto) 0.1 x10^3/uL (0.0-0.2) Sodium Level 140 mmol/L (136-145) Potassium Level 3.6 mmol/L (3.5-5.1) Chloride Level 106 mmol/L (98-107) Carbon Dioxide Level 24 mmol/L (21-32) Anion Gap 10 (6-14) Blood Urea Nitrogen 9 mg/dL (7-20) Creatinine 0.9 mg/dL (0.6-1.0) Estimated GFR (Cockcroft-Gault) 63.0 BUN/Creatinine Ratio 10 (6-20) Glucose Level 85 mg/dL (70-99) Calcium Level 8.1 mg/dL (8.5-10.1) Total Bilirubin 0.3 mg/dL (0.2-1.0) Aspartate Amino Transf (AST/SGOT) 12 U/L (15-37) Alanine Aminotransferase (ALT/SGPT) 19 U/L (14-59) Alkaline Phosphatase 58 U/L (46-116) Total Protein 6.1 g/dL (6.4-8.2) Albumin 2.8 g/dL (3.4-5.0) Albumin/Globulin Ratio 0.8 (1.0-1.7) Microbiology 01/13/19 Blood Culture - Preliminary, Resulted NO GROWTH AFTER 4 DAYS 01/13/19 Urine Culture - Final, Complete 01/13/19 Urine Culture Result 1 (JAY) - Final, Complete 01/13/19 Antimicrobic Susceptibility - Final, Complete Medications Current Medications Digoxin (Lanoxin) 125 mcg 1X STAT PO Last administered on 01/13/19at 15:50; Start 01/13/19 at 15:15; Stop 01/13/19 at 15:19; Status DC Albuterol/ Ipratropium (Duoneb) 3 ml 1X ONCE NEB Last administered on 01/13/19at 16:07; Start 01/13/19 at 16:30; Stop 01/13/19 at 16:31; Status DC Sodium Chloride 1,000 ml @ 1,000 mls/hr 1X ONCE IV Last administered on 01/13/19at 17:29; Start 01/13/19 at 17:30; Stop 01/13/19 at 18:29; Status DC Sodium Chloride 500 ml @ 500 mls/hr 1X ONCE IV Last administered on 01/13/19at 19:41; Start 01/13/19 at 17:00; Stop 01/13/19 at 17:59; Status DC Pantoprazole Sodium (PROTONIX VIAL for IV PUSH) 40 mg 1X ONCE IVP Last administered on 01/13/19at 17:45; Start 01/13/19 at 17:30; Stop 01/14/19 at 14:15; Status DC Ceftriaxone Sodium (Rocephin) 1 gm 1X ONCE IVP Last administered on 01/13/19at 17:47; Start 01/13/19 at 17:30; Stop 01/13/19 at 17:31; Status DC Ondansetron HCl (Zofran) 4 mg PRN Q8HRS PRN IV NAUSEA/VOMITING; Start 01/13/19 at 17:30; Stop 01/14/19 at 17:29; Status DC Fentanyl Citrate (Fentanyl 2ml Vial) 50 mcg PRN Q1HR PRN IV PAIN Last administered on 01/14/19at 01:25; Start 01/13/19 at 17:30; Stop 01/14/19 at 17:29; Status DC Ceftriaxone Sodium (Rocephin) 2 gm Q24H IVP ; Start 01/13/19 at 21:00; Stop 01/13/19 at 22:52; Status DC Albuterol Sulfate (Ventolin Neb Soln) 2.5 mg PRN QID PRN NEB SHORTNESS OF BREATH; Start 01/13/19 at 20:45 Clonazepam (KlonoPIN) 0.5 mg HS PO Last administered on 01/17/19at 20:39; Start 01/13/19 at 21:00 Cyclobenzaprine HCl (Flexeril) 10 mg PRN BID PRN PO MUSCLE SPASMS Last administered on 01/14/19 08:36; Start 01/13/19 at 20:45 Digoxin (Lanoxin) 125 mcg DAILY PO ; Start 01/14/19 at 09:00; Stop 01/14/19 at 13:30; Status DC Ferrous Sulfate (Feosol) 325 mg DAILY PO Last administered on 01/17/19 08:14; Start 01/14/19 at 09:00 Acetaminophen/ Hydrocodone Bitart (Lortab 5/325) 1 tab PRN Q6HRS PRN PO PAIN MODERATE TO SEVERE Last administered on 01/14/19 08:34; Start 01/13/19 at 20:45 Metoprolol Succinate (Toprol Xl) 25 mg DAILY PO Last administered on 01/17/19 08:13; Start 01/14/19 at 09:00 Montelukast Sodium (Singulair) 10 mg HS PO Last administered on 01/17/19 20:39; Start 01/13/19 at 21:00 Prednisone (Prednisone) 15 mg QODAY PO Last administered on 01/15/19 08:29; Start 01/15/19 at 09:00; Stop 01/16/19 at 04:16; Status DC Bupropion HCl (Wellbutrin Xl) 300 mg DAILY PO Last administered on 01/17/19 08:13; Start 01/14/19 at 09:00 Diltiazem HCl (Cardizem 24hr Cd) 240 mg DAILY PO Last administered on 01/17/19 10:55; Start 01/14/19 at 09:00 Duloxetine HCl (Cymbalta) 60 mg DAILY PO Last administered on 01/17/19 08:12; Start 01/14/19 at 09:00 Gabapentin (Neurontin) 300 mg BID PO Last administered on 01/17/19 20:39; Start 01/13/19 at 21:00 Levothyroxine Sodium (Synthroid) 175 mcg DAILY06 PO Last administered on 01/17/19 05:07; Start 01/14/19 at 06:00 Budesonide (Pulmicort) 0.5 mg RTBID NEB Last administered on 01/18/19 07:35; Start 01/13/19 at 22:00 Potassium Chloride (Klor-Con) 20 meq DAILYWBKFT PO Last administered on 01/17/19at 08:14; Start 01/14/19 at 08:00 Ropinirole HCl (Requip) 1 mg QHS PO Last administered on 01/17/19at 20:39; Start 01/13/19 at 21:00 Albuterol/ Ipratropium (Duoneb) 3 ml RTQID NEB Last administered on 01/18/19at 07:35; Start 01/13/19 at 22:00 Sodium Chloride 1,500 ml @ 1,500 mls/hr Q1H IV ; Start 01/13/19 at 20:47; Stop 01/13/19 at 20:56; Status DC Sodium Chloride 500 ml @ 1,000 mls/hr PRN Q30MIN PRN IV SEE COMMENTS; Start 01/13/19 at 21:00 Meropenem 1 gm/ Sodium Chloride 100 ml @ 200 mls/hr Q8HRS IV Last administered on 01/14/19at 05:29; Start 01/13/19 at 22:00; Stop 01/14/19 at 07:32; Status DC Norepinephrine Bitartrate 250 ml @ 0 mls/hr CONT PRN IV SEE I/O RECORD; Start 01/13/19 at 21:00; Stop 01/14/19 at 16:04; Status DC Dobutamine HCl/ Dextrose 250 ml @ 0 mls/hr CONT PRN IV SEE I/O RECORD; Start 01/13/19 at 21:00; Stop 01/14/19 at 16:04; Status DC Ceftriaxone Sodium (Rocephin) 2 gm Q24H IVP ; Start 01/14/19 at 18:00; Stop 01/14/19 at 18:00; Status DC Pantoprazole Sodium 80 mg/ Sodium Chloride 100 ml @ 10 mls/hr Q10H IV Last administered on 01/14/19at 08:48; Start 01/14/19 at 00:00; Stop 01/14/19 at 16:29; Status DC Meropenem 500 mg/ Sodium Chloride 50 ml @ 100 mls/hr Q6HRS IV Last administered on 01/18/19at 05:19; Start 01/14/19 at 12:00; Stop 01/18/19 at 09:42; Status DC Docusate Sodium (Colace) 100 mg STK-MED ONCE PO ; Start 01/14/19 at 08:27; Stop 01/14/19 at 08:28; Status DC Docusate Sodium (Colace) 100 mg PRN DAILY PRN PO STOOL SOFTENER; Start 01/14/19 at 12:45 Docusate Sodium (Colace) 100 mg DAILY PO Last administered on 01/17/19 08:14; Start 01/15/19 at 09:00 Polyethylene Glycol (miraLAX PACKET) 17 gm PRN DAILY PRN PO CONSTIPATION; Start 01/14/19 at 12:45 Digoxin (Lanoxin) 125 mcg Q24H PO Last administered on 01/17/19 15:31; Start 01/14/19 at 15:00 Pantoprazole Sodium (Protonix) 40 mg DAILYAC PO Last administered on 01/17/19 08:12; Start 01/15/19 at 07:30 Aspirin (Children'S Aspirin) 81 mg DAILYWBKFT PO Last administered on 01/17/19 08:12; Start 01/15/19 at 14:00 Ondansetron HCl (Zofran) 4 mg PRN Q4HRS PRN IV NAUSEA/VOMITING 1ST CHOICE; Start 01/15/19 at 23:00 Prednisone (Prednisone) 15 mg QODAY PO Last administered on 01/16/19 08:25; Start 01/16/19 at 09:00 Acetaminophen (Tylenol) 650 mg PRN Q6HRS PRN PO HEADACHE/FEVER Last administered on 01/16/19 10:11; Start 01/16/19 at 10:00 Throat Lozenges (Cepacol Sore Throat Lozenge) 1 darrell PRN Q2HRS PRN PO SORE THROAT Last administered on 01/17/19 18:10; Start 01/17/19 at 10:00 Diclofenac Sodium (Voltaren) 25 mg PRN BID PRN PO pain MILD Last administered on 01/17/19 10:54; Start 01/17/19 at 10:00 Polyethylene Glycol (miraLAX Powder BULK BOTTLE) 238 gm 1X ONCE PO Last administered on 01/17/19 13:41; Start 01/17/19 at 13:30; Stop 01/17/19 at 13:31; Status DC Magnesium Citrate (Citroma) 296 ml 1X ONCE PO Last administered on 01/18/19at 08:59; Start 01/18/19 at 09:30; Stop 01/18/19 at 09:31; Status DC Ringer's Solution 1,000 ml @ 75 mls/hr 1X ONCE IV ; Start 01/18/19 at 09:30; Stop 01/18/19 at 22:49 Ceftriaxone Sodium (Rocephin) 2 gm Q24H IVP ; Start 01/18/19 at 10:00 Lactobacillus Rhamnosus (Culturelle) 1 cap BID PO ; Start 01/18/19 at 21:00 Active Scripts Active [place] 5-325 Tablet (Acetaminophen/Hydrocodone Bitart) 1 Each Tablet 1 Tab PO PRN Q6HRS PRN Reported Promethazine Hcl 25 Mg Tablet 1 Tab PO PRN Q6HRS Omeprazole 20 Mg Capsule.dr 1 Cap PO DAILY Spiriva (Tiotropium [place]) 18 Mcg Cap.w.dev 1 Inh IH DAILY Proair Hfa Inhaler (Albuterol Sulfate) 8.5 Gm Hfa.aer.ad 2 Puff INH PRN Q6HRS PRN Metoprolol Succinate ( Xl ) (Metoprolol Succinate) 25 Mg Tab.er.24h 25 Mg PO DAILY Potassium Chloride 20 Meq Tablet.er 20 Meq PO DAILY Imodium A-D (Loperamide HCl) 2 Mg Capsule 2 Mg PO PRN DAILY PRN Digoxin 125 Mcg Tablet 125 Mcg PO DAILY Clonazepam 0.5 Mg Tablet 0.5 Mg PO HS Bupropion Xl (Bupropion Hcl) 300 Mg Tab.er.24h 300 Mg PO DAILY Albuterol Sulfate Neb Soln (Albuterol Sulfate) 2.5 Mg/3 Ml Vial.neb 2.5 Mg NEB PRN QID PRN Dulera 200 Mcg/5 Mcg Inhaler (Mometasone/Formoterol) 13 Gm Hfa.aer.ad 2 Puff IH BID Ferrous Sulfate 325 Mg Tablet 65 Mg PO DAILY Cyclobenzaprine Hcl 10 Mg Tablet 10 Mg PO PRN BID PRN Gabapentin 600 Mg Tablet 300 Mg PO BID Montelukast Sodium Tablet (Montelukast Sodium) 10 Mg Tablet 1 Tab PO HS Ropinirole Hcl 1 Mg Tablet 1 Mg PO HS Xarelto (Rivaroxaban) 20 Mg Tablet 20 Mg PO DAILY16 Cardizem Cd (Diltiazem Hcl) 240 Mg Cap.er.24h 1 Cap PO DAILY Prednisone (Prednisone) 10 Mg Tablet 15 Mg PO QODAY Furosemide 40 Mg Tablet 30 Mg PO DAILY Diclofenac Sodium 75 Mg Tablet. 1 Tab PO BID Cymbalta (Duloxetine Hcl) 60 Mg Capsule. 1 Cap PO DAILY Levothyroxine Sodium 150 Mcg Tablet 175 Mcg PO DAILY Vitals/I & O Vital Sign - Last 24 Hours 01/17/19 01/17/19 01/17/19 01/17/19 12:54 14:29 15:31 16:16 Temp 98.1 98.1 Pulse 57 67 Resp 18 B/P (MAP) 123/58 (79) 123/58 Pulse Ox 99 O2 Delivery Room Air Room Air Room Air 01/17/19 01/17/19 01/17/19 01/17/19 19:23 19:34 19:59 23:06 Temp 98.2 97.6 98.2 97.6 Pulse 73 63 Resp 20 16 B/P (MAP) 134/75 (94) 101/65 (77) Pulse Ox 98 99 99 O2 Delivery Room Air Room Air Room Air Room Air 01/18/19 01/18/19 01/18/19 01/18/19 02:10 07:00 07:35 11:00 Temp 97.7 97.8 97.6 97.7 97.8 97.6 Pulse 57 74 77 Resp 18 20 20 B/P (MAP) 114/60 (78) 122/50 (74) 130/59 (82) Pulse Ox 95 96 98 96 O2 Delivery Room Air Room Air Room Air Nasal Cannula O2 Flow Rate 2.0 Intake and Output 01/17/19 01/17/19 01/18/19 15:00 23:00 07:00 Intake Total 1100 ml 300 ml Output Total 700 ml Balance 400 ml 300 ml Nutrition Consultation Dietary Evaluation: Recommendations by RD: Decrease Calorie Intake, Protein supplementation Comments: REC advance diet as able to cardiac REC glucerna w/lunch trays Expected Outcomes/Goals: diet advancement Malnutrition Findings: Food and Nutrition Intake (Sev: <50% est energy req 5days Weight Status: Morbidly Obese ROSIE ALEGRE MD Jan 18, 2019 11:31
--- NOTE | 2019-01-18 12:53 | NUR ---
SS following up with discharge planning. Pt currently on room air. Per RN, pt having colonoscopy today. PT recommending home with assistance. No discharge needs noted at this time. SS will continue to follow for discharge planning.
[2019-01-18] MEDS ORDERED: PROPOFOL 40 ML IV ONE (13:24)
[2019-01-18] MEDS ORDERED: LIDOCAINE 2% PF 5 ML VIAL. ONE (13:24)
--- NOTE | 2019-01-18 14:03 | PDOC4 ---
PROCEDURE Procedure Colonoscopy with biopsy Indication: Anemia/recent hematochezia Meds: per anesthesia Findings: SHIRLEY: normal --Scope advanced to cecum. Prep fair with moderated amount of lavaging. Mucosa normal. Multiple diverticula, sigmoid. 4-5 mm sessile polyp in cecum, biopsied off. Internal hemorrhoids on retroflex. Exam otherwise normal. Laury. well. IMP: Small polyp Diverticulosis, possible site of recent bleeding. Hemorrhoids. REC: Await path. Resume meds, regular dist. Probably safe to resume Xarelto in 5-7 days. MONISHA DHILLON MD Jan 18, 2019 14:03
[2019-01-18 15:00] VITALS: BP 138/62
[2019-01-18] MEDS: PANTOPRAZOLE 40 MG TABLET.DR. PO SCH (15:44)
[2019-01-18] MEDS: buPROPion XL 150 MG TAB.ER.24H. PO SCH (15:45)
[2019-01-18] MEDS: FERROUS SULFATE 325 MG TABLET. PO SCH (15:45)
[2019-01-18] MEDS: DIGOXIN 125 MCG TABLET. PO SCH (15:45)
[2019-01-18] MEDS: predniSONE 10 MG TABLET PO SCH (15:46)
[2019-01-18] MEDS: ASPIRIN CHEWABLE 81 MG TABLET. PO SCH (15:47)
[2019-01-18] MEDS: POTASSIUM CHLORIDE 20 MEQ TABLET.ER. PO SCH (15:47)
[2019-01-18] MEDS: DULoxetine HCL 30 MG CAPSULE.DR PO SCH (15:47)
[2019-01-18] MEDS: METOPROLOL SUCC 24HR ER 25 MG TAB.ER.24H. PO SCH (15:48)
[2019-01-18 19:55] VITALS: BP 119/63
[2019-01-18] MEDS: rOPINIRole 1 MG TABLET. PO SCH (20:46)
[2019-01-18] MEDS: clonazePAM 0.5 MG TABLET PO SCH (20:46)
[2019-01-18] MEDS: MONTELUKAST SODIUM 10 MG TABLET. PO SCH (20:46)
[2019-01-18] MEDS: LACTOBACILLUS RHAMNOSUS GG 1 CAPSULE. PO SCH (20:46)
[2019-01-18 23:41] VITALS: BP 121/65
[2019-01-19 03:55] VITALS: BP 119/58
[2019-01-19] MEDS: LEVOTHYROXINE 175 MCG TABLET PO SCH (05:26)
[2019-01-19 07:00] VITALS: BP 130/58
[2019-01-19] MEDS: IPRATRPIUM/ALBUTEROL 0.5/2.5MG 3 ML NEBU. NEB SCH ×2 (07:24→11:19)
[2019-01-19] MEDS: BUDESONIDE 0.5 MG/2 ML NEBU. NEB SCH (07:25)
[2019-01-19] MEDS: PANTOPRAZOLE 40 MG TABLET.DR. PO SCH (07:30)
[2019-01-19] MEDS ORDERED: PANT40TA77 PO (08:29)
[2019-01-19] MEDS ORDERED: CEPH-264 PO (08:31)
--- NOTE | 2019-01-19 08:33 | SNU/HH DC ---
DISCHARGE WITH HOME HEALTH DISCHARGE INFORMATION: Discharge Date: Jan 19, 2019 Final Diagnosis: Problems Medical Problems: (1) Atrial fibrillation with RVR Status: Acute (2) Elevated d-dimer Status: Acute (3) GI bleed Status: Acute (4) Pyelonephritis Status: Acute (5) Severe sepsis Status: Acute (6) Urinary tract infection Status: Acute Condition on Discharge: Stable CODE STATUS: Code Status: Full HOME HEALTH: Face to Face: I certify this patient is under my care and that I, or a nurse practitioner or physician's anesthesia assistant working with me, had a face to face encounter that meets the physician face to face encounter requirements with this patient on 01/19 RN For Eval/Treatment: No Physical Therapy For: Evalulation/Treatment Occupational Therapy For: Evaluation/Treatment Pt Meets Homebound Status: Extreme weakness w/ amb., Limited distance walking POST DISCHARGE ORDERS: Activity Instructions for Disc: No restrictions DIET AFTER DISCHARGE: Regular FOLLOW-UP: Follow up with: GI 4 weeks Follow Up With: primary care 1-2 weeks TREATMENT/EQUIPMENT ORDERS: Adaptive Equipment Issued: Front wheeled walker CERTIFICATION STATEMENT: Certification Statement: Certification Statement: Based on the above finding, I certify that this patient is confined to the home and needs intermittent longterm care, physical therapy and/or speech therapy, or continues to need occupational therapy.~ This patient is under my care, and I have initiated the establishment of the plan of care.~ This patient will be followed by myself or a community physician who will periodically review the plan of care. Home Meds Active Scripts Hydrocodone/Apap 5-325 (NORCO 5-325 TABLET) 1 Each Tablet, 1 TAB PO PRN Q6HRS PRN for PAIN, #14 TAB 0 Refills Prov:PEDRO MONTANO MD 12/17/18 Reported Medications Promethazine Hcl (PROMETHAZINE HCL) 25 Mg Tablet, 1 TAB PO PRN Q6HRS for nausea, #20 TAB 01/15/19 Omeprazole (OMEPRAZOLE) 20 Mg Capsule.dr, 1 CAP PO DAILY for GERD, #30 CAP 5 Refills 01/13/19 Tiotropium [place] (SPIRIVA) 18 Mcg Cap.w.dev, 1 INH IH DAILY for treat asthma, #1 INH 0 Refills 12/16/18 Albuterol Sulfate (PROAIR HFA INHALER) 8.5 Gm Hfa.aer.ad, 2 PUFF INH PRN Q6HRS PRN for SHORTNESS OF BREATH, INHALER 0 Refills 12/16/18 Metoprolol Succinate (METOPROLOL SUCCINATE ( XL )) 25 Mg Tab.er.24h, 25 MG PO DAILY for FOR HYPERTENSION, #30 TAB 0 Refills 12/16/18 Potassium Chloride (POTASSIUM CHLORIDE) 20 Meq Tablet.er, 20 MEQ PO DAILY for ttreat low K+ level, TAB.SR 12/16/18 Loperamide HCl (Imodium A-D) 2 Mg Capsule, 2 MG PO PRN DAILY PRN for DIARRHEA, CAP 12/16/18 Digoxin (DIGOXIN) 125 Mcg Tablet, 125 MCG PO DAILY for AFIB/HEART FAILURE, TAB 12/16/18 Clonazepam (CLONAZEPAM) 0.5 Mg Tablet, 0.5 MG PO HS for help with sleep, TAB 12/16/18 Bupropion Hcl (BUPROPION XL) 300 Mg Tab.er.24h, 300 MG PO DAILY for treat depression, TAB.SR 12/16/18 Albuterol Sulfate (ALBUTEROL SULFATE NEB SOLN) 2.5 Mg/3 Ml Vial.neb, 2.5 MG NEB PRN QID PRN for SEE COMMENTS, EACH 0 Refills 12/16/18 Mometasone/Formoterol (DULERA 200 MCG/5 MCG INHALER) 13 Gm Hfa.aer.ad, 2 PUFF IH BID for treat asthma, INHALER 12/16/18 Ferrous Sulfate (FERROUS SULFATE) 325 Mg Tablet, 65 MG PO DAILY for treat anemia, TAB 12/16/18 Cyclobenzaprine Hcl (CYCLOBENZAPRINE HCL) 10 Mg Tablet, 10 MG PO PRN BID PRN for MUSCLE SPASMS, TAB 12/16/18 Gabapentin (GABAPENTIN) 600 Mg Tablet, 300 MG PO BID for NEUROGENIC PAIN, TAB 12/16/18 Montelukast Sodium (MONTELUKAST SODIUM TABLET ) 10 Mg Tablet, 1 TAB PO HS for treat allergies/asthma, #30 TAB 5 Refills 10/09/16 Ropinirole Hcl (ROPINIROLE HCL) 1 Mg Tablet, 1 MG PO HS for treat restless leg syndrome, TAB 10/09/16 Rivaroxaban (XARELTO) 20 Mg Tablet, 20 MG PO DAILY16 for prevent pe due to a fib, TAB 10/09/16 Diltiazem Hcl (CARDIZEM CD) 240 Mg Cap.er.24h, 1 CAP PO DAILY, #30 CAP 5 Refills 10/09/16 Prednisone (PREDNISONE ) 10 Mg Tablet, 15 MG PO QODAY for to treat asthma, TAB 10/09/16 Furosemide (FUROSEMIDE) 40 Mg Tablet, 30 MG PO DAILY for fluid retention, #30 TAB 5 Refills 10/09/16 Diclofenac Sodium (DICLOFENAC SODIUM) 75 Mg Tablet.dr, 1 TAB PO BID, #60 TAB 1 Refill 10/09/16 Duloxetine Hcl (CYMBALTA) 60 Mg Capsule.dr, 1 CAP PO DAILY, #90 CAP 3 Refills 10/09/16 Levothyroxine Sodium (LEVOTHYROXINE SODIUM) 150 Mcg Tablet, 175 MCG PO DAILY for hypothyroidism, #30 TAB 5 Refills 10/09/16 Discontinued Reported Medications Omeprazole (OMEPRAZOLE) 20 Mg Capsule.dr, 1 CAP PO BID, #30 CAP 5 Refills 10/09/16 ROSIE ALEGRE MD Jan 19, 2019 08:33
[2019-01-19] MEDS: POTASSIUM CHLORIDE 20 MEQ TABLET.ER. PO SCH (08:53)
[2019-01-19] MEDS: DIGOXIN 125 MCG TABLET. PO SCH (08:56)
[2019-01-19] MEDS: LACTOBACILLUS RHAMNOSUS GG 1 CAPSULE. PO SCH (08:56)
[2019-01-19] MEDS: DULoxetine HCL 30 MG CAPSULE.DR PO SCH (08:56)
[2019-01-19] MEDS: METOPROLOL SUCC 24HR ER 25 MG TAB.ER.24H. PO SCH (08:56)
[2019-01-19] MEDS: FERROUS SULFATE 325 MG TABLET. PO SCH (08:57)
[2019-01-19] MEDS: buPROPion XL 150 MG TAB.ER.24H. PO SCH (08:57)
[2019-01-19] MEDS: GABAPENTIN 300 MG CAPSULE. PO SCH (08:57)
[2019-01-19] MEDS: ASPIRIN CHEWABLE 81 MG TABLET. PO SCH (08:57)
[2019-01-19] MEDS: DOCUSATE SODIUM 100 MG CAPSULE. PO SCH (09:00)
--- NOTE | 2019-01-19 09:27 | PDOC ---
Infectious Disease Note Subjective Subjective pt is feeling good ROS ROS no n/v/d/sob Vital Sign Vital Signs Vital Signs Date Time Temp Pulse Resp B/P (MAP) Pulse Ox O2 Delivery O2 Flow Rate FiO2 01/19/19 08:56 75 130/58 01/19/19 07:25 95 Room Air 01/19/19 07:00 97.7 18 97.7 01/18/19 14:02 2 Physical Exam PHYSICAL EXAM GENERAL: Sitting in the chair, alert, NAD HEENT: Oral cavity, pharynx is clear. NECK: Supple LUNGS: Clear to auscultation. no wheezes. HEART: S1, S2. ABDOMEN: Obese, + BS N EXTREMITIES: No cyanosis with no gross edema. SKIN: Warm to touch without generalized rash. NEUROLOGIC: Alert, nonfocal and appropriate. Labs Micro Microbiology 01/13/19 Blood Culture - Final, Complete NO GROWTH AFTER 5 DAYS 01/13/19 Urine Culture - Final, Complete 01/13/19 Urine Culture Result 1 (JAY) - Final, Complete 01/13/19 Antimicrobic Susceptibility - Final, Complete Objective Assessment Rectal bleed Leukocytosis - reactive plus on steroids takes 15 mg po QOD for asthma - improved ? UTI- POA - ? contamination with squamous cells and asymptomatic - recent kidney stones with stent and removal last month. E. coli abx allergies - PCN - as child - rash and swelling - tolerated Rocephin, Sulfa- hives and swelling, Levoflox- swelling Low grade temp - likely from PRBCs Lactic acidosis Afib H/o PE and DVTs MRSA screen positive Plan Plan of Care d/c antibiotics d/c home ok d/w Dr Je MENDEZ,BRANDON Khan MD Jan 19, 2019 09:27
--- NOTE | 2019-01-19 09:32 | PDOC3 ---
Discharge Summary Visit Information Date of Admission: Jan 13, 2019 Date of Discharge: Jan 19, 2019 Admitting Diagnosis: GI bleed Final Diagnosis Severe sepsis, pyelonephritis, GI bleed, acute blood loss anemia Atrial fibrillation with RVR No pulmonary consolidation or acute airspace disease. chronic diastolic CHF morbid obesity, BMI 52 w/ also malnutrition, hypoalbuminemia 3.0 on admit prior history of broncho-trachial malacia, Problems Medical Problems: (1) Atrial fibrillation with RVR Status: Acute (2) Elevated d-dimer Status: Acute (3) GI bleed Status: Acute (4) Pyelonephritis Status: Acute (5) Severe sepsis Status: Acute (6) Urinary tract infection Status: Acute Brief Hospital Course Allergies Allergies Coded Allergies Type Severity Reaction Last Updated Verified levofloxacin Allergy Severe Anaphylaxis 01/18/19 Yes I S O L A T I O N *CONTACT* Allergy Unknown 01/18/19 Yes Influenza Virus Vaccines Adverse Reaction Intermediate 01/18/19 Yes Penicillins Adverse Reaction Intermediate Rash 01/18/19 Yes Sulfa (Sulfonamide Antibiotics) Adverse Reaction Intermediate Rash 01/18/19 Yes Vital Signs Vital Signs Date Time Temp Pulse Resp B/P (MAP) Pulse Ox O2 Delivery O2 Flow Rate FiO2 01/19/19 08:56 75 130/58 01/19/19 07:25 95 Room Air 01/19/19 07:00 97.7 18 97.7 01/18/19 14:02 2 Lab Results Laboratory Tests Test 01/18/19 04:50 White Blood Count 9.9 x10^3/uL (4.0-11.0) Red Blood Count 2.75 x10^6/uL (3.50-5.40) Hemoglobin 8.1 g/dL (12.0-15.5) Hematocrit 25.1 % (36.0-47.0) Mean Corpuscular Volume 91 fL (79-100) Mean Corpuscular Hemoglobin 30 pg (25-35) Mean Corpuscular Hemoglobin Concent 32 g/dL (31-37) Red Cell Distribution Width 17.1 % (11.5-14.5) Platelet Count 166 x10^3/uL (140-400) Neutrophils (%) (Auto) 69 % (31-73) Lymphocytes (%) (Auto) 17 % (24-48) Monocytes (%) (Auto) 9 % (0-9) Eosinophils (%) (Auto) 5 % (0-3) Basophils (%) (Auto) 1 % (0-3) Neutrophils # (Auto) 6.8 x10^3/uL (1.8-7.7) Lymphocytes # (Auto) 1.7 x10^3/uL (1.0-4.8) Monocytes # (Auto) 0.8 x10^3/uL (0.0-1.1) Eosinophils # (Auto) 0.5 x10^3/uL (0.0-0.7) Basophils # (Auto) 0.1 x10^3/uL (0.0-0.2) Sodium Level 140 mmol/L (136-145) Potassium Level 3.6 mmol/L (3.5-5.1) Chloride Level 106 mmol/L (98-107) Carbon Dioxide Level 24 mmol/L (21-32) Anion Gap 10 (6-14) Blood Urea Nitrogen 9 mg/dL (7-20) Creatinine 0.9 mg/dL (0.6-1.0) Estimated GFR (Cockcroft-Gault) 63.0 BUN/Creatinine Ratio 10 (6-20) Glucose Level 85 mg/dL (70-99) Calcium Level 8.1 mg/dL (8.5-10.1) Total Bilirubin 0.3 mg/dL (0.2-1.0) Aspartate Amino Transf (AST/SGOT) 12 U/L (15-37) Alanine Aminotransferase (ALT/SGPT) 19 U/L (14-59) Alkaline Phosphatase 58 U/L (46-116) Total Protein 6.1 g/dL (6.4-8.2) Albumin 2.8 g/dL (3.4-5.0) Albumin/Globulin Ratio 0.8 (1.0-1.7) Brief Hospital Course Ms. Long is a 63 old female, admit for acute blood loss anemia, sympt omatic anemia, hematochezia. on Xarelo for afib and hx of PE. 3 u PRBC given, hgb then stabilized and improved still weak. colonoscpy on 01/18, Discharge Information Condition at Discharge: Improved Follow Up: Weeks Disposition/Orders: D/C to Home w/ HH Scheduled Bupropion Hcl (Bupropion Xl) 300 Mg Tab.er.24h, 300 MG PO DAILY for treat depression, (Reported) Entered as Reported by: JASVIR AMANDA on 12/16/181529 Last Action: Converted on 01/13/192040 by ZENY MAYA MD Clonazepam (Clonazepam) 0.5 Mg Tablet, 0.5 MG PO HS for help with sleep, (Reported) Entered as Reported by: JASVIR AMANDA on 12/16/181529 Last Action: Continued on 01/13/192040 by ZENY MAYA MD Diclofenac Sodium (Diclofenac Sodium) 75 Mg Tablet.dr, 1 TAB PO BID, #60 Ref 1 (Reported) Entered as Reported by: MARK FALCON on 10/09/161320 Last Action: HELD on 01/13/192040 by ZENY MAYA MD Digoxin (Digoxin) 125 Mcg Tablet, 125 MCG PO DAILY for AFIB/HEART FAILURE, (Reported) Entered as Reported by: JASVIR AMANDA on 12/16/181529 Last Action: Continued on 01/13/192040 by ZENY MAYA MD Diltiazem Hcl (Cardizem Cd) 240 Mg Cap.er.24h, 1 CAP PO DAILY, #30 Ref 5 (Reported) Entered as Reported by: MARK FALCON on 10/09/161325 Last Action: Converted on 01/13/192040 by ZENY MAYA MD Duloxetine Hcl (Cymbalta) 60 Mg Capsule.dr, 1 CAP PO DAILY, #90 Ref 3 (Reported) Entered as Reported by: MARK FALCON on 10/09/161320 Last Action: Converted on 01/13/192040 by ZENY MAYA MD Ferrous Sulfate (Ferrous Sulfate) 325 Mg Tablet, 65 MG PO DAILY for treat anem ia, (Reported) Entered as Reported by: JASVIR AMANDA on 12/16/181529 Last Action: Continued on 01/13/192040 by ZENY MAYA MD Furosemide (Furosemide) 40 Mg Tablet, 30 MG PO DAILY for fluid retention, #30 Ref 5 (Reported) Entered as Reported by: MARK FALCON on 10/09/161325 Last Action: HELD on 01/13/192040 by ZENY MAYA MD Gabapentin (Gabapentin) 600 Mg Tablet, 300 MG PO BID for NEUROGENIC PAIN, (Reported) Entered as Reported by: JASVIR AMANDA on 12/16/181529 Last Action: Converted on 01/13/192040 by ZENY MAYA MD Levothyroxine Sodium (Levothyroxine Sodium) 150 Mcg Tablet, 175 MCG PO DAILY for hypothyroidism, #30 Ref 5 (Reported) Entered as Reported by: MARK FALCON on 10/09/161320 Last Action: Converted on 01/13/192040 by ZENY MAYA MD Metoprolol Succinate (Metoprolol Succinate ( Xl )) 25 Mg Tab.er.24h, 25 MG PO DAILY for FOR HYPERTENSION, #30 Ref 0 (Reported) Entered as Reported by: JASVIR AMANDA on 12/16/181529 Last Action: Continued on 01/13/192040 by ZENY AMYA MD Mometasone/Formoterol (Dulera 200 Mcg/5 Mcg Inhaler) 13 Gm Hfa.aer.ad, 2 PUFF IH BID for treat asthma, (Reported) Entered as Reported by: JASVIR AMANDA on 12/16/181529 Last Action: Converted on 01/13/192040 by ZENY MAYA MD Montelukast Sodium (Montelukast Sodium Tablet ) 10 Mg Tablet, 1 TAB PO HS for treat allergies/asthma, #30 Ref 5 (Reported) Entered as Reported by: MARK FALCON on 10/09/161325 Last Action: Continued on 01/13/192040 by ZENY MAYA MD Pantoprazole Sodium (Pantoprazole Sodium ) 40 Mg Tablet.dr, 40 MG PO BID for GERD, #60 Prescribed by: ROSIE ALEGRE on 01/19/19 0829 Potassium Chloride (Potassium Chloride) 20 Meq Tablet.er, 20 MEQ PO DAILY for ttreat low K+ level, (Reported) Entered as Reported by: JASVIR AMANDA on 12/16/181529 Last Action: Converted on 01/13/192040 by ZENY MAYA MD Prednisone (Prednisone ) 10 Mg Tablet, 15 MG PO QODAY for to treat asthma, (Reported) Entered as Reported by: MARK FALCON on 10/09/161325 Last Action: Continued on 01/13/192040 by ZENY MAYA MD Promethazine Hcl (Promethazine Hcl) 25 Mg Tablet, 1 TAB PO PRN Q6HRS for nausea, #20 (Reported) Entered as Reported by: MONIKA HUGGINS RN on 01/15/19837 Last Taken: UNKNOWN on Unknown Date & Time Last Action: New Order on 01/15/19837 by MONIKA HUGGINS RN Rivaroxaban (Xarelto) 20 Mg Tablet, 20 MG PO DAILY16 for prevent pe due to a fib, (Reported) Entered as Reported by: MARK FALCON on 10/09/161325 Last Action: HELD on 01/13/192040 by ZENY MAYA MD Ropinirole Hcl (Ropinirole Hcl) 1 Mg Tablet, 1 MG PO HS for treat restless leg syndrome, (Reported) Entered as Reported by: MARK FALCON on 10/09/161325 Last Action: Converted on 01/13/192040 by ZENY MAYA MD Tiotropium [place] (Spiriva) 18 Mcg Cap.w.dev, 1 INH IH DAILY for treat asthma, #1 Ref 0 (Reported) Entered as Reported by: JASVIR AMANDA on 12/16/181529 Last Action: Converted on 01/13/192040 by ZENY MAYA MD Scheduled PRN Albuterol Sulfate (Albuterol Sulfate Neb Soln) 2.5 Mg/3 Ml Vial.neb, 2.5 MG NEB PRN QID PRN for SEE COMMENTS, Ref 0 (Reported) Entered as Reported by: JASVIR AMANDA on 12/16/181529 Last Action: Continued on 01/13/192040 by ZENY MAYA MD Albuterol Sulfate (Proair Hfa Inhaler) 8.5 Gm Hfa.aer.ad, 2 PUFF INH PRN Q6HRS PRN for SHORTNESS OF BREATH, Ref 0 (Reported) Entered as Reported by: JASVIR AMANDA on 12/16/181529 Last Action: HELD on 01/13/192040 by ZENY MAYA MD Cyclobenzaprine Hcl (Cyclobenzaprine Hcl) 10 Mg Tablet, 10 MG PO PRN BID PRN for MUSCLE SPASMS, (Reported) Entered as Reported by: JASVIR AMANDA on 12/16/181529 Last Action: Continued on 01/13/192040 by ZENY MAYA MD Hydrocodone/Apap 5-325 ([place] 5-325 Tablet) 1 Each Tablet, 1 TAB PO PRN Q6HRS PRN for PAIN, #14 Ref 0 Prescribed by: PEDRO MONTANO MD on 12/17/18 1427 Last Action: Continued on 01/13/192040 by ZENY MAYA MD Loperamide HCl (Imodium A-D) 2 Mg Capsule, 2 MG PO PRN DAILY PRN for DIARRHEA, (Reported) Entered as Reported by: JASVIR AMANDA on 12/16/181529 Last Action: HELD on 01/13/192040 by ZENY MAYA MD Discontinued Medications Omeprazole (Omeprazole) 20 Mg Capsule.dr, 1 CAP PO BID, #30 Ref 5 (Reported) Entered as Reported by: MARK FALCON on 10/09/16 1321 Last Action: Discontinued on 01/13/191953 by KYMBERLY SALMON Omeprazole (Omeprazole) 20 Mg Capsule.dr, 1 CAP PO DAILY for GERD, #30 Ref 5 (Reported) Entered as Reported by: KYMBERLY SALMON on 01/13/191953 Last Action: HELD on 01/13/192040 by ZENY MAYA MD Patient Instructions Patient Instructions > 30 min face to face and discussed with sister, Jania ROSIE ALEGRE MD Jan 19, 2019 09:32
--- NOTE | 2019-01-19 09:42 | PDOC ---
Subjective: Subjective: Eating breakfast - says her sister wants to talk with someone before she discharges because she wants an EGD before she discharges. Says she doesn't want to have to come back to the hospital for the same problem. Objective: Objective: D/w nurse yesterday afternoon - said pt had questions about colonoscopy and might discharge (yesterday). I discussed results with her at that time. She asked about inpt EGD because transportation is difficult for her as outpt. We discussed rationale for outpt EGD and she understood. Vital Signs: Vital Signs Date Time Temp Pulse Resp B/P (MAP) Pulse Ox O2 Delivery O2 Flow Rate FiO2 01/19/19 08:56 75 130/58 01/19/19 07:25 95 Room Air 01/19/19 07:00 97.7 18 97.7 01/18/19 14:02 2 Imaging: Colonoscopy for anemia and recent hematochezia 01/18/19 SHIRLEY: normal --Scope advanced to cecum. Prep fair with moderated amount of lavaging. Mucosa normal. Multiple diverticula, sigmoid. 4-5 mm sessile polyp in cecum, biopsied off. Internal hemorrhoids on retroflex. Exam otherwise normal. IMP: Small polyp Diverticulosis, possible site of recent bleeding. Hemorrhoids. REC: Await path. Resume meds, regular dist. Probably safe to resume Xarelto in 5-7 days. PE: GEN: NAD LUNGS: room air ABD: obese NEURO/PSYCH: A & O 3, tearful A/P: Lower GI bleed - resolved, colonoscopy as above Chronic anemia - stable/improved -- Unlikely upper GI source contributing to anemia on chronic PPI. Could pursue outpt EGD - discussed w/ her again this morning. Also d/w Dr. Wooten. JOSEPH ESCOBEDO Jan 19, 2019 09:42
[2019-01-19 10:28] LABS: BASO % 0 % (0-3); EOS # 0.2 x10^3/uL (0.0-0.7); EOS % 2 % (0-3); HEMATOCRIT 24.2 % (36.0-47.0); HEMOGLOBIN 7.9 g/dL (12.0-15.5); LYMPH # 0.9 x10^3/uL (1.0-4.8); LYMPH % 10 % (24-48); MEAN CORPUSCULAR HEMOGLOBIN 30 pg (25-35); MEAN CORPUSCULAR HGB CONC 33 g/dL (31-37); MEAN CORPUSCULAR VOLUME 91 fL (79-100); MONO # 0.5 x10^3/uL (0.0-1.1); MONO % 6 % (0-9); NEUT # 7.4 x10^3/uL (1.8-7.7); NEUT % 81 % (31-73); PLATELET COUNT 175 x10^3/uL (140-400); RED BLOOD COUNT 2.65 x10^6/uL (3.50-5.40); RED CELL DISTRIBUTION WIDTH 17.9 % (11.5-14.5); WHITE BLOOD COUNT 9.1 x10^3/uL (4.0-11.0)
[2019-01-19 11:00] VITALS: BP 122/55
--- NOTE | 2019-01-19 14:07 | PATHOLOGY ---
[facility] Accession Number: [id number] . 01 Material submitted: . cecum - CECUM POLYP BIOPSY . 01 Clinical history: . GI bleed . 02 Diagnosis: Colon biopsies, cecum polyp: - Tubular adenoma. (JPM:jonathan; 01/19/2019) QMS/01/19/2019 . 02 Comment: There is no high grade dysplasia or evidence of malignancy. (JPM:jonathan; 01/19/2019) . . 02 Electronically signed: . Judson Broussard MD, Pathologist NPI- [id number] . 01 Gross description: . Received in formalin labeled "Halina Long, cecum polyp BX," are 3 segments of ruiz soft tissue measuring 1.1 x 0.6 x 0.3 cm in aggregate dimensions and ranging from 0.3 to 0.4 cm in maximum dimension. The specimen is submitted entirely in cassette A1. (TSD; 01/18/2019) TOB/TOB . 02 Pathologist provided ICD-10: D12.0 . 02 CPT . 784707 Specimen Comment: A courtesy copy of this report has been sent to Specimen Comment: [phone], , . Specimen Comment: Report sent to ,DR MAYA / DR LZAARO Performed at: 01 [facility] [address], [place] [id number] MD Abiel Drew MD Phone: [phone] Performed at: 02 [facility] [address] [place], [place] [id number] MD Judson Broussard MD Phone: [phone]
== END 2019-01-19 13:30 | disposition home health service (06) | DRG 871 ==
LOC: ER 14:31 → 1 WEST ICU 17:29 → 4 NORTH 01-14 16:01 → 2 NORTH 01-15 16:51
PROVIDERS: ADMIT Family Medicine; ATTEND Family Medicine
PROC: 30233N1 Transfusion of Nonautologous Red Blood Cells into Peripheral Vein, Percutaneous Approach (ICD-10-PCS; principal; 2019-01-14)
PROC: 5A09357 Assistance with Respiratory Ventilation, Less than 24 Consecutive Hours, Continuous Positive Airway Pressure (ICD-10-PCS; 2019-01-17)
PROC: 0DBN8ZX Excision of Sigmoid Colon, Via Natural or Artificial Opening Endoscopic, Diagnostic (ICD-10-PCS; 2019-01-18)
PROC: 0DBH8ZZ Excision of Cecum, Via Natural or Artificial Opening Endoscopic (ICD-10-PCS; 2019-01-18)
DX: A41.9 Sepsis, unspecified organism (principal); N17.0 Acute kidney failure with tubular necrosis; E43 Unspecified severe protein-calorie malnutrition; K57.31 Diverticulosis of large intestine without perforation or abscess with bleeding; N10 Acute pyelonephritis; Z68.43 Body mass index [BMI] 50.0-59.9, adult; D62 Acute posthemorrhagic anemia; N20.1 Calculus of ureter; I50.32 Chronic diastolic (congestive) heart failure; J44.0 Chronic obstructive pulmonary disease with (acute) lower respiratory infection; R65.20 Severe sepsis without septic shock; I48.91 Unspecified atrial fibrillation; E66.01 Morbid (severe) obesity due to excess calories; D12.0 Benign neoplasm of cecum; D63.8 Anemia in other chronic diseases classified elsewhere; E03.9 Hypothyroidism, unspecified; E78.5 Hyperlipidemia, unspecified; G25.81 Restless legs syndrome; G47.33 Obstructive sleep apnea (adult) (pediatric); I11.0 Hypertensive heart disease with heart failure; G43.909 Migraine, unspecified, not intractable, without status migrainosus; I25.10 Atherosclerotic heart disease of native coronary artery without angina pectoris; I48.2 Chronic atrial fibrillation; F32.9 Major depressive disorder, single episode, unspecified; K21.9 Gastro-esophageal reflux disease without esophagitis; M19.90 Unspecified osteoarthritis, unspecified site; B95.62 Methicillin resistant Staphylococcus aureus infection as the cause of diseases classified elsewhere; B96.20 Unspecified Escherichia coli [E. coli] as the cause of diseases classified elsewhere; K64.8 Other hemorrhoids; Z79.01 Long term (current) use of anticoagulants; Z80.9 Family history of malignant neoplasm, unspecified; Z82.49 Family history of ischemic heart disease and other diseases of the circulatory system; Z86.718 Personal history of other venous thrombosis and embolism; Z87.442 Personal history of urinary calculi; Z88.0 Allergy status to penicillin; Z88.1 Allergy status to other antibiotic agents; Z99.81 Dependence on supplemental oxygen; Z86.711 Personal history of pulmonary embolism; Z88.2 Allergy status to sulfonamides; Z90.49 Acquired absence of other specified parts of digestive tract
CPT/HCPCS: 36415; 45380; 71045; 78582; 80048; 80053; 81001; 82274; 83605; 83880; 84145; 84443; 84484; 85007; 85025; 85379; 85610; 85730; 86850; 86900; 86901; 86920; 87040; 87086; 87186; 87641; 88305; 93005; 93970; 94640; 94760; 96361; 96374; 96375; A9540; A9558; C9113; J0696; J2001; J2185; J2704; J3010; J7030; J7040; J7120; J7512; J7620; J7626; P9016; 97116; 99285-25

== ENCOUNTER 2019-04-03 20:44 | Inpatient (IN) | payer MEDICARE, BC ==
[~2019-04-03] VITALS: Ht 157.5 cm; Wt 131.3 kg
[~2019-04-03 20:44] MED LIST changes: +CEPH-264 PO; +CLON-77 PO; -CLON0.5T11 PO; +LOPE-101 PO; -LOPE2CAP88 PO; +PANT40TA77 PO; +PROM25TA10 PO
--- NOTE | 2019-04-03 21:55 | PHYS DOC ---
Past Medical History Past Medical History: A-Fib, Asthma, CHF, COPD, Other Additional Past Medical Histor: OBESITY Past Surgical History: Cholecystectomy, Other Additional Past Surgical Histo: R. BREAST BIOPSY Alcohol Use: None Drug Use: None Adult General Chief Complaint Chief Complaint: SHORTNESS OF BREATH HPI HPI Patient is a 64 year old f with increasing sob cough treated for asthma two weeks ago or so wtih prednisone and azithromycin tracheobronchomalacia as well last year two months tasneem, pe, hallucinations. currently on xarelto. have missed some doses, last time she took it was about friday night been too sick to go out and get the medication. no real chest pain. positive mild palpitations, feels "hollowness" in the chest as though she has walked to car form house a lot of shortness of breaht. Review of Systems Review of Systems Constitutional: Denies fever or chills [] Eyes: Denies change in visual acuity, redness, or eye pain [] HENT: Denies nasal congestion or sore throat [] Respiratory: Musculoskeletal: Denies back pain or joint pain [] Integument: Denies rash or skin lesions [] Neurologic: Denies headache, focal weakness or sensory changes [] Endocrine: Denies polyuria or polydipsia [] All other systems were reviewed and found to be within normal limits, except as documented in this note. Current Medications Current Medications Current Medications Medications (Trade) Dose Ordered Sig/Ijeoma Start Time Stop Time Status Last Admin Dose Admin Albuterol/ Ipratropium (Duoneb) 3 ml 1X ONCE 04/03/19 22:00 04/03/19 22:01 DC 04/03/19 22:39 3 ML Diltiazem HCl (Cardizem Iv Push) 10 mg 1X ONCE 04/03/19 22:00 04/03/19 22:01 DC 04/03/19 23:06 10 MG Info (CONTRAST GIVEN -- Rx MONITORING) 1 each PRN DAILY PRN 04/03/19 22:15 04/05/19 22:14 Iohexol (Omnipaque 350 Mg/ml) 100 ml 1X ONCE 04/03/19 22:15 04/03/19 22:16 DC 04/03/19 22:29 100 ML Methylprednisolone Sodium Succinate (SOLU-Medrol 125MG VIAL) 125 mg 1X ONCE 04/03/19 22:00 04/03/19 22:01 DC 04/03/19 23:05 125 MG Allergies Allergies Allergies Coded Allergies Type Severity Reaction Last Updated Verified levofloxacin Allergy Severe Anaphylaxis 01/18/19 Yes I S O L A T I O N *CONTACT* Allergy Unknown 01/18/19 Yes Influenza Virus Vaccines Adverse Reaction Intermediate 01/18/19 Yes Penicillins Adverse Reaction Intermediate Rash 01/18/19 Yes Sulfa (Sulfonamide Antibiotics) Adverse Reaction Intermediate Rash 01/18/19 Yes Physical Exam Physical Exam Constitutional: Well developed, well nourished, no acute distress, non-toxic ap pearance. [] HENT: Normocephalic, atraumatic, bilateral external ears normal, oropharynx moist, no oral exudates, nose normal. [] Eyes: PERRLA, EOMI, conjunctiva normal, no discharge. [] Neck: Normal range of motion, no tenderness, supple, no stridor. [] Cardiovascular:tachy irregular []wheezing Abdomen: Bowel sounds normal, soft, no tenderness, no masses, no pulsatile masses. [] Skin: Warm, dry, no erythema, no rash. [] Back: No tenderness, no CVA tenderness. [] Extremities: No tenderness, no cyanosis, no clubbing, ROM intact, one plus edema. Neurologic: Alert and oriented X 3, normal motor function, normal sensory function, no focal deficits noted. [] Psychologic: Affect normal, judgement normal, mood normal. [] Current Patient Data Vital Signs Vital Signs Date Time Temp Pulse Resp B/P (MAP) Pulse Ox O2 Delivery O2 Flow Rate FiO2 04/03/19 23:06 110 154/77 04/03/19 23:04 20 99 Room Air 04/03/19 21:15 98.0 98.0 Lab Values Laboratory Tests Test 04/03/19 21:10 White Blood Count 10.6 x10^3/uL (4.0-11.0) Red Blood Count 4.48 x10^6/uL (3.50-5.40) Hemoglobin 10.7 g/dL (12.0-15.5) L Hematocrit 34.1 % (36.0-47.0) L Mean Corpuscular Volume 76 fL (79-100) L Mean Corpuscular Hemoglobin 24 pg (25-35) L Mean Corpuscular Hemoglobin Concent 32 g/dL (31-37) Red Cell Distribution Width 18.8 % (11.5-14.5) H Platelet Count 249 x10^3/uL (140-400) Neutrophils (%) (Auto) 64 % (31-73) Lymphocytes (%) (Auto) 24 % (24-48) Monocytes (%) (Auto) 8 % (0-9) Eosinophils (%) (Auto) 4 % (0-3) H Basophils (%) (Auto) 1 % (0-3) Neutrophils # (Auto) 6.7 x10^3/uL (1.8-7.7) Lymphocytes # (Auto) 2.6 x10^3/uL (1.0-4.8) Monocytes # (Auto) 0.8 x10^3/uL (0.0-1.1) Eosinophils # (Auto) 0.4 x10^3/uL (0.0-0.7) Basophils # (Auto) 0.1 x10^3/uL (0.0-0.2) Prothrombin Time 12.8 SEC (11.7-14.0) Prothrombin Time INR 1.0 (0.8-1.1) Sodium Level 145 mmol/L (136-145) Potassium Level 3.6 mmol/L (3.5-5.1) Chloride Level 106 mmol/L (98-107) Carbon Dioxide Level 23 mmol/L (21-32) Anion Gap 16 (6-14) H Blood Urea Nitrogen 12 mg/dL (7-20) Creatinine 1.1 mg/dL (0.6-1.0) H Estimated GFR (Cockcroft-Gault) 49.8 BUN/Creatinine Ratio 11 (6-20) Glucose Level 129 mg/dL (70-99) H Calcium Level 9.0 mg/dL (8.5-10.1) Total Bilirubin 0.3 mg/dL (0.2-1.0) Aspartate Amino Transferase (AST) 15 U/L (15-37) Alanine Aminotransferase (ALT) 20 U/L (14-59) Alkaline Phosphatase 69 U/L (46-116) Troponin I Quantitative < 0.017 ng/mL (0.000-0.055) EI-Bsc-G-Type Natriuretic Peptide 535 pg/mL (0-124) H Total Protein 7.7 g/dL (6.4-8.2) Albumin 3.2 g/dL (3.4-5.0) L Albumin/Globulin Ratio 0.7 (1.0-1.7) L Laboratory Tests 04/03/19 21:10 Laboratory Tests 04/03/19 21:10 EKG EKG afib rvr nonspecific st changes noted no stemi noted.[] Radiology/Procedures Radiology/Procedures [] Impressions: MPRESSION: 1. No pulmonary embolus identified within the main, lobar or segmental pulmonary arteries. 2. A 7 mm nodule in the left lower lobe. 6 month follow-up CT is recommended. Exposure: One or more of the following in the visualized dose reduction techniques were utilized for this examination: 1. Automated exposure control 2. Adjustment of the MA and/or KV according to patient size 3. Use of iterative of reconstructive technique Electronically signed by: Pamella Elliott MD (04/03/2019 10:51 PM) [facility] DICTATED and SIGNED BY: PAMELLA ELLIOTT MD DATE: 04/03/192250 Course & Med Decision Making Course & Med Decision Making Pertinent Labs and Imaging studies reviewed. (See chart for details) []I told the patient about the lung nodule and the need for follow-up In summary this is a 64-year-old female with known asthma history of PE ON XARELTO AFIB presenting with shortness of breath patient drove herself to the emergency room she was actively wheezing on arrival we gave albuterol Solu-Medrol she was improved somewhat CT scan negative for pulmonary embolism she did have mild atrial fibrillation with RVR she was rate controlled in the emergency room with diltiazem No evidence of pneumonia troponin negative EKG did show A. fib patient be admitted for nebulizer treatment rate controlled further observation and management. Admit to [facility] Disclaimer Tracie Disclaimer This electronic medical record was generated, in whole or in part, using a voice recognition dictation system. Departure Departure Impression: Primary Impression: Asthma exacerbation Additional Impression: Atrial fibrillation with RVR Disposition: ADMITTED INPATIENT Admitting Physician: [facility] Condition: STABLE Referrals: VARGHESE LAZARO MD (PCP) Problem Qualifiers BC PINEDA MD Apr 03, 2019 21:54
[2019-04-03] MEDS ORDERED: IPRATRPIUM/ALBUTEROL 0.5/2.5MG 3 ML NEBU. NEB ONE (22:00)
[2019-04-03] MEDS ORDERED: dilTIAZem IV PUSH 25 MG/5 ML VIAL IVP ONE (22:00)
[2019-04-03] MEDS ORDERED: methylPREDNISolone SOD SUCC PF 125 MG/2 ML VIAL. IV ONE (22:00)
[2019-04-03 22:02] LABS: BASO # 0.1 x10^3/uL (0.0-0.2); BASO % 1 % (0-3); EOS # 0.4 x10^3/uL (0.0-0.7); EOS % 4 % (0-3); HEMATOCRIT 34.1 % (36.0-47.0); HEMOGLOBIN 10.7 g/dL (12.0-15.5); LYMPH # 2.6 x10^3/uL (1.0-4.8); LYMPH % 24 % (24-48); MEAN CORPUSCULAR HEMOGLOBIN 24 pg (25-35); MEAN CORPUSCULAR HGB CONC 32 g/dL (31-37); MEAN CORPUSCULAR VOLUME 76 fL (79-100); MONO # 0.8 x10^3/uL (0.0-1.1); MONO % 8 % (0-9); NEUT # 6.7 x10^3/uL (1.8-7.7); NEUT % 64 % (31-73); PLATELET COUNT 249 x10^3/uL (140-400); RED BLOOD COUNT 4.48 x10^6/uL (3.50-5.40); RED CELL DISTRIBUTION WIDTH 18.8 % (11.5-14.5); WHITE BLOOD COUNT 10.6 x10^3/uL (4.0-11.0)
[2019-04-03 22:11] LABS: CREATININE 1.1 mg/dL (0.6-1.0); GFR 49.8; POTASSIUM 3.6 mmol/L (3.5-5.1); PROTHROMBIN TIME PATIENT 12.8 SEC (11.7-14.0)
[2019-04-03] MEDS ORDERED: IOHEXOL 350 MG/ML 100 ML VIAL. IV ONE (22:15)
[2019-04-03] MEDS ORDERED: CONTRAST GIVEN. MC PRN (22:15)
[2019-04-03 22:16] LABS: ALBUMIN 3.2 g/dL (3.4-5.0); ALBUMIN/GLOBULIN RATIO 0.7 (1.0-1.7); TOTAL BILIRUBIN 0.3 mg/dL (0.2-1.0); TOTAL PROTEIN 7.7 g/dL (6.4-8.2)
--- NOTE | 2019-04-03 22:53 | RAD ---
Exam: CTA chest INDICATION: Tachycardia and shortness of breath TECHNIQUE: Sequential axial images through the chest obtained following the administration of 100 mL of Isovue-370 IV contrast. Sagittal and coronal reformatted images were reconstructed from the axial data and reviewed. Comparisons: None FINDINGS: Visualized portions of the thyroid are unremarkable. No enlarged mediastinal lymph nodes. Heart is enlarged. No pericardial effusion. Thoracic aorta has normal course and caliber. Pulmonary artery is not enlarged. No pulmonary embolus identified within the main, lobar or segmental pulmonary arteries. Airways are patent. No consolidation or pneumothorax. There is strandy opacities within the dependent portion of the lung bases, likely representing atelectasis. 7 mm nodule in the left lower lobe series 3 image 72. Several other smaller pulmonary nodules are also noted. No pleural effusion or thickening. Visualized upper abdomen is unremarkable. No suspicious osseous lesions or acute fractures. IMPRESSION: 1. No pulmonary embolus identified within the main, lobar or segmental pulmonary arteries. 2. A 7 mm nodule in the left lower lobe. 6 month follow-up CT is recommended. Exposure: One or more of the following in the visualized dose reduction techniques were utilized for this examination: 1. Automated exposure control 2. Adjustment of the MA and/or KV according to patient size 3. Use of iterative of reconstructive technique Electronically signed by: Pamella Schneider MD (04/03/2019 10:51 PM) [facility]
[2019-04-03] MEDS ORDERED: dilTIAZem INJ 125 MG in IV DEXTROSE 5% 100ML 100 ML IV PRN (23:30)
[2019-04-04] MEDS ORDERED: RIVAROXABAN 15 MG TABLET. PO ONE (00:30)
[2019-04-04] MEDS ORDERED: OMEP20CA10 PO (01:51)
[2019-04-04] MEDS ORDERED: LIDO700A21 TP (01:51)
[2019-04-04] MEDS ORDERED: CHOL100013 PO (01:51)
[2019-04-04] MEDS ORDERED: HYDR-2763 PO (01:51)
[2019-04-04 02:12] VITALS: BP 145/74
[2019-04-04] MEDS: guaiFENesin/CODEINE 100mg/10mg 5 ML LIQUID PO PRN ×2 (03:49→21:52)
[2019-04-04 07:00] VITALS: BP 134/67
--- NOTE | 2019-04-04 07:26 | RAD ---
PROCEDURE: PORTABLE CHEST 1V CLINICAL INDICATION: Cough, shortness of breath. COMPARISON: 01/13/2019 FINDINGS: No pneumothorax identified. Cardiac and mediastinal contours unremarkable. No pulmonary consolidation or acute airspace disease. No acute osseous abnormalities identified. IMPRESSION: No pulmonary consolidation or acute airspace disease. Electronically signed by: Arron Munroe DO (04/04/2019 7:24 AM) [facility]
[2019-04-04] MEDS ORDERED: IPRATRPIUM/ALBUTEROL 0.5/2.5MG 3 ML NEBU. NEB SCH (08:00)
--- NOTE | 2019-04-04 10:29 | PDOC1 ---
History and Physical Date of Admission Date of Admission DATE: 04/04/19 TIME: 10:28 History of Present Illness History of Present Illness Ms. Long, is a 64 year old f with increasing sob and cough - she has new weakness, she was recently treated for asthma two weeks ago or so wtih prednisone and azithromycin she has a hx of severe tracheobronchomalacia as well, had been hospitalized for long periods at [facility] last year. positive mild palpitations, Past Medical History Cardiovascular: AFIB, CHF, HTN Pulmonary: Asthma, Pulmonary embolus, Pneumonia, Other CENTRAL NERVOUS SYSTEM: Migraine, Other GI: GERD, Hemorrhoids Heme/Onc: Anemia NOS, Other Hepatobiliary: Cholelithiasis Psych: Depression Musculoskeletal: Osteoarthritis Infectious disease: Other Renal/: UTI Endocrine: Hypothyroidism Past Surgical History Past Surgical History: Cholecystectomy, Tonsillectomy, Other Family History Family History: Heart Disease, Other Social History Smoke: No ALCOHOL: occassional Drugs: None Current Problem List Problem List Problems Medical Problems: (1) Atrial fibrillation with RVR Status: Acute Current Medications Current Medications Current Medications Methylprednisolone Sodium Succinate (SOLU-Medrol 125MG VIAL) 125 mg 1X ONCE IV Last administered on 04/03/19at 23:05; Start 04/03/19 at 22:00; Stop 04/03/19 at 22:01; Status DC Albuterol/ Ipratropium (Duoneb) 3 ml 1X ONCE NEB Last administered on 04/03/19at 22:39; Start 04/03/19 at 22:00; Stop 04/03/19 at 22:01; Status DC Diltiazem HCl (Cardizem Iv Push) 10 mg 1X ONCE IVP Last administered on 04/03/19at 23:06; Start 04/03/19 at 22:00; Stop 04/03/19 at 22:01; Status DC Iohexol (Omnipaque 350 Mg/ml) 100 ml 1X ONCE IV Last administered on 04/03/19at 22:29; Start 04/03/19 at 22:15; Stop 04/03/19 at 22:16; Status DC Info (CONTRAST GIVEN -- Rx MONITORING) 1 each PRN DAILY PRN MC SEE COMMENTS; Start 04/03/19 at 22:15; Stop 04/05/19 at 22:14 Albuterol/ Ipratropium (Duoneb) 3 ml RTQID NEB Last administered on 04/04/19at 08:09; Start 04/04/19 at 08:00; Stop 04/05/19 at 07:59 Diltiazem HCl 125 mg/Dextrose 125 ml @ 5 mls/hr CONT PRN IV SEE I/O RECORD Last administered on 04/03/19at 23:59; Start 04/03/19 at 23:30 Guaifenesin/ Codeine Phosphate (Robitussin Ac) 5 ml PRN Q6HRS PRN PO COUGH Last administered on 04/04/19at 03:49; Start 04/04/19 at 00:15 Rivaroxaban (Xarelto) 15 mg 1X ONCE PO Last administered on 04/04/19at 03:49; Start 04/04/19 at 00:30; Stop 04/04/19 at 00:33; Status DC Acetaminophen (Tylenol) 650 mg PRN Q6HRS PRN PO PAIN; Start 04/04/19 at 10:30 Active Scripts Active Reported Vitamin D (Cholecalciferol (Vitamin D3)) 1,000 Unit Capsule 5,000 Unit PO HS Omeprazole 20 Mg Capsule.dr 20 Mg PO DAILY Lidocaine PATCH (Lidocaine) 1 Each Adh..patch 1 Each TP PRN DAILY PRN REMOVE AFTER 12 HOURS Hydrocodone-Acetamin 7.5-325 (Hydrocodone/Acetaminophen) 1 Each Tablet 1 Each PO PRN Q6HRS PRN Promethazine Hcl 25 Mg Tablet 1 Tab PO PRN Q6HRS Spiriva (Tiotropium [place]) 18 Mcg Cap.w.dev 1 Inh IH DAILY Proair Hfa Inhaler (Albuterol Sulfate) 8.5 Gm Hfa.aer.ad 2 Puff INH PRN Q6HRS PRN Metoprolol Succinate ( Xl ) (Metoprolol Succinate) 25 Mg Tab.er.24h 25 Mg PO DAILY Potassium Chloride 20 Meq Tablet.er 20 Meq PO BID Digoxin 125 Mcg Tablet 125 Mcg PO DAILY Clonazepam (Clonazepam) 0.5 Mg Tablet 0.5 Mg PO HS Bupropion Xl (Bupropion Hcl) 300 Mg Tab.er.24h 300 Mg PO DAILY Dulera 200 Mcg/5 Mcg Inhaler (Mometasone/Formoterol) 13 Gm Hfa.aer.ad 2 Puff IH BID Ferrous Sulfate 325 Mg Tablet 65 Mg PO HS Cyclobenzaprine Hcl 10 Mg Tablet 10 Mg PO PRN BID PRN Gabapentin 600 Mg Tablet 300 Mg PO BID Montelukast Sodium Tablet (Montelukast Sodium) 10 Mg Tablet 1 Tab PO HS Ropinirole Hcl 1 Mg Tablet 1 Mg PO HS Xarelto (Rivaroxaban) 20 Mg Tablet 20 Mg PO DAILY16 Cardizem Cd (Diltiazem Hcl) 240 Mg Cap.er.24h 1 Cap PO DAILY Prednisone (Prednisone) 10 Mg Tablet 15 Mg PO QODAY Furosemide 40 Mg Tablet 40 Mg PO BID Diclofenac Sodium 75 Mg Tablet.dr 1 Tab PO BID Cymbalta (Duloxetine Hcl) 60 Mg Capsule.dr 1 Cap PO DAILY Levothyroxine Sodium 150 Mcg Tablet 175 Mcg PO DAILY Allergies Allergies: Coded Allergies: levofloxacin (Verified Allergy, Severe, Anaphylaxis, 01/18/19) I S O L A T I O N *CONTACT* (Verified Allergy, Unknown, 01/18/19) mrsa Influenza Virus Vaccines (Verified Adverse Reaction, Intermediate, 01/18/19) asthma attack/reaction Penicillins (Verified Adverse Reaction, Intermediate, Rash, 01/18/19) also dyspnea. TOLERATES CEFTRIAXONE Sulfa (Sulfonamide Antibiotics) (Verified Adverse Reaction, Intermediate, Rash, 01/18/19) ROS General: No: Chills, Night Sweats, Fatigue, Malaise, Appetite, Other PSYCHOLOGICAL ROS: No: Anxiety, Behavioral Disorder, Concentration difficultie, Decreased libido, Depression, Disorientation, Hallucinations, Hostility, Irritablity, Memory difficulties, Mood Swings, Obsessive thoughts, Physical abuse, Sexual abuse, Sleep disturbances, Suicidal ideation, Other Eyes: No Blurry vision, No Decreased vision, No Double vision, No Dry eyes, No Excessive tearing, No Eye Pain, No Itchy Eyes, No Loss of vision, No Photophobia, No Scotomata, No Uses contacts, No Uses glasses, No Other HEENT: No: Heacaches, Visual Changes, Hearing change, Nasal congestion, Nasal discharge, Oral lesions, Sinus pain, Sore Throat, Epistaxis, Sneezing, Snoring, Tinnitus, Vertigo, Vocal changes, Other ENDOCRINE: No: Breast Changes, Galactorrhea, Hair Pattern Changes, Hot Flashes, Malaise/lethargy, Mood Swings, Palpitations, Polydipsia/polyuria, Skin Changes, Temperature Intolerance, Unexpected Weight Changes, Other Respiratory: No: Cough, Hemoptysis, Orthopnea, Pleuritic Pain, Shortness of breath, SOB with excertion, Sputum Changes, Stridor, Tachypnea, Wheezing, Other Cardiovascular: No Chest Pain, No Palpitations, No Orthopnea, No Paroxysmal Noc. Dyspnea, No Edema, No Lt Headedness, No Other Gastrointestinal: Yes Nausea; No Vomiting, No Abdominal Pain, No Diarrhea, No Constipation, No Melena, No Hematochezia, No Other Genitourinary: No Dysuria, No Frequency, No Incontinence, No Hematuria, No Retention, No Discharge, No Urgency, No Pain, No Flank Pain, No Other, No , No , No , No , No , No , No Musculoskeletal: No Gait Disturbance, No Joint Pain, No Joint Stiffness, No Joint Swelling, No Muscle Pain, No Muscular Weakness, No Pain In:, No Swelling In:, No Other Neurological: No Behavorial Changes, No Bowel/Bladder ControlChng, No Confusion, No Dizziness, No Gait Disturbance, No Headaches, No Impaired Coord/balance, No Memory Loss, No Numbness/Tingling, No Seizures, No Speech Problems, No Tremors, No Visual Changes, No Weakness, No Other Skin: Yes Dry Skin; No Eczema, No Hair Changes, No Lumps, No Mole Changes, No Mottling, No Nail Changes, No Pruritus, No Rash, No Skin Lesion Changes, No Other, No Acne Physical Exam General: Alert, Oriented X3, Cooperative, No acute distress HEENT: Atraumatic, PERRLA, EOMI Lungs: Clear to auscultation, Normal air movement Heart: S1S2, no gallops, no murmurs Abdomen: Normal bowel sounds, Soft Rectal Exam: not examined Extremities: No clubbing, Normal pulses Skin: No rashes, No breakdown, No significant lesion Neuro: Normal tone, Sensation intact Psych/Mental Status: Mood NL Vitals Vitals Vital Signs Date Time Temp Pulse Resp B/P (MAP) Pulse Ox O2 Delivery O2 Flow Rate FiO2 04/04/19 08:20 Nasal Cannula 2.0 04/04/19 08:09 98 04/04/19 07:00 97.8 90 22 134/67 (89) 97.8 Labs Labs Laboratory Tests Test 04/03/19 21:10 04/04/19 02:30 04/04/19 05:10 White Blood Count 10.6 x10^3/uL (4.0-11.0) Red Blood Count 4.48 x10^6/uL (3.50-5.40) Hemoglobin 10.7 g/dL (12.0-15.5) Hematocrit 34.1 % (36.0-47.0) Mean Corpuscular Volume 76 fL (79-100) Mean Corpuscular Hemoglobin 24 pg (25-35) Mean Corpuscular Hemoglobin Concent 32 g/dL (31-37) Red Cell Distribution Width 18.8 % (11.5-14.5) Platelet Count 249 x10^3/uL (140-400) Neutrophils (%) (Auto) 64 % (31-73) Lymphocytes (%) (Auto) 24 % (24-48) Monocytes (%) (Auto) 8 % (0-9) Eosinophils (%) (Auto) 4 % (0-3) Basophils (%) (Auto) 1 % (0-3) Neutrophils # (Auto) 6.7 x10^3/uL (1.8-7.7) Lymphocytes # (Auto) 2.6 x10^3/uL (1.0-4.8) Monocytes # (Auto) 0.8 x10^3/uL (0.0-1.1) Eosinophils # (Auto) 0.4 x10^3/uL (0.0-0.7) Basophils # (Auto) 0.1 x10^3/uL (0.0-0.2) Prothrombin Time 12.8 SEC (11.7-14.0) Prothromb Time International Ratio 1.0 (0.8-1.1) Sodium Level 145 mmol/L (136-145) Potassium Level 3.6 mmol/L (3.5-5.1) Chloride Level 106 mmol/L (98-107) Carbon Dioxide Level 23 mmol/L (21-32) Anion Gap 16 (6-14) Blood Urea Nitrogen 12 mg/dL (7-20) Creatinine 1.1 mg/dL (0.6-1.0) Estimated GFR (Cockcroft-Gault) 49.8 BUN/Creatinine Ratio 11 (6-20) Glucose Level 129 mg/dL (70-99) Calcium Level 9.0 mg/dL (8.5-10.1) Total Bilirubin 0.3 mg/dL (0.2-1.0) Aspartate Amino Transf (AST/SGOT) 15 U/L (15-37) Alanine Aminotransferase (ALT/SGPT) 20 U/L (14-59) Alkaline Phosphatase 69 U/L (46-116) Troponin I Quantitative < 0.017 ng/mL (0.000-0.055) < 0.017 ng/mL (0.000-0.055) < 0.017 ng/mL (0.000-0.055) EF-Xgi-M-Type Natriuretic Peptide 535 pg/mL (0-124) Total Protein 7.7 g/dL (6.4-8.2) Albumin 3.2 g/dL (3.4-5.0) Albumin/Globulin Ratio 0.7 (1.0-1.7) Laboratory Tests Test 04/03/19 21:10 04/04/19 02:30 04/04/19 05:10 White Blood Count 10.6 x10^3/uL (4.0-11.0) Red Blood Count 4.48 x10^6/uL (3.50-5.40) Hemoglobin 10.7 g/dL (12.0-15.5) Hematocrit 34.1 % (36.0-47.0) Mean Corpuscular Volume 76 fL (79-100) Mean Corpuscular Hemoglobin 24 pg (25-35) Mean Corpuscular Hemoglobin Concent 32 g/dL (31-37) Red Cell Distribution Width 18.8 % (11.5-14.5) Platelet Count 249 x10^3/uL (140-400) Neutrophils (%) (Auto) 64 % (31-73) Lymphocytes (%) (Auto) 24 % (24-48) Monocytes (%) (Auto) 8 % (0-9) Eosinophils (%) (Auto) 4 % (0-3) Basophils (%) (Auto) 1 % (0-3) Neutrophils # (Auto) 6.7 x10^3/uL (1.8-7.7) Lymphocytes # (Auto) 2.6 x10^3/uL (1.0-4.8) Monocytes # (Auto) 0.8 x10^3/uL (0.0-1.1) Eosinophils # (Auto) 0.4 x10^3/uL (0.0-0.7) Basophils # (Auto) 0.1 x10^3/uL (0.0-0.2) Prothrombin Time 12.8 SEC (11.7-14.0) Prothromb Time International Ratio 1.0 (0.8-1.1) Sodium Level 145 mmol/L (136-145) Potassium Level 3.6 mmol/L (3.5-5.1) Chloride Level 106 mmol/L (98-107) Carbon Dioxide Level 23 mmol/L (21-32) Anion Gap 16 (6-14) Blood Urea Nitrogen 12 mg/dL (7-20) Creatinine 1.1 mg/dL (0.6-1.0) Estimated GFR (Cockcroft-Gault) 49.8 BUN/Creatinine Ratio 11 (6-20) Glucose Level 129 mg/dL (70-99) Calcium Level 9.0 mg/dL (8.5-10.1) Total Bilirubin 0.3 mg/dL (0.2-1.0) Aspartate Amino Transf (AST/SGOT) 15 U/L (15-37) Alanine Aminotransferase (ALT/SGPT) 20 U/L (14-59) Alkaline Phosphatase 69 U/L (46-116) Troponin I Quantitative < 0.017 ng/mL (0.000-0.055) < 0.017 ng/mL (0.000-0.055) < 0.017 ng/mL (0.000-0.055) ID-Xfs-L-Type Natriuretic Peptide 535 pg/mL (0-124) Total Protein 7.7 g/dL (6.4-8.2) Albumin 3.2 g/dL (3.4-5.0) Albumin/Globulin Ratio 0.7 (1.0-1.7) VTE Prophylaxis Ordered VTE Prophylaxis Devices: Yes VTE Pharmacological Prophylaxi: No Assessment/Plan Assessment/Plan acute diastolic CHF with afib, RVR, admit for cardizem gtt to cardiac floor, better this AM, try to transition to home meds asthma exacebation acute on chronic hypoxia chronic tracheomalacia, and cough weakness and debility obesity, BMI 65 admit ROSIE ALEGRE MD Apr 04, 2019 10:29
[2019-04-04] MEDS ORDERED: ACETAMINOPHEN 325 MG TABLET. PO PRN (10:30)
[2019-04-04] MEDS ORDERED: LIDOCAINE (700MG/PATCH) PATCH. TP PRN (10:45)
[2019-04-04] MEDS ORDERED: CYCLOBENZAPRINE 10 MG TABLET. PO PRN (10:45)
[2019-04-04] MEDS ORDERED: ALBUTEROL SULFATE 2.5 MG/3 ML NEBU. INH PRN (10:45)
[2019-04-04] MEDS ORDERED: HYDROcodone/APAP 7.5/325MG 1 TAB TABLET PO PRN (10:45)
[2019-04-04 11:00] VITALS: BP 147/71
[2019-04-04] MEDS ORDERED: DIGOXIN 125 MCG TABLET. PO SCH (11:00)
[2019-04-04] MEDS ORDERED: ANTI-COAG MONITOR BY PHARMACY. MC PRN (11:15)
--- NOTE | 2019-04-04 11:20 | EKG ---
[facility] [address] [place] [address] Test Date: 2019-04-03 Test Time: 20:53:16 Pat Name: AARON MULLER Department: Room: 250 1 Gender: F [place] [employer]: : 1955 Requested By: BC PINEDA Order Number: [id number] Reading MD: Tarun Hogan MD Measurements Intervals [place] Rate: 119 P: MN: QRS: 52 QRSD: 66 T: 63 QT: 340 QTc: 479 Interpretive Statements ATRIAL FIBRILLATION WITH RVR NON-SPECIFIC ST/T CHANGES Electronically Signed On 04-13-2019 9:51:40 CDT by Tarun Hogan MD
[2019-04-04] MEDS: IPRATRPIUM/ALBUTEROL 0.5/2.5MG 3 ML NEBU. NEB SCH ×3 (11:54→19:50)
[2019-04-04] MEDS: GABAPENTIN 300 MG CAPSULE. PO SCH ×2 (13:05→21:56)
[2019-04-04] MEDS: predniSONE 10 MG TABLET PO SCH (13:05)
[2019-04-04] MEDS: DULoxetine HCL 30 MG CAPSULE.DR PO SCH (13:05)
[2019-04-04] MEDS: PANTOPRAZOLE 40 MG TABLET.DR. PO SCH (13:05)
[2019-04-04] MEDS: buPROPion XL 150 MG TAB.ER.24H. PO SCH (13:06)
[2019-04-04] MEDS: FUROSEMIDE 40 MG TABLET. PO SCH ×2 (14:00→16:12)
[2019-04-04 15:00] VITALS: BP 152/69
[2019-04-04] MEDS ORDERED: LEVOTHYROXINE 150 MCG TABLET PO SCH (15:00)
[2019-04-04] MEDS: METOPROLOL SUCC 24HR ER 25 MG TAB.ER.24H. PO SCH (16:10)
[2019-04-04] MEDS: DICLOFENAC SODIUM 25 MG TABLET.DR PO SCH ×2 (16:11→21:34)
[2019-04-04] MEDS: POTASSIUM CHLORIDE 20 MEQ TABLET.ER. PO SCH ×2 (16:12→17:00)
[2019-04-04] MEDS: RIVAROXABAN 10 MG TABLET. PO SCH (16:13)
--- NOTE | 2019-04-04 16:53 | PDOC2 ---
CONSULT Date of Consult Date of Consult DATE: 04/04/19 TIME: 16:48 Reason for Consult Reason for Consult: Rapid atrial fibrillation Referring Physician Referring Physician: Dr. Cheung Identification/Chief Complaint Chief Complaint Shortness of breath Source Source: Chart review, Patient History of Present Illness Reason for Visit: The patient is a 64-year-old female who presented to the emergency room for episodes of increasing shortness of breath. Patient has a history of asthma and possible diastolic heart failure. She has been recently treated for episodes of asthma approximately 2 weeks ago. Patient's workup included a chest x-ray that showed no acute changes. CTA of the chest showed no pulmonary emboli. EKG shows atrial fibrillation with a rate of 120 with no ischemic changes in the emergency room. Patient was admitted and treated with pulmonary medications. Overnight she is feeling better but continues to be somewhat short of breath. Past Medical History Cardiovascular: AFIB, CHF, HTN Pulmonary: Asthma, Pulmonary embolus, Pneumonia, Other CENTRAL NERVOUS SYSTEM: Migraine, Other GI: GERD, Hemorrhoids Heme/Onc: Anemia NOS, Other Hepatobiliary: Cholelithiasis Psych: Depression Musculoskeletal: Osteoarthritis Infectious disease: Other Renal/: UTI Endocrine: Hypothyroidism Past Surgical History Past Surgical History: Cholecystectomy, Tonsillectomy, Other Family History Family History: Heart Disease, Other Social History No ALCOHOL: occassional Drugs: None Lives: with Family Current Problem List Problem List Problems Medical Problems: (1) Atrial fibrillation with RVR Status: Acute Current Medications Current Medications Current Medications Methylprednisolone Sodium Succinate (SOLU-Medrol 125MG VIAL) 125 mg 1X ONCE IV Last administered on 04/03/19at 23:05; Start 04/03/19 at 22:00; Stop 04/03/19 at 22:01; Status DC Albuterol/ Ipratropium (Duoneb) 3 ml 1X ONCE NEB Last administered on 04/03/19at 22:39; Start 04/03/19 at 22:00; Stop 04/03/19 at 22:01; Status DC Diltiazem HCl (Cardizem Iv Push) 10 mg 1X ONCE IVP Last administered on 04/03/19at 23:06; Start 04/03/19 at 22:00; Stop 04/03/19 at 22:01; Status DC Iohexol (Omnipaque 350 Mg/ml) 100 ml 1X ONCE IV Last administered on 04/03/19at 22:29; Start 04/03/19 at 22:15; Stop 04/03/19 at 22:16; Status DC Info (CONTRAST GIVEN -- Rx MONITORING) 1 each PRN DAILY PRN MC SEE COMMENTS; Start 04/03/19 at 22:15; Stop 04/05/19 at 22:14 Albuterol/ Ipratropium (Duoneb) 3 ml RTQID NEB Last administered on 04/04/19at 08:09; Start 04/04/19 at 08:00; Stop 04/04/19 at 11:11; Status DC Diltiazem HCl 125 mg/Dextrose 125 ml @ 5 mls/hr CONT PRN IV SEE I/O RECORD Last administered on 04/03/19at 23:59; Start 04/03/19 at 23:30 Guaifenesin/ Codeine Phosphate (Robitussin Ac) 5 ml PRN Q6HRS PRN PO COUGH Last administered on 04/04/19 03:49; Start 04/04/19 at 00:15 Rivaroxaban (Xarelto) 15 mg 1X ONCE PO Last administered on 04/04/19 03:49; Start 04/04/19 at 00:30; Stop 04/04/19 at 00:33; Status DC Acetaminophen (Tylenol) 650 mg PRN Q6HRS PRN PO PAIN Last administered on 04/04/19at 10:52; Start 04/04/19 at 10:30 Albuterol Sulfate (Ventolin Neb Soln) 2.5 mg PRN Q6HRS PRN INH SHORTNESS OF BREATH; Start 04/04/19 at 10:45 Clonazepam (KlonoPIN) 0.5 mg HS PO ; Start 04/04/19 at 21:00 Cyclobenzaprine HCl (Flexeril) 10 mg PRN BID PRN PO MUSCLE SPASMS; Start 04/04/19 at 10:45 Digoxin (Lanoxin) 125 mcg DAILY PO Last administered on 04/04/19at 16:11; Start 04/04/19 at 11:00 Diltiazem HCl (Cardizem 24hr Cd) 240 mg DAILY PO Last administered on 04/04/19at 16:12; Start 04/04/19 at 11:00 Ferrous Sulfate (Feosol) 325 mg HS PO ; Start 04/04/19 at 21:00 Furosemide (Lasix) 40 mg BID92 PO Last administered on 04/04/19at 16:12; Start 04/04/19 at 11:00 Acetaminophen/ Hydrocodone Bitart (Lortab 7.5/325) 1 tab PRN Q6HRS PRN PO MODERATE PAIN; Start 04/04/19 at 10:45 Levothyroxine Sodium (Synthroid) 175 mcg DAILY06 PO Last administered on 04/04/19at 16:11; Start 04/04/19 at 15:00 Lidocaine (Lidoderm) 1 patch PRN DAILY PRN TP TOPICAL PAIN; Start 04/04/19 at 10:45 Metoprolol Succinate (Toprol Xl) 25 mg DAILY PO Last administered on 04/04/19at 16:10; Start 04/04/19 at 11:00 Montelukast Sodium (Singulair) 10 mg HS PO ; Start 04/04/19 at 21:00 Prednisone (Prednisone) 15 mg QODAY PO Last administered on 04/04/19at 13:05; Start 04/04/19 at 12:00 Ropinirole HCl (Requip) 1 mg HS PO ; Start 04/04/19 at 21:00 Bupropion HCl (Wellbutrin Xl) 300 mg DAILY PO Last administered on 04/04/19at 13:06; Start 04/04/19 at 11:00 Vitamin D (Vitamin D3) 5,000 unit DAILY PO ; Start 04/04/19 at 21:00 Diclofenac Sodium (Voltaren) 75 mg BID PO Last administered on 04/04/19at 16:11; Start 04/04/19 at 11:15 Duloxetine HCl (Cymbalta) 60 mg DAILY PO Last administered on 04/04/19 13:05; Start 04/04/19 at 11:00 Gabapentin (Neurontin) 300 mg BID PO Last administered on 04/04/19 13:05; Start 04/04/19 at 11:00 Non-Formulary Medication (Mometasone/ Formoterol (Dulera 200 Mcg/5 Mcg Inhaler)) 2 puff BID IH ; Start 04/04/19 at 21:00; Status UNV Pantoprazole Sodium (Protonix) 40 mg DAILYAC PO Last administered on 04/04/19at 13:05; Start 04/04/19 at 11:30 Potassium Chloride (Klor-Con) 20 meq BIDWMEALS PO Last administered on 04/04/19at 16:12; Start 04/04/19 at 12:00 Rivaroxaban (Xarelto) 20 mg DAILYWSUP PO Last administered on 04/04/19at 16:13; Start 04/04/19 at 17:00 Non-Formulary Medication (Tiotropium [place] (Spiriva)) 1 inh DAILY IH ; Start 04/05/19 at 09:00; Status UNV Info (Anti-Coagulation Monitoring By Pharmacy) 1 each PRN DAILY PRN MC SEE COMMENTS; Start 04/04/19 at 11:15 Albuterol/ Ipratropium (Duoneb) 3 ml RTQID NEB Last administered on 04/04/19at 15:55; Start 04/04/19 at 12:00 Budesonide (Pulmicort) 0.5 mg RTBID NEB ; Start 04/04/19 at 20:00 Active Scripts Active Reported Vitamin D (Cholecalciferol (Vitamin D3)) 1,000 Unit Capsule 5,000 Unit PO HS Omeprazole 20 Mg Capsule.dr 20 Mg PO DAILY Lidocaine PATCH (Lidocaine) 1 Each Adh..patch 1 Each TP PRN DAILY PRN REMOVE AFTER 12 HOURS Hydrocodone-Acetamin 7.5-325 (Hydrocodone/Acetaminophen) 1 Each Tablet 1 Each PO PRN Q6HRS PRN Promethazine Hcl 25 Mg Tablet 1 Tab PO PRN Q6HRS Spiriva (Tiotropium [place]) 18 Mcg Cap.w.dev 1 Inh IH DAILY Proair Hfa Inhaler (Albuterol Sulfate) 8.5 Gm Hfa.aer.ad 2 Puff INH PRN Q6HRS PRN Metoprolol Succinate ( Xl ) (Metoprolol Succinate) 25 Mg Tab.er.24h 25 Mg PO D AILY Potassium Chloride 20 Meq Tablet.er 20 Meq PO BID Digoxin 125 Mcg Tablet 125 Mcg PO DAILY Clonazepam (Clonazepam) 0.5 Mg Tablet 0.5 Mg PO HS Bupropion Xl (Bupropion Hcl) 300 Mg Tab.er.24h 300 Mg PO DAILY Dulera 200 Mcg/5 Mcg Inhaler (Mometasone/Formoterol) 13 Gm Hfa.aer.ad 2 Puff IH BID Ferrous Sulfate 325 Mg Tablet 65 Mg PO HS Cyclobenzaprine Hcl 10 Mg Tablet 10 Mg PO PRN BID PRN Gabapentin 600 Mg Tablet 300 Mg PO BID Montelukast Sodium Tablet (Montelukast Sodium) 10 Mg Tablet 1 Tab PO HS Ropinirole Hcl 1 Mg Tablet 1 Mg PO HS Xarelto (Rivaroxaban) 20 Mg Tablet 20 Mg PO DAILY16 Cardizem Cd (Diltiazem Hcl) 240 Mg Cap.er.24h 1 Cap PO DAILY Prednisone (Prednisone) 10 Mg Tablet 15 Mg PO QODAY Furosemide 40 Mg Tablet 40 Mg PO BID Diclofenac Sodium 75 Mg Tablet.dr 1 Tab PO BID Cymbalta (Duloxetine Hcl) 60 Mg Capsule.dr 1 Cap PO DAILY Levothyroxine Sodium 150 Mcg Tablet 175 Mcg PO DAILY Allergies Allergies: Coded Allergies: levofloxacin (Verified Allergy, Severe, Anaphylaxis, 01/18/19) I S O L A T I O N *CONTACT* (Verified Allergy, Unknown, 01/18/19) mrsa Influenza Virus Vaccines (Verified Adverse Reaction, Intermediate, 01/18/19) asthma attack/reaction Penicillins (Verified Adverse Reaction, Intermediate, Rash, 01/18/19) also dyspnea. TOLERATES CEFTRIAXONE Sulfa (Sulfonamide Antibiotics) (Verified Adverse Reaction, Intermediate, Rash, 01/18/19) ROS General: YES: Fatigue Respiratory: YES: Shortness of breath, SOB with excertion Physical Exam General: mild distress HEENT: Atraumatic Lungs: Other (decreased breath sounds) Heart: Other (irregularly irregular) Abdomen: Normal bowel sounds Vitals VITALS Vital Signs Date Time Temp Pulse Resp B/P (MAP) Pulse Ox O2 Delivery O2 Flow Rate FiO2 04/04/19 16:12 100 130/67 04/04/19 15:55 Room Air 04/04/19 15:00 97.9 24 94 2.0 97.9 Labs Labs Laboratory Tests Test 04/03/19 21:10 04/04/19 02:30 04/04/19 05:10 White Blood Count 10.6 x10^3/uL (4.0-11.0) Red Blood Count 4.48 x10^6/uL (3.50-5.40) Hemoglobin 10.7 g/dL (12.0-15.5) Hematocrit 34.1 % (36.0-47.0) Mean Corpuscular Volume 76 fL (79-100) Mean Corpuscular Hemoglobin 24 pg (25-35) Mean Corpuscular Hemoglobin Concent 32 g/dL (31-37) Red Cell Distribution Width 18.8 % (11.5-14.5) Platelet Count 249 x10^3/uL (140-400) Neutrophils (%) (Auto) 64 % (31-73) Lymphocytes (%) (Auto) 24 % (24-48) Monocytes (%) (Auto) 8 % (0-9) Eosinophils (%) (Auto) 4 % (0-3) Basophils (%) (Auto) 1 % (0-3) Neutrophils # (Auto) 6.7 x10^3/uL (1.8-7.7) Lymphocytes # (Auto) 2.6 x10^3/uL (1.0-4.8) Monocytes # (Auto) 0.8 x10^3/uL (0.0-1.1) Eosinophils # (Auto) 0.4 x10^3/uL (0.0-0.7) Basophils # (Auto) 0.1 x10^3/uL (0.0-0.2) Prothrombin Time 12.8 SEC (11.7-14.0) Prothromb Time International Ratio 1.0 (0.8-1.1) Sodium Level 145 mmol/L (136-145) Potassium Level 3.6 mmol/L (3.5-5.1) Chloride Level 106 mmol/L (98-107) Carbon Dioxide Level 23 mmol/L (21-32) Anion Gap 16 (6-14) Blood Urea Nitrogen 12 mg/dL (7-20) Creatinine 1.1 mg/dL (0.6-1.0) Estimated GFR (Cockcroft-Gault) 49.8 BUN/Creatinine Ratio 11 (6-20) Glucose Level 129 mg/dL (70-99) Calcium Level 9.0 mg/dL (8.5-10.1) Total Bilirubin 0.3 mg/dL (0.2-1.0) Aspartate Amino Transf (AST/SGOT) 15 U/L (15-37) Alanine Aminotransferase (ALT/SGPT) 20 U/L (14-59) Alkaline Phosphatase 69 U/L (46-116) Troponin I Quantitative < 0.017 ng/mL (0.000-0.055) < 0.017 ng/mL (0.000-0.055) < 0.017 ng/mL (0.000-0.055) ZE-Ulx-P-Type Natriuretic Peptide 535 pg/mL (0-124) Total Protein 7.7 g/dL (6.4-8.2) Albumin 3.2 g/dL (3.4-5.0) Albumin/Globulin Ratio 0.7 (1.0-1.7) Laboratory Tests Test 04/03/19 21:10 04/04/19 02:30 04/04/19 05:10 White Blood Count 10.6 x10^3/uL (4.0-11.0) Red Blood Count 4.48 x10^6/uL (3.50-5.40) Hemoglobin 10.7 g/dL (12.0-15.5) Hematocrit 34.1 % (36.0-47.0) Mean Corpuscular Volume 76 fL (79-100) Mean Corpuscular Hemoglobin 24 pg (25-35) Mean Corpuscular Hemoglobin Concent 32 g/dL (31-37) Red Cell Distribution Width 18.8 % (11.5-14.5) Platelet Count 249 x10^3/uL (140-400) Neutrophils (%) (Auto) 64 % (31-73) Lymphocytes (%) (Auto) 24 % (24-48) Monocytes (%) (Auto) 8 % (0-9) Eosinophils (%) (Auto) 4 % (0-3) Basophils (%) (Auto) 1 % (0-3) Neutrophils # (Auto) 6.7 x10^3/uL (1.8-7.7) Lymphocytes # (Auto) 2.6 x10^3/uL (1.0-4.8) Monocytes # (Auto) 0.8 x10^3/uL (0.0-1.1) Eosinophils # (Auto) 0.4 x10^3/uL (0.0-0.7) Basophils # (Auto) 0.1 x10^3/uL (0.0-0.2) Prothrombin Time 12.8 SEC (11.7-14.0) Prothromb Time International Ratio 1.0 (0.8-1.1) Sodium Level 145 mmol/L (136-145) Potassium Level 3.6 mmol/L (3.5-5.1) Chloride Level 106 mmol/L (98-107) Carbon Dioxide Level 23 mmol/L (21-32) Anion Gap 16 (6-14) Blood Urea Nitrogen 12 mg/dL (7-20) Creatinine 1.1 mg/dL (0.6-1.0) Estimated GFR (Cockcroft-Gault) 49.8 BUN/Creatinine Ratio 11 (6-20) Glucose Level 129 mg/dL (70-99) Calcium Level 9.0 mg/dL (8.5-10.1) Total Bilirubin 0.3 mg/dL (0.2-1.0) Aspartate Amino Transf (AST/SGOT) 15 U/L (15-37) Alanine Aminotransferase (ALT/SGPT) 20 U/L (14-59) Alkaline Phosphatase 69 U/L (46-116) Troponin I Quantitative < 0.017 ng/mL (0.000-0.055) < 0.017 ng/mL (0.000-0.055) < 0.017 ng/mL (0.000-0.055) PC-Gpj-H-Type Natriuretic Peptide 535 pg/mL (0-124) Total Protein 7.7 g/dL (6.4-8.2) Albumin 3.2 g/dL (3.4-5.0) Albumin/Globulin Ratio 0.7 (1.0-1.7) Images Images Chest x-ray shows no acute changes. CT of the chest shows no PE. Assessment/Plan Assessment/Plan 1. Respiratory failure with exacerbation of asthma. Patient is being treated with pulmonary medications and is feeling better. We'll continue as above. 2. Rapid atrial fibrillation. Rate improved. Continue present medications and treatment of underlying condition. Patient is anticoagulated. 3. Probable diastolic heart failure. Rate control as above. Echocardiogram. Acute for allowing us to participate in the care of your patient. SARA VANESSA MD Apr 04, 2019 16:53
[2019-04-04 19:34] VITALS: BP 109/65
[2019-04-04] MEDS: BUDESONIDE 0.5 MG/2 ML NEBU. NEB SCH (19:50)
[2019-04-04] MEDS ORDERED: NON FORMULARY ITEM (Mometasone/Formoterol (Dulera 200 Mcg/5 Mcg Inhaler) 2 PUFF) IH SCH (21:00)
[2019-04-04] MEDS: FERROUS SULFATE 325 MG TABLET. PO SCH (21:31)
[2019-04-04] MEDS: rOPINIRole 1 MG TABLET. PO SCH (21:34)
[2019-04-04] MEDS: CHOLECALCIFEROL (VITAMIN D3) 5,000 UNIT CAPSULE PO SCH (21:34)
[2019-04-04] MEDS: clonazePAM 0.5 MG TABLET PO SCH (21:35)
[2019-04-04] MEDS: MONTELUKAST SODIUM 10 MG TABLET. PO SCH (21:37)
[2019-04-04 22:27] VITALS: BP 136/70
[2019-04-05 02:55] VITALS: BP 114/75
[2019-04-05] MEDS ORDERED: LEVOTHYROXINE 175 MCG TABLET PO ONE (06:30)
[2019-04-05 07:00] VITALS: BP 138/76
[2019-04-05] MEDS: BUDESONIDE 0.5 MG/2 ML NEBU. NEB SCH ×2 (07:35→20:05)
[2019-04-05] MEDS: IPRATRPIUM/ALBUTEROL 0.5/2.5MG 3 ML NEBU. NEB SCH ×5 (07:35→20:05)
[2019-04-05] MEDS: CHOLECALCIFEROL (VITAMIN D3) 5,000 UNIT CAPSULE PO SCH (07:58)
[2019-04-05] MEDS: PANTOPRAZOLE 40 MG TABLET.DR. PO SCH (07:58)
[2019-04-05] MEDS: POTASSIUM CHLORIDE 20 MEQ TABLET.ER. PO SCH ×2 (07:58→15:58)
[2019-04-05] MEDS: DULoxetine HCL 30 MG CAPSULE.DR PO SCH (07:58)
[2019-04-05] MEDS: GABAPENTIN 300 MG CAPSULE. PO SCH ×2 (07:59→20:47)
[2019-04-05] MEDS: FUROSEMIDE 40 MG TABLET. PO SCH ×2 (07:59→13:57)
[2019-04-05] MEDS: METOPROLOL SUCC 24HR ER 25 MG TAB.ER.24H. PO SCH (07:59)
[2019-04-05] MEDS: buPROPion XL 150 MG TAB.ER.24H. PO SCH (08:00)
[2019-04-05] MEDS: DICLOFENAC SODIUM 25 MG TABLET.DR PO SCH ×2 (08:01→20:47)
[2019-04-05] MEDS ORDERED: NON FORMULARY ITEM (Tiotropium Bromide (Spiriva) 1 INH) IH SCH (09:00)
--- NOTE | 2019-04-05 09:10 | NUR ---
IP: Pt has a hx of + mrsa screen on 01/13/19. current screen is pending. Pt to be in contact precautions. Initiate Nozin/CHG decolonization.
[2019-04-05 11:00] VITALS: BP 137/71
--- NOTE | 2019-04-05 13:51 | PDOC ---
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 Carmen, she also did not have her CPAP last night, so may have sec. pulm htn today will add PT And OT, Vitals Vitals Vital Signs Date Time Temp Pulse Resp B/P (MAP) Pulse Ox O2 Delivery O2 Flow Rate FiO2 04/05/19 11:48 99 Nasal Cannula 2.0 04/05/19 11:00 97.5 80 22 137/71 (93) 97.5 Physical Exam General: Alert, Oriented X3, No acute distress Heart: Regular rate, Normal S1, Other (irregularly irregular) Lungs: Wheezing Abdomen: Normal bowel sounds Extremities: No clubbing, Normal pulses Skin: No rashes, No breakdown, No significant lesion Assessment and Plan Assessmemt and Plan Problems Medical Problems: (1) Atrial fibrillation with RVR Status: Acute Comment Review of Relevant I have reviewed the following items jorge (where applicable) has been applied. Labs Laboratory Tests Test 04/03/19 21:10 04/04/19 02:30 04/04/19 05:10 White Blood Count 10.6 x10^3/uL (4.0-11.0) Red Blood Count 4.48 x10^6/uL (3.50-5.40) Hemoglobin 10.7 g/dL (12.0-15.5) Hematocrit 34.1 % (36.0-47.0) Mean Corpuscular Volume 76 fL (79-100) Mean Corpuscular Hemoglobin 24 pg (25-35) Mean Corpuscular Hemoglobin Concent 32 g/dL (31-37) Red Cell Distribution Width 18.8 % (11.5-14.5) Platelet Count 249 x10^3/uL (140-400) Neutrophils (%) (Auto) 64 % (31-73) Lymphocytes (%) (Auto) 24 % (24-48) Monocytes (%) (Auto) 8 % (0-9) Eosinophils (%) (Auto) 4 % (0-3) Basophils (%) (Auto) 1 % (0-3) Neutrophils # (Auto) 6.7 x10^3/uL (1.8-7.7) Lymphocytes # (Auto) 2.6 x10^3/uL (1.0-4.8) Monocytes # (Auto) 0.8 x10^3/uL (0.0-1.1) Eosinophils # (Auto) 0.4 x10^3/uL (0.0-0.7) Basophils # (Auto) 0.1 x10^3/uL (0.0-0.2) Prothrombin Time 12.8 SEC (11.7-14.0) Prothromb Time International Ratio 1.0 (0.8-1.1) Sodium Level 145 mmol/L (136-145) Potassium Level 3.6 mmol/L (3.5-5.1) Chloride Level 106 mmol/L (98-107) Carbon Dioxide Level 23 mmol/L (21-32) Anion Gap 16 (6-14) Blood Urea Nitrogen 12 mg/dL (7-20) Creatinine 1.1 mg/dL (0.6-1.0) Estimated GFR (Cockcroft-Gault) 49.8 BUN/Creatinine Ratio 11 (6-20) Glucose Level 129 mg/dL (70-99) Calcium Level 9.0 mg/dL (8.5-10.1) Total Bilirubin 0.3 mg/dL (0.2-1.0) Aspartate Amino Transf (AST/SGOT) 15 U/L (15-37) Alanine Aminotransferase (ALT/SGPT) 20 U/L (14-59) Alkaline Phosphatase 69 U/L (46-116) Troponin I Quantitative < 0.017 ng/mL (0.000-0.055) < 0.017 ng/mL (0.000-0.055) < 0.017 ng/mL (0.000-0.055) EZ-Sgq-A-Type Natriuretic Peptide 535 pg/mL (0-124) Total Protein 7.7 g/dL (6.4-8.2) Albumin 3.2 g/dL (3.4-5.0) Albumin/Globulin Ratio 0.7 (1.0-1.7) Medications Current Medications Methylprednisolone Sodium Succinate (SOLU-Medrol 125MG VIAL) 125 mg 1X ONCE IV Last administered on 04/03/19at 23:05; Start 04/03/19 at 22:00; Stop 04/03/19 at 22:01; Status DC Albuterol/ Ipratropium (Duoneb) 3 ml 1X ONCE NEB Last administered on 04/03/19at 22:39; Start 04/03/19 at 22:00; Stop 04/03/19 at 22:01; Status DC Diltiazem HCl (Cardizem Iv Push) 10 mg 1X ONCE IVP Last administered on 04/03/19at 23:06; Start 04/03/19 at 22:00; Stop 04/03/19 at 22:01; Status DC Iohexol (Omnipaque 350 Mg/ml) 100 ml 1X ONCE IV Last administered on 04/03/19at 22:29; Start 04/03/19 at 22:15; Stop 04/03/19 at 22:16; Status DC Info (CONTRAST GIVEN -- Rx MONITORING) 1 each PRN DAILY PRN MC SEE COMMENTS; Start 04/03/19 at 22:15; Stop 04/05/19 at 22:14 Albuterol/ Ipratropium (Duoneb) 3 ml RTQID NEB Last administered on 04/04/19at 08:09; Start 04/04/19 at 08:00; Stop 04/04/19 at 11:11; Status DC Diltiazem HCl 125 mg/Dextrose 125 ml @ 5 mls/hr CONT PRN IV SEE I/O RECORD Last administered on 04/03/19at 23:59; Start 04/03/19 at 23:30 Guaifenesin/ Codeine Phosphate (Robitussin Ac) 5 ml PRN Q6HRS PRN PO COUGH Last administered on 04/04/19 21:52; Start 04/04/19 at 00:15 Rivaroxaban (Xarelto) 15 mg 1X ONCE PO Last administered on 04/04/19at 03:49; Start 04/04/19 at 00:30; Stop 04/04/19 at 00:33; Status DC Acetaminophen (Tylenol) 650 mg PRN Q6HRS PRN PO PAIN Last administered on 04/04/19at 10:52; Start 04/04/19 at 10:30 Albuterol Sulfate (Ventolin Neb Soln) 2.5 mg PRN Q6HRS PRN INH SHORTNESS OF BREATH; Start 04/04/19 at 10:45 Clonazepam (KlonoPIN) 0.5 mg HS PO Last administered on 04/04/19 21:35; Start 04/04/19 at 21:00 Cyclobenzaprine HCl (Flexeril) 10 mg PRN BID PRN PO MUSCLE SPASMS Last administered on 04/04/19 21:40; Start 04/04/19 at 10:45 Digoxin (Lanoxin) 125 mcg DAILY PO Last administered on 04/04/19 16:11; Start 04/04/19 at 11:00; Stop 04/05/19 at 12:04; Status DC Diltiazem HCl (Cardizem 24hr Cd) 240 mg DAILY PO Last administered on 04/05/19 07:59; Start 04/04/19 at 11:00 Ferrous Sulfate (Feosol) 325 mg HS PO Last administered on 04/04/19 21:31; Start 04/04/19 at 21:00 Furosemide (Lasix) 40 mg BID92 PO Last administered on 04/05/19 07:59; Start 04/04/19 at 11:00 Acetaminophen/ Hydrocodone Bitart (Lortab 7.5/325) 1 tab PRN Q6HRS PRN PO MODERATE PAIN Last administered on 04/04/19 21:53; Start 04/04/19 at 10:45 Levothyroxine Sodium (Synthroid) 175 mcg DAILY06 PO Last administered on 04/04/19 16:11; Start 04/04/19 at 15:00; Stop 04/05/19 at 06:05; Status DC Lidocaine (Lidoderm) 1 patch PRN DAILY PRN TP TOPICAL PAIN; Start 04/04/19 at 10:45 Metoprolol Succinate (Toprol Xl) 25 mg DAILY PO Last administered on 04/05/19 07:59; Start 04/04/19 at 11:00 Montelukast Sodium (Singulair) 10 mg HS PO Last administered on 04/04/19 21:37; Start 04/04/19 at 21:00 Prednisone (Prednisone) 15 mg QODAY PO Last administered on 04/04/19 13:05; Start 04/04/19 at 12:00 Ropinirole HCl (Requip) 1 mg HS PO Last administered on 04/04/19 21:34; Start 04/04/19 at 21:00 Bupropion HCl (Wellbutrin Xl) 300 mg DAILY PO Last administered on 04/05/19 08:00; Start 04/04/19 at 11:00 Vitamin D (Vitamin D3) 5,000 unit DAILY PO Last administered on 04/05/19 07:58; Start 04/04/19 at 21:00 Diclofenac Sodium (Voltaren) 75 mg BID PO Last administered on 04/05/19 08:01; Start 04/04/19 at 11:15 Duloxetine HCl (Cymbalta) 60 mg DAILY PO Last administered on 04/05/19 07:58; Start 04/04/19 at 11:00 Gabapentin (Neurontin) 300 mg BID PO Last administered on 04/05/19 07:59; Start 04/04/19 at 11:00 Non-Formulary Medication (Mometasone/ Formoterol (Dulera 200 Mcg/5 Mcg Inhaler)) 2 puff BID IH ; Start 04/04/19 at 21:00; Status UNV Pantoprazole Sodium (Protonix) 40 mg DAILYAC PO Last administered on 04/05/19 07:58; Start 04/04/19 at 11:30 Potassium Chloride (Klor-Con) 20 meq BIDWMEALS PO Last administered on 04/05/19 07:58; Start 04/04/19 at 12:00 Rivaroxaban (Xarelto) 20 mg DAILYWSUP PO Last administered on 04/04/19 16:13; Start 04/04/19 at 17:00 Non-Formulary Medication (Tiotropium [place] (Spiriva)) 1 inh DAILY IH ; Start 04/05/19 at 09:00; Status UNV Info (Anti-Coagulation Monitoring By Pharmacy) 1 each PRN DAILY PRN MC SEE COMMENTS; Start 04/04/19 at 11:15 Albuterol/ Ipratropium (Duoneb) 3 ml RTQID NEB Last administered on 04/05/19 11:47; Start 04/04/19 at 12:00 Budesonide (Pulmicort) 0.5 mg RTBID NEB Last administered on 04/05/19 07:35; Start 04/04/19 at 20:00 Levothyroxine Sodium (Synthroid) 175 mcg DAILY06 PO ; Start 04/05/19 at 06:05 Levothyroxine Sodium (Synthroid) 175 mcg 1X ONCE PO Last administered on 04/05/19at 06:58; Start 04/05/19 at 06:30; Stop 04/05/19 at 06:35; Status DC Digoxin (Lanoxin) 125 mcg DAILY16 PO ; Start 04/05/19 at 16:00 Prednisone (Prednisone) 40 mg DAILY PO ; Start 04/05/19 at 15:00 Active Scripts Active Reported Vitamin D (Cholecalciferol (Vitamin D3)) 1,000 Unit Capsule 5,000 Unit PO HS Omeprazole 20 Mg Capsule.dr 20 Mg PO DAILY Lidocaine PATCH (Lidocaine) 1 Each Adh..patch 1 Each TP PRN DAILY PRN REMOVE AFTER 12 HOURS Hydrocodone-Acetamin 7.5-325 (Hydrocodone/Acetaminophen) 1 Each Tablet 1 Each PO PRN Q6HRS PRN Promethazine Hcl 25 Mg Tablet 1 Tab PO PRN Q6HRS Spiriva (Tiotropium [place]) 18 Mcg Cap.w.dev 1 Inh IH DAILY Proair Hfa Inhaler (Albuterol Sulfate) 8.5 Gm Hfa.aer.ad 2 Puff INH PRN Q6HRS PRN Metoprolol Succinate ( Xl ) (Metoprolol Succinate) 25 Mg Tab.er.24h 25 Mg PO DAILY Potassium Chloride 20 Meq Tablet.er 20 Meq PO BID Digoxin 125 Mcg Tablet 125 Mcg PO DAILY Clonazepam (Clonazepam) 0.5 Mg Tablet 0.5 Mg PO HS Bupropion Xl (Bupropion Hcl) 300 Mg Tab.er.24h 300 Mg PO DAILY Dulera 200 Mcg/5 Mcg Inhaler (Mometasone/Formoterol) 13 Gm Hfa.aer.ad 2 Puff IH BID Ferrous Sulfate 325 Mg Tablet 65 Mg PO HS Cyclobenzaprine Hcl 10 Mg Tablet 10 Mg PO PRN BID PRN Gabapentin 600 Mg Tablet 300 Mg PO BID Montelukast Sodium Tablet (Montelukast Sodium) 10 Mg Tablet 1 Tab PO HS Ropinirole Hcl 1 Mg Tablet 1 Mg PO HS Xarelto (Rivaroxaban) 20 Mg Tablet 20 Mg PO DAILY16 Cardizem Cd (Diltiazem Hcl) 240 Mg Cap.er.24h 1 Cap PO DAILY Prednisone (Prednisone) 10 Mg Tablet 15 Mg PO QODAY Furosemide 40 Mg Tablet 40 Mg PO BID Diclofenac Sodium 75 Mg Tablet.dr [place] Tab PO BID Cymbalta (Duloxetine Hcl) 60 Mg Capsule.dr [place] Cap PO DAILY Levothyroxine Sodium 150 Mcg Tablet 175 Mcg PO DAILY Vitals/I & O Vital Sign - Last 24 Hours 04/04/19 04/04/19 04/04/19 04/04/19 15:00 15:55 16:10 16:11 Temp 97.9 97.9 Pulse 97 100 100 Resp 24 B/P (MAP) 152/69 (96) 130/67 130/67 Pulse Ox 94 O2 Delivery Nasal Cannula Room Air O2 Flow Rate 2.0 04/04/19 04/04/19 04/04/19 04/04/19 16:12 19:34 19:50 20:20 Temp 97.9 97.9 Pulse 100 95 Resp 20 B/P (MAP) 130/67 109/65 (80) Pulse Ox 98 O2 Delivery Nasal Cannula Room Air Nasal Cannula O2 Flow Rate 2.0 2.0 04/04/19 04/04/19 04/04/19 04/05/19 21:53 22:27 22:53 02:55 Temp 98.2 98.0 98.2 98.0 Pulse 95 87 Resp 20 18 20 18 B/P (MAP) 136/70 (92) 114/75 (88) Pulse Ox 98 95 95 95 O2 Delivery Nasal Cannula Nasal Cannula Nasal Cannula Room Air O2 Flow Rate 2.0 2.0 2.0 04/05/19 04/05/19 04/05/19 04/05/19 07:00 07:37 07:59 07:59 Temp 98.0 98.0 Pulse 80 80 80 Resp 20 B/P (MAP) 138/76 (96) 138/76 138/76 Pulse Ox 99 98 O2 Delivery Room Air Nasal Cannula O2 Flow Rate 2.0 04/05/19 04/05/19 04/05/19 08:00 11:00 11:48 Temp 97.5 97.5 Pulse 80 Resp 22 B/P (MAP) 137/71 (93) Pulse Ox 96 99 O2 Delivery Nasal Cannula Room Air Nasal Cannula O2 Flow Rate 2.0 2.0 Intake and Output 04/04/19 04/04/19 04/05/19 14:59 22:59 06:59 Intake Total 300 ml 505 ml 320 ml Output Total 50 ml Balance 300 ml 455 ml 320 ml ROSIE ALEGRE MD Apr 05, 2019 13:51
--- NOTE | 2019-04-05 14:21 | NUR ---
SS following for discharge planning. SS reviewed pt chart. Pt is from home and is currently requiring oxygen. PT/OT ordered. SS will continue to follow for discharge planning.
[2019-04-05 14:57] VITALS: BP 117/64
[2019-04-05] MEDS ORDERED: IPRATRPIUM/ALBUTEROL 0.5/2.5MG 3 ML NEBU. NEB ONE (15:00)
[2019-04-05] MEDS: predniSONE 20 MG TABLET PO SCH (15:58)
[2019-04-05] MEDS: DIGOXIN 125 MCG TABLET. PO SCH (15:58)
[2019-04-05] MEDS: RIVAROXABAN 10 MG TABLET. PO SCH (15:59)
--- NOTE | 2019-04-05 16:24 | NUR ---
wound care patient seen per wound care consult. patient has a skin tear to the left hand, the area was cleaned and dressing applied recommendations of Xeroform gauze with a Telfa dressing, change every 2-3 days. patients wounds on bilateral buttocks, the area was assessed and no open areas noted at this time. ordered a wheelchair cushion at this time, educated patient about keeping pressure off the buttocks. wound care will continue to f/u for changes.
--- NOTE | 2019-04-05 17:41 | PDOC ---
PROGRESS NOTES Subjective Subjective Patient seen and examined Objective Objective Vital Signs Date Time Temp Pulse Resp B/P (MAP) Pulse Ox O2 Delivery O2 Flow Rate FiO2 04/05/19 16:16 Nasal Cannula 2.0 04/05/19 15:58 76 117/64 04/05/19 14:57 97.5 22 95 97.5 Intake and Output 04/05/19 07:00 Intake Total 1125 ml Output Total 50 ml Balance 1075 ml Intake Oral 1125 ml Output Urine Total 50 ml Physical Exam Abdomen: Normal bowel sounds Heart: Other (irregularly irregular) General: mild distress Lungs: Other (decreased breath sounds) Assessment Assessment Problems Medical Problems: (1) Atrial fibrillation with RVR Status: Acute 1. Respiratory failure with exacerbation of asthma. Patient is being treated with pulmonary medications and is feeling mildly better. We'll continue as above. Pulmonary evaluation pending. 2. Rapid atrial fibrillation. Rate improved. Continue present medications and treatment of underlying condition. Patient is anticoagulated. 3. Probable diastolic heart failure. Rate control as above. Echocardiogram pending. Comment Review of Relevant I have reviewed the following items jorge (where applicable) has been applied. Labs Laboratory Tests Test 04/03/19 21:10 04/04/19 02:30 04/04/19 05:10 04/04/19 14:15 White Blood Count 10.6 x10^3/uL (4.0-11.0) Red Blood Count 4.48 x10^6/uL (3.50-5.40) Hemoglobin 10.7 g/dL (12.0-15.5) Hematocrit 34.1 % (36.0-47.0) Mean Corpuscular Volume 76 fL (79-100) Mean Corpuscular Hemoglobin 24 pg (25-35) Mean Corpuscular Hemoglobin Concent 32 g/dL (31-37) Red Cell Distribution Width 18.8 % (11.5-14.5) Platelet Count 249 x10^3/uL (140-400) Neutrophils (%) (Auto) 64 % (31-73) Lymphocytes (%) (Auto) 24 % (24-48) Monocytes (%) (Auto) 8 % (0-9) Eosinophils (%) (Auto) 4 % (0-3) Basophils (%) (Auto) 1 % (0-3) Neutrophils # (Auto) 6.7 x10^3/uL (1.8-7.7) Lymphocytes # (Auto) 2.6 x10^3/uL (1.0-4.8) Monocytes # (Auto) 0.8 x10^3/uL (0.0-1.1) Eosinophils # (Auto) 0.4 x10^3/uL (0.0-0.7) Basophils # (Auto) 0.1 x10^3/uL (0.0-0.2) Prothrombin Time 12.8 SEC (11.7-14.0) Prothromb Time International Ratio 1.0 (0.8-1.1) Sodium Level 145 mmol/L (136-145) Potassium Level 3.6 mmol/L (3.5-5.1) Chloride Level 106 mmol/L (98-107) Carbon Dioxide Level 23 mmol/L (21-32) Anion Gap 16 (6-14) Blood Urea Nitrogen 12 mg/dL (7-20) Creatinine 1.1 mg/dL (0.6-1.0) Estimated GFR (Cockcroft-Gault) 49.8 BUN/Creatinine Ratio 11 (6-20) Glucose Level 129 mg/dL (70-99) Calcium Level 9.0 mg/dL (8.5-10.1) Total Bilirubin 0.3 mg/dL (0.2-1.0) Aspartate Amino Transf (AST/SGOT) 15 U/L (15-37) Alanine Aminotransferase (ALT/SGPT) 20 U/L (14-59) Alkaline Phosphatase 69 U/L (46-116) Troponin I Quantitative < 0.017 ng/mL (0.000-0.055) < 0.017 ng/mL (0.000-0.055) < 0.017 ng/mL (0.000-0.055) NP-Cbs-C-Type Natriuretic Peptide 535 pg/mL (0-124) Total Protein 7.7 g/dL (6.4-8.2) Albumin 3.2 g/dL (3.4-5.0) Albumin/Globulin Ratio 0.7 (1.0-1.7) Nasal Screen MRSA (PCR) Positive (Negative) Medications Current Medications Methylprednisolone Sodium Succinate (SOLU-Medrol 125MG VIAL) 125 mg 1X ONCE IV Last administered on 04/03/19at 23:05; Start 04/03/19 at 22:00; Stop 04/03/19 at 22:01; Status DC Albuterol/ Ipratropium (Duoneb) 3 ml 1X ONCE NEB Last administered on 04/03/19at 22:39; Start 04/03/19 at 22:00; Stop 04/03/19 at 22:01; Status DC Diltiazem HCl (Cardizem Iv Push) 10 mg 1X ONCE IVP Last administered on 04/03/19at 23:06; Start 04/03/19 at 22:00; Stop 04/03/19 at 22:01; Status DC Iohexol (Omnipaque 350 Mg/ml) 100 ml 1X ONCE IV Last administered on 04/03/19at 22:29; Start 04/03/19 at 22:15; Stop 04/03/19 at 22:16; Status DC Info (CONTRAST GIVEN -- Rx MONITORING) 1 each PRN DAILY PRN MC SEE COMMENTS; Start 04/03/19 at 22:15; Stop 04/05/19 at 22:14 Albuterol/ Ipratropium (Duoneb) 3 ml RTQID NEB Last administered on 04/04/19at 08:09; Start 04/04/19 at 08:00; Stop 04/04/19 at 11:11; Status DC Diltiazem HCl 125 mg/Dextrose 125 ml @ 5 mls/hr CONT PRN IV SEE I/O RECORD Last administered on 04/03/19at 23:59; Start 04/03/19 at 23:30 Guaifenesin/ Codeine Phosphate (Robitussin Ac) 5 ml PRN Q6HRS PRN PO COUGH Last administered on 04/04/19at 21:52; Start 04/04/19 at 00:15 Rivaroxaban (Xarelto) 15 mg 1X ONCE PO Last administered on 04/04/19at 03:49; Start 04/04/19 at 00:30; Stop 04/04/19 at 00:33; Status DC Acetaminophen (Tylenol) 650 mg PRN Q6HRS PRN PO PAIN Last administered on 04/04/19at 10:52; Start 04/04/19 at 10:30 Albuterol Sulfate (Ventolin Neb Soln) 2.5 mg PRN Q6HRS PRN INH SHORTNESS OF BREATH; Start 04/04/19 at 10:45 Clonazepam (KlonoPIN) 0.5 mg HS PO Last administered on 04/04/19 21:35; Start 04/04/19 at 21:00 Cyclobenzaprine HCl (Flexeril) 10 mg PRN BID PRN PO MUSCLE SPASMS Last administered on 04/04/19 21:40; Start 04/04/19 at 10:45 Digoxin (Lanoxin) 125 mcg DAILY PO Last administered on 04/04/19 16:11; Start 04/04/19 at 11:00; Stop 04/05/19 at 12:04; Status DC Diltiazem HCl (Cardizem 24hr Cd) 240 mg DAILY PO Last administered on 04/05/19 07:59; Start 04/04/19 at 11:00 Ferrous Sulfate (Feosol) 325 mg HS PO Last administered on 04/04/19 21:31; Start 04/04/19 at 21:00 Furosemide (Lasix) 40 mg BID92 PO Last administered on 04/05/19 13:57; Start 04/04/19 at 11:00 Acetaminophen/ Hydrocodone Bitart (Lortab 7.5/325) 1 tab PRN Q6HRS PRN PO MODERATE PAIN Last administered on 04/04/19 21:53; Start 04/04/19 at 10:45 Levothyroxine Sodium (Synthroid) 175 mcg DAILY06 PO Last administered on 04/04/19 16:11; Start 04/04/19 at 15:00; Stop 04/05/19 at 06:05; Status DC Lidocaine (Lidoderm) 1 patch PRN DAILY PRN TP TOPICAL PAIN; Start 04/04/19 at 10:45 Metoprolol Succinate (Toprol Xl) 25 mg DAILY PO Last administered on 04/05/19 07:59; Start 04/04/19 at 11:00 Montelukast Sodium (Singulair) 10 mg HS PO Last administered on 04/04/19 21:37; Start 04/04/19 at 21:00 Prednisone (Prednisone) 15 mg QODAY PO Last administered on 04/04/19 13:05; Start 04/04/19 at 12:00 Ropinirole HCl (Requip) 1 mg HS PO Last administered on 04/04/19 21:34; Start 04/04/19 at 21:00 Bupropion HCl (Wellbutrin Xl) 300 mg DAILY PO Last administered on 04/05/19 08:00; Start 04/04/19 at 11:00 Vitamin D (Vitamin D3) 5,000 unit DAILY PO Last administered on 04/05/19 07:58; Start 04/04/19 at 21:00 Diclofenac Sodium (Voltaren) 75 mg BID PO Last administered on 04/05/19 08:01; Start 04/04/19 at 11:15 Duloxetine HCl (Cymbalta) 60 mg DAILY PO Last administered on 04/05/19 07:58; Start 04/04/19 at 11:00 Gabapentin (Neurontin) 300 mg BID PO Last administered on 04/05/19 07:59; Start 04/04/19 at 11:00 Non-Formulary Medication (Mometasone/ Formoterol (Dulera 200 Mcg/5 Mcg Inhaler)) 2 puff BID IH ; Start 04/04/19 at 21:00; Status UNV Pantoprazole Sodium (Protonix) 40 mg DAILYAC PO Last administered on 04/05/19 07:58; Start 04/04/19 at 11:30 Potassium Chloride (Klor-Con) 20 meq BIDWMEALS PO Last administered on 04/05/19 15:58; Start 04/04/19 at 12:00 Rivaroxaban (Xarelto) 20 mg DAILYWSUP PO Last administered on 04/05/19 15:59; Start 04/04/19 at 17:00 Non-Formulary Medication (Tiotropium [place] (Spiriva)) 1 inh DAILY IH ; Start 04/05/19 at 09:00; Status UNV Info (Anti-Coagulation Monitoring By Pharmacy) 1 each PRN DAILY PRN MC SEE COMMENTS Last administered on 04/05/19 14:48; Start 04/04/19 at 11:15 Albuterol/ Ipratropium (Duoneb) 3 ml RTQID NEB Last administered on 04/05/19 16:15; Start 04/04/19 at 12:00 Budesonide (Pulmicort) 0.5 mg RTBID NEB Last administered on 04/05/19 07:35; Start 04/04/19 at 20:00 Levothyroxine Sodium (Synthroid) 175 mcg DAILY06 PO ; Start 04/05/19 at 06:05 Levothyroxine Sodium (Synthroid) 175 mcg 1X ONCE PO Last administered on 04/05/19at 06:58; Start 04/05/19 at 06:30; Stop 04/05/19 at 06:35; Status DC Digoxin (Lanoxin) 125 mcg DAILY16 PO Last administered on 04/05/19at 15:58; Start 04/05/19 at 16:00 Prednisone (Prednisone) 40 mg DAILY PO Last administered on 04/05/19at 15:58; Start 04/05/19 at 15:00 Albuterol/ Ipratropium (Duoneb) 3 ml RTQID NEB ; Start 04/05/19 at 20:00 Albuterol/ Ipratropium (Duoneb) 3 ml 1X ONCE NEB Last administered on 04/05/19at 14:50; Start 04/05/19 at 15:00; Stop 04/05/19 at 15:01; Status DC Active Scripts Active Reported Vitamin D (Cholecalciferol (Vitamin D3)) 1,000 Unit Capsule 5,000 Unit PO HS Omeprazole 20 Mg Capsule.dr 20 Mg PO DAILY Lidocaine PATCH (Lidocaine) 1 Each Adh..patch 1 Each TP PRN DAILY PRN REMOVE AFTER 12 HOURS Hydrocodone-Acetamin 7.5-325 (Hydrocodone/Acetaminophen) 1 Each Tablet 1 Each PO PRN Q6HRS PRN Promethazine Hcl 25 Mg Tablet 1 Tab PO PRN Q6HRS Spiriva (Tiotropium [place]) 18 Mcg Cap.w.dev 1 Inh IH DAILY Proair Hfa Inhaler (Albuterol Sulfate) 8.5 Gm Hfa.aer.ad 2 Puff INH PRN Q6HRS PRN Metoprolol Succinate ( Xl ) (Metoprolol Succinate) 25 Mg Tab.er.24h 25 Mg PO DAILY Potassium Chloride 20 Meq Tablet.er 20 Meq PO BID Digoxin 125 Mcg Tablet 125 Mcg PO DAILY Clonazepam (Clonazepam) 0.5 Mg Tablet 0.5 Mg PO HS Bupropion Xl (Bupropion Hcl) 300 Mg Tab.er.24h 300 Mg PO DAILY Dulera 200 Mcg/5 Mcg Inhaler (Mometasone/Formoterol) 13 Gm Hfa.aer.ad 2 Puff IH BID Ferrous Sulfate 325 Mg Tablet 65 Mg PO HS Cyclobenzaprine Hcl 10 Mg Tablet 10 Mg PO PRN BID PRN Gabapentin 600 Mg Tablet 300 Mg PO BID Montelukast Sodium Tablet (Montelukast Sodium) 10 Mg Tablet 1 Tab PO HS Ropinirole Hcl 1 Mg Tablet 1 Mg PO HS Xarelto (Rivaroxaban) 20 Mg Tablet 20 Mg PO DAILY16 Cardizem Cd (Diltiazem Hcl) 240 Mg Cap.er.24h 1 Cap PO DAILY Prednisone (Prednisone) 10 Mg Tablet 15 Mg PO QODAY Furosemide 40 Mg Tablet 40 Mg PO BID Diclofenac Sodium 75 Mg Tablet.dr 1 Tab PO BID Cymbalta (Duloxetine Hcl) 60 Mg Capsule.dr 1 Cap PO DAILY Levothyroxine Sodium 150 Mcg Tablet 175 Mcg PO DAILY Vitals/I & O Vital Sign - Last 24 Hours 04/04/19 04/04/19 04/04/19 04/04/19 19:34 19:50 20:20 21:53 Temp 97.9 97.9 Pulse 95 Resp 20 20 B/P (MAP) 109/65 (80) Pulse Ox 98 98 O2 Delivery Nasal Cannula Room Air Nasal Cannula Nasal Cannula O2 Flow Rate 2.0 2.0 2.0 04/04/19 04/04/19 04/05/19 04/05/19 22:27 22:53 02:55 07:00 Temp 98.2 98.0 98.0 98.2 98.0 98.0 Pulse 95 87 80 Resp 18 20 18 20 B/P (MAP) 136/70 (92) 114/75 (88) 138/76 (96) Pulse Ox 95 95 95 99 O2 Delivery Nasal Cannula Nasal Cannula Room Air Room Air O2 Flow Rate 2.0 2.0 04/05/19 04/05/19 04/05/19 04/05/19 07:37 07:59 07:59 08:00 Pulse 80 80 B/P (MAP) 138/76 138/76 Pulse Ox 98 O2 Delivery Nasal Cannula Nasal Cannula O2 Flow Rate 2.0 2.0 04/05/19 04/05/19 04/05/19 04/05/19 11:00 11:48 14:50 14:57 Temp 97.5 97.5 97.5 97.5 Pulse 80 76 Resp 22 22 B/P (MAP) 137/71 (93) 117/64 (81) Pulse Ox 96 99 95 O2 Delivery Room Air Nasal Cannula Nasal Cannula Room Air O2 Flow Rate 2.0 2.0 04/05/19 04/05/19 15:58 16:16 Pulse 76 B/P (MAP) 117/64 O2 Delivery Nasal Cannula O2 Flow Rate 2.0 Intake and Output 04/04/19 04/04/19 04/05/19 15:00 23:00 07:00 Intake Total 300 ml 505 ml 320 ml Output Total 50 ml Balance 300 ml 455 ml 320 ml SARA VANESSA MD Apr 05, 2019 17:41
[2019-04-05 19:52] VITALS: BP 109/49
[2019-04-05] MEDS: rOPINIRole 1 MG TABLET. PO SCH (20:46)
[2019-04-05] MEDS: clonazePAM 0.5 MG TABLET PO SCH (20:46)
[2019-04-05] MEDS: FERROUS SULFATE 325 MG TABLET. PO SCH (20:46)
[2019-04-05] MEDS: MONTELUKAST SODIUM 10 MG TABLET. PO SCH (20:47)
[2019-04-05] MEDS: guaiFENesin/CODEINE 100mg/10mg 5 ML LIQUID PO PRN (20:50)
[2019-04-05 23:16] VITALS: BP_SYST 135; BP_SYST 92; BP_DIAS 50; BP_DIAS 67
[2019-04-06 02:20] VITALS: BP 141/76
[2019-04-06] MEDS: LEVOTHYROXINE 175 MCG TABLET PO SCH (05:46)
[2019-04-06 07:00] VITALS: BP 129/74
[2019-04-06] MEDS: BUDESONIDE 0.5 MG/2 ML NEBU. NEB SCH ×2 (07:40→20:30)
[2019-04-06] MEDS: IPRATRPIUM/ALBUTEROL 0.5/2.5MG 3 ML NEBU. NEB SCH ×6 (07:40→20:30)
[2019-04-06] MEDS: POTASSIUM CHLORIDE 20 MEQ TABLET.ER. PO SCH ×2 (08:33→16:15)
[2019-04-06] MEDS: FUROSEMIDE 40 MG TABLET. PO SCH ×2 (08:33→14:46)
[2019-04-06] MEDS: predniSONE 20 MG TABLET PO SCH (08:33)
[2019-04-06] MEDS: PANTOPRAZOLE 40 MG TABLET.DR. PO SCH (08:33)
[2019-04-06] MEDS: DICLOFENAC SODIUM 25 MG TABLET.DR PO SCH ×2 (08:33→21:14)
[2019-04-06] MEDS: GABAPENTIN 300 MG CAPSULE. PO SCH ×2 (08:34→21:13)
[2019-04-06] MEDS: DULoxetine HCL 30 MG CAPSULE.DR PO SCH (08:34)
[2019-04-06] MEDS: METOPROLOL SUCC 24HR ER 25 MG TAB.ER.24H. PO SCH (08:34)
[2019-04-06] MEDS: CHOLECALCIFEROL (VITAMIN D3) 5,000 UNIT CAPSULE PO SCH (08:34)
[2019-04-06] MEDS: buPROPion XL 150 MG TAB.ER.24H. PO SCH (08:34)
[2019-04-06] MEDS: predniSONE 10 MG TABLET PO SCH (08:34)
[2019-04-06 11:00] VITALS: BP 110/54
--- NOTE | 2019-04-06 11:27 | PDOC ---
[facility] [facility] PROGRESS NOTE Chief Complaint Chief Complaint Acute diastolic CHF Afib Asthma exacerbation Acute on chronic hypoxia Chronic tracheomalacia Cough Weakness obesity, BMI 65 FREEMAN, History of Present Illness History of Present Illness 04/06/19 Pt seen and examined Pt was sitting up in chair and feeling better She still has some wheezing bilaterally and was on O2 nasal cannula DW RN wheezing, cough, weakness today she asked for stress steroids, consider abx, consult Dr. Carmen, she also did not have her CPAP last night, so may have sec. pulm htn today will add PT And OT, Vitals/I&O Vitals/I&O: Vital Signs Date Time Temp Pulse Resp B/P (MAP) Pulse Ox O2 Delivery O2 Flow Rate FiO2 04/06/19 11:00 98.1 64 18 110/54 (72) 99 Nasal Cannula 3.0 98.1 I & O 04/05/19 04/05/19 04/06/19 15:00 23:00 07:00 Intake Total 360 ml 900 ml Output Total 1500 ml 2000 ml Balance -1140 ml -1100 ml Physical Exam General: Alert, Oriented X3, mild distress Heart: Other (irregularly irregular) Lungs: Wheezing Abdomen: Normal bowel sounds Extremities: No clubbing, Normal pulses Skin: No rashes, No breakdown, No significant lesion Review of Systems Review of Systems: Co weakness Denies n/v/d Assessment and Plan Assessmemt and Plan Problems Medical Problems: (1) Atrial fibrillation with RVR Status: Acute Assessment Afib Acute diastolic CHF Asthma exacerbation Chronic tracheomalacia Cough Obesity BMI 65 Plan Cardiac monitoring Home meds DVT prophylaxis Full code Appreciate pulmonology and cardiology input Comment Review of Relevant I have reviewed the following items jorge (where applicable) has been applied. Medications: Current Medications Medications (Trade) Dose Ordered Sig/Ijeoma Route PRN Reason Start Time Stop Time Status Last Admin Dose Admin Digoxin (Lanoxin) 125 mcg DAILY16 PO 04/05/19 16:00 04/05/19 15:58 Prednisone (Prednisone) 40 mg DAILY PO 04/05/19 15:00 04/06/19 08:33 Albuterol/ Ipratropium (Duoneb) 3 ml 1X ONCE NEB 04/05/19 15:00 04/05/19 15:01 DC 04/05/19 14:50 ZIYAD ESTRELLA III DO Apr 06, 2019 11:27
--- NOTE | 2019-04-06 14:22 | NUR ---
SS following up with discharge planning. PT/OT recommended home with home healthcare. Nurse navigator to meet with pt to discuss home healthcare and home health options. SS will continue to follow for discharge planning.
[2019-04-06 15:19] VITALS: BP 151/69
--- NOTE | 2019-04-06 15:21 | PDOC ---
PULMONARY PROGRESS NOTES Vitals Vital Signs Date Time Temp Pulse Resp B/P (MAP) Pulse Ox O2 Delivery O2 Flow Rate FiO2 04/06/19 11:42 98 Nasal Cannula 3.0 04/06/19 11:00 98.1 64 18 110/54 (72) 98.1 Lungs: Wheezing Medications Active Scripts Medications Dose Route/Sig Max Daily Dose Days Date Category Dose Instructions Vitamin D (Cholecalciferol (Vitamin D3)) 1,000 Unit Capsule 5,000 Unit PO HS 04/04/19 Reported Omeprazole 20 Mg Capsule.dr 20 Mg PO DAILY 04/04/19 Reported Lidocaine PATCH (Lidocaine) 1 Each Adh..patch 1 Each TP PRN DAILY PRN 04/04/19 Reported REMOVE AFTER 12 HOURS Hydrocodone-Acetamin 7.5-325 (Hydrocodone/Acetaminophen) 1 Each Tablet 1 Each PO PRN Q6HRS PRN 04/04/19 Reported Promethazine Hcl 25 Mg Tablet 1 Tab PO PRN Q6HRS 01/15/19 Reported Spiriva (Tiotropium [place]) 18 Mcg Cap.w.dev 1 Inh IH DAILY 12/16/18 Reported Proair Hfa Inhaler (Albuterol Sulfate) 8.5 Gm Hfa.aer.ad 2 Puff INH PRN Q6HRS PRN 12/16/18 Reported Metoprolol Succinate ( Xl ) (Metoprolol Succinate) 25 Mg Tab.er.24h 25 Mg PO DAILY 12/16/18 Reported Potassium Chloride 20 Meq Tablet.er 20 Meq PO BID 12/16/18 Reported Digoxin 125 Mcg Tablet 125 Mcg PO DAILY 12/16/18 Reported Clonazepam (Clonazepam) 0.5 Mg Tablet 0.5 Mg PO HS 12/16/18 Reported Bupropion Xl (Bupropion Hcl) 300 Mg Tab.er.24h 300 Mg PO DAILY 12/16/18 Reported Dulera 200 Mcg/5 Mcg Inhaler (Mometasone/Formoterol) 13 Gm Hfa.aer.ad 2 Puff IH BID 12/16/18 Reported Ferrous Sulfate 325 Mg Tablet 65 Mg PO HS 12/16/18 Reported Cyclobenzaprine Hcl 10 Mg Tablet 10 Mg PO PRN BID PRN 12/16/18 Reported Gabapentin 600 Mg Tablet 300 Mg PO BID 12/16/18 Reported Montelukast Sodium Tablet (Montelukast Sodium) 10 Mg Tablet 1 Tab PO HS 10/09/16 Reported Ropinirole Hcl 1 Mg Tablet 1 Mg PO HS 10/09/16 Reported Xarelto (Rivaroxaban) 20 Mg Tablet 20 Mg PO DAILY16 10/09/16 Reported Cardizem Cd (Diltiazem Hcl) 240 Mg Cap.er.24h 1 Cap PO DAILY 10/09/16 Reported Prednisone (Prednisone) 10 Mg Tablet 15 Mg PO QODAY 10/09/16 Reported Furosemide 40 Mg Tablet 40 Mg PO BID 10/09/16 Reported Diclofenac Sodium 75 Mg Tablet.dr 1 Tab PO BID 10/09/16 Reported Cymbalta (Duloxetine Hcl) 60 Mg Capsule.dr 1 Cap PO DAILY 10/09/16 Reported Levothyroxine Sodium 150 Mcg Tablet 175 Mcg PO DAILY 10/09/16 Reported Impression . FULL NOTE DICTATED ASTHMA EXACERBATION PT FAILED OUTPT TX NOT READY FOR D/C CONTINUE THE SAME TANK GROVER MD Apr 06, 2019 15:21
[2019-04-06] MEDS: DIGOXIN 125 MCG TABLET. PO SCH (16:14)
[2019-04-06] MEDS: RIVAROXABAN 10 MG TABLET. PO SCH (16:14)
--- NOTE | 2019-04-06 17:11 | CARD ---
MR#: [id number] Date of Study: 04/06/2019 Ordering Physician: SARA VANESSA, Referring Physician: SARA VANESSA, Tech: Alexia Mehta APPROVED REPORT EXAM: Two-dimensional and M-mode echocardiogram with Doppler and color Doppler. Other Information Quality : AverageHR: 83bpm Technically limited study due to body habitus. INDICATION COPD Dyspnea Atrial Fibrillation Congestive Heart Failure RISK FACTORS Hypertension 2D DIMENSIONS RVDd2.9 (2.9-3.5cm)Left Atrium(2D)3.8 (1.6-4.0cm) IVSd1.0 (0.7-1.1cm)Aortic Root(2D)3.4 (2.0-3.7cm) LVDd5.2 (3.9-5.9cm)LVOT Diameter2.1 (1.8-2.4cm) PWd1.1 (0.7-1.1cm)LVDs3.1 (2.5-4.0cm) FS (%) 40.1 %SV89.8 ml LVEF(%)70.4 (>50%) Aortic Valve AoV Peak Martin.139.8cm/sAoV VTI27.5cm AO Peak GR.7.8mmHgLVOT VTI 19.31cm AO Mean GR.6mmHg Mitral Valve MV E Xjibyjsk670.4cm/sMV DECEL UVKR532ye MV A Xoactgdk05.5cm/sE/A Ratio2.3 TDI Lateral E' P. V4.57cm/sMedial E' P. V10.75cm/s E/Lateral E'35.5E/Medial E'15.1 Tricuspid Valve TR P. Vznuyplx943dz/sRAP OIWAGPVB6eaHs TR Peak Gr.79apIhBUVL49xoWs Pulmonary Vein S1 Uioecnlp60.2cm/sS2 Xouamljl40.65cm/s D2 Lpqelpwp12.6cm/s LEFT VENTRICLE The left ventricle is normal size. There is borderline to mild concentric left ventricular hypertroph y. The left ventricular systolic function is normal and the ejection fraction is within normal range. The Ejection Fraction is >55%. Wall motion consistent with conduction abnormality. Tissue Doppler im aging reveals moderate left ventricular diastolic dysfunction. RIGHT VENTRICLE The right ventricle is normal size. There is normal right ventricular wall thickness. The right ventr icular systolic function is normal. ATRIA The left atrium size is normal. The right atrium is mildly dilated. The interatrial septum is intact with no evidence for an atrial septal defect or patent foramen ovale as noted on 2-D or Doppler imagi ng. AORTIC VALVE The aortic valve is normal in structure and function. Doppler and Color Flow revealed no significant aortic regurgitation. There is no significant aortic valvular stenosis. MITRAL VALVE The mitral valve is normal in structure and function. There is no evidence of mitral valve prolapse. There is no mitral valve stenosis. Doppler and Color-flow revealed trace mitral regurgitation. TRICUSPID VALVE The tricuspid valve is normal in structure and function. Doppler and Color Flow revealed trace tricus pid regurgitation with an estimated PAP of 32 mmHg. There is no tricuspid valve stenosis. PULMONIC VALVE The pulmonic valve is not well visualized. Doppler and Color Flow revealed no pulmonic valvular regur gitation. There is no pulmonic valvular stenosis. GREAT VESSELS The aortic root is normal in size. The IVC is normal in size and collapses >50% with inspiration. PERICARDIAL EFFUSION There is no evidence of significant pericardial effusion. Critical Notification Critical Value: No <Conclusion> The left ventricular systolic function is normal and the ejection fraction is within normal range. Th e Ejection Fraction is >55%. Wall motion consistent with conduction abnormality. Tissue Doppler imaging reveals moderate left ventricular diastolic dysfunction. Signed by : Tarun Hogan, Electronically Approved : 04/06/2019 17:10:51
--- NOTE | 2019-04-06 18:47 | CONS ---
DATE OF CONSULTATION: 04/06/2019 ATTENDING PHYSICIAN: Hayley Wooten M.D. REASON FOR CONSULTATION: The patient seen in pulmonary consultation at the request of Dr. Matthews for continued wheezing. HISTORY OF PRESENT ILLNESS: The patient is a 64-year-old female who presented to the Emergency Room with episodes of increasing shortness of breath. She has a history of asthma, previous immunotherapy and formal allergy testing. She normally uses Dulera, Spiriva and Singulair at home. The patient called her primary resource specialist teacher in [place]. She was placed on prednisone and antibiotics prior to admission. She failed outpatient therapy, and subsequently, she was admitted. She has been treated for the last couple of days. She has not improved. I was asked to see her in consultation. She has never smoked. She normally uses Dulera, Spiriva and Singulair at home. She has a cat at home, but she does not think that she is allergic to the cat. She underwent a CT angiogram for PE protocol. There was no evidence of pulmonary embolism. There was a 7-mm nodule in the left lower lobe. PAST MEDICAL HISTORY: 1. Asthma. As described above, the patient's triggers include weather change and infection. She has had previous immunotherapy. 2. Bronchomalacia status post previous bronchoscopy. 3. Chronic AFib. 4. History of pulmonary embolism/DV last year. 5. History of sepsis, was hospitalized for approximately 2 months. 6. Migraine headaches. 7. Gastric esophageal reflux. 8. Chronic anemia. 9. Depression. 10. Cholelithiasis. 11. Hypothyroidism. PAST SURGICAL HISTORY: No recent major surgeries. ALLERGIES: INFLUENZA VIRUS VACCINE, PENICILLIN, SULFA, AND LEVAQUIN. SOCIAL HISTORY: She has never smoked. REVIEW OF SYSTEMS: As indicated above, otherwise, a 10-point system was reviewed and negative. CONSTITUTIONAL: No fever or chills. EYES: No change in visual acuity. HEENT: No nasal congestion or sore throat. PULMONARY: As indicated above. CARDIOVASCULAR: As indicated above. GASTROINTESTINAL: No nausea, vomiting or diarrhea. GENITOURINARY: No dysuria or frequency. MUSCULOSKELETAL: No localized muscle aches or joint pains. SKIN: No new skin rashes. NEUROLOGIC: No headaches, diplopia or blurred vision. CURRENT MEDICATION LIST: Reviewed. She is receiving bronchodilators, prednisone 40 mg daily. She is on Xarelto for DVT 20 mg daily in addition to breathing treatments. PHYSICAL EXAMINATION: GENERAL: Morbid obese individual, in no respiratory distress. VITAL SIGNS: Body mass index of 53, on 2 liters of oxygen supplementation. HEENT: Eyes, the sclerae were nonicteric. NECK: Jugular venous distention was not elevated. No lymphadenopathy. CHEST: Full expansion. LUNGS: Bilateral wheezes, no rhonchi. CARDIOVASCULAR: Regular rate and rhythm with S1, S2. No S3. ABDOMEN: Soft, nontender, nondistended and obese. EXTREMITIES: No clubbing, cyanosis or edema. NEUROLOGICAL: The patient was awake, alert, following commands. A detailed neuro exam was not performed. LABORATORY DATA: White count was 10,000, hemoglobin and hematocrit were noted. Electrolytes were noted. BUN was 12, creatinine was 1.1. BNP was 535. Albumin was 3.2. IMAGING: CT angiogram revealed no evidence of pulmonary embolism. There was a 7-mm nodule. IMPRESSION: 1. Acute exacerbation of asthma as indicated above. The patient failed outpatient therapy. She was admitted and now continues to have significant wheezing. 2. Acute nonspecific bronchitis. 3. Acute hypoxic respiratory failure. 4. Rapid atrial fibrillation. 5. Suspect chronic diastolic heart failure. 6. Morbid obesity. 7. History of allergies status post immunotherapy. 8. History of deep venous thrombosis and pulmonary embolism. 9. History of sepsis requiring hospitalization approximately a year ago for 2 months in [place]. 10. Suspect obstructive sleep apnea. 11. Tracheobronchomalacia by history. PLAN: 1. Recommend to continue prednisone. 2. We will add doxycycline for nonspecific bronchitis. 3. Continue bronchodilators. 4. Follow Cardiology input. 5. Reviewed possible other contributing factors to her wheezing including reflux and her history of bronchomalacia. I do appreciate the privilege in sharing in the patient's care. TANK GROVER MD DR: ENRIQUETA/samreen JOB#: [id number] / [id number]
[2019-04-06 19:00] VITALS: BP 137/65
[2019-04-06] MEDS: MONTELUKAST SODIUM 10 MG TABLET. PO SCH (21:13)
[2019-04-06] MEDS: clonazePAM 0.5 MG TABLET PO SCH (21:13)
[2019-04-06] MEDS: FERROUS SULFATE 325 MG TABLET. PO SCH (21:13)
[2019-04-06] MEDS: rOPINIRole 1 MG TABLET. PO SCH (21:14)
[2019-04-06] MEDS: guaiFENesin/CODEINE 100mg/10mg 5 ML LIQUID PO PRN (22:10)
[2019-04-06 23:00] VITALS: BP 146/67
[2019-04-07 03:00] VITALS: BP 142/67
[2019-04-07 05:23] LABS: CALCIUM 8.7 mg/dL (8.5-10.1); CREATININE 1.3 mg/dL (0.6-1.0); GFR 41.1
[2019-04-07 05:27] LABS: BASO # 0.1 x10^3/uL (0.0-0.2); BASO % 1 % (0-3); EOS % 0 % (0-3); HEMATOCRIT 29.2 % (36.0-47.0); LYMPH # 2.4 x10^3/uL (1.0-4.8); LYMPH % 20 % (24-48); MEAN CORPUSCULAR HEMOGLOBIN 24 pg (25-35); MEAN CORPUSCULAR HGB CONC 31 g/dL (31-37); MEAN CORPUSCULAR VOLUME 78 fL (79-100); MONO % 8 % (0-9); NEUT # 8.6 x10^3/uL (1.8-7.7); NEUT % 71 % (31-73); PLATELET COUNT 192 x10^3/uL (140-400); RED BLOOD COUNT 3.75 x10^6/uL (3.50-5.40); RED CELL DISTRIBUTION WIDTH 18.8 % (11.5-14.5); WHITE BLOOD COUNT 12.1 x10^3/uL (4.0-11.0)
[2019-04-07] MEDS: PANTOPRAZOLE 40 MG TABLET.DR. PO SCH (06:05)
[2019-04-07] MEDS: LEVOTHYROXINE 175 MCG TABLET PO SCH (06:05)
[2019-04-07 07:00] VITALS: BP 130/67
[2019-04-07] MEDS: BUDESONIDE 0.5 MG/2 ML NEBU. NEB SCH ×2 (07:40→20:00)
[2019-04-07] MEDS: IPRATRPIUM/ALBUTEROL 0.5/2.5MG 3 ML NEBU. NEB SCH ×4 (07:40→20:00)
[2019-04-07] MEDS: DULoxetine HCL 30 MG CAPSULE.DR PO SCH (09:25)
[2019-04-07] MEDS: CHOLECALCIFEROL (VITAMIN D3) 5,000 UNIT CAPSULE PO SCH (09:25)
[2019-04-07] MEDS: buPROPion XL 150 MG TAB.ER.24H. PO SCH (09:25)
[2019-04-07] MEDS: GABAPENTIN 300 MG CAPSULE. PO SCH ×2 (09:25→20:34)
[2019-04-07] MEDS: predniSONE 20 MG TABLET PO SCH (09:25)
[2019-04-07] MEDS: FUROSEMIDE 40 MG TABLET. PO SCH (09:26)
[2019-04-07] MEDS: POTASSIUM CHLORIDE 20 MEQ TABLET.ER. PO SCH ×2 (09:26→17:06)
[2019-04-07] MEDS: guaiFENesin/CODEINE 100mg/10mg 5 ML LIQUID PO PRN (09:27)
[2019-04-07] MEDS: METOPROLOL SUCC 24HR ER 25 MG TAB.ER.24H. PO SCH (09:27)
[2019-04-07] MEDS: DICLOFENAC SODIUM 25 MG TABLET.DR PO SCH ×2 (09:27→20:35)
--- NOTE | 2019-04-07 09:34 | PDOC ---
PULMONARY PROGRESS NOTES Subjective PT LESS SOA BUT WHEEZING SOME EMESIS TODAY Vitals Vital Signs Date Time Temp Pulse Resp B/P (MAP) Pulse Ox O2 Delivery O2 Flow Rate FiO2 04/07/19 09:27 63 130/67 04/07/19 07:40 Nasal Cannula 2.0 04/07/19 07:00 97.6 22 98 97.6 ROS: No Chest Pain, No Abdominal Pain, No Increase Cough General: Alert Lungs: Wheezing Cardiovascular: S1, S2 Neuro Exam: Alert Extremities: No Edema Skin: Warm Labs Laboratory Tests Test 04/07/19 04:35 White Blood Count 12.1 x10^3/uL (4.0-11.0) Red Blood Count 3.75 x10^6/uL (3.50-5.40) Hemoglobin 9.0 g/dL (12.0-15.5) Hematocrit 29.2 % (36.0-47.0) Mean Corpuscular Volume 78 fL (79-100) Mean Corpuscular Hemoglobin 24 pg (25-35) Mean Corpuscular Hemoglobin Concent 31 g/dL (31-37) Red Cell Distribution Width 18.8 % (11.5-14.5) Platelet Count 192 x10^3/uL (140-400) Neutrophils (%) (Auto) 71 % (31-73) Lymphocytes (%) (Auto) 20 % (24-48) Monocytes (%) (Auto) 8 % (0-9) Eosinophils (%) (Auto) 0 % (0-3) Basophils (%) (Auto) 1 % (0-3) Neutrophils # (Auto) 8.6 x10^3/uL (1.8-7.7) Lymphocytes # (Auto) 2.4 x10^3/uL (1.0-4.8) Monocytes # (Auto) 1.0 x10^3/uL (0.0-1.1) Eosinophils # (Auto) 0.0 x10^3/uL (0.0-0.7) Basophils # (Auto) 0.1 x10^3/uL (0.0-0.2) Sodium Level 144 mmol/L (136-145) Potassium Level 4.0 mmol/L (3.5-5.1) Chloride Level 105 mmol/L (98-107) Carbon Dioxide Level 31 mmol/L (21-32) Anion Gap 8 (6-14) Blood Urea Nitrogen 35 mg/dL (7-20) Creatinine 1.3 mg/dL (0.6-1.0) Estimated GFR (Cockcroft-Gault) 41.1 Glucose Level 90 mg/dL (70-99) Calcium Level 8.7 mg/dL (8.5-10.1) Laboratory Tests Test 04/07/19 04:35 White Blood Count 12.1 x10^3/uL (4.0-11.0) Red Blood Count 3.75 x10^6/uL (3.50-5.40) Hemoglobin 9.0 g/dL (12.0-15.5) Hematocrit 29.2 % (36.0-47.0) Mean Corpuscular Volume 78 fL (79-100) Mean Corpuscular Hemoglobin 24 pg (25-35) Mean Corpuscular Hemoglobin Concent 31 g/dL (31-37) Red Cell Distribution Width 18.8 % (11.5-14.5) Platelet Count 192 x10^3/uL (140-400) Neutrophils (%) (Auto) 71 % (31-73) Lymphocytes (%) (Auto) 20 % (24-48) Monocytes (%) (Auto) 8 % (0-9) Eosinophils (%) (Auto) 0 % (0-3) Basophils (%) (Auto) 1 % (0-3) Neutrophils # (Auto) 8.6 x10^3/uL (1.8-7.7) Lymphocytes # (Auto) 2.4 x10^3/uL (1.0-4.8) Monocytes # (Auto) 1.0 x10^3/uL (0.0-1.1) Eosinophils # (Auto) 0.0 x10^3/uL (0.0-0.7) Basophils # (Auto) 0.1 x10^3/uL (0.0-0.2) Sodium Level 144 mmol/L (136-145) Potassium Level 4.0 mmol/L (3.5-5.1) Chloride Level 105 mmol/L (98-107) Carbon Dioxide Level 31 mmol/L (21-32) Anion Gap 8 (6-14) Blood Urea Nitrogen 35 mg/dL (7-20) Creatinine 1.3 mg/dL (0.6-1.0) Estimated GFR (Cockcroft-Gault) 41.1 Glucose Level 90 mg/dL (70-99) Calcium Level 8.7 mg/dL (8.5-10.1) Medications Active Scripts Medications Dose Route/Sig Max Daily Dose Days Date Category Dose Instructions Vitamin D (Cholecalciferol (Vitamin D3)) 1,000 Unit Capsule 5,000 Unit PO HS 04/04/19 Reported Omeprazole 20 Mg Capsule.dr 20 Mg PO DAILY 04/04/19 Reported Lidocaine PATCH (Lidocaine) 1 Each Adh..patch 1 Each TP PRN DAILY PRN 04/04/19 Reported REMOVE AFTER 12 HOURS Hydrocodone-Acetamin 7.5-325 (Hydrocodone/Acetaminophen) 1 Each Tablet 1 Each PO PRN Q6HRS PRN 04/04/19 Reported Promethazine Hcl 25 Mg Tablet 1 Tab PO PRN Q6HRS 01/15/19 Reported Spiriva (Tiotropium [place]) 18 Mcg Cap.w.dev 1 Inh IH DAILY 12/16/18 Reported Proair Hfa Inhaler (Albuterol Sulfate) 8.5 Gm Hfa.aer.ad 2 Puff INH PRN Q6HRS PRN 12/16/18 Reported Metoprolol Succinate ( Xl ) (Metoprolol Succinate) 25 Mg Tab.er.24h 25 Mg PO DAILY 12/16/18 Reported Potassium Chloride 20 Meq Tablet.er 20 Meq PO BID 12/16/18 Reported Digoxin 125 Mcg Tablet 125 Mcg PO DAILY 12/16/18 Reported Clonazepam (Clonazepam) 0.5 Mg Tablet 0.5 Mg PO HS 12/16/18 Reported Bupropion Xl (Bupropion Hcl) 300 Mg Tab.er.24h 300 Mg PO DAILY 12/16/18 Reported Dulera 200 Mcg/5 Mcg Inhaler (Mometasone/Formoterol) 13 Gm Hfa.aer.ad 2 Puff IH BID 12/16/18 Reported Ferrous Sulfate 325 Mg Tablet 65 Mg PO HS 12/16/18 Reported Cyclobenzaprine Hcl 10 Mg Tablet 10 Mg PO PRN BID PRN 12/16/18 Reported Gabapentin 600 Mg Tablet 300 Mg PO BID 12/16/18 Reported Montelukast Sodium Tablet (Montelukast Sodium) 10 Mg Tablet 1 Tab PO HS 10/09/16 Reported Ropinirole Hcl 1 Mg Tablet 1 Mg PO HS 10/09/16 Reported Xarelto (Rivaroxaban) 20 Mg Tablet 20 Mg PO DAILY16 10/09/16 Reported Cardizem Cd (Diltiazem Hcl) 240 Mg Cap.er.24h 1 Cap PO DAILY 10/09/16 Reported Prednisone (Prednisone) 10 Mg Tablet 15 Mg PO QODAY 10/09/16 Reported Furosemide 40 Mg Tablet 40 Mg PO BID 10/09/16 Reported Diclofenac Sodium 75 Mg Tablet.dr 1 Tab PO BID 10/09/16 Reported Cymbalta (Duloxetine Hcl) 60 Mg Capsule.dr 1 Cap PO DAILY 10/09/16 Reported Levothyroxine Sodium 150 Mcg Tablet 175 Mcg PO DAILY 10/09/16 Reported Impression . IMPRESSION: 1. Acute exacerbation of asthma as indicated above. The patient failed outpatient therapy. She was admitted and now continues to have significant wheezing. 2. Acute nonspecific bronchitis. 3. Acute hypoxic respiratory failure. 4. Rapid atrial fibrillation. 5. Suspect chronic diastolic heart failure. 6. Morbid obesity. 7. History of allergies status post immunotherapy. 8. History of deep venous thrombosis and pulmonary embolism. 9. History of sepsis requiring hospitalization approximately a year ago for 2 months in [place]. 10. Suspect obstructive sleep apnea. 11. Tracheobronchomalacia by history. Plan . STILL SOA AND WHEEZING WILL CONTINUE THE SAME HOPEFULLY IF BETTER D/C IN AM 1. Recommend to continue prednisone. 2. We will add doxycycline for nonspecific bronchitis. 3. Continue bronchodilators. 4. Follow Cardiology input. 5. Reviewed possible other contributing factors to her wheezing including reflux and her history of bronchomalacia. TANK GROVER MD Apr 07, 2019 09:34
[2019-04-07 12:11] VITALS: BP 159/75
--- NOTE | 2019-04-07 13:09 | PDOC ---
[employer] [facility] PROGRESS NOTE Chief Complaint Chief Complaint Acute diastolic CHF Afib Asthma exacerbation Acute on chronic hypoxia Chronic tracheomalacia Cough Weakness Obesity - BMI 65 FREEMAN, History of Present Illness History of Present Illness 04/07/19 Pt was seen and examined sitting upright in chair Still complains of weakness and wheezing Continues to be on O2 per nasal cannula Charts and labs reviewed AISLINN ODOM 04/06/19 Pt seen and examined Pt was sitting up in chair and feeling better She still has some wheezing bilaterally and was on O2 nasal cannula AISLINN RN wheezing, cough, weakness today she asked for stress steroids, consider abx, consult Dr. Carmen, she also did not have her CPAP last night, so may have sec. pulm htn today will add PT And OT, Vitals/I&O Vitals/I&O: Vital Signs Date Time Temp Pulse Resp B/P (MAP) Pulse Ox O2 Delivery O2 Flow Rate FiO2 04/07/19 12:11 159/75 (103) 04/07/19 11:29 98 Nasal Cannula 2.0 04/07/19 10:38 97.3 71 20 97.3 I & O 04/06/19 04/06/19 04/07/19 15:00 23:00 07:00 Intake Total 240 ml 800 ml 0 ml Output Total 350 ml 400 ml 0 ml Balance -110 ml 400 ml 0 ml Physical Exam General: Alert, Oriented X3, Cooperative, mild distress Heart: Other (irregularly irregular) Lungs: Wheezing Abdomen: Normal bowel sounds Extremities: No clubbing, No cyanosis, Normal pulses Skin: No rashes, No breakdown, No significant lesion Labs Labs: Laboratory Tests Test 04/07/19 04:35 White Blood Count 12.1 x10^3/uL (4.0-11.0) Red Blood Count 3.75 x10^6/uL (3.50-5.40) Hemoglobin 9.0 g/dL (12.0-15.5) Hematocrit 29.2 % (36.0-47.0) Mean Corpuscular Volume 78 fL (79-100) Mean Corpuscular Hemoglobin 24 pg (25-35) Mean Corpuscular Hemoglobin Concent 31 g/dL (31-37) Red Cell Distribution Width 18.8 % (11.5-14.5) Platelet Count 192 x10^3/uL (140-400) Neutrophils (%) (Auto) 71 % (31-73) Lymphocytes (%) (Auto) 20 % (24-48) Monocytes (%) (Auto) 8 % (0-9) Eosinophils (%) (Auto) 0 % (0-3) Basophils (%) (Auto) 1 % (0-3) Neutrophils # (Auto) 8.6 x10^3/uL (1.8-7.7) Lymphocytes # (Auto) 2.4 x10^3/uL (1.0-4.8) Monocytes # (Auto) 1.0 x10^3/uL (0.0-1.1) Eosinophils # (Auto) 0.0 x10^3/uL (0.0-0.7) Basophils # (Auto) 0.1 x10^3/uL (0.0-0.2) Sodium Level 144 mmol/L (136-145) Potassium Level 4.0 mmol/L (3.5-5.1) Chloride Level 105 mmol/L (98-107) Carbon Dioxide Level 31 mmol/L (21-32) Anion Gap 8 (6-14) Blood Urea Nitrogen 35 mg/dL (7-20) Creatinine 1.3 mg/dL (0.6-1.0) Estimated GFR (Cockcroft-Gault) 41.1 Glucose Level 90 mg/dL (70-99) Calcium Level 8.7 mg/dL (8.5-10.1) Review of Systems Review of Systems: No nausea, no vomiting No headache, no changes in vision Assessment and Plan Assessmemt and Plan Problems Medical Problems: (1) Atrial fibrillation with RVR Status: Acute Assessment Asthma exacerbation Acute diastolic CHF Hypoxia Chronic tracheomalacia Bronchitis Plan O2 per nasal cannula Bronchodilators Pulmonary following PT/OT DVT prophylaxis Full code Comment Review of Relevant I have reviewed the following items jorge (where applicable) has been applied. ZIYAD ESTRELLA III DO Apr 07, 2019 13:09
--- NOTE | 2019-04-07 13:14 | PDOC ---
CARDIO Progress Notes Date and Time Date of Service 04/07/2019 Time of Evaluation 1230 Subjective Subjective: No Chest Pain, No shortness of breath, No Palpitations, Other (still wheezy) Vitals Vitals Vital Signs Date Time Temp Pulse Resp B/P (MAP) Pulse Ox O2 Delivery O2 Flow Rate FiO2 04/07/19 12:11 159/75 (103) 04/07/19 11:29 98 Nasal Cannula 2.0 04/07/19 10:38 97.3 71 20 97.3 Weight Weight [ ] Input and Output Intake and Output Intake and Output 04/07/19 06:59 Intake Total 1040 ml Output Total 750 ml Balance 290 ml Intake Oral 1040 ml Output Urine Total 750 ml Laboratory Labs Laboratory Tests Test 04/07/19 04:35 White Blood Count 12.1 x10^3/uL (4.0-11.0) Red Blood Count 3.75 x10^6/uL (3.50-5.40) Hemoglobin 9.0 g/dL (12.0-15.5) Hematocrit 29.2 % (36.0-47.0) Mean Corpuscular Volume 78 fL (79-100) Mean Corpuscular Hemoglobin 24 pg (25-35) Mean Corpuscular Hemoglobin Concent 31 g/dL (31-37) Red Cell Distribution Width 18.8 % (11.5-14.5) Platelet Count 192 x10^3/uL (140-400) Neutrophils (%) (Auto) 71 % (31-73) Lymphocytes (%) (Auto) 20 % (24-48) Monocytes (%) (Auto) 8 % (0-9) Eosinophils (%) (Auto) 0 % (0-3) Basophils (%) (Auto) 1 % (0-3) Neutrophils # (Auto) 8.6 x10^3/uL (1.8-7.7) Lymphocytes # (Auto) 2.4 x10^3/uL (1.0-4.8) Monocytes # (Auto) 1.0 x10^3/uL (0.0-1.1) Eosinophils # (Auto) 0.0 x10^3/uL (0.0-0.7) Basophils # (Auto) 0.1 x10^3/uL (0.0-0.2) Sodium Level 144 mmol/L (136-145) Potassium Level 4.0 mmol/L (3.5-5.1) Chloride Level 105 mmol/L (98-107) Carbon Dioxide Level 31 mmol/L (21-32) Anion Gap 8 (6-14) Blood Urea Nitrogen 35 mg/dL (7-20) Creatinine 1.3 mg/dL (0.6-1.0) Estimated GFR (Cockcroft-Gault) 41.1 Glucose Level 90 mg/dL (70-99) Calcium Level 8.7 mg/dL (8.5-10.1) Physical Exam HEENT: Neck Supple W Full Motion Chest: Symmetric LUNGS: Other (diffuse wheeze) Heart: no gallops, no murmurs, irregularly irregular (AFIB) Abdomen: Soft N/T Extremities: No Calf Tenderness Neurology: alert, oriented, follow commands Assessment Assessment Still wheezy. DC toprol and will increase cardizem, continue dig. Decrease lasix1. Asthma exacerbation: per pulmonary 2. Chronic diastolic CHF: EF>55% 3. PAFIB: remains AFIB rate controlled 4. Morbid obesity with possible FREEMAN 5. Hx of PE/DVT: on xarelto 6. Prerenal azotemia Recommendations 1. Xarelto for stroke prevention 2. Remains wheezy. Stop toprol. Will increase cardizem dosing. Continue digoxin 3. Decrease lasix. Pt to wt self daily at home 4. Follow up with [facility] cardiology as outpt ROSEMARY DANIEL APRN Apr 07, 2019 13:14
[2019-04-07 14:41] VITALS: BP 142/77
[2019-04-07] MEDS: RIVAROXABAN 10 MG TABLET. PO SCH (17:07)
[2019-04-07] MEDS: DIGOXIN 125 MCG TABLET. PO SCH (17:07)
[2019-04-07 19:55] VITALS: BP 122/64
[2019-04-07] MEDS: rOPINIRole 1 MG TABLET. PO SCH (20:34)
[2019-04-07] MEDS: FERROUS SULFATE 325 MG TABLET. PO SCH (20:34)
[2019-04-07] MEDS: MONTELUKAST SODIUM 10 MG TABLET. PO SCH (20:34)
[2019-04-07] MEDS: clonazePAM 0.5 MG TABLET PO SCH (20:34)
[2019-04-07 22:30] VITALS: BP 132/71
[2019-04-08 02:50] VITALS: BP 138/78
[2019-04-08 05:52] LABS: BASO # 0.1 x10^3/uL (0.0-0.2); BASO % 1 % (0-3); EOS # 0.1 x10^3/uL (0.0-0.7); EOS % 1 % (0-3); HEMATOCRIT 31.1 % (36.0-47.0); HEMOGLOBIN 9.8 g/dL (12.0-15.5); LYMPH # 1.1 x10^3/uL (1.0-4.8); LYMPH % 8 % (24-48); MEAN CORPUSCULAR HEMOGLOBIN 24 pg (25-35); MEAN CORPUSCULAR HGB CONC 31 g/dL (31-37); MEAN CORPUSCULAR VOLUME 77 fL (79-100); MONO # 0.7 x10^3/uL (0.0-1.1); MONO % 5 % (0-9); NEUT # 11.2 x10^3/uL (1.8-7.7); NEUT % 86 % (31-73); PLATELET COUNT 179 x10^3/uL (140-400); RED BLOOD COUNT 4.07 x10^6/uL (3.50-5.40); RED CELL DISTRIBUTION WIDTH 18.9 % (11.5-14.5)
[2019-04-08] MEDS: LEVOTHYROXINE 175 MCG TABLET PO SCH (05:57)
[2019-04-08] MEDS: PANTOPRAZOLE 40 MG TABLET.DR. PO SCH (05:57)
[2019-04-08 06:05] LABS: CALCIUM 8.8 mg/dL (8.5-10.1); CREATININE 1.1 mg/dL (0.6-1.0); GFR 49.8; POTASSIUM 4.5 mmol/L (3.5-5.1)
[2019-04-08 07:00] VITALS: BP 128/75
[2019-04-08] MEDS: IPRATRPIUM/ALBUTEROL 0.5/2.5MG 3 ML NEBU. NEB SCH ×4 (07:30→19:18)
[2019-04-08] MEDS: BUDESONIDE 0.5 MG/2 ML NEBU. NEB SCH ×2 (07:30→19:18)
[2019-04-08] MEDS ORDERED: ONDANSETRON PF 4 MG/2 ML VIAL. IVP PRN (07:45)
[2019-04-08 07:47] LABS: % BANDS 2 % (0-9); % LYMPHS 7 % (24-48); % MONOS 1 % (0-10); % SEGS 90 % (35-66); PLT ESTIMATE ADEQUATE (ADEQUATE)
[2019-04-08] MEDS: POTASSIUM CHLORIDE 20 MEQ TABLET.ER. PO SCH ×2 (08:47→16:58)
[2019-04-08] MEDS: DICLOFENAC SODIUM 25 MG TABLET.DR PO SCH ×2 (08:47→21:01)
[2019-04-08] MEDS: DULoxetine HCL 30 MG CAPSULE.DR PO SCH (08:48)
[2019-04-08] MEDS: buPROPion XL 150 MG TAB.ER.24H. PO SCH (08:48)
[2019-04-08] MEDS: DOXYCYCLINE HYCLATE 100 MG TABLET PO SCH ×2 (08:49→21:01)
[2019-04-08] MEDS: CHOLECALCIFEROL (VITAMIN D3) 5,000 UNIT CAPSULE PO SCH (08:49)
[2019-04-08] MEDS: predniSONE 20 MG TABLET PO SCH (08:49)
[2019-04-08] MEDS: GABAPENTIN 300 MG CAPSULE. PO SCH ×2 (08:49→21:02)
[2019-04-08] MEDS: LACTOBACILLUS RHAMNOSUS GG 1 CAPSULE. PO SCH ×2 (08:49→21:02)
[2019-04-08] MEDS: FUROSEMIDE 40 MG TABLET. PO SCH (08:50)
--- NOTE | 2019-04-08 09:23 | PDOC ---
PULMONARY PROGRESS NOTES Subjective pt feels better today less soa Vitals Vital Signs Date Time Temp Pulse Resp B/P (MAP) Pulse Ox O2 Delivery O2 Flow Rate FiO2 04/08/19 08:49 83 04/08/19 07:30 95 Nasal Cannula 3.0 04/08/19 07:00 98.0 20 128/75 (92) 98.0 ROS: No Chest Pain, No Abdominal Pain, No Increase Cough General: Alert Lungs: Wheezing Cardiovascular: S1, S2 Neuro Exam: Alert Extremities: No Edema Skin: Warm Labs Laboratory Tests Test 04/07/19 04:35 04/08/19 05:25 White Blood Count 12.1 x10^3/uL (4.0-11.0) 13.0 x10^3/uL (4.0-11.0) Red Blood Count 3.75 x10^6/uL (3.50-5.40) 4.07 x10^6/uL (3.50-5.40) Hemoglobin 9.0 g/dL (12.0-15.5) 9.8 g/dL (12.0-15.5) Hematocrit 29.2 % (36.0-47.0) 31.1 % (36.0-47.0) Mean Corpuscular Volume 78 fL (79-100) 77 fL (79-100) Mean Corpuscular Hemoglobin 24 pg (25-35) 24 pg (25-35) Mean Corpuscular Hemoglobin Concent 31 g/dL (31-37) 31 g/dL (31-37) Red Cell Distribution Width 18.8 % (11.5-14.5) 18.9 % (11.5-14.5) Platelet Count 192 x10^3/uL (140-400) 179 x10^3/uL (140-400) Neutrophils (%) (Auto) 71 % (31-73) 86 % (31-73) Lymphocytes (%) (Auto) 20 % (24-48) 8 % (24-48) Monocytes (%) (Auto) 8 % (0-9) 5 % (0-9) Eosinophils (%) (Auto) 0 % (0-3) 1 % (0-3) Basophils (%) (Auto) 1 % (0-3) 1 % (0-3) Neutrophils # (Auto) 8.6 x10^3/uL (1.8-7.7) 11.2 x10^3/uL (1.8-7.7) Lymphocytes # (Auto) 2.4 x10^3/uL (1.0-4.8) 1.1 x10^3/uL (1.0-4.8) Monocytes # (Auto) 1.0 x10^3/uL (0.0-1.1) 0.7 x10^3/uL (0.0-1.1) Eosinophils # (Auto) 0.0 x10^3/uL (0.0-0.7) 0.1 x10^3/uL (0.0-0.7) Basophils # (Auto) 0.1 x10^3/uL (0.0-0.2) 0.1 x10^3/uL (0.0-0.2) Sodium Level 144 mmol/L (136-145) 143 mmol/L (136-145) Potassium Level 4.0 mmol/L (3.5-5.1) 4.5 mmol/L (3.5-5.1) Chloride Level 105 mmol/L (98-107) 103 mmol/L (98-107) Carbon Dioxide Level 31 mmol/L (21-32) 33 mmol/L (21-32) Anion Gap 8 (6-14) 7 (6-14) Blood Urea Nitrogen 35 mg/dL (7-20) 25 mg/dL (7-20) Creatinine 1.3 mg/dL (0.6-1.0) 1.1 mg/dL (0.6-1.0) Estimated GFR (Cockcroft-Gault) 41.1 49.8 Glucose Level 90 mg/dL (70-99) 117 mg/dL (70-99) Calcium Level 8.7 mg/dL (8.5-10.1) 8.8 mg/dL (8.5-10.1) Segmented Neutrophils % 90 % (35-66) Band Neutrophils % 2 % (0-9) Lymphocytes % 7 % (24-48) Monocytes % 1 % (0-10) Platelet Estimate Adequate (ADEQUATE) Laboratory Tests Test 04/08/19 05:25 White Blood Count 13.0 x10^3/uL (4.0-11.0) Red Blood Count 4.07 x10^6/uL (3.50-5.40) Hemoglobin 9.8 g/dL (12.0-15.5) Hematocrit 31.1 % (36.0-47.0) Mean Corpuscular Volume 77 fL (79-100) Mean Corpuscular Hemoglobin 24 pg (25-35) Mean Corpuscular Hemoglobin Concent 31 g/dL (31-37) Red Cell Distribution Width 18.9 % (11.5-14.5) Platelet Count 179 x10^3/uL (140-400) Neutrophils (%) (Auto) 86 % (31-73) Lymphocytes (%) (Auto) 8 % (24-48) Monocytes (%) (Auto) 5 % (0-9) Eosinophils (%) (Auto) 1 % (0-3) Basophils (%) (Auto) 1 % (0-3) Neutrophils # (Auto) 11.2 x10^3/uL (1.8-7.7) Lymphocytes # (Auto) 1.1 x10^3/uL (1.0-4.8) Monocytes # (Auto) 0.7 x10^3/uL (0.0-1.1) Eosinophils # (Auto) 0.1 x10^3/uL (0.0-0.7) Basophils # (Auto) 0.1 x10^3/uL (0.0-0.2) Segmented Neutrophils % 90 % (35-66) Band Neutrophils % 2 % (0-9) Lymphocytes % 7 % (24-48) Monocytes % 1 % (0-10) Platelet Estimate Adequate (ADEQUATE) Sodium Level 143 mmol/L (136-145) Potassium Level 4.5 mmol/L (3.5-5.1) Chloride Level 103 mmol/L (98-107) Carbon Dioxide Level 33 mmol/L (21-32) Anion Gap 7 (6-14) Blood Urea Nitrogen 25 mg/dL (7-20) Creatinine 1.1 mg/dL (0.6-1.0) Estimated GFR (Cockcroft-Gault) 49.8 Glucose Level 117 mg/dL (70-99) Calcium Level 8.8 mg/dL (8.5-10.1) Medications Active Scripts Medications Dose Route/Sig Max Daily Dose Days Date Category Dose Instructions Vitamin D (Cholecalciferol (Vitamin D3)) 1,000 Unit Capsule 5,000 Unit PO HS 04/04/19 Reported Omeprazole 20 Mg Capsule.dr 20 Mg PO DAILY 04/04/19 Reported Lidocaine PATCH (Lidocaine) 1 Each Adh..patch 1 Each TP PRN DAILY PRN 04/04/19 Reported REMOVE AFTER 12 HOURS Hydrocodone-Acetamin 7.5-325 (Hydrocodone/Acetaminophen) 1 Each Tablet 1 Each PO PRN Q6HRS PRN 04/04/19 Reported Promethazine Hcl 25 Mg Tablet 1 Tab PO PRN Q6HRS 01/15/19 Reported Spiriva (Tiotropium [place]) 18 Mcg Cap.w.dev 1 Inh IH DAILY 12/16/18 Reported Proair Hfa Inhaler (Albuterol Sulfate) 8.5 Gm Hfa.aer.ad 2 Puff INH PRN Q6HRS PRN 12/16/18 Reported Metoprolol Succinate ( Xl ) (Metoprolol Succinate) 25 Mg Tab.er.24h 25 Mg PO DAILY 12/16/18 Reported Potassium Chloride 20 Meq Tablet.er 20 Meq PO BID 12/16/18 Reported Digoxin 125 Mcg Tablet 125 Mcg PO DAILY 12/16/18 Reported Clonazepam (Clonazepam) 0.5 Mg Tablet 0.5 Mg PO HS 12/16/18 Reported Bupropion Xl (Bupropion Hcl) 300 Mg Tab.er.24h 300 Mg PO DAILY 12/16/18 Reported Dulera 200 Mcg/5 Mcg Inhaler (Mometasone/Formoterol) 13 Gm Hfa.aer.ad 2 Puff IH BID 12/16/18 Reported Ferrous Sulfate 325 Mg Tablet 65 Mg PO HS 12/16/18 Reported Cyclobenzaprine Hcl 10 Mg Tablet 10 Mg PO PRN BID PRN 12/16/18 Reported Gabapentin 600 Mg Tablet 300 Mg PO BID 12/16/18 Reported Montelukast Sodium Tablet (Montelukast Sodium) 10 Mg Tablet 1 Tab PO HS 10/09/16 Reported Ropinirole Hcl 1 Mg Tablet 1 Mg PO HS 10/09/16 Reported Xarelto (Rivaroxaban) 20 Mg Tablet 20 Mg PO DAILY16 10/09/16 Reported Cardizem Cd (Diltiazem Hcl) 240 Mg Cap.er.24h 1 Cap PO DAILY 10/09/16 Reported Prednisone (Prednisone) 10 Mg Tablet 15 Mg PO QODAY 10/09/16 Reported Furosemide 40 Mg Tablet 40 Mg PO BID 10/09/16 Reported Diclofenac Sodium 75 Mg Tablet. 1 Tab PO BID 10/09/16 Reported Cymbalta (Duloxetine Hcl) 60 Mg Capsule.dr Cameron Cap PO DAILY 10/09/16 Reported Levothyroxine Sodium 150 Mcg Tablet 175 Mcg PO DAILY 10/09/16 Reported Impression . IMPRESSION: 1. Acute exacerbation of asthma as indicated above. The patient failed outpatient therapy. She was admitted and now continues to have significant wheezing. 2. Acute nonspecific bronchitis. 3. Acute hypoxic respiratory failure. 4. Rapid atrial fibrillation. 5. Suspect chronic diastolic heart failure. 6. Morbid obesity. 7. History of allergies status post immunotherapy. 8. History of deep venous thrombosis and pulmonary embolism. 9. History of sepsis requiring hospitalization approximately a year ago for 2 months in [place]. 10. Suspect obstructive sleep apnea. 11. Tracheobronchomalacia by history. Plan . 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
--- NOTE | 2019-04-08 09:38 | PDOC ---
[employer] [facility] PROGRESS NOTE Chief Complaint Chief Complaint Acute diastolic CHF Afib Asthma exacerbation Acute on chronic hypoxia Chronic tracheomalacia Cough Weakness Obesity - BMI 65 FREEMAN, History of Present Illness History of Present Illness 04/08/19 Pt seen and examined at bedside Still complains of some weakness WBC = 13,000 (elevated from 12,100 on 04/07) Continues to be on O2 per nasal cannula Pulmonary following Charts and labs reviewed AISLINN RN 04/07/19 Pt was seen and examined sitting upright in chair Still complains of weakness and wheezing Continues to be on O2 per nasal cannula Charts and labs reviewed DW RN 04/06/19 Pt seen and examined Pt was sitting up in chair and feeling better She still has some wheezing bilaterally and was on O2 nasal cannula AISLINN RN wheezing, cough, weakness today she asked for stress steroids, consider abx, consult Dr. Carmen, she also did not have her CPAP last night, so may have sec. pulm htn today will add PT And OT, Vitals/I&O Vitals/I&O: Vital Signs Date Time Temp Pulse Resp B/P (MAP) Pulse Ox O2 Delivery O2 Flow Rate FiO2 04/08/19 08:49 83 04/08/19 07:30 95 Nasal Cannula 3.0 04/08/19 07:00 98.0 20 128/75 (92) 98.0 I & O 04/07/19 04/07/19 04/08/19 15:00 23:00 07:00 Intake Total 240 ml 300 ml 1500 ml Output Total 250 ml 1100 ml 1500 ml Balance -10 ml -800 ml 0 ml Physical Exam General: Alert, Oriented X3, Cooperative, mild distress Heart: Other (irregularly irregular) Lungs: Wheezing Abdomen: Normal bowel sounds Extremities: No clubbing, No cyanosis, Normal pulses Skin: No rashes, No breakdown, No significant lesion Labs Labs: Laboratory Tests Test 04/08/19 05:25 White Blood Count 13.0 x10^3/uL (4.0-11.0) Red Blood Count 4.07 x10^6/uL (3.50-5.40) Hemoglobin 9.8 g/dL (12.0-15.5) Hematocrit 31.1 % (36.0-47.0) Mean Corpuscular Volume 77 fL (79-100) Mean Corpuscular Hemoglobin 24 pg (25-35) Mean Corpuscular Hemoglobin Concent 31 g/dL (31-37) Red Cell Distribution Width 18.9 % (11.5-14.5) Platelet Count 179 x10^3/uL (140-400) Neutrophils (%) (Auto) 86 % (31-73) Lymphocytes (%) (Auto) 8 % (24-48) Monocytes (%) (Auto) 5 % (0-9) Eosinophils (%) (Auto) 1 % (0-3) Basophils (%) (Auto) 1 % (0-3) Neutrophils # (Auto) 11.2 x10^3/uL (1.8-7.7) Lymphocytes # (Auto) 1.1 x10^3/uL (1.0-4.8) Monocytes # (Auto) 0.7 x10^3/uL (0.0-1.1) Eosinophils # (Auto) 0.1 x10^3/uL (0.0-0.7) Basophils # (Auto) 0.1 x10^3/uL (0.0-0.2) Segmented Neutrophils % 90 % (35-66) Band Neutrophils % 2 % (0-9) Lymphocytes % 7 % (24-48) Monocytes % 1 % (0-10) Platelet Estimate Adequate (ADEQUATE) Sodium Level 143 mmol/L (136-145) Potassium Level 4.5 mmol/L (3.5-5.1) Chloride Level 103 mmol/L (98-107) Carbon Dioxide Level 33 mmol/L (21-32) Anion Gap 7 (6-14) Blood Urea Nitrogen 25 mg/dL (7-20) Creatinine 1.1 mg/dL (0.6-1.0) Estimated GFR (Cockcroft-Gault) 49.8 Glucose Level 117 mg/dL (70-99) Calcium Level 8.8 mg/dL (8.5-10.1) Review of Systems Review of Systems: No chest pain, no palpitations No headache, no changes in vision Assessment and Plan Assessmemt and Plan Problems Medical Problems: (1) Atrial fibrillation with RVR Status: Acute Assessment Asthma Tracheomalacia Obesity Acute diastolic CHF Bronchitis Plan Cardiac monitoring IV abx Bronchodilators Pulmonary following PT/OT DVT prophylaxis Full code Comment Review of Relevant I have reviewed the following items jorge (where applicable) has been applied. Medications: Current Medications Medications (Trade) Dose Ordered Sig/Ijeoma Route PRN Reason Start Time Stop Time Status Last Admin Dose Admin Diltiazem HCl (Cardizem 24hr Cd) 300 mg DAILY PO 04/08/19 09:00 04/08/19 08:49 Furosemide (Lasix) 40 mg DAILY PO 04/08/19 09:00 04/08/19 08:50 Doxycycline Hyclate (Vibra-Tab) 100 mg BID PO 04/08/19 09:00 04/08/19 08:49 Lactobacillus Rhamnosus (Culturelle) 1 cap BID PO 04/08/19 09:00 04/08/19 08:49 ZIYAD ESTRELLA III DO Apr 08, 2019 09:38
[2019-04-08 11:00] VITALS: BP 113/54
--- NOTE | 2019-04-08 14:26 | NUR ---
SS following up with discharge planning. Pt agreeable to [facility], ; fax [phone]. SS will continue to follow for discharge planning.
[2019-04-08 15:00] VITALS: BP 116/59
[2019-04-08] MEDS: DIGOXIN 125 MCG TABLET. PO SCH (16:59)
[2019-04-08] MEDS: RIVAROXABAN 10 MG TABLET. PO SCH (16:59)
[2019-04-08] MEDS ORDERED: FLUCONAZOLE 100 MG TABLET. PO SCH (19:00)
[2019-04-08 19:55] VITALS: BP 116/53
[2019-04-08] MEDS: rOPINIRole 1 MG TABLET. PO SCH (21:01)
[2019-04-08] MEDS: clonazePAM 0.5 MG TABLET PO SCH (21:01)
[2019-04-08] MEDS: FERROUS SULFATE 325 MG TABLET. PO SCH (21:02)
[2019-04-08] MEDS: MONTELUKAST SODIUM 10 MG TABLET. PO SCH (21:02)
[2019-04-08 22:53] VITALS: BP 122/60
[2019-04-09] MEDS: guaiFENesin/CODEINE 100mg/10mg 5 ML LIQUID PO PRN (00:08)
[2019-04-09 02:29] VITALS: BP 141/61
[2019-04-09 05:11] LABS: BASO % 0 % (0-3); EOS # 0.1 x10^3/uL (0.0-0.7); EOS % 0 % (0-3); HEMATOCRIT 30.2 % (36.0-47.0); HEMOGLOBIN 9.5 g/dL (12.0-15.5); LYMPH # 2.3 x10^3/uL (1.0-4.8); LYMPH % 16 % (24-48); MEAN CORPUSCULAR HEMOGLOBIN 25 pg (25-35); MEAN CORPUSCULAR HGB CONC 32 g/dL (31-37); MEAN CORPUSCULAR VOLUME 78 fL (79-100); MONO # 1.2 x10^3/uL (0.0-1.1); MONO % 8 % (0-9); NEUT % 76 % (31-73); PLATELET COUNT 184 x10^3/uL (140-400); RED BLOOD COUNT 3.88 x10^6/uL (3.50-5.40); RED CELL DISTRIBUTION WIDTH 19.3 % (11.5-14.5); WHITE BLOOD COUNT 14.5 x10^3/uL (4.0-11.0)
[2019-04-09 05:15] LABS: CALCIUM 8.6 mg/dL (8.5-10.1); CREATININE 1.3 mg/dL (0.6-1.0); GFR 41.1; POTASSIUM 3.8 mmol/L (3.5-5.1)
[2019-04-09] MEDS: PANTOPRAZOLE 40 MG TABLET.DR. PO SCH (06:24)
[2019-04-09] MEDS: LEVOTHYROXINE 175 MCG TABLET PO SCH (06:24)
[2019-04-09 07:00] VITALS: BP 118/57
[2019-04-09] MEDS: BUDESONIDE 0.5 MG/2 ML NEBU. NEB SCH (08:00)
[2019-04-09] MEDS: IPRATRPIUM/ALBUTEROL 0.5/2.5MG 3 ML NEBU. NEB SCH ×2 (08:00→11:25)
[2019-04-09] MEDS: LACTOBACILLUS RHAMNOSUS GG 1 CAPSULE. PO SCH (08:35)
[2019-04-09] MEDS: GABAPENTIN 300 MG CAPSULE. PO SCH (08:36)
[2019-04-09] MEDS: CHOLECALCIFEROL (VITAMIN D3) 5,000 UNIT CAPSULE PO SCH (08:36)
[2019-04-09] MEDS: DOXYCYCLINE HYCLATE 100 MG TABLET PO SCH (08:36)
[2019-04-09] MEDS: buPROPion XL 150 MG TAB.ER.24H. PO SCH (08:36)
[2019-04-09] MEDS: DULoxetine HCL 30 MG CAPSULE.DR PO SCH (08:36)
[2019-04-09] MEDS: POTASSIUM CHLORIDE 20 MEQ TABLET.ER. PO SCH (08:36)
[2019-04-09] MEDS: FUROSEMIDE 40 MG TABLET. PO SCH (08:36)
[2019-04-09] MEDS: DICLOFENAC SODIUM 25 MG TABLET.DR PO SCH (08:37)
[2019-04-09] MEDS: predniSONE 20 MG TABLET PO SCH (08:37)
--- NOTE | 2019-04-09 10:48 | PDOC ---
PULMONARY PROGRESS NOTES Subjective pt feels better today less soa Vitals Vital Signs Date Time Temp Pulse Resp B/P (MAP) Pulse Ox O2 Delivery O2 Flow Rate FiO2 04/09/19 09:22 97 Room Air 04/09/19 08:36 73 118/57 04/09/19 07:00 97.4 18 97.4 04/08/19 20:00 2.0 ROS: No Chest Pain, No Abdominal Pain, No Increase Cough General: Alert Lungs: Wheezing Cardiovascular: S1, S2 Neuro Exam: Alert Extremities: No Edema Skin: Warm Labs Laboratory Tests Test 04/08/19 05:25 04/09/19 04:30 White Blood Count 13.0 x10^3/uL (4.0-11.0) 14.5 x10^3/uL (4.0-11.0) Red Blood Count 4.07 x10^6/uL (3.50-5.40) 3.88 x10^6/uL (3.50-5.40) Hemoglobin 9.8 g/dL (12.0-15.5) 9.5 g/dL (12.0-15.5) Hematocrit 31.1 % (36.0-47.0) 30.2 % (36.0-47.0) Mean Corpuscular Volume 77 fL (79-100) 78 fL (79-100) Mean Corpuscular Hemoglobin 24 pg (25-35) 25 pg (25-35) Mean Corpuscular Hemoglobin Concent 31 g/dL (31-37) 32 g/dL (31-37) Red Cell Distribution Width 18.9 % (11.5-14.5) 19.3 % (11.5-14.5) Platelet Count 179 x10^3/uL (140-400) 184 x10^3/uL (140-400) Neutrophils (%) (Auto) 86 % (31-73) 76 % (31-73) Lymphocytes (%) (Auto) 8 % (24-48) 16 % (24-48) Monocytes (%) (Auto) 5 % (0-9) 8 % (0-9) Eosinophils (%) (Auto) 1 % (0-3) 0 % (0-3) Basophils (%) (Auto) 1 % (0-3) 0 % (0-3) Neutrophils # (Auto) 11.2 x10^3/uL (1.8-7.7) 11.0 x10^3/uL (1.8-7.7) Lymphocytes # (Auto) 1.1 x10^3/uL (1.0-4.8) 2.3 x10^3/uL (1.0-4.8) Monocytes # (Auto) 0.7 x10^3/uL (0.0-1.1) 1.2 x10^3/uL (0.0-1.1) Eosinophils # (Auto) 0.1 x10^3/uL (0.0-0.7) 0.1 x10^3/uL (0.0-0.7) Basophils # (Auto) 0.1 x10^3/uL (0.0-0.2) 0.0 x10^3/uL (0.0-0.2) Segmented Neutrophils % 90 % (35-66) Band Neutrophils % 2 % (0-9) Lymphocytes % 7 % (24-48) Monocytes % 1 % (0-10) Platelet Estimate Adequate (ADEQUATE) Sodium Level 143 mmol/L (136-145) 142 mmol/L (136-145) Potassium Level 4.5 mmol/L (3.5-5.1) 3.8 mmol/L (3.5-5.1) Chloride Level 103 mmol/L (98-107) 102 mmol/L (98-107) Carbon Dioxide Level 33 mmol/L (21-32) 32 mmol/L (21-32) Anion Gap 7 (6-14) 8 (6-14) Blood Urea Nitrogen 25 mg/dL (7-20) 30 mg/dL (7-20) Creatinine 1.1 mg/dL (0.6-1.0) 1.3 mg/dL (0.6-1.0) Estimated GFR (Cockcroft-Gault) 49.8 41.1 Glucose Level 117 mg/dL (70-99) 99 mg/dL (70-99) Calcium Level 8.8 mg/dL (8.5-10.1) 8.6 mg/dL (8.5-10.1) Laboratory Tests Test 04/09/19 04:30 White Blood Count 14.5 x10^3/uL (4.0-11.0) Red Blood Count 3.88 x10^6/uL (3.50-5.40) Hemoglobin 9.5 g/dL (12.0-15.5) Hematocrit 30.2 % (36.0-47.0) Mean Corpuscular Volume 78 fL (79-100) Mean Corpuscular Hemoglobin 25 pg (25-35) Mean Corpuscular Hemoglobin Concent 32 g/dL (31-37) Red Cell Distribution Width 19.3 % (11.5-14.5) Platelet Count 184 x10^3/uL (140-400) Neutrophils (%) (Auto) 76 % (31-73) Lymphocytes (%) (Auto) 16 % (24-48) Monocytes (%) (Auto) 8 % (0-9) Eosinophils (%) (Auto) 0 % (0-3) Basophils (%) (Auto) 0 % (0-3) Neutrophils # (Auto) 11.0 x10^3/uL (1.8-7.7) Lymphocytes # (Auto) 2.3 x10^3/uL (1.0-4.8) Monocytes # (Auto) 1.2 x10^3/uL (0.0-1.1) Eosinophils # (Auto) 0.1 x10^3/uL (0.0-0.7) Basophils # (Auto) 0.0 x10^3/uL (0.0-0.2) Sodium Level 142 mmol/L (136-145) Potassium Level 3.8 mmol/L (3.5-5.1) Chloride Level 102 mmol/L (98-107) Carbon Dioxide Level 32 mmol/L (21-32) Anion Gap 8 (6-14) Blood Urea Nitrogen 30 mg/dL (7-20) Creatinine 1.3 mg/dL (0.6-1.0) Estimated GFR (Cockcroft-Gault) 41.1 Glucose Level 99 mg/dL (70-99) Calcium Level 8.6 mg/dL (8.5-10.1) Medications Active Scripts Medications Dose Route/Sig Max Daily Dose Days Date Category Dose Instructions Vitamin D (Cholecalciferol (Vitamin D3)) 1,000 Unit Capsule 5,000 Unit PO HS 04/04/19 Reported Omeprazole 20 Mg Capsule.dr 20 Mg PO DAILY 04/04/19 Reported Lidocaine PATCH (Lidocaine) 1 Each Adh..patch 1 Each TP PRN DAILY PRN 04/04/19 Reported REMOVE AFTER 12 HOURS Hydrocodone-Acetamin 7.5-325 (Hydrocodone/Acetaminophen) 1 Each Tablet 1 Each PO PRN Q6HRS PRN 04/04/19 Reported Promethazine Hcl 25 Mg Tablet 1 Tab PO PRN Q6HRS 01/15/19 Reported Spiriva (Tiotropium Isabella) 18 Mcg Cap.w.dev 1 Inh IH DAILY 12/16/18 Reported Proair Hfa Inhaler (Albuterol Sulfate) 8.5 Gm Hfa.aer.ad 2 Puff INH PRN Q6HRS PRN 12/16/18 Reported Metoprolol Succinate ( Xl ) (Metoprolol Succinate) 25 Mg Tab.er.24h 25 Mg PO DAILY 12/16/18 Reported Potassium Chloride 20 Meq Tablet.er 20 Meq PO BID 12/16/18 Reported Digoxin 125 Mcg Tablet 125 Mcg PO DAILY 12/16/18 Reported Clonazepam (Clonazepam) 0.5 Mg Tablet 0.5 Mg PO HS 12/16/18 Reported Bupropion Xl (Bupropion Hcl) 300 Mg Tab.er.24h 300 Mg PO DAILY 12/16/18 Reported Dulera 200 Mcg/5 Mcg Inhaler (Mometasone/Formoterol) 13 Gm Hfa.aer.ad 2 Puff IH BID 12/16/18 Reported Ferrous Sulfate 325 Mg Tablet 65 Mg PO HS 12/16/18 Reported Cyclobenzaprine Hcl 10 Mg Tablet 10 Mg PO PRN BID PRN 12/16/18 Reported Gabapentin 600 Mg Tablet 300 Mg PO BID 12/16/18 Reported Montelukast Sodium Tablet (Montelukast Sodium) 10 Mg Tablet 1 Tab PO HS 10/09/16 Reported Ropinirole Hcl 1 Mg Tablet 1 Mg PO HS 10/09/16 Reported Xarelto (Rivaroxaban) 20 Mg Tablet 20 Mg PO DAILY16 10/09/16 Reported Cardizem Cd (Diltiazem Hcl) 240 Mg Cap.er.24h 1 Cap PO DAILY 10/09/16 Reported Prednisone (Prednisone) 10 Mg Tablet 15 Mg PO QODAY 10/09/16 Reported Furosemide 40 Mg Tablet 40 Mg PO BID 10/09/16 Reported Diclofenac Sodium 75 Mg Tablet.dr 1 Tab PO BID 10/09/16 Reported Cymbalta (Duloxetine Hcl) 60 Mg Capsule.dr 1 Cap PO DAILY 10/09/16 Reported Levothyroxine Sodium 150 Mcg Tablet 175 Mcg PO DAILY 10/09/16 Reported Impression . IMPRESSION: 1. Acute exacerbation of asthma as indicated above. The patient failed outpatient therapy. She was admitted and now continues to have significant wheezing. 2. Acute nonspecific bronchitis. 3. Acute hypoxic respiratory failure. 4. Rapid atrial fibrillation. 5. Suspect chronic diastolic heart failure. 6. Morbid obesity. 7. History of allergies status post immunotherapy. 8. History of deep venous thrombosis and pulmonary embolism. 9. History of sepsis requiring hospitalization approximately a year ago for 2 months in [place]. 10. Suspect obstructive sleep apnea. 11. Tracheobronchomalacia by history. Plan . 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
--- NOTE | 2019-04-09 10:59 | PDOC ---
[employer] PROGRESS NOTE Chief Complaint Chief Complaint Acute diastolic CHF Afib Asthma exacerbation Acute on chronic hypoxia Chronic tracheomalacia Cough Weakness Obesity - BMI 65 FREEMAN, History of Present Illness History of Present Illness 04/09/19 Pt seen and examined at bedside Still complains of some weakness Continued wheezing due to tracheomalacia WBC elevated to 14,500 (from 13,000 on 04/08) Will follow with mobile developer in [place], [place] Charts and labs reviewed DW RN 04/08/19 Pt seen and examined at bedside Still complains of some weakness WBC = 13,000 (elevated from 12,100 on 04/07) Continues to be on O2 per nasal cannula Pulmonary following Charts and labs reviewed DW RN 04/07/19 Pt was seen and examined sitting upright in chair Still complains of weakness and wheezing Continues to be on O2 per nasal cannula Charts and labs reviewed DW RN 04/06/19 Pt seen and examined Pt was sitting up in chair and feeling better She still has some wheezing bilaterally and was on O2 nasal cannula AISLINN RN wheezing, cough, weakness today she asked for stress steroids, consider abx, consult Dr. Carmen, she also did not have her CPAP last night, so may have sec. pulm htn today will add PT And OT, Vitals/I&O Vitals/I&O: Vital Signs Date Time Temp Pulse Resp B/P (MAP) Pulse Ox O2 Delivery O2 Flow Rate FiO2 04/09/19 09:22 97 Room Air 04/09/19 08:36 73 118/57 04/09/19 07:00 97.4 18 97.4 04/08/19 20:00 2.0 I & O 04/08/19 04/08/19 04/09/19 14:59 22:59 06:59 Intake Total 240 ml 240 ml 1100 ml Output Total 450 ml 1300 ml Balance 240 ml -210 ml -200 ml Physical Exam General: Alert, Oriented X3, Cooperative, mild distress Heart: Other (irregularly irregular) Lungs: Wheezing Abdomen: Normal bowel sounds Extremities: No clubbing, No cyanosis, Normal pulses Skin: No rashes, No breakdown, No significant lesion Labs Labs: Laboratory Tests Test 04/09/19 04:30 White Blood Count 14.5 x10^3/uL (4.0-11.0) Red Blood Count 3.88 x10^6/uL (3.50-5.40) Hemoglobin 9.5 g/dL (12.0-15.5) Hematocrit 30.2 % (36.0-47.0) Mean Corpuscular Volume 78 fL (79-100) Mean Corpuscular Hemoglobin 25 pg (25-35) Mean Corpuscular Hemoglobin Concent 32 g/dL (31-37) Red Cell Distribution Width 19.3 % (11.5-14.5) Platelet Count 184 x10^3/uL (140-400) Neutrophils (%) (Auto) 76 % (31-73) Lymphocytes (%) (Auto) 16 % (24-48) Monocytes (%) (Auto) 8 % (0-9) Eosinophils (%) (Auto) 0 % (0-3) Basophils (%) (Auto) 0 % (0-3) Neutrophils # (Auto) 11.0 x10^3/uL (1.8-7.7) Lymphocytes # (Auto) 2.3 x10^3/uL (1.0-4.8) Monocytes # (Auto) 1.2 x10^3/uL (0.0-1.1) Eosinophils # (Auto) 0.1 x10^3/uL (0.0-0.7) Basophils # (Auto) 0.0 x10^3/uL (0.0-0.2) Sodium Level 142 mmol/L (136-145) Potassium Level 3.8 mmol/L (3.5-5.1) Chloride Level 102 mmol/L (98-107) Carbon Dioxide Level 32 mmol/L (21-32) Anion Gap 8 (6-14) Blood Urea Nitrogen 30 mg/dL (7-20) Creatinine 1.3 mg/dL (0.6-1.0) Estimated GFR (Cockcroft-Gault) 41.1 Glucose Level 99 mg/dL (70-99) Calcium Level 8.6 mg/dL (8.5-10.1) Review of Systems Review of Systems: No nausea, no vomiting No headache, no changes in vision Assessment and Plan Assessmemt and Plan Problems Medical Problems: (1) Atrial fibrillation with RVR Status: Acute Assessment Asthma exacerbation Acute diastolic CHF Chronic tracheomalacia Obesity Hypoxia Plan Bronchodilators Duonebs Home meds PT/OT Discharge if okay with pulmonary Comment Review of Relevant I have reviewed the following items jorge (where applicable) has been applied. Medications: Current Medications Medications (Trade) Dose Ordered Sig/Ijeoma Route PRN Reason Start Time Stop Time Status Last Admin Dose Admin Fluconazole (Diflucan) 100 mg Q24H PO 04/08/19 19:00 04/08/19 21:02 ZIYAD ESTRELLA III DO Apr 09, 2019 10:59
[2019-04-09 11:00] VITALS: BP 127/58
[2019-04-09] MEDS ORDERED: FLUC100T7 PO (11:32)
[2019-04-09] MEDS ORDERED: DOXY100C2 PO (11:34)
[2019-04-09] MEDS ORDERED: DILT180C29 PO (11:35)
[2019-04-09] MEDS ORDERED: FERR325T14 PO (11:36)
[2019-04-09] MEDS ORDERED: FURO40TA4 PO (11:37)
--- NOTE | 2019-04-09 12:14 | SNU/HH DC ---
DISCHARGE WITH HOME HEALTH DISCHARGE INFORMATION: Final Diagnosis: Problems Medical Problems: (1) Atrial fibrillation with RVR Status: Acute Condition on Discharge: Stable CODE STATUS: Code Status: Full HOME HEALTH: Face to Face: I certify this patient is under my care and that I, or a nurse practitioner or physician's railway yard assistant working with me, had a face to face encounter that meets the physician face to face encounter requirements with this patient on []. Medical Complications: COPD Long-Term For: Assess & Educate Safety RN For Eval/Treatment: Yes Physical Therapy For: Evalulation/Treatment Occupational Therapy For: Evaluation/Treatment Home Health Aide For: Self-care POISING INSPECTOR For: Community Resources Pt Meets Homebound Status: Extreme weakness w/ amb. POST DISCHARGE ORDERS: Activity Instructions for Disc: No restrictions Weight Bearing Status after Di: No restrictions DIET AFTER DISCHARGE: Regular CHECKS AFTER DISCHARGE: Checks after discharge: Check blood press - daily, Check your Temp as needed, Weigh Yourself Daily FOLLOW-UP: Follow up with: Virtual Office Assistant in 1-2 weeks Follow Up With: Primary Care Physician in 1-2 weeks TREATMENT/EQUIPMENT ORDERS: Adaptive Equipment Issued: None CERTIFICATION STATEMENT: Certification Statement: Certification Statement: Based on the above finding, I certify that this patient is confined to the home and needs intermittent snf care, physical therapy and/or speech therapy, or continues to need occupational therapy.~ This patient is under my care, and I have initiated the establishment of the plan of care.~ This patient will be followed by myself or a community physician who will periodically review the plan of care. Home Meds Reported Medications Furosemide (FUROSEMIDE) 40 Mg Tablet, 40 MG PO DAILY for CHF, TAB 04/09/19 Ferrous Sulfate (FERROUS SULFATE) 325 Mg Tablet, 325 MG PO HS for anemia, TAB 04/09/19 Diltiazem Hcl (DILTIAZEM 24HR CD) 180 Mg Cap.er.24h, 300 MG PO DAILY for Afib, CAP.SR 04/09/19 Doxycycline Hyclate (DOXYCYCLINE HYCLATE) 100 Mg Capsule, 100 MG PO BID for wheezing, CAP 04/09/19 Fluconazole (DIFLUCAN) 100 Mg Tablet, 200 MG PO HS for yeast infection, TAB 04/09/19 Cholecalciferol (Vitamin D3) (VITAMIN D) 1,000 Unit Capsule, 5000 UNIT PO HS for supplement, CAP 04/04/19 Omeprazole (OMEPRAZOLE) 20 Mg Capsule.dr, 20 MG PO DAILY for gerd , CAP 04/04/19 Lidocaine (Lidocaine PATCH ) 1 Each Adh..patch, 1 EACH TP PRN DAILY PRN for pain , PATCH REMOVE AFTER 12 HOURS 04/04/19 Hydrocodone/Acetaminophen (Hydrocodone-Acetamin 7.5-325) 1 Each Tablet, 1 EACH PO PRN Q6HRS PRN for PAIN, TAB 04/04/19 Promethazine Hcl (PROMETHAZINE HCL) 25 Mg Tablet, 1 TAB PO PRN Q6HRS for nausea, #20 TAB 01/15/19 Tiotropium [place] (SPIRIVA) 18 Mcg Cap.w.dev, 1 INH IH DAILY for treat asthma, #1 INH 0 Refills 12/16/18 Albuterol Sulfate (PROAIR HFA INHALER) 8.5 Gm Hfa.aer.ad, 2 PUFF INH PRN Q6HRS PRN for SHORTNESS OF BREATH, INHALER 0 Refills 12/16/18 Potassium Chloride (POTASSIUM CHLORIDE) 20 Meq Tablet.er, 20 MEQ PO BID for ttreat low K+ level, TAB.SR 12/16/18 Digoxin (DIGOXIN) 125 Mcg Tablet, 125 MCG PO DAILY for AFIB/HEART FAILURE, TAB 12/16/18 Clonazepam (CLONAZEPAM ) 0.5 Mg Tablet, 0.5 MG PO HS for help with sleep, TAB 12/16/18 Bupropion Hcl (BUPROPION XL) 300 Mg Tab.er.24h, 300 MG PO DAILY for treat depression, TAB.SR 12/16/18 Mometasone/Formoterol (DULERA 200 MCG/5 MCG INHALER) 13 Gm Hfa.aer.ad, 2 PUFF IH BID for treat asthma, INHALER 12/16/18 Ferrous Sulfate (FERROUS SULFATE) 325 Mg Tablet, 65 MG PO HS for treat anemia, TAB 12/16/18 Cyclobenzaprine Hcl (CYCLOBENZAPRINE HCL) 10 Mg Tablet, 10 MG PO PRN BID PRN for MUSCLE SPASMS, TAB 12/16/18 Gabapentin (GABAPENTIN) 600 Mg Tablet, 300 MG PO BID for NEUROGENIC PAIN, TAB 12/16/18 Montelukast Sodium (MONTELUKAST SODIUM TABLET ) 10 Mg Tablet, 1 TAB PO HS for treat allergies/asthma, #30 TAB 5 Refills 10/09/16 Ropinirole Hcl (ROPINIROLE HCL) 1 Mg Tablet, 1 MG PO HS for treat restless leg syndrome, TAB 10/09/16 Rivaroxaban (XARELTO) 20 Mg Tablet, 20 MG PO DAILY16 for prevent pe due to a fib, TAB 10/09/16 Prednisone (PREDNISONE ) 10 Mg Tablet, 15 MG PO QODAY for to treat asthma, TAB 10/09/16 Diclofenac Sodium (DICLOFENAC SODIUM) 75 Mg Tablet.dr, 1 TAB PO BID, #60 TAB 1 Refill 10/09/16 Duloxetine Hcl (CYMBALTA) 60 Mg Capsule.dr, 1 CAP PO DAILY, #90 CAP 3 Refills 10/09/16 Levothyroxine Sodium (LEVOTHYROXINE SODIUM) 150 Mcg Tablet, 175 MCG PO DAILY for hypothyroidism, #30 TAB 5 Refills 10/09/16 ZIYAD ESTRELLA III DO Apr 09, 2019 12:14
--- NOTE | 2019-04-09 12:25 | NUR ---
SS following up with discharge planning. Discharge orders received for home healthcare. SS phoned and faxed discharge orders to [facility], ; fax [phone]. Pt's RN notified.
--- NOTE | 2019-04-09 12:49 | NUR ---
Discharge Note: [facility] Discharge instructions and discharge home medications reviewed with Patient and a copy given. All questions have been answered and understanding verbalized.
--- NOTE | 2019-04-09 14:27 | PDOC ---
PROGRESS NOTES Subjective Subjective Patient seen and examined She looks and feels better today. Objective Objective Vital Signs Date Time Temp Pulse Resp B/P (MAP) Pulse Ox O2 Delivery O2 Flow Rate FiO2 04/09/19 11:00 98.2 82 18 127/58 (81) 94 Room Air 98.2 04/08/19 20:00 2.0 Intake and Output 04/09/19 07:00 Intake Total 1580 ml Output Total 1750 ml Balance -170 ml Intake Oral 1580 ml Output Urine Total 1750 ml Physical Exam Abdomen: Normal bowel sounds Heart: Regular rate General: mild distress Lungs: Other (mildly decreased breath sounds) Assessment Assessment Problems Medical Problems: (1) Atrial fibrillation with RVR Status: Acute Asthma exacerbation. Continues to improve. Off beta blockers and on Cardizem. Followed by pulmonary. Chronic diastolic heart failure. Ejection fraction normal. Clinically improved. Continue present treatment. Clinically improved. Continue present treatment. Paroxysmal atrial fibrillation. Rate controlled atrial fibrillation. On anticoagulation. History of PEs and DVTs. On anticoagulation as above. Morbid obesity. Comment Review of Relevant I have reviewed the following items jorge (where applicable) has been applied. Labs Laboratory Tests Test 04/08/19 05:25 04/09/19 04:30 White Blood Count 13.0 x10^3/uL (4.0-11.0) 14.5 x10^3/uL (4.0-11.0) Red Blood Count 4.07 x10^6/uL (3.50-5.40) 3.88 x10^6/uL (3.50-5.40) Hemoglobin 9.8 g/dL (12.0-15.5) 9.5 g/dL (12.0-15.5) Hematocrit 31.1 % (36.0-47.0) 30.2 % (36.0-47.0) Mean Corpuscular Volume 77 fL (79-100) 78 fL (79-100) Mean Corpuscular Hemoglobin 24 pg (25-35) 25 pg (25-35) Mean Corpuscular Hemoglobin Concent 31 g/dL (31-37) 32 g/dL (31-37) Red Cell Distribution Width 18.9 % (11.5-14.5) 19.3 % (11.5-14.5) Platelet Count 179 x10^3/uL (140-400) 184 x10^3/uL (140-400) Neutrophils (%) (Auto) 86 % (31-73) 76 % (31-73) Lymphocytes (%) (Auto) 8 % (24-48) 16 % (24-48) Monocytes (%) (Auto) 5 % (0-9) 8 % (0-9) Eosinophils (%) (Auto) 1 % (0-3) 0 % (0-3) Basophils (%) (Auto) 1 % (0-3) 0 % (0-3) Neutrophils # (Auto) 11.2 x10^3/uL (1.8-7.7) 11.0 x10^3/uL (1.8-7.7) Lymphocytes # (Auto) 1.1 x10^3/uL (1.0-4.8) 2.3 x10^3/uL (1.0-4.8) Monocytes # (Auto) 0.7 x10^3/uL (0.0-1.1) 1.2 x10^3/uL (0.0-1.1) Eosinophils # (Auto) 0.1 x10^3/uL (0.0-0.7) 0.1 x10^3/uL (0.0-0.7) Basophils # (Auto) 0.1 x10^3/uL (0.0-0.2) 0.0 x10^3/uL (0.0-0.2) Segmented Neutrophils % 90 % (35-66) Band Neutrophils % 2 % (0-9) Lymphocytes % 7 % (24-48) Monocytes % 1 % (0-10) Platelet Estimate Adequate (ADEQUATE) Sodium Level 143 mmol/L (136-145) 142 mmol/L (136-145) Potassium Level 4.5 mmol/L (3.5-5.1) 3.8 mmol/L (3.5-5.1) Chloride Level 103 mmol/L (98-107) 102 mmol/L (98-107) Carbon Dioxide Level 33 mmol/L (21-32) 32 mmol/L (21-32) Anion Gap 7 (6-14) 8 (6-14) Blood Urea Nitrogen 25 mg/dL (7-20) 30 mg/dL (7-20) Creatinine 1.1 mg/dL (0.6-1.0) 1.3 mg/dL (0.6-1.0) Estimated GFR (Cockcroft-Gault) 49.8 41.1 Glucose Level 117 mg/dL (70-99) 99 mg/dL (70-99) Calcium Level 8.8 mg/dL (8.5-10.1) 8.6 mg/dL (8.5-10.1) Laboratory Tests Test 04/09/19 04:30 White Blood Count 14.5 x10^3/uL (4.0-11.0) Red Blood Count 3.88 x10^6/uL (3.50-5.40) Hemoglobin 9.5 g/dL (12.0-15.5) Hematocrit 30.2 % (36.0-47.0) Mean Corpuscular Volume 78 fL (79-100) Mean Corpuscular Hemoglobin 25 pg (25-35) Mean Corpuscular Hemoglobin Concent 32 g/dL (31-37) Red Cell Distribution Width 19.3 % (11.5-14.5) Platelet Count 184 x10^3/uL (140-400) Neutrophils (%) (Auto) 76 % (31-73) Lymphocytes (%) (Auto) 16 % (24-48) Monocytes (%) (Auto) 8 % (0-9) Eosinophils (%) (Auto) 0 % (0-3) Basophils (%) (Auto) 0 % (0-3) Neutrophils # (Auto) 11.0 x10^3/uL (1.8-7.7) Lymphocytes # (Auto) 2.3 x10^3/uL (1.0-4.8) Monocytes # (Auto) 1.2 x10^3/uL (0.0-1.1) Eosinophils # (Auto) 0.1 x10^3/uL (0.0-0.7) Basophils # (Auto) 0.0 x10^3/uL (0.0-0.2) Sodium Level 142 mmol/L (136-145) Potassium Level 3.8 mmol/L (3.5-5.1) Chloride Level 102 mmol/L (98-107) Carbon Dioxide Level 32 mmol/L (21-32) Anion Gap 8 (6-14) Blood Urea Nitrogen 30 mg/dL (7-20) Creatinine 1.3 mg/dL (0.6-1.0) Estimated GFR (Cockcroft-Gault) 41.1 Glucose Level 99 mg/dL (70-99) Calcium Level 8.6 mg/dL (8.5-10.1) Medications Current Medications Methylprednisolone Sodium Succinate (SOLU-Medrol 125MG VIAL) 125 mg 1X ONCE IV Last administered on 04/03/19at 23:05; Start 04/03/19 at 22:00; Stop 04/03/19 at 22:01; Status DC Albuterol/ Ipratropium (Duoneb) 3 ml 1X ONCE NEB Last administered on 04/03/19at 22:39; Start 04/03/19 at 22:00; Stop 04/03/19 at 22:01; Status DC Diltiazem HCl (Cardizem Iv Push) 10 mg 1X ONCE IVP Last administered on 04/03/19at 23:06; Start 04/03/19 at 22:00; Stop 04/03/19 at 22:01; Status DC Iohexol (Omnipaque 350 Mg/ml) 100 ml 1X ONCE IV Last administered on 04/03/19at 22:29; Start 04/03/19 at 22:15; Stop 04/03/19 at 22:16; Status DC Info (CONTRAST GIVEN -- Rx MONITORING) 1 each PRN DAILY PRN MC SEE COMMENTS; Start 04/03/19 at 22:15; Stop 04/05/19 at 22:14; Status DC Albuterol/ Ipratropium (Duoneb) 3 ml RTQID NEB Last administered on 04/04/19at 08:09; Start 04/04/19 at 08:00; Stop 04/04/19 at 11:11; Status DC Diltiazem HCl 125 mg/Dextrose 125 ml @ 5 mls/hr CONT PRN IV SEE I/O RECORD Last administered on 04/03/19at 23:59; Start 04/03/19 at 23:30; Stop 04/06/19 at 1 4:21; Status DC Guaifenesin/ Codeine Phosphate (Robitussin Ac) 5 ml PRN Q6HRS PRN PO COUGH Last administered on 04/09/19at 00:08; Start 04/04/19 at 00:15 Rivaroxaban (Xarelto) 15 mg 1X ONCE PO Last administered on 04/04/19 03:49; Start 04/04/19 at 00:30; Stop 04/04/19 at 00:33; Status DC Acetaminophen (Tylenol) 650 mg PRN Q6HRS PRN PO MILD PAIN 1-3 Last administered on 04/04/19 10:52; Start 04/04/19 at 10:30 Albuterol Sulfate (Ventolin Neb Soln) 2.5 mg PRN Q6HRS PRN INH SHORTNESS OF BREATH; Start 04/04/19 at 10:45 Clonazepam (KlonoPIN) 0.5 mg HS PO Last administered on 04/08/19 21:01; Start 04/04/19 at 21:00 Cyclobenzaprine HCl (Flexeril) 10 mg PRN BID PRN PO MUSCLE SPASMS Last administered on 04/04/19 21:40; Start 04/04/19 at 10:45 Digoxin (Lanoxin) 125 mcg DAILY PO Last administered on 04/04/19 16:11; Start 04/04/19 at 11:00; Stop 04/05/19 at 12:04; Status DC Diltiazem HCl (Cardizem 24hr Cd) 240 mg DAILY PO Last administered on 04/07/19 09:27; Start 04/04/19 at 11:00; Stop 04/07/19 at 13:14; Status DC Ferrous Sulfate (Feosol) 325 mg HS PO Last administered on 04/08/19 21:02; Start 04/04/19 at 21:00 Furosemide (Lasix) 40 mg BID92 PO Last administered on 04/07/19 09:26; Start 04/04/19 at 11:00; Stop 04/07/19 at 13:14; Status DC Acetaminophen/ Hydrocodone Bitart (Lortab 7.5/325) 1 tab PRN Q6HRS PRN PO MODERATE PAIN Last administered on 04/04/19 21:53; Start 04/04/19 at 10:45 Levothyroxine Sodium (Synthroid) 175 mcg DAILY06 PO Last administered on 04/04/19 16:11; Start 04/04/19 at 15:00; Stop 04/05/19 at 06:05; Status DC Lidocaine (Lidoderm) 1 patch PRN DAILY PRN TP TOPICAL PAIN; Start 04/04/19 at 10:45 Metoprolol Succinate (Toprol Xl) 25 mg DAILY PO Last administered on 04/07/19 09:27; Start 04/04/19 at 11:00; Stop 04/07/19 at 13:14; Status DC Montelukast Sodium (Singulair) 10 mg HS PO Last administered on 04/08/19 21:02; Start 04/04/19 at 21:00 Prednisone (Prednisone) 15 mg QODAY PO Last administered on 04/04/19 13:05; Start 04/04/19 at 12:00; Stop 04/06/19 at 14:23; Status DC Ropinirole HCl (Requip) 1 mg HS PO Last administered on 04/08/19 21:01; Start 04/04/19 at 21:00 Bupropion HCl (Wellbutrin Xl) 300 mg DAILY PO Last administered on 04/09/19 08:36; Start 04/04/19 at 11:00 Vitamin D (Vitamin D3) 5,000 unit DAILY PO Last administered on 04/09/19 08:36; Start 04/04/19 at 21:00 Diclofenac Sodium (Voltaren) 75 mg BID PO Last administered on 04/09/19 08:37; Start 04/04/19 at 11:15 Duloxetine HCl (Cymbalta) 60 mg DAILY PO Last administered on 04/09/19 08:36; Start 04/04/19 at 11:00 Gabapentin (Neurontin) 300 mg BID PO Last administered on 04/09/19 08:36; Start 04/04/19 at 11:00 Non-Formulary Medication (Mometasone/ Formoterol (Dulera 200 Mcg/5 Mcg Inhaler)) 2 puff BID IH ; Start 04/04/19 at 21:00; Status UNV Pantoprazole Sodium (Protonix) 40 mg DAILYAC PO Last administered on 04/09/19 06:24; Start 04/04/19 at 11:30 Potassium Chloride (Klor-Con) 20 meq BIDWMEALS PO Last administered on 04/09/19 08:36; Start 04/04/19 at 12:00 Rivaroxaban (Xarelto) 20 mg DAILYWSUP PO Last administered on 04/08/19 16:59; Start 04/04/19 at 17:00 Non-Formulary Medication (Tiotropium [place] (Spiriva)) 1 inh DAILY IH ; Start 04/05/19 at 09:00; Status UNV Info (Anti-Coagulation Monitoring By Pharmacy) 1 each PRN DAILY PRN MC SEE COMMENTS Last administered on 04/05/19 14:48; Start 04/04/19 at 11:15 Albuterol/ Ipratropium (Duoneb) 3 ml RTQID NEB Last administered on 04/09/19 11:25; Start 04/04/19 at 12:00 Budesonide (Pulmicort) 0.5 mg RTBID NEB Last administered on 04/09/19 08:00; Start 04/04/19 at 20:00 Levothyroxine Sodium (Synthroid) 175 mcg DAILY06 PO Last administered on 04/09/19 06:24; Start 04/05/19 at 06:05 Levothyroxine Sodium (Synthroid) 175 mcg 1X ONCE PO Last administered on 04/05/19 06:58; Start 04/05/19 at 06:30; Stop 04/05/19 at 06:35; Status DC Digoxin (Lanoxin) 125 mcg DAILY16 PO Last administered on 04/08/19 16:59; Start 04/05/19 at 16:00 Prednisone (Prednisone) 40 mg DAILY PO Last administered on 04/09/19 08:37; Start 04/05/19 at 15:00 Albuterol/ Ipratropium (Duoneb) 3 ml RTQID NEB Last administered on 04/06/19 15:27; Start 04/05/19 at 20:00; Stop 04/06/19 at 17:19; Status DC Albuterol/ Ipratropium (Duoneb) 3 ml 1X ONCE NEB Last administered on 04/05/19 14:50; Start 04/05/19 at 15:00; Stop 04/05/19 at 15:01; Status DC Diltiazem HCl (Cardizem 24hr Cd) 300 mg DAILY PO Last administered on 04/09/19 08:36; Start 04/08/19 at 09:00 Furosemide (Lasix) 40 mg DAILY PO Last administered on 04/09/19 08:36; Start 04/08/19 at 09:00 Ondansetron HCl (Zofran) 4 mg PRN Q6HRS PRN IVP NAUSEA/VOMITING; Start 04/08/19 at 07:45 Doxycycline Hyclate (Vibra-Tab) 100 mg BID PO Last administered on 04/09/19at 08:36; Start 04/08/19 at 09:00 Lactobacillus Rhamnosus (Culturelle) 1 cap BID PO Last administered on 04/09/19at 08:35; Start 04/08/19 at 09:00 Fluconazole (Diflucan) 100 mg Q24H PO Last administered on 04/08/19at 21:02; Start 04/08/19 at 19:00 Active Scripts Active Reported Furosemide 40 Mg Tablet 40 Mg PO DAILY Ferrous Sulfate 325 Mg Tablet 325 Mg PO HS Diltiazem 24HR Cd (Diltiazem Hcl) 180 Mg Cap.er.24h 300 Mg PO DAILY Doxycycline Hyclate 100 Mg Capsule 100 Mg PO BID Diflucan (Fluconazole) 100 Mg Tablet 200 Mg PO HS Vitamin D (Cholecalciferol (Vitamin D3)) 1,000 Unit Capsule 5,000 Unit PO HS Omeprazole 20 Mg Capsule.dr 20 Mg PO DAILY Lidocaine PATCH (Lidocaine) 1 Each Adh..patch 1 Each TP PRN DAILY PRN REMOVE AFTER 12 HOURS Hydrocodone-Acetamin 7.5-325 (Hydrocodone/Acetaminophen) 1 Each Tablet 1 Each PO PRN Q6HRS PRN Promethazine Hcl 25 Mg Tablet 1 Tab PO PRN Q6HRS Spiriva (Tiotropium [place]) 18 Mcg Cap.w.dev 1 Inh IH DAILY Proair Hfa Inhaler (Albuterol Sulfate) 8.5 Gm Hfa.aer.ad 2 Puff INH PRN Q6HRS PRN Potassium Chloride 20 Meq Tablet.er 20 Meq PO BID Digoxin 125 Mcg Tablet 125 Mcg PO DAILY Clonazepam (Clonazepam) 0.5 Mg Tablet 0.5 Mg PO HS Bupropion Xl (Bupropion Hcl) 300 Mg Tab.er.24h 300 Mg PO DAILY Dulera 200 Mcg/5 Mcg Inhaler (Mometasone/Formoterol) 13 Gm Hfa.aer.ad 2 Puff IH BID Cyclobenzaprine Hcl 10 Mg Tablet 10 Mg PO PRN BID PRN Gabapentin 600 Mg Tablet 300 Mg PO BID Montelukast Sodium Tablet (Montelukast Sodium) 10 Mg Tablet 1 Tab PO HS Ropinirole Hcl 1 Mg Tablet 1 Mg PO HS Xarelto (Rivaroxaban) 20 Mg Tablet 20 Mg PO DAILY16 Prednisone (Prednisone) 10 Mg Tablet 15 Mg PO QODAY Diclofenac Sodium 75 Mg Tablet.dr [place] Tab PO BID Cymbalta (Duloxetine Hcl) 60 Mg Capsule.dr [place] Cap PO DAILY Levothyroxine Sodium 150 Mcg Tablet 175 Mcg PO DAILY Vitals/I & O Vital Sign - Last 24 Hours 04/08/19 04/08/19 04/08/19 04/08/19 15:00 15:45 16:59 19:18 Temp 97.6 97.6 Pulse 66 77 Resp 20 B/P (MAP) 116/59 (78) Pulse Ox 95 95 97 O2 Delivery Nasal Cannula Nasal Cannula Room Air O2 Flow Rate 2.0 3.0 04/08/19 04/08/19 04/08/19 04/09/19 19:55 20:00 22:53 02:29 Temp 97.8 98.0 97.9 97.8 98.0 97.9 Pulse 81 74 72 Resp 18 18 18 B/P (MAP) 116/53 (74) 122/60 (80) 141/61 (87) Pulse Ox 95 95 96 O2 Delivery Room Air Nasal Cannula Room Air Room Air O2 Flow Rate 2.0 04/09/19 04/09/19 04/09/19 04/09/19 07:00 08:30 08:36 09:22 Temp 97.4 97.4 Pulse 73 73 Resp 18 B/P (MAP) 118/57 (77) 118/57 Pulse Ox 93 97 O2 Delivery Room Air Room Air Room Air 04/09/19 04/09/19 09:22 11:00 Temp 98.2 98.2 Pulse 82 Resp 18 B/P (MAP) 127/58 (81) Pulse Ox 97 94 O2 Delivery Room Air Room Air Intake and Output 04/08/19 04/08/19 04/09/19 15:00 23:00 07:00 Intake Total 240 ml 240 ml 1100 ml Output Total 450 ml 1300 ml Balance 240 ml -210 ml -200 ml SARA VANESSA MD Apr 09, 2019 14:27
--- NOTE | 2019-04-10 08:56 | DS ---
DATE OF DISCHARGE: 04/09/2019 ADMISSION DIAGNOSIS: Asthma exacerbation. DISCHARGE DIAGNOSES: Resolving asthma exacerbation, tracheomalacia. HOSPITAL COURSE: The patient is a pleasant 64-year-old female who presented with shortness of breath and wheezing. We admitted the patient. We consulted Pulmonary, gave her steroids, breathing treatments, oxygen and empiric antibiotics. It was felt that she also has tracheomalacia. Yesterday, we saw her and examined her, she was doing better. We discharged to home with close outpatient followup and prescriptions for steroids, doxycycline, DuoNebs. DISPOSITION: Home. ACTIVITY: As tolerated. DIET: Low sodium. MEDICATIONS: Please see the MRAD. TOTAL TIME: 33 minutes. ZIYAD ESTRELLA DO DR: GIDEON/samreen JOB#: [id number] / [id number]
== END 2019-04-09 12:45 | disposition home health service (06) | DRG 291 ==
LOC: ER 20:44 → 2 SOUTH 23:17
PROVIDERS: ADMIT Family Medicine; ATTEND Family Medicine
DX: I11.0 Hypertensive heart disease with heart failure (principal); J96.01 Acute respiratory failure with hypoxia; J45.901 Unspecified asthma with (acute) exacerbation; I48.20 Chronic atrial fibrillation, unspecified; Z68.44 Body mass index [BMI] 60.0-69.9, adult; J39.8 Other specified diseases of upper respiratory tract; I50.33 Acute on chronic diastolic (congestive) heart failure; E03.9 Hypothyroidism, unspecified; E66.01 Morbid (severe) obesity due to excess calories; G47.33 Obstructive sleep apnea (adult) (pediatric); F32.9 Major depressive disorder, single episode, unspecified; G43.909 Migraine, unspecified, not intractable, without status migrainosus; I48.0 Paroxysmal atrial fibrillation; J44.9 Chronic obstructive pulmonary disease, unspecified; K21.9 Gastro-esophageal reflux disease without esophagitis; Z86.711 Personal history of pulmonary embolism; Z86.718 Personal history of other venous thrombosis and embolism; Z88.0 Allergy status to penicillin; Z88.2 Allergy status to sulfonamides; Z88.7 Allergy status to serum and vaccine; Z88.8 Allergy status to other drugs, medicaments and biological substances; Z90.49 Acquired absence of other specified parts of digestive tract
CPT/HCPCS: 36415; 71045; 71275; 80048; 80053; 83880; 84484; 85007; 85025; 85610; 87641; 93005; 93306; 94640; 94760; 96365; 96375; 96376; J2930; J3490; J7512; J7620; J7626; Q9967; 97110; 97116; 97530; 99285-25; G0378

== ENCOUNTER → 2019-04-22 | Outpatient (CLI) | payer MEDICARE, BC ==
[2019-04-09 11:00] VITALS: BP 127/58
[~2019-04-22] MED LIST changes: +CHOL100013 PO; +DILT180C29 PO; +DOXY100C2 PO; +FLUC100T7 PO; +HYDR-2763 PO; +LIDO700A21 TP
--- NOTE | 2019-04-22 15:31 | KCIC ---
EXAM: Thyroid sonogram. HISTORY: Thyromegaly. TECHNIQUE: Sonographic imaging of the thyroid was performed. COMPARISON: None. FINDINGS: The right there are lobe measures 4.2 x 1.6 x 2.1 cm. The left thyroid lobe measures 3.8 x 1.4 x 1.7 cm. The isthmus measures 3.6 mm. The thyroid parenchyma is diffusely heterogeneous. There is a solid-appearing hypoechoic nodule within the mid right thyroid lobe measuring 6 x 6 x 3 mm. There is a colloid cyst within the superior left thyroid lobe measuring 3 x 2 x 2 mm. IMPRESSION: 1. Diffusely heterogeneous thyroid parenchyma, a finding which can be seen as a sequela of prior thyroiditis. The thyroid size is within normal limits. 2. 6 mm solid-appearing hypoechoic nodule and 3 mm cyst within the right and left thyroid lobes. Electronically signed by: Madalyn Larson MD (04/22/2019 3:29 PM) [id number]
--- NOTE | 2019-04-23 09:02 | KCIC ---
Bilateral digital screening mammograms: Reason for examination: Routine screening. Comparison is made to previous studies dated 11/28/2009 and 03/22/2009. Interpretation was made with the benefit of CAD. The skin and nipples show no abnormalities. No abnormal axillary lymph nodes are seen. The breast parenchyma shows scattered fibroglandular density. (Breast density: Category B.) There continues to be a small circumscribed nodule in the upper outer quadrant of the right breast anteriorly which is stable. There are no new dominant masses, suspicious calcifications or architectural distortions. Scattered benign calcifications are present. Impression: No evidence of malignancy. Recommend routine screening. BI-RADS category 2: Benign "Our facility is accredited by the [employer] Mammography Program." This patient's information has been entered into a reminder system for the patient to be notified with the results of her examination and a target date for the next mammogram. Electronically signed by: Roxanne Fenton MD (04/23/2019 8:59 AM) [id number]
--- NOTE | 2019-04-23 11:25 | KCIC ---
MR of the right shoulder HISTORY: Right shoulder pain, limited range of motion. TECHNIQUE: Routine multiplanar sequences are obtained. FINDINGS: Moderate motion degradation. Acromioclavicular joint is degenerative with undersurface hypertrophy and mass effect. Full-thickness rupture of the supraspinatus and infraspinatus tendons, with severe retraction to about the level of the superior labrum although margins are difficult to define. High-grade subscapularis tendon tear. Mild fluid in the subdeltoid bursa. Moderate to severe muscle atrophy. At least mild degenerative changes at the glenohumeral joint. No definite labral detachment or tear but difficult to exclude due to the motion. Biceps tendon not well visualized. No acute fracture. No aggressive bone destruction. IMPRESSION: 1. Moderate motion degradation. 2. Large rotator cuff tear. Complete supraspinatus and infraspinatus tendon rupture with retraction. High-grade subscapularis tendon tear. Moderate to severe atrophy. 3. Biceps tendon not clearly visualized. Electronically signed by: Domingo Todd MD (04/23/2019 11:22 AM) [id number]
== END | disposition home or self-care (01) ==
LOC: KCIC MAMMO 13:54
PROVIDERS: ATTEND Nurse Practitioner Family
DX: Z12.31 Encounter for screening mammogram for malignant neoplasm of breast (principal); S46.811A Strain of other muscles, fascia and tendons at shoulder and upper arm level, right arm, initial encounter; M62.511 Muscle wasting and atrophy, not elsewhere classified, right shoulder; M75.101 Unspecified rotator cuff tear or rupture of right shoulder, not specified as traumatic; N64.89 Other specified disorders of breast; E04.2 Nontoxic multinodular goiter; E04.1 Nontoxic single thyroid nodule; X58.XXXA Exposure to other specified factors, initial encounter; Y93.89 Activity, other specified; Y92.89 Other specified places as the place of occurrence of the external cause; Y99.8 Other external cause status
CPT/HCPCS: 73221; 76536; 77067

== ENCOUNTER → 2020-09-18 | Outpatient (CLI) | payer MEDICARE, BC ==
[~2020-09-18] MED LIST changes: -BUPR300T4 PO; +BUPR300T92 PO; -DIGO125T PO; +DIGO125T3 PO; +GADOTERATE 7.5 MMOL/15ML VIAL. IVP ONE; -OMEP20CA10 PO; +OMEP20CA16 PO; +POTA20TA4 PO; -POTA20TA82 PO; -ROPI1TAB2 PO; +ROPI1TAB4 PO
--- NOTE | 2020-09-18 16:38 | KCIC ---
MR LUMBAR SPINE WO -[id number] History: Reason: LOW BACK PAIN AND RIGHT SIDED RADICULOPATHY / Spl. Instructions: / History: Chronic LBP, RLE pain. Technique: Multiplanar, multi sequential MR imaging was performed of the lumbar spine. Comparison: March 05, 2016 Findings: Slight grade 1 anterolisthesis L3 on L4 and L4 on L5. Slight retrolisthesis L5 on S1. Findings unchan ged compared to prior. Prominent dorsal epidural fat. Conus terminates at the normal location. No evidence of nerve root clumping. T11-T12: Small disc protrusion. Mild facet arthropathy. No canal or neuroforaminal narrowing. T12-L1: No canal narrowing. Mild facet arthropathy. No neuroforaminal narrowing. L1-L2: Broad-based disc bulge. Mild facet arthropathy. Mild subarticular recess narrowing. No canal narrowing. Right foraminal disc protrusion. Mild right neuroforaminal narrowing. No left neuroforamin al narrowing. L2-L3: Bulge. Moderate facet arthropathy. Mild canal narrowing. Subarticular recess narrowing. Moder ate left neuroforaminal narrowing due to foraminal disc protrusion. Mild right neuroforaminal narrowi ng. L3-L4: Broad-based disc bulge. Advanced facet arthropathy. No canal narrowing. Subarticular recess n arrowing. Mild to moderate left and mild right neuroforaminal narrowing due to foraminal disc protrus ions. Right lateral superimposed disc protrusion contacting the exiting right L4 for nerve root withi n the far lateral space. L4-L5: Broad-based disc bulge. Advanced facet arthropathy. Bilateral facet joint effusions. Subartic ular recess narrowing. No canal narrowing. Moderate bilateral neuroforaminal narrowing, right greater than left. L5-S1: Central disc protrusion. Subarticular recess narrowing. Moderate facet arthropathy, right gre ater than left. No canal narrowing. Moderate left and mild right neuroforaminal narrowing. When compared with the prior examination the degenerative findings are progressed. Impression: 1. Multilevel thoracolumbar spondylosis most prominent L2-L3 and L4-L5, progressed compared to prior . 2. Mild L2-L3 canal narrowing. 3. Multilevel neuroforaminal narrowing most prominent L4-L5. 4. Right L4-L5 lateral disc protrusion contacting the exiting right L4 nerve root within the far lat eral space. Recommend correlation for radiculopathy. Electronically signed by: Nico Azar DO (09/18/2020 4:36 PM) [id number]
--- NOTE | 2020-09-19 09:29 | KCIC ---
MRI study of the sternoclavicular joints with and without contrast Clinical indications: Fullness and tenderness involving the left sternoclavicular joint. Difficulty s wallowing. TECHNIQUE: Pre and postcontrast enhanced MRI sequences of the sternoclavicular joints were performed. FINDINGS: There is patient motion artifact related to difficulty breathing during the examination whi ch does blur many of the sequences. There is bone marrow edema involving the medial clavicle and the upper manubrium of the sternum of both sternoclavicular joints on the T2-weighted images. Small cornejo oclavicular joint effusion is seen bilaterally. The left clavicle is situated in a superior position relative to the right clavicle with respect to the sternoclavicular joints. Mild degenerative spurrin g of the right sternoclavicular joint is seen. More prominent moderate degenerative spurring of the l eft sternoclavicular joint is seen. No abnormal T1 marrow signal abnormality or cortical erosion is s een. Therefore, no osteomyelitis is seen. No fracture line is evident. There is mild enhancement of t he right sternoclavicular joint and moderate enhancement of the left sternoclavicular joint consisten t with synovitis. No soft tissue mass or abscess is evident. IMPRESSION: Primary degenerative osteoarthritis of the sternoclavicular joints bilaterally worse on t he left side with more prominent synovitis and spurring. Incidental note is made of disc protrusion and endplate spurring of the cervical spine from C2-3 thro ugh C5-6. Electronically signed by: Ernesto Calero MD (09/19/2020 9:27 AM) [id number]
== END ==
LOC: KCIC MRI 13:43
PROVIDERS: ATTEND Orthopaedic Surgery
DX: M47.815 Spondylosis without myelopathy or radiculopathy, thoracolumbar region (principal); M48.061 Spinal stenosis, lumbar region without neurogenic claudication; M51.26 Other intervertebral disc displacement, lumbar region; M19.012 Primary osteoarthritis, left shoulder; M65.4 Radial styloid tenosynovitis [de Quervain]; M19.011 Primary osteoarthritis, right shoulder
CPT/HCPCS: 71552; 72148; 82565; A9575

== ENCOUNTER → 2021-01-25 | Outpatient (CLI) | payer MEDICARE, BC ==
[~2021-01-25] MED LIST changes: +BUPIVACAINE MPF 0.25% 10 ML VIAL. ONE; +BUPR300T3 PO; +CEFU500T46 PO; +DILT240C33 PO; +FURO20TA3 PO; +GABA300C18 PO; -GADOTERATE 7.5 MMOL/15ML VIAL. IVP ONE; +HYDR-2765 PO; +LANOXIN62.5 MCG PO; +LEVO175T5 PO; +PANT20TA2 PO; +ROPI1TAB PO; +VENTOLIN HFA18 GM INH; +methylPREDNISolone ACETATE 40 MG/ML VIAL. ONE
--- NOTE | 2021-01-25 15:13 | PDOC ---
Progress Note - Pain Clinic Date of Service: DOS: DATE: 01/25/21 TIME: 15:06 Diagnosis: Dx: Lumbar to colopathy lumbar degenerative disc disease, with lumbar and lumbosacral spondylosis Myofascial pain History or Present Illness: HPI: 65-year-old female returns for follow-up status post lumbar epidural steroid injection and reports about 50% improvement after the last injection pain is now changing to different is in the back only and is much more of a "tight and spastic" feeling she was doing very well until 31 December she was riding in her electric scooter over some rough ground a seem to draw her back and the pain is been increasing more in the back itself and without radiation to the lower extremities at this time patient reports her legs are doing fairly well with her radiation is seems to have resolved patient reports the pain in the back however is tingling and burning can be constant radiating severe with weightbearing even with sitting for prolonged periods patient reports is a nine on scale ten is worse over the past week 7-8 on average and a five its least is a six today patient reports better with sitting or laying down sitting for more than 20 to 30 minutes aching in the back itself patient reports is worse with getting up out of her chair and into a bed or use a walker with straightening her spine it is much more noticeable in the low back itself right equal to left. Patient reports no motor or sensory deficits no bowel or bladder incontinence. Physical Exam: VS: Blood pressure is 124/64 pulse sixty-two respirations are eighteen temperature 97.8 F height is 5 feet 2 inches weight is deferred as patient is in a wheelchair today. PE: PHYSICAL EXAMINATION: GENERAL: The patient is awake, alert, oriented, appropriate, very pleasant demeanor HEENT: Shows normocephalic, atraumatic. Extraocular movements are intact and symmetrical. Oral cavity: Mucous membranes moist and pink. Dentition is intact. NECK: Shows anterior throat supple without palpable lymphadenopathy noted. Swallow reflex symmetrical. CHEST: Shows normal on inspection. Breath sounds are clear bilaterally, distant but no rales or rhonchi. HEART: Shows S1, S2 clear. No murmurs auscultated. ABDOMEN: Soft, nontender, nondistended, obese. No palpable organomegaly is noted. BACK: Shows spine grossly in the midline. Normal-appearing cervical lordotic curvature. There is slightly increased thoracic kyphosis, some minor flattening of the lumbar lordotic curvature. Lumbar paraspinous muscles show symmetrical on inspection, on palpation shows some moderate tenderness diffusely throughout the upper, middle and lower distribution of the paraspinous muscles with very firm ropelike musculature in the lower thoracic distribution bilaterally as well as the upper middle lower decrease the paraspinous muscles in the lumbar distribution very firm ropelike muscular consistent with trigger point areas of musculature bilaterally without specific radiation but much more firm and tender on the left than the right, also superior aspect of the gluteus musculature more on the left than the right very firm ropelike musculature consistent with trigger point areas of musculature identified but without radiation but significant tenderness with palpation. The patient has good rotational motion of the lumbar spine, both laterally as well as extension and flexion with moderate tenderness with right left lateral rotation greater than 10 degrees with significant tenderness with extension lumbar spine axial loading the low back greater than 10 degrees forward flexion 45 degrees is performed without difficulty or pain reported. No tenderness over the spinous processes, sacrum or sacroiliac regions. EXTREMITIES: Lower extremities show deep tendon reflexes 1+ in the patellar and tendo calcaneus tendons. Motor exam is four on a scale of 5 with right dorsiflexion, extension, quadriceps and hamstring flexion and four/5 on the left. Peripheral pulses are 1+ posterior tibial. No peripheral edema is noted bilaterally. Lower extremities are warm and dry to touch, equal in color and appearance. SKIN: Shows warm and dry, good turgor. No edema. No sores, rashes or bruising throughout. Procedure: Procedure: Options were discussed with the patient. Patient chart was reviewed as her current medication regimen updated current review of systems updated today as well. We will proceed with trigger point injections of the identified musculature bilateral thoracic paraspinous muscle bilateral lumbar paraspinous muscle and bilateral gluteus musculature. Risk were discussed including but not limited to bleeding infection possibility of intravascular injection and sequelae spread of local anesthetic and numbness side effects steroid medication and portals regarding pain control. Patient understands wished to proceed. Return to clinic in approximately 2 weeks for follow-up, was counseled as return appointment activity level and side effects to be aware of. Medication Injected: Med Injected: Patient in sitting position under sterile prep and drape patient's thoracic and lumbar and gluteus musculature were sterilely prepped and draped and trigger point identified in the bilateral lower thoracic paraspinous posterior bilateral upper lower and middle distribution of the lumbar paraspinous musculature, and bilateral superior gluteus musculature. Using 25-gauge needle after negative aspiration each injection site total of 8 cc of 0.25% bupivacaine and total of 40 mg Depo-Medrol was then injected. Patient tolerated the procedure well and had no complications. Condition at Discharge: Condition at Discharge: Condition at discharge is stable, patient alert the procedure well and had no complications. YEISON SINGLETON MD Jan 25, 2021 15:13
--- NOTE | 2021-01-25 15:14 | PDOC4 ---
Procedure Note: ICD 10 Code: ICD 10 Code: M60.89 Procedure Note: Patient was consented for trigger point injections, bilateral thoracic paraspinous posture, bilateral lumbar paraspinous, and bilateral gluteus musculature. Risk were discussed including but not limited to bleeding infection possibility of intravascular injection sequelae spread of local anesthetic and numbness side effects of steroid medication and poor results regarding pain control. Patient understands wishes to proceed. Patient in sitting position under sterile prep and drape patient's thoracic and lumbar and gluteus musculature were sterilely prepped and draped and trigger point identified in the bilateral lower thoracic paraspinous posterior bilateral upper lower and middle distribution of the lumbar paraspinous musculature, and bilateral superior gluteus musculature. Using 25-gauge needle after negative aspiration each injection site total of 8 cc of 0.25% bupivacaine and total of 40 mg Depo-Medrol was then injected. Patient tolerated the procedure well and had no complications. YEISON SINGLETON MD Jan 25, 2021 15:14
== END | disposition home or self-care (01) ==
LOC: PNCL 14:23
PROVIDERS: ATTEND Anesthesiology
DX: M51.16 Intervertebral disc disorders with radiculopathy, lumbar region (principal); M47.27 Other spondylosis with radiculopathy, lumbosacral region; M79.18 Myalgia, other site; E78.00 Pure hypercholesterolemia, unspecified; I11.0 Hypertensive heart disease with heart failure; I50.9 Heart failure, unspecified; I48.91 Unspecified atrial fibrillation; G47.30 Sleep apnea, unspecified; J45.909 Unspecified asthma, uncomplicated; E66.9 Obesity, unspecified; K21.9 Gastro-esophageal reflux disease without esophagitis; E03.9 Hypothyroidism, unspecified; I25.10 Atherosclerotic heart disease of native coronary artery without angina pectoris; F32.9 Major depressive disorder, single episode, unspecified; Z79.899 Other long term (current) drug therapy; Z98.890 Other specified postprocedural states; Z88.0 Allergy status to penicillin; Z88.1 Allergy status to other antibiotic agents; Z88.2 Allergy status to sulfonamides; Z88.8 Allergy status to other drugs, medicaments and biological substances
CPT/HCPCS: 20553; J1030; J3490

== ENCOUNTER → 2021-02-14 | Outpatient (CLI) | payer MEDICARE, BC ==
[~2021-02-14] MED LIST changes: -DOXY100C2 PO; +DOXY100C3 PO; +IOHEXOL 180 MG/ML 10 ML VIAL. ONE; -methylPREDNISolone ACETATE 40 MG/ML VIAL. ONE; +methylPREDNISolone ACETATE 80 MG/ML VIAL. ONE
--- NOTE | 2021-02-14 11:38 | PDOC4 ---
Procedure Note: ICD 10 Code: ICD 10 Code: M4 7.816 M4 7.817 Procedure Note: Patient was consented for bilateral lumbar facet medial branch blocks with fluoroscopic guidance. Risks were discussed including but not limited to: Bleeding, infection, possibility of epidural hematoma and subsequent neurological compromise, dural puncture, headaches, spinal cord and/or nerve damage, side effects of steroid medication, and poor results regarding pain control. Patient understands and wished to proceed. Under sterile prep and drape using C-arm fluoroscopic guidance AP and lateral and oblique views, bilateral L4-5 and L5-S1 facet joint MB's injections were performed, using 5 inch, 22-gauge quinke needles with stylette's x4,, medications injected: 120 mg Depo-Medrol +4 cc 0.25% bupivacaine +2 cc contrast. Condition at discharge stable patient tolerated the procedure well and no complications. YEISON SINGLETON MD Feb 14, 2021 11:38
--- NOTE | 2021-02-14 11:38 | PDOC ---
Progress Note - Pain Clinic Date of Service: DOS: DATE: 02/14/21 TIME: 11:35 Diagnosis: Dx: Lumbar degenerative disc disease with lumbar lumbosacral spondylosis Myofascial pain History or Present Illness: HPI: 66-year-old female returns for follow-up status post lumbar epidural steroid injections x3 and trigger point injections patient reports they were helpful but only about 20% reports the pain is now just located in the back and is not radiating into the lower extremity as it had previously patient reports is worse with walking standing changing positions sitting for more than 30 minutes or so, worse with standing and especially extension of the lumbar spine patient reports her pain is 8 on scale 10 is worse over the past week 5 on average to its least is a 5 today patient ports aching and sharp shooting across the low back and some more on the right than the left constant with varying severity throughout the day patient reports it wakes her from sleep about every 5 hours does not cause any bowel or bladder incontinence no new motor or sensory deficits. Physical Exam: VS: Blood pressure 117/81 pulse 77 respirations 16 temperature 98.1 F PE: PHYSICAL EXAMINATION: GENERAL: The patient is awake, alert, oriented, appropriate, very pleasant in demeanor HEENT: Shows normocephalic, atraumatic. Extraocular movements are intact and symmetrical. Oral cavity: Mucous membranes moist and pink. NECK: Shows anterior throat supple without palpable lymphadenopathy noted. Swallow reflex symmetrical. CHEST: Shows normal on inspection. Breath sounds are clear bilaterally, distant but no rales or rhonchi. HEART: Shows S1, S2 clear. No murmurs auscultated. ABDOMEN: Soft, nontender, nondistended, obese. No palpable organomegaly is not ed. BACK: Shows spine grossly in the midline. Normal-appearing cervical lordotic curvature. There is slightly increased thoracic kyphosis, some minor flattening of the lumbar lordotic curvature. Lumbar paraspinous muscles show symmetrical on inspection, on palpation shows some moderate tenderness diffusely throughout the upper, middle and lower distribution of the paraspinous muscles, but without specific trigger points, without radiation of pain. The patient has good rotational motion of the lumbar spine, both laterally as well as extension and flexion with significant tenderness with right and left lateral rotation greater than right greater than 10 degrees also with extension lumbar spine significant tenderness in the low back again worse on the right than left and present bilaterally forward flexion 45 degrees is performed without significant difficulty. No tenderness over the spinous processes, sacrum or sacroiliac regions. EXTREMITIES: Lower extremities show deep tendon reflexes 1 in the patellar and tendo calcaneus tendons. Motor exam is 4 on a scale of 5 with right dorsiflexion, extension, quadriceps and hamstring flexion and []/5 on the left. Peripheral pulses are 1+ posterior tibial. No peripheral edema is noted bilaterally. Lower extremities are warm and dry. SKIN: Shows warm and dry, good turgor. No edema. No sores, rashes or bruising throughout. Procedure: Procedure: Options were discussed with patient. Patient's chart reviews her current medication regimen updated current review of systems updated today as well. We will proceed with bilateral L4-5 and L5-S1 facet medial branch blocks today with fluoroscopic guidance. Risks were discussed including but not limited to: Bleeding, infection, possibility of epidural hematoma and subsequent neurological compromise, dural puncture, headaches, spinal cord and/or nerve damage, side effects of steroid medication, and poor results regarding pain control. Patient understands and wished to proceed. Patient will return to clinic in approximately 2 weeks for follow-up, was counseled as to return appointment activity level and side effects to be aware of. Medication Injected: Med Injected: Under sterile prep and drape using C-arm fluoroscopic guidance AP and lateral and oblique views, bilateral L4-5 and L5-S1 facet joint MB's injections were performed, using 5 inch quinke needles with stylette's x4,, medications injected: 120 mg Depo-Medrol +4 cc 0.25% bupivacaine +2 cc contrast. Condition at discharge stable patient tolerated the procedure well and no complications. Condition at Discharge: Condition at Discharge: Condition at discharge stable, patient already procedure well and had no complications. YEISON SINGLETON MD Feb 14, 2021 11:38
== END ==
LOC: PNCL 10:21
PROVIDERS: ATTEND Anesthesiology
DX: M47.817 Spondylosis without myelopathy or radiculopathy, lumbosacral region (principal); M51.37 Other intervertebral disc degeneration, lumbosacral region; I11.0 Hypertensive heart disease with heart failure; I50.9 Heart failure, unspecified; I25.10 Atherosclerotic heart disease of native coronary artery without angina pectoris; I25.2 Old myocardial infarction; I48.91 Unspecified atrial fibrillation; K21.9 Gastro-esophageal reflux disease without esophagitis; M19.90 Unspecified osteoarthritis, unspecified site; E03.9 Hypothyroidism, unspecified; F32.9 Major depressive disorder, single episode, unspecified; J45.909 Unspecified asthma, uncomplicated; E66.9 Obesity, unspecified; Z86.711 Personal history of pulmonary embolism; Z87.442 Personal history of urinary calculi; Z86.010 Personal history of colon polyps; Z79.899 Other long term (current) drug therapy; Z90.49 Acquired absence of other specified parts of digestive tract; Z98.890 Other specified postprocedural states
CPT/HCPCS: 64493; 64494; J1040; J3490; Q9965

== ENCOUNTER 2021-11-15 12:54 | Inpatient (IN) | payer MEDICARE, BC ==
[~2021-11-15] VITALS: Ht 162.6 cm; Wt 147.0 kg
[~2021-11-15 12:54] MED LIST changes: -BUPIVACAINE MPF 0.25% 10 ML VIAL. ONE; +CYCL10TA19 PO; -CYCL10TA2 PO; -DULO60CA6 PO; +DULO60CA7 PO; -IOHEXOL 180 MG/ML 10 ML VIAL. ONE; +POTA-121 PO; -methylPREDNISolone ACETATE 80 MG/ML VIAL. ONE
--- NOTE | 2021-11-15 13:56 | EKG ---
[facility] [address] [place] [address] Test Date: 2021-11-15 Test Time: 13:28:00 Pat Name: AARON ANTHONY Department: Room: 648 1 Gender: F [employer]: : 1955 Requested By: MONISHA CHENEY Order Number: [id number] Reading MD: Dayo Billy Measurements Intervals [place] Rate: 98 P: NH: QRS: 34 QRSD: 70 T: 120 QT: 360 QTc: 462 Interpretive Statements ATRIAL FIBRILLATION ST & T ABNORMALITY, CONSIDER LATERAL ISCHEMIA Electronically Signed On 11-16-2021 10:06:30 CDT by Dayo Billy
[2021-11-15] MEDS ORDERED: ONDANSETRON PF 4 MG/2 ML VIAL. IVP ONE (14:00)
[2021-11-15] MEDS ORDERED: IPRATRPIUM/ALBUTEROL 0.5/2.5MG 3 ML NEBU. NEB ONE (14:00)
[2021-11-15] MEDS ORDERED: HYDROcodone/APAP 5/325MG 1 TAB TABLET PO ONE (14:00)
[2021-11-15 14:13] LABS: BASO # 0.1 x10^3/uL (0.0-0.2); BASO % 1 % (0-3); EOS # 0.4 x10^3/uL (0.0-0.7); EOS % 4 % (0-3); HEMOGLOBIN 11.4 g/dL (12.0-15.5); LYMPH # 1.6 x10^3/uL (1.0-4.8); LYMPH % 16 % (24-48); MEAN CORPUSCULAR HEMOGLOBIN 27 pg (25-35); MEAN CORPUSCULAR HGB CONC 33 g/dL (31-37); MEAN CORPUSCULAR VOLUME 84 fL (79-100); MONO # 0.8 x10^3/uL (0.0-1.1); MONO % 8 % (0-9); NEUT # 7.3 x10^3/uL (1.8-7.7); NEUT % 72 % (31-73); PLATELET COUNT 200 x10^3/uL (140-400); RED BLOOD COUNT 4.18 x10^6/uL (3.50-5.40); RED CELL DISTRIBUTION WIDTH 16.7 % (11.5-14.5); WHITE BLOOD COUNT 10.2 x10^3/uL (4.0-11.0)
[2021-11-15 14:22] LABS: PROTHROMBIN TIME PATIENT 14.3 SEC (11.7-14.0)
[2021-11-15 14:29] LABS: CALCIUM 8.2 mg/dL (8.5-10.1); CREATININE 0.8 mg/dL (0.6-1.0); GFR 71.5; POTASSIUM 3.2 mmol/L (3.5-5.1)
[2021-11-15 14:33] LABS: INFLUENZA A PATIENT NEGATIVE (NEGATIVE); INFLUENZA B PATIENT NEGATIVE (NEGATIVE)
[2021-11-15 14:34] LABS: ALBUMIN 2.9 g/dL (3.4-5.0); ALBUMIN/GLOBULIN RATIO 0.7 (1.0-1.7); MAGNESIUM 1.4 mg/dL (1.8-2.4); PHOSPHORUS 2.7 mg/dL (2.6-4.7); TOTAL BILIRUBIN 0.5 mg/dL (0.2-1.0); TOTAL PROTEIN 6.9 g/dL (6.4-8.2)
--- NOTE | 2021-11-15 14:50 | RAD ---
XR CHEST 2V History: Shortness of breath, chest pain Comparison: 04/03/2019 Technique: PA and lateral chest radiographs. Findings: The lungs are adequately inflated. There is eventration of the right diaphragm. Right lower lobe airs pace consolidation. No pleural effusion or pneumothorax. The cardiac silhouette is enlarged. Pulmonar y vasculature is within normal limits. Degenerative changes of the shoulders and spine. Impression: 1. Right lower lobe airspace consolidation may represent infection or edema. 2. Cardiomegaly. Electronically signed by: Myke Parham MD (11/15/2021 2:47 PM) [id number]
[2021-11-15 15:28] LABS: BASE EXCESS COOX 0 mmol/L (-3-3); HCO3 COOX 25 mmol/L (21-28); METHEMOGLOBIN 0.4 % (0.0-1.9); OXYHEMOGLOBIN 96.6 %; PCO2 COOX 38 mmHg (35-46); PO2 COOX 105 mmHg (65-108); SAT O2 COOX 97 % (92-99)
[2021-11-15] MEDS ORDERED: POTASSIUM CHLORIDE 20 MEQ TABLET.ER. PO ONE (15:30)
[2021-11-15] MEDS ORDERED: MAGNESIUM SULFATE 2GM 50 ML IV ONE (15:30)
[2021-11-15 15:46] LABS: BACTERIA,URINE MODERATE /HPF (0-FEW); RBC,URINE 0 /HPF (0-2); WBC,URINE 0 /HPF (0-4)
[2021-11-15 15:47] LABS: AMORPHOUS SEDIMENT,UR PRESENT /HPF
--- NOTE | 2021-11-15 16:17 | PHYS DOC ---
Past Medical History Past Medical History: A-Fib, Asthma, CHF, COPD, Other Additional Past Medical Histor: OBESITY Past Surgical History: Cholecystectomy, Other Additional Past Surgical Histo: R. BREAST BIOPSY Smoking Status: Never Smoker Alcohol Use: None Drug Use: None General Adult EDM: Chief Complaint: SHORTNESS OF BREATH HPI: HPI: Patient is a 66-year-old female with a history of asthma, CHF, COPD, atrial fibrillation, obesity, non-smoker, complains of increased shortness of breath with exertion with right-sided chest discomfort for the past 2 weeks. Patient states she has been having congestive heart failure and asthma exacerbation problems about every month since March 2021. Patient reports she finished a Z-George and prednisone regimen approximately 3 or 4 weeks ago. Patient reports she was at her primary care provider office [facility] earlier today and was told to come to the emergency room for an evaluation of her shortness of breath. Review of Systems: Review of Systems: 14 body systems of review of systems have been reviewed. See HPI for pertinent positives and negative responses, otherwise all other systems are negative, nonpertinent or noncontributory. Constitutional: Negative except as outlined in HPI above. Skin: Negative except as outlined in HPI above. Eyes: Negative except as outlined in HPI above. HENT: Negative except as outlined in HPI above. Respiratory: Negative except as outlined in HPI above. Cardiovascular: Negative except as outlined in HPI above. GI: Negative except as outlined in HPI above. : Negative except as outlined in HPI above. Musculoskeletal: Negative except as outlined in HPI above. Integument: Negative except as outlined in HPI above. Neurologic: Negative except as outlined in HPI above. Endocrine: Negative except as outlined in HPI above. Lymphatic: Negative except as outlined in HPI above. Psychiatric: Negative except as outlined in HPI above. Heart Score: C/O Chest Pain: Yes HEART Score for Chest Pain: HEART Score for Chest Pain Response (Comments) Value History Slighlty/Non-Suspicious 0 ECG Normal 0 Age > 65 2 Risk Factors 1 or 2 Risk Factors 1 Troponin < Normal Limit 0 Total 3 Risk Factors: Risk Factors: DM, Current or recent (<one month) smoker, HTN, HLP, family history of CAD, obesity. Risk Scores: Score 0 - 3: 2.5% MACE over next 6 weeks - Discharge Home Score 4 - 6: 20.3% MACE over next 6 weeks - Admit for Clinical Observation Score 7 - 10: 72.7% MACE over next 6 weeks - Early Invasive Strategies Current Medications: Current Medications Medications (Trade) Dose Ordered Sig/Ijeoma Start Time Stop Time Status Last Admin Dose Admin Acetaminophen/ Hydrocodone Bitart (Lortab 5/325) 1 tab 1X ONCE 11/15/21 14:00 11/15/21 14:01 DC 11/15/21 14:03 1 TAB Albuterol/ Ipratropium (Duoneb) 3 ml 1X ONCE 11/15/21 14:00 11/15/21 14:01 DC 11/15/21 14:06 3 ML Magnesium Sulfate 50 ml @ 25 mls/hr 1X ONCE 11/15/21 15:30 11/15/21 17:29 Ondansetron HCl (Zofran) 4 mg 1X ONCE 11/15/21 14:00 11/15/21 14:01 DC 11/15/21 14:02 4 MG Potassium Chloride (Klor-Con) 40 meq 1X ONCE 11/15/21 15:30 11/15/21 15:31 DC Allergies: Allergies: Allergies Coded Allergies Type Severity Reaction Last Updated Verified levofloxacin Allergy Severe Anaphylaxis 11/15/21 Yes I S O L A T I O N *CONTACT* Allergy Unknown 11/15/21 Yes Influenza Virus Vaccines Adverse Reaction Intermediate 11/15/21 Yes Penicillins Adverse Reaction Intermediate Rash 11/15/21 Yes Sulfa (Sulfonamide Antibiotics) Adverse Reaction Intermediate Rash 11/15/21 Yes Physical Exam: PE: Constitutional: Well developed, well nourished, no acute distress, non-toxic appearance. 66-year-old female in no apparent distress. HENT: Normocephalic, atraumatic. Eyes: Conjunctiva normal, no discharge. Neck: Normal range of motion, no stridor. Cardiovascular: No cyanosis appreciated, distal cap refill less than 2 seconds. Irregular rhythm per auscultation. Lungs & Thorax: Patient is in no respiratory distress, no audible adventitious lung sounds appreciated. Right lower lobe coarse inspiratory expiratory sounds, upper lobes light wheezing bilaterally upper lobes no accessory muscle use appreciated. Abdomen: Nontender, no abnormalities noted. Round, patient severely obese, BMI 49.6 Skin: Warm, dry, no erythema, no rash. Back: No tenderness, no deformities. Extremities: No tenderness, no cyanosis, no clubbing, ROM intact, no edema. Neurologic: Alert and oriented X 3, normal motor function, normal sensory function, no focal deficits noted. Psychologic: Affect normal, judgement normal, mood normal. Current Patient Data: Labs: Laboratory Tests Test 11/15/21 13:28 11/15/21 13:50 11/15/21 13:55 11/15/21 15:25 O2 Saturation 97 % (92-99) Arterial Blood pH 7.43 (7.35-7.45) Arterial Blood pCO2 at Patient Temp 38 mmHg (35-46) Arterial Blood pO2 at Patient Temp 105 mmHg (65-108) Arterial Blood HCO3 25 mmol/L (21-28) Arterial Blood Base Excess 0 mmol/L (-3-3) Oxyhemoglobin 96.6 % Methemoglobin 0.4 % (0.0-1.9) Carbon Monoxide, Quantitative 0.3 % (0.0-1.9) FiO2 3l/nc Influenza Type A Antigen Negative (NEGATIVE) Influenza Type B Antigen Negative (NEGATIVE) SARS-CoV-2 Antigen (Rapid) Negative (NEGATIVE) White Blood Count 10.2 x10^3/uL (4.0-11.0) Red Blood Count 4.18 x10^6/uL (3.50-5.40) Hemoglobin 11.4 g/dL (12.0-15.5) L Hematocrit 35.0 % (36.0-47.0) L Mean Corpuscular Volume 84 fL (79-100) Mean Corpuscular Hemoglobin 27 pg (25-35) Mean Corpuscular Hemoglobin Concent 33 g/dL (31-37) Red Cell Distribution Width 16.7 % (11.5-14.5) H Platelet Count 200 x10^3/uL (140-400) Neutrophils (%) (Auto) 72 % (31-73) Lymphocytes (%) (Auto) 16 % (24-48) L Monocytes (%) (Auto) 8 % (0-9) Eosinophils (%) (Auto) 4 % (0-3) H Basophils (%) (Auto) 1 % (0-3) Neutrophils # (Auto) 7.3 x10^3/uL (1.8-7.7) Lymphocytes # (Auto) 1.6 x10^3/uL (1.0-4.8) Monocytes # (Auto) 0.8 x10^3/uL (0.0-1.1) Eosinophils # (Auto) 0.4 x10^3/uL (0.0-0.7) Basophils # (Auto) 0.1 x10^3/uL (0.0-0.2) Prothrombin Time 14.3 SEC (11.7-14.0) H Prothrombin Time INR 1.1 (0.8-1.1) Sodium Level 145 mmol/L (136-145) Potassium Level 3.2 mmol/L (3.5-5.1) L Chloride Level 106 mmol/L (98-107) Carbon Dioxide Level 31 mmol/L (21-32) Anion Gap 8 (6-14) Blood Urea Nitrogen 5 mg/dL (7-20) L Creatinine 0.8 mg/dL (0.6-1.0) Estimated GFR (Cockcroft-Gault) 71.5 BUN/Creatinine Ratio 6 (6-20) Glucose Level 113 mg/dL (70-99) H Calcium Level 8.2 mg/dL (8.5-10.1) L Phosphorus Level 2.7 mg/dL (2.6-4.7) Magnesium Level 1.4 mg/dL (1.8-2.4) L Total Bilirubin 0.5 mg/dL (0.2-1.0) Aspartate Amino Transferase (AST) 26 U/L (15-37) Alanine Aminotransferase (ALT) 30 U/L (14-59) Alkaline Phosphatase 84 U/L (46-116) Troponin I High Sensitivity 19 ng/L (4-50) XS-Hws-G-Type Natriuretic Peptide 1026 pg/mL (0-124) H Total Protein 6.9 g/dL (6.4-8.2) Albumin 2.9 g/dL (3.4-5.0) L Albumin/Globulin Ratio 0.7 (1.0-1.7) L Urine Collection Type Unknown Urine Color (Auto) Light orange Urine Turbidity Turbid Urine pH (Auto) 5.5 (<5.0-8.0) Urine Specific [place] 1.023 (1.000-1.030) Urine Protein (Auto) Negative mg/dL (Negative) Urine Glucose (Auto)(UA) Negative mg/dL (Negative) Urine Ketones (Auto) 10 mg/dL (Negative) Urine Blood (Auto) Negative (Negative) Urine Nitrite Negative (Negative) Urine Bilirubin (Auto) Negative (Negative) Urine Urobilinogen (Auto) 2 mg/dL (Normal) Urine Leukocyte Esterase (Auto) Negative (Negative) Urine RBC 0 /HPF (0-2) Urine WBC 0 /HPF (0-4) Urine Squamous Epithelial Cells Few /LPF Urine Amorphous Sediment Present /HPF Urine Bacteria Moderate /HPF (0-FEW) Urine Mucus Slight /LPF Laboratory Tests 11/15/21 13:55 Laboratory Tests 11/15/21 13:55 Vital Signs: Vital Signs Date Time Temp Pulse Resp B/P (MAP) Pulse Ox O2 Delivery O2 Flow Rate FiO2 11/15/21 14:06 95 Room Air 11/15/21 14:03 0 11/15/21 13:05 98.0 95 149/100 (116) 98.0 EKG: EKG: EKG performed at 1338 by ED nursing staff shows a atrial fibrillation controlled rate 98 bpm, QTC 0.462, no acute STEMI, no ACS, no acute ischemia appreciated, EKG interpreted by ED attending physician Dr. Munguia. Radiology/Procedures: Radiology/Procedures: REASON: Shortness of breath, chest pain PROCEDURE: CHEST PA & LATERAL XR CHEST 2V History: Shortness of breath, chest pain Comparison: 04/03/2019 Technique: PA and lateral chest radiographs. Findings: The lungs are adequately inflated. There is eventration of the right diaphragm. Right lower lobe airspace consolidation. No pleural effusion or pneumothorax. The cardiac silhouette is enlarged. Pulmonary vasculature is within normal limits. Degenerative changes of the shoulders and spine. Impression: 1. Right lower lobe airspace consolidation may represent infection or edema. 2. Cardiomegaly. Electronically signed by: Myke Parham MD (11/15/2021 2:47 PM) [id number] Course & Med Decision Making: Course & Med Decision Making Pertinent Labs and Imaging studies reviewed. (See chart for details) 66-year-old female, vital signs reviewed, presents to the emergency department concerning complaints of shortness of breath over the past 2 weeks. Physical examination concerning for CHF exacerbation versus other cardiopulmonary process. Will order CBC, CMP, high-sensitivity troponin I, PT/INR, PA and lat eral chest x-ray, urinalysis assay, ABG with coags on 3 L NC O2, twelve-lead EKG, COVID and flu rapid testing, hydrocodone 5/325 for pain, Zofran for nausea. Albuterol/Atrovent nebulizer treatment. Patient's magnesium level 1.4, will give 2 g magnesium IV, potassium level 3.2, will give 40 mill equivalents p.o. potassium, patient's calcium 8.2 however corrected calcium for albumin level is 9.8, NT proBNP 1026, BUN 5, creatinine 0.8. The patient's urine is not infected, does have bacteria, suspicious of contaminated catch, patient's EKG and troponin I are negative. Patient's chest x-ray concerning for right lower lobe pulmonary edema. It was reported by ED nursing staff patient desatted to 80% on 3 L per nasal cannula when ambulating from bed to bedside commode and back to bed. Patient did recover back into 96% on 3 L after a period of time of rest. Discussed with patient admission for dyspnea on exertion, pulmonary edema, CHF exacerbation, chest pain. Patient is amenable to ED admission planning, will give 80 mg IV Lasix as patient has doubled her home 20 mg daily Lasix to 40 mg daily for the past 7 days. Will order serial high-sensitivity troponin I. Called and discussed patient case and ED work-up with inpatient management physician Dr. Matthews who agrees patient's case warrants admission to the telemetry unit. Patient is awaiting telemetry bed assignment from powerhouse electrician at this time. Claudioon Disclaimer: Dragon Disclaimer: This electronic medical record was generated, in whole or in part, using a voice recognition dictation system. Departure Departure Impression: Primary Impression: CHF exacerbation Qualified Codes: I50.9 - Heart failure, unspecified Additional Impressions: Pulmonary edema Qualified Codes: J81.0 - Acute pulmonary edema Dyspnea on exertion Chest pain Qualified Codes: R07.9 - Chest pain, unspecified Disposition: ADMITTED INPATIENT Admitting Physician: BHARATH (Admit to Dr. Matthews, telemetry unit.) Condition: GUARDED Referrals: VARGHESE LAZARO MD (PCP) MONISHA CHENEY APRN November 15, 2021 16:17
[2021-11-15] MEDS ORDERED: FUROSEMIDE 100 MG/10 ML VIAL. IVP ONE (17:00)
[2021-11-15 19:13] VITALS: BP 175/82
[2021-11-15] MEDS: cefTRIAXone IV Push 1 GM VIAL. IVP SCH (19:32)
[2021-11-15] MEDS: DOXYCYCLINE HYCLATE 100 MG in IV DEXTROSE 5% 100ML 100 ML IV SCH (19:33)
--- NOTE | 2021-11-15 19:40 | NUR ---
PT ARRIVED TO UNIT AT 1800, ASSESSMENT COMPLETED VSS POC EXPLAINED PT DENIED PAIN AT THIS TIME CALL LIGHT IN REACH WILL RESUME CARE AND CONTINUE TO MONITOR PT.
[2021-11-15] MEDS ORDERED: GABA300C18 PO (19:57)
[2021-11-15 20:05] VITALS: BP 151/70
[2021-11-15] MEDS: methylPREDNISolone SOD SUCC PF 40 MG/ML VIAL. IV SCH (21:21)
[2021-11-15] MEDS: IPRATRPIUM/ALBUTEROL 0.5/2.5MG 3 ML NEBU. NEB SCH (21:43)
[2021-11-15] MEDS ORDERED: clonazePAM 0.5 MG TABLET PO PRN (22:45)
[2021-11-15] MEDS ORDERED: ALBUTEROL SULFATE 2.5 MG/3 ML NEBU. INH PRN (22:45)
[2021-11-15] MEDS ORDERED: LOPERAMIDE 2 MG CAPSULE PO PRN (22:45)
[2021-11-15] MEDS ORDERED: CYCLOBENZAPRINE 10 MG TABLET. PO PRN (22:45)
[2021-11-15 22:51] VITALS: BP 123/69
[2021-11-15] MEDS: rOPINIRole 1 MG TABLET. PO SCH (22:56)
[2021-11-15] MEDS: FERROUS SULFATE 325 MG TABLET. PO SCH (22:56)
[2021-11-15] MEDS: CHOLECALCIFEROL (VITAMIN D3) 5,000 UNIT CAPSULE PO SCH (22:56)
[2021-11-15] MEDS: MONTELUKAST SODIUM 10 MG TABLET. PO SCH (22:56)
[2021-11-15] MEDS: GABAPENTIN 300 MG CAPSULE. PO SCH (22:57)
[2021-11-15] MEDS: POTASSIUM CHLORIDE 20 MEQ TABLET.ER. PO SCH (22:57)
[2021-11-15] MEDS ORDERED: ANTI-COAG MONITOR BY PHARMACY. MC PRN (23:00)
[2021-11-16] MEDS ORDERED: METO25TA2 PO (00:54)
[2021-11-16] MEDS ORDERED: ATOR20TA PO (00:56)
[2021-11-16 02:06] VITALS: BP 131/69
[2021-11-16] MEDS: HYDROcodone/APAP 7.5/325MG 1 TAB TABLET PO PRN ×2 (02:23→16:23)
[2021-11-16] MEDS: PANTOPRAZOLE 40 MG TABLET.DR. PO SCH ×2 (06:42→08:46)
[2021-11-16] MEDS: LEVOTHYROXINE 175 MCG TABLET PO SCH (06:42)
[2021-11-16 07:00] VITALS: BP 156/86
[2021-11-16] MEDS: BUDESONIDE 0.5 MG/2 ML NEBU. NEB SCH ×2 (07:35→21:15)
[2021-11-16] MEDS: IPRATRPIUM/ALBUTEROL 0.5/2.5MG 3 ML NEBU. NEB SCH ×4 (07:35→21:15)
--- NOTE | 2021-11-16 08:01 | HP ---
DATE OF SERVICE: 11/15/2021 ADMIT DATE: 11/15/2021 CHIEF COMPLAINT: Shortness of breath. HISTORY OF PRESENT ILLNESS: The patient is a pleasant 66-year-old female who states she never smoked, but had a lot of secondhand smoke exposure as a kid. She has a known history of COPD due to that. She also has a history of heart failure and obesity and multiple comorbidities, please see below. I discussed the case with ER physician. The patient has been having shortness of breath. While in the ER, she is quite swollen. She also has some infiltrates on her chest x-ray. We are going to admit the patient and consult Pulmonary Medicine, gave her IV antibiotics and some Lasix and steroids, breathing treatments and oxygen. PAST MEDICAL HISTORY: COPD, obesity, CHF, AFib, asthma, secondhand smoke exposure, cholecystectomy, right breast biopsy. ALLERGIES: ____ PENICILLIN, SULFA AND LEVAQUIN. FAMILY HISTORY: Diabetes. SOCIAL HISTORY: She does not drink, smoke or take drugs. She is retired. MEDICATIONS: Reviewed. Please refer to the MRAD. REVIEW OF SYSTEMS: GENERAL: No history of weight change, weakness or fevers. SKIN: No bruising, hair changes or rashes. EYES: No blurred, double or loss of vision. NOSE AND THROAT: No history of nosebleeds, hoarseness or sore throat. HEART: No history of palpitations, chest pain or shortness of breath on exertion. LUNGS: She complains of shortness of breath and cough. GASTROINTESTINAL: Denies changes in appetite, nausea, vomiting, diarrhea or constipation. GENITOURINARY: No history of frequency, urgency, hesitancy or nocturia. NEUROLOGIC: Denies history of numbness, tingling, tremor or weakness. PSYCHIATRIC: No history of panic, anxiety or depression. ENDOCRINE: No history of heat or cold intolerance, polyuria or polydipsia. EXTREMITIES: She complains of edema. PHYSICAL EXAMINATION: VITALS: Within normal limits and are stable. GENERAL: No apparent distress. Alert and oriented. HEENT: Normal cephalic atraumatic, external auditory canals are patent. EYES: Extraocular muscles are intact, pupils are equally round and reactive to light and accommodation. MUSCULOSKELETAL: Well developed, well nourished, good range of motion. ENDOCRINE: No thyromegaly was palpated. LYMPHATICS: No cervical chain or axillary nodes were noted. HEMATOPOIETIC: No bruising. NECK: Supple, no JVD, no thyromegaly was noted. LUNGS: She has bibasilar crackles. HEART: RRR, S1, S2 present. Peripheral pulses intact, no obvious murmurs were noted. ABDOMEN: Soft, nontender. Positive bowel sounds no organomegaly, normal bowel sounds. EXTREMITIES: She has 3+ edema. NEUROLOGIC: Normal speech, normal tone. A and O x 3, moves all extremities, no obvious focal deficits. PSYCHIATRIC: Normal affect, normal mood. Stable. SKIN: No ulcerations or rashes, good skin turgor, no jaundice. VASCULAR: Good capillary refill, neurovascular bundle appears to be intact. LABORATORY DATA: Potassium is low at 3.2. Chest x-ray shows cardiomegaly and edema and/or pneumonia. Urinalysis negative. INR 1.1. ASSESSMENT AND PLAN: Respiratory failure, suspect a combination of mild heart failure and chronic obstructive pulmonary disease, possibly pneumonia. The patient will be admitted. We will IV ____, IV Rocephin, DuoNebs, oxygen, steroids, home meds. Deep venous thrombosis prophylaxis. Full code. Consult Pulmonary. She got a dose of Lasix in the ER. new client banking services clerk consult for alf. Long-term prognosis is guarded. MARITA/DREW DR: GIDEON/samreen TID: [id number]
[2021-11-16] MEDS: DOXYCYCLINE HYCLATE 100 MG in IV DEXTROSE 5% 100ML 100 ML IV SCH ×2 (08:40→20:05)
[2021-11-16] MEDS: DIGOXIN 125 MCG TABLET. PO SCH (08:45)
[2021-11-16] MEDS: METOPROLOL SUCC 24HR ER 50 MG TAB.ER.24H. PO SCH (08:45)
[2021-11-16] MEDS: DULoxetine HCL 30 MG CAPSULE.DR PO SCH (08:45)
[2021-11-16] MEDS: GABAPENTIN 300 MG CAPSULE. PO SCH ×3 (08:46→20:04)
[2021-11-16] MEDS: FUROSEMIDE 40 MG TABLET. PO SCH (08:46)
[2021-11-16] MEDS: POTASSIUM CHLORIDE 20 MEQ TABLET.ER. PO SCH ×2 (08:47→20:02)
[2021-11-16] MEDS: methylPREDNISolone SOD SUCC PF 40 MG/ML VIAL. IV SCH ×2 (08:47→20:04)
[2021-11-16] MEDS: NYSTATIN TOPICAL POWDER 15GM BOTTLE. TP SCH ×2 (08:48→21:00)
[2021-11-16 08:57] LABS: CALCIUM 8.3 mg/dL (8.5-10.1); CREATININE 0.8 mg/dL (0.6-1.0); GFR 71.5; MAGNESIUM 1.9 mg/dL (1.8-2.4); POTASSIUM 4.9 mmol/L (3.5-5.1)
[2021-11-16] MEDS ORDERED: NON FORMULARY ITEM (Tiotropium Bromide (Spiriva) 1 INH) IH SCH (09:00)
[2021-11-16] MEDS ORDERED: DIGOXIN PO SCH (09:00)
[2021-11-16 11:00] VITALS: BP 133/64
--- NOTE | 2021-11-16 11:56 | PDOC ---
[employer] PROGRESS NOTE Date of Service DOS: DATE: 11/16/21 TIME: 11:53 Chief Complaint Chief Complaint Respiratory failure, suspect a combination of mild heart failure and chronic obstructive pulmonary disease, possibly pneumonia. The patient will be admitted. IV Rocephin, DuoNebs, oxygen, steroids, home meds. Deep venous thrombosis prophylaxis. Full code. Consult Pulmonary. immigration services officer consult for prison. Long-term prognosis is guarded. PT OT Home Lasix we will add extra dose of IV today as she is quite fluid overloaded still. History of Present Illness History of Present Illness 11/16 Patient seen and examined at bedside. Sitting up in bed pretty harsh cough throughout interview. Says breathing a little bit improved since presentation h owever. Is complaining some burning at the bottom of her feet will increase home gabapentin. Given degree of fluid overload give an extra dose IV Lasix today. Continue antibiotics steroids as needed breathing treatments. Consult recommendations reviewed. Discussed with bedside RN. Vitals/I&O Vitals/I&O: Vital Signs Date Time Temp Pulse Resp B/P (MAP) Pulse Ox O2 Delivery O2 Flow Rate FiO2 11/16/21 08:47 111 156/86 11/16/21 08:00 Nasal Cannula 3.0 11/16/21 07:41 96 11/16/21 07:00 97.5 18 97.5 I & O 11/15/21 11/15/21 11/16/21 15:00 23:00 07:00 Intake Total 400 ml Output Total 1400 ml 750 ml Balance -1400 ml -350 ml Physical Exam General: Alert, Oriented X3, Cooperative Heart: Regular rate, Normal S1, Normal S2 Lungs: Wheezing Abdomen: Normal bowel sounds, Soft, No tenderness Extremities: Other (bilateral lower extremity edema) Skin: No significant lesion Labs Labs: Laboratory Tests Test 11/15/21 13:28 11/15/21 13:50 11/15/21 13:55 11/15/21 15:25 O2 Saturation 97 % (92-99) Arterial Blood pH 7.43 (7.35-7.45) Arterial Blood pCO2 at Patient Temp 38 mmHg (35-46) Arterial Blood pO2 at Patient Temp 105 mmHg (65-108) Arterial Blood HCO3 25 mmol/L (21-28) Arterial Blood Base Excess 0 mmol/L (-3-3) Oxyhemoglobin 96.6 % Methemoglobin 0.4 % (0.0-1.9) Carbon Monoxide, Quantitative 0.3 % (0.0-1.9) FiO2 3l/nc Influenza Type A Antigen Negative (NEGATIVE) Influenza Type B Antigen Negative (NEGATIVE) SARS-CoV-2 Antigen (Rapid) Negative (NEGATIVE) White Blood Count 10.2 x10^3/uL (4.0-11.0) Red Blood Count 4.18 x10^6/uL (3.50-5.40) Hemoglobin 11.4 g/dL (12.0-15.5) Hematocrit 35.0 % (36.0-47.0) Mean Corpuscular Volume 84 fL (79-100) Mean Corpuscular Hemoglobin 27 pg (25-35) Mean Corpuscular Hemoglobin Concent 33 g/dL (31-37) Red Cell Distribution Width 16.7 % (11.5-14.5) Platelet Count 200 x10^3/uL (140-400) Neutrophils (%) (Auto) 72 % (31-73) Lymphocytes (%) (Auto) 16 % (24-48) Monocytes (%) (Auto) 8 % (0-9) Eosinophils (%) (Auto) 4 % (0-3) Basophils (%) (Auto) 1 % (0-3) Neutrophils # (Auto) 7.3 x10^3/uL (1.8-7.7) Lymphocytes # (Auto) 1.6 x10^3/uL (1.0-4.8) Monocytes # (Auto) 0.8 x10^3/uL (0.0-1.1) Eosinophils # (Auto) 0.4 x10^3/uL (0.0-0.7) Basophils # (Auto) 0.1 x10^3/uL (0.0-0.2) Prothrombin Time 14.3 SEC (11.7-14.0) Prothromb Time International Ratio 1.1 (0.8-1.1) Sodium Level 145 mmol/L (136-145) Potassium Level 3.2 mmol/L (3.5-5.1) Chloride Level 106 mmol/L (98-107) Carbon Dioxide Level 31 mmol/L (21-32) Anion Gap 8 (6-14) Blood Urea Nitrogen 5 mg/dL (7-20) Creatinine 0.8 mg/dL (0.6-1.0) Estimated GFR (Cockcroft-Gault) 71.5 BUN/Creatinine Ratio 6 (6-20) Glucose Level 113 mg/dL (70-99) Calcium Level 8.2 mg/dL (8.5-10.1) Phosphorus Level 2.7 mg/dL (2.6-4.7) Magnesium Level 1.4 mg/dL (1.8-2.4) Total Bilirubin 0.5 mg/dL (0.2-1.0) Aspartate Amino Transf (AST/SGOT) 26 U/L (15-37) Alanine Aminotransferase (ALT/SGPT) 30 U/L (14-59) Alkaline Phosphatase 84 U/L (46-116) Troponin I High Sensitivity 19 ng/L (4-50) ZQ-Exd-W-Type Natriuretic Peptide 1026 pg/mL (0-124) Total Protein 6.9 g/dL (6.4-8.2) Albumin 2.9 g/dL (3.4-5.0) Albumin/Globulin Ratio 0.7 (1.0-1.7) Urine Collection Type Unknown Urine Color (Auto) Light orange Urine Turbidity Turbid Urine pH (Auto) 5.5 (<5.0-8.0) Urine Specific [place] 1.023 (1.000-1.030) Urine Protein (Auto) Negative mg/dL (Negative) Urine Glucose (Auto)(UA) Negative mg/dL (Negative) Urine Ketones (Auto) 10 mg/dL (Negative) Urine Blood (Auto) Negative (Negative) Urine Nitrite Negative (Negative) Urine Bilirubin (Auto) Negative (Negative) Urine Urobilinogen (Auto) 2 mg/dL (Normal) Urine Leukocyte Esterase (Auto) Negative (Negative) Urine RBC 0 /HPF (0-2) Urine WBC 0 /HPF (0-4) Urine Squamous Epithelial Cells Few /LPF Urine Amorphous Sediment Present /HPF Urine Bacteria Moderate /HPF (0-FEW) Urine Mucus Slight /LPF Test 11/15/21 17:20 11/15/21 19:05 11/16/21 08:20 Troponin I High Sensitivity 18 ng/L (4-50) 18 ng/L (4-50) Sodium Level 142 mmol/L (136-145) Potassium Level 4.9 mmol/L (3.5-5.1) Chloride Level 103 mmol/L (98-107) Carbon Dioxide Level 29 mmol/L (21-32) Anion Gap 10 (6-14) Blood Urea Nitrogen 4 mg/dL (7-20) Creatinine 0.8 mg/dL (0.6-1.0) Estimated GFR (Cockcroft-Gault) 71.5 Glucose Level 172 mg/dL (70-99) Calcium Level 8.3 mg/dL (8.5-10.1) Magnesium Level 1.9 mg/dL (1.8-2.4) Assessment and Plan Assessmemt and Plan Problems Medical Problems: (1) Chest pain Status: Acute (2) CHF exacerbation Status: Acute (3) Dyspnea on exertion Status: Acute (4) Pulmonary edema Status: Acute Comment Review of Relevant I have reviewed the following items jorge (where applicable) has been applied. Medications: Current Medications Medications (Trade) Dose Ordered Sig/Ijeoma Route PRN Reason Start Time Stop Time Status Last Admin Dose Admin Albuterol/ Ipratropium (Duoneb) 3 ml 1X ONCE NEB 11/15/21 14:00 11/15/21 14:01 DC 11/15/21 14:06 Ondansetron HCl (Zofran) 4 mg 1X ONCE IVP 11/15/21 14:00 11/15/21 14:01 DC 11/15/21 14:02 Acetaminophen/ Hydrocodone Bitart (Lortab 5/325) 1 tab 1X ONCE PO 11/15/21 14:00 11/15/21 14:01 DC 11/15/21 14:03 Potassium Chloride (Klor-Con) 40 meq 1X ONCE PO 11/15/21 15:30 11/15/21 15:31 DC 11/15/21 16:32 Magnesium Sulfate 50 ml @ 25 mls/hr 1X ONCE IV 11/15/21 15:30 11/15/21 17:29 DC 11/15/21 16:32 Furosemide (Lasix) 80 mg 1X ONCE IVP 11/15/21 17:00 11/15/21 17:01 DC 11/15/21 17:07 Ceftriaxone Sodium (Rocephin) 1 gm Q24H IVP 11/15/21 18:00 11/15/21 19:32 Methylprednisolone Sodium Succinate (SOLU-Medrol 40MG VIAL) 40 mg BID IV 11/15/21 21:00 11/16/21 08:47 Albuterol/ Ipratropium (Duoneb) 3 ml RTQID NEB 11/15/21 20:00 11/16/21 07:35 Doxycycline Hyclate 100 mg/ Dextrose 100 ml @ 50 mls/hr Q12HR IV 11/15/21 18:00 11/16/21 08:40 Loperamide HCl (Imodium) 2 mg PRN Q15MIN PRN PO DIARRHEA 11/15/21 22:45 11/15/21 22:56 Digoxin (Lanoxin) 125 mcg DAILY PO 11/16/21 09:00 11/16/21 08:45 Diltiazem HCl (Cardizem 24hr Cd) 300 mg DAILY PO 11/16/21 09:00 11/16/21 08:47 Ferrous Sulfate (Feosol) 325 mg HS PO 11/16/21 00:00 11/15/21 22:56 Furosemide (Lasix) 40 mg DAILY PO 11/16/21 09:00 11/16/21 08:46 Gabapentin (Neurontin) 900 mg BID PO 11/16/21 00:00 11/16/21 11:44 DC 11/16/21 08:46 Acetaminophen/ Hydrocodone Bitart (Lortab 7.5/325) 1 tab PRN Q6HRS PRN PO MODERATE PAIN 4-6 11/15/21 22:45 11/16/21 02:23 Levothyroxine Sodium (Synthroid) 175 mcg DAILY06 PO 11/16/21 06:00 11/16/21 06:42 Montelukast Sodium (Singulair) 10 mg HS PO 11/16/21 00:00 11/15/21 22:56 Potassium Chloride (Klor-Con) 20 meq BID PO 11/16/21 00:00 11/16/21 08:47 Ropinirole HCl (Requip) 1 mg HS PO 11/16/21 00:00 11/15/21 22:56 Vitamin D (Vitamin D3) 5,000 unit HS PO 11/16/21 00:00 11/15/21 22:56 Duloxetine HCl (Cymbalta) 60 mg DAILY PO 11/16/21 09:00 11/16/21 08:45 Budesonide (Pulmicort) 0.5 mg RTBID NEB 11/16/21 08:00 11/16/21 07:35 Pantoprazole Sodium (Protonix) 40 mg DAILYAC PO 11/16/21 07:30 11/16/21 08:46 Info (Anti-Coagulation Monitoring By Pharmacy) 1 each PRN DAILY PRN MC PER PROTOCOL 11/15/21 23:00 11/16/21 02:55 Metoprolol Succinate (Toprol Xl) 50 mg DAILY PO 11/16/21 09:00 11/16/21 08:45 Nystatin (Nystop) 1 sea BID TP 11/16/21 09:00 11/16/21 08:48 Justifications for Admission Other Justification AMBAR OG MD November 16, 2021 11:56
[2021-11-16] MEDS ORDERED: FUROSEMIDE 40 MG/4 ML VIAL. IVP ONE (12:00)
[2021-11-16] MEDS: DICLOFENAC SODIUM 25 MG TABLET.DR PO SCH ×2 (12:28→20:01)
--- NOTE | 2021-11-16 13:33 | PDOC ---
PULMONARY PROGRESS NOTES DATE: 11/16/21 TIME: 13:32 Vitals Vital Signs Date Time Temp Pulse Resp B/P (MAP) Pulse Ox O2 Delivery O2 Flow Rate FiO2 11/16/21 11:00 97.8 55 20 133/64 (87) 97 Nasal Cannula 3.0 97.8 General: Alert Lungs: Wheezing Cardiovascular: S1, S2 Extremities: No Edema Labs Laboratory Tests Test 11/15/21 13:28 11/15/21 13:50 11/15/21 13:55 11/15/21 15:25 O2 Saturation 97 % (92-99) Arterial Blood pH 7.43 (7.35-7.45) Arterial Blood pCO2 at Patient Temp 38 mmHg (35-46) Arterial Blood pO2 at Patient Temp 105 mmHg (65-108) Arterial Blood HCO3 25 mmol/L (21-28) Arterial Blood Base Excess 0 mmol/L (-3-3) Oxyhemoglobin 96.6 % Methemoglobin 0.4 % (0.0-1.9) Carbon Monoxide, Quantitative 0.3 % (0.0-1.9) FiO2 3l/nc Influenza Type A Antigen Negative (NEGATIVE) Influenza Type B Antigen Negative (NEGATIVE) SARS-CoV-2 Antigen (Rapid) Negative (NEGATIVE) White Blood Count 10.2 x10^3/uL (4.0-11.0) Red Blood Count 4.18 x10^6/uL (3.50-5.40) Hemoglobin 11.4 g/dL (12.0-15.5) Hematocrit 35.0 % (36.0-47.0) Mean Corpuscular Volume 84 fL (79-100) Mean Corpuscular Hemoglobin 27 pg (25-35) Mean Corpuscular Hemoglobin Concent 33 g/dL (31-37) Red Cell Distribution Width 16.7 % (11.5-14.5) Platelet Count 200 x10^3/uL (140-400) Neutrophils (%) (Auto) 72 % (31-73) Lymphocytes (%) (Auto) 16 % (24-48) Monocytes (%) (Auto) 8 % (0-9) Eosinophils (%) (Auto) 4 % (0-3) Basophils (%) (Auto) 1 % (0-3) Neutrophils # (Auto) 7.3 x10^3/uL (1.8-7.7) Lymphocytes # (Auto) 1.6 x10^3/uL (1.0-4.8) Monocytes # (Auto) 0.8 x10^3/uL (0.0-1.1) Eosinophils # (Auto) 0.4 x10^3/uL (0.0-0.7) Basophils # (Auto) 0.1 x10^3/uL (0.0-0.2) Prothrombin Time 14.3 SEC (11.7-14.0) Prothromb Time International Ratio 1.1 (0.8-1.1) Sodium Level 145 mmol/L (136-145) Potassium Level 3.2 mmol/L (3.5-5.1) Chloride Level 106 mmol/L (98-107) Carbon Dioxide Level 31 mmol/L (21-32) Anion Gap 8 (6-14) Blood Urea Nitrogen 5 mg/dL (7-20) Creatinine 0.8 mg/dL (0.6-1.0) Estimated GFR (Cockcroft-Gault) 71.5 BUN/Creatinine Ratio 6 (6-20) Glucose Level 113 mg/dL (70-99) Calcium Level 8.2 mg/dL (8.5-10.1) Phosphorus Level 2.7 mg/dL (2.6-4.7) Magnesium Level 1.4 mg/dL (1.8-2.4) Total Bilirubin 0.5 mg/dL (0.2-1.0) Aspartate Amino Transf (AST/SGOT) 26 U/L (15-37) Alanine Aminotransferase (ALT/SGPT) 30 U/L (14-59) Alkaline Phosphatase 84 U/L (46-116) Troponin I High Sensitivity 19 ng/L (4-50) NF-Wao-I-Type Natriuretic Peptide 1026 pg/mL (0-124) Total Protein 6.9 g/dL (6.4-8.2) Albumin 2.9 g/dL (3.4-5.0) Albumin/Globulin Ratio 0.7 (1.0-1.7) Urine Collection Type Unknown Urine Color (Auto) Light orange Urine Turbidity Turbid Urine pH (Auto) 5.5 (<5.0-8.0) Urine Specific [place] 1.023 (1.000-1.030) Urine Protein (Auto) Negative mg/dL (Negative) Urine Glucose (Auto)(UA) Negative mg/dL (Negative) Urine Ketones (Auto) 10 mg/dL (Negative) Urine Blood (Auto) Negative (Negative) Urine Nitrite Negative (Negative) Urine Bilirubin (Auto) Negative (Negative) Urine Urobilinogen (Auto) 2 mg/dL (Normal) Urine Leukocyte Esterase (Auto) Negative (Negative) Urine RBC 0 /HPF (0-2) Urine WBC 0 /HPF (0-4) Urine Squamous Epithelial Cells Few /LPF Urine Amorphous Sediment Present /HPF Urine Bacteria Moderate /HPF (0-FEW) Urine Mucus Slight /LPF Test 11/15/21 17:20 11/15/21 19:05 11/16/21 08:20 Troponin I High Sensitivity 18 ng/L (4-50) 18 ng/L (4-50) Sodium Level 142 mmol/L (136-145) Potassium Level 4.9 mmol/L (3.5-5.1) Chloride Level 103 mmol/L (98-107) Carbon Dioxide Level 29 mmol/L (21-32) Anion Gap 10 (6-14) Blood Urea Nitrogen 4 mg/dL (7-20) Creatinine 0.8 mg/dL (0.6-1.0) Estimated GFR (Cockcroft-Gault) 71.5 Glucose Level 172 mg/dL (70-99) Calcium Level 8.3 mg/dL (8.5-10.1) Magnesium Level 1.9 mg/dL (1.8-2.4) Laboratory Tests Test 11/15/21 13:50 11/15/21 13:55 11/15/21 15:25 11/15/21 17:20 Influenza Type A Antigen Negative (NEGATIVE) Influenza Type B Antigen Negative (NEGATIVE) SARS-CoV-2 Antigen (Rapid) Negative (NEGATIVE) White Blood Count 10.2 x10^3/uL (4.0-11.0) Red Blood Count 4.18 x10^6/uL (3.50-5.40) Hemoglobin 11.4 g/dL (12.0-15.5) Hematocrit 35.0 % (36.0-47.0) Mean Corpuscular Volume 84 fL (79-100) Mean Corpuscular Hemoglobin 27 pg (25-35) Mean Corpuscular Hemoglobin Concent 33 g/dL (31-37) Red Cell Distribution Width 16.7 % (11.5-14.5) Platelet Count 200 x10^3/uL (140-400) Neutrophils (%) (Auto) 72 % (31-73) Lymphocytes (%) (Auto) 16 % (24-48) Monocytes (%) (Auto) 8 % (0-9) Eosinophils (%) (Auto) 4 % (0-3) Basophils (%) (Auto) 1 % (0-3) Neutrophils # (Auto) 7.3 x10^3/uL (1.8-7.7) Lymphocytes # (Auto) 1.6 x10^3/uL (1.0-4.8) Monocytes # (Auto) 0.8 x10^3/uL (0.0-1.1) Eosinophils # (Auto) 0.4 x10^3/uL (0.0-0.7) Basophils # (Auto) 0.1 x10^3/uL (0.0-0.2) Prothrombin Time 14.3 SEC (11.7-14.0) Prothromb Time International Ratio 1.1 (0.8-1.1) Sodium Level 145 mmol/L (136-145) Potassium Level 3.2 mmol/L (3.5-5.1) Chloride Level 106 mmol/L (98-107) Carbon Dioxide Level 31 mmol/L (21-32) Anion Gap 8 (6-14) Blood Urea Nitrogen 5 mg/dL (7-20) Creatinine 0.8 mg/dL (0.6-1.0) Estimated GFR (Cockcroft-Gault) 71.5 BUN/Creatinine Ratio 6 (6-20) Glucose Level 113 mg/dL (70-99) Calcium Level 8.2 mg/dL (8.5-10.1) Phosphorus Level 2.7 mg/dL (2.6-4.7) Magnesium Level 1.4 mg/dL (1.8-2.4) Total Bilirubin 0.5 mg/dL (0.2-1.0) Aspartate Amino Transf (AST/SGOT) 26 U/L (15-37) Alanine Aminotransferase (ALT/SGPT) 30 U/L (14-59) Alkaline Phosphatase 84 U/L (46-116) Troponin I High Sensitivity 19 ng/L (4-50) 18 ng/L (4-50) JH-Ykk-P-Type Natriuretic Peptide 1026 pg/mL (0-124) Total Protein 6.9 g/dL (6.4-8.2) Albumin 2.9 g/dL (3.4-5.0) Albumin/Globulin Ratio 0.7 (1.0-1.7) Urine Collection Type Unknown Urine Color (Auto) Light orange Urine Turbidity Turbid Urine pH (Auto) 5.5 (<5.0-8.0) Urine Specific [place] 1.023 (1.000-1.030) Urine Protein (Auto) Negative mg/dL (Negative) Urine Glucose (Auto)(UA) Negative mg/dL (Negative) Urine Ketones (Auto) 10 mg/dL (Negative) Urine Blood (Auto) Negative (Negative) Urine Nitrite Negative (Negative) Urine Bilirubin (Auto) Negative (Negative) Urine Urobilinogen (Auto) 2 mg/dL (Normal) Urine Leukocyte Esterase (Auto) Negative (Negative) Urine RBC 0 /HPF (0-2) Urine WBC 0 /HPF (0-4) Urine Squamous Epithelial Cells Few /LPF Urine Amorphous Sediment Present /HPF Urine Bacteria Moderate /HPF (0-FEW) Urine Mucus Slight /LPF Test 11/15/21 19:05 11/16/21 08:20 Troponin I High Sensitivity 18 ng/L (4-50) Sodium Level 142 mmol/L (136-145) Potassium Level 4.9 mmol/L (3.5-5.1) Chloride Level 103 mmol/L (98-107) Carbon Dioxide Level 29 mmol/L (21-32) Anion Gap 10 (6-14) Blood Urea Nitrogen 4 mg/dL (7-20) Creatinine 0.8 mg/dL (0.6-1.0) Estimated GFR (Cockcroft-Gault) 71.5 Glucose Level 172 mg/dL (70-99) Calcium Level 8.3 mg/dL (8.5-10.1) Magnesium Level 1.9 mg/dL (1.8-2.4) Medications Active Scripts Medications Dose Route/Sig Max Daily Dose Days Date Category Lipitor (Atorvastatin Calcium) 20 Mg Tablet 20 Mg PO HS 11/16/21 Reported Toprol Xl (Metoprolol Succinate) 25 Mg Tab.er.24h 2 Tab PO DAILY 30 11/16/21 Reported Gabapentin (Gabapentin) 300 Mg Capsule 900 Mg PO BID 11/15/21 Reported Lanoxin (Digoxin) 62.5 Mcg Tablet 1 Tab PO DAILY 30 12/25/20 Reported Protonix (Pantoprazole Sodium) 20 Mg Tablet.dr 1 Tab PO DAILY 12/25/20 Reported Furosemide 40 Mg Tablet 40 Mg PO DAILY 04/09/19 Reported Ferrous Sulfate 325 Mg Tablet 325 Mg PO HS 04/09/19 Reported Diltiazem 24HR Cd (Diltiazem Hcl) 180 Mg Cap.er.24h 300 Mg PO DAILY 04/09/19 Reported Vitamin D (Cholecalciferol (Vitamin D3)) 1,000 Unit Capsule 5,000 Unit PO HS 04/04/19 Reported Promethazine Hcl 25 Mg Tablet 1 Tab PO PRN Q6HRS 01/15/19 Reported Spiriva (Tiotropium [place]) 18 Mcg Cap.w.dev 1 Inh IH DAILY 12/16/18 Reported Proair Hfa Inhaler (Albuterol Sulfate) 8.5 Gm Hfa.aer.ad 2 Puff INH PRN Q6HRS PRN 12/16/18 Reported Potassium Chloride (Potassium Chloride) 20 Meq Tablet.er 20 Meq PO BID 12/16/18 Reported Digoxin 125 Mcg Tablet 125 Mcg PO DAILY 12/16/18 Reported Cyclobenzaprine Hcl 10 Mg Tablet 1 Tab PO PRN TID PRN 04/22/18 Reported Hydrocodone-Apap 7.5-325 (Hydrocodone Bit/Acetaminophen) 1 Each Tablet 1 Tab PO PRN Q6HRS PRN 04/22/18 Reported Clonazepam (Clonazepam) 0.5 Mg Tablet 1 Tab PO PRN DAILY PRN 04/22/18 Reported Ventolin Hfa Inhaler (Albuterol Sulfate) 18 Gm Hfa.aer.ad 2 Puff INH Q4HRS 04/22/18 Reported Dulera 200 Mcg/5 Mcg Inhaler (Mometasone/Formoterol) 13 Gm Hfa.aer.ad 2 Puff IH BID 04/22/18 Reported Montelukast Sodium Tablet (Montelukast Sodium) 10 Mg Tablet 1 Tab PO HS 10/09/16 Reported Ropinirole Hcl 1 Mg Tablet 1 Mg PO HS 10/09/16 Reported Xarelto (Rivaroxaban) 20 Mg Tablet 20 Mg PO DAILY16 10/09/16 Reported Prednisone (Prednisone) 10 Mg Tablet 15 Mg PO PRN PRN 10/09/16 Reported Diclofenac Sodium 75 Mg Tablet.dr 1 Tab PO BID 10/09/16 Reported Cymbalta (Duloxetine Hcl) 60 Mg Capsule.dr 1 Cap PO DAILY 10/09/16 Reported Levothyroxine Sodium 150 Mcg Tablet 175 Mcg PO DAILY 10/09/16 Reported Impression . Full note dictated Respiratory failure multifactorial Abnormal x-ray compatible with pneumonia Concurrent current medical management Outpatient polysomnogram with BiPAP titration TANK GROVER MD November 16, 2021 13:33
[2021-11-16] MEDS ORDERED: ENOXAPARIN 40 MG/0.4 ML SYRINGE. SQ SCH (14:00)
--- NOTE | 2021-11-16 14:09 | NUR ---
SS following for discharge planning. SS reviewed pt chart and discussed with pt RN. Pt is from home with daughter and is currently requiring oxygen at three liters nasal canula. Pt has home oxygen. Pulmonology following. SS will continue to follow for discharge planning.
[2021-11-16 15:00] VITALS: BP 137/70
[2021-11-16] MEDS: RIVAROXABAN 10 MG TABLET. PO SCH (16:23)
[2021-11-16] MEDS: cefTRIAXone IV Push 1 GM VIAL. IVP SCH (17:28)
[2021-11-16 19:40] VITALS: BP 123/62
[2021-11-16] MEDS: FERROUS SULFATE 325 MG TABLET. PO SCH (20:02)
[2021-11-16] MEDS: rOPINIRole 1 MG TABLET. PO SCH (20:03)
[2021-11-16] MEDS: MONTELUKAST SODIUM 10 MG TABLET. PO SCH (20:03)
[2021-11-16] MEDS: CHOLECALCIFEROL (VITAMIN D3) 5,000 UNIT CAPSULE PO SCH (20:08)
[2021-11-16] MEDS: LACTOBACILLUS RHAMNOSUS GG 1 CAPSULE. PO SCH (20:08)
[2021-11-16] MEDS: ONDANSETRON PF 4 MG/2 ML VIAL. IVP PRN (21:50)
[2021-11-16 22:23] VITALS: BP 143/81
--- NOTE | 2021-11-16 22:43 | CONS ---
DATE OF CONSULTATION: 11/16/2021 ATTENDING PHYSICIAN: Laura Matthews DO CONSULTING PHYSICIAN: Adin Wong MD REASON FOR CONSULTATION: The patient is seen in pulmonary consultation at the request of Dr. Matthews for abnormal chest x-ray revealing right lower lobe airspace disease. HISTORY OF PRESENT ILLNESS: The patient is a 66-year-old morbid obese individual that presented with increasing shortness of breath over the last 2-3 days. She normally wears oxygen at home 3 liters at bedtime for obstructive sleep apnea, intolerant to CPAP. She presented with increasing shortness of breath and cough. No fevers. She has never smoked. She underwent a chest x-ray, which revealed right lower lobe airspace disease. I was asked to see her in consultation. The patient carries a diagnosis of COPD, mainly related to secondhand smoke and possibly asthma. She is currently on IV Rocephin along with ceftriaxone, multiple other home medications, nebulized treatments. At home, she normally uses Dulera, Spiriva and p.r.n. albuterol. PAST MEDICAL HISTORY: 1. Obstructive sleep apnea, not tolerant to CPAP. 2. She has a history of tracheobronchomalacia. 3. COPD with an asthma component. 4. Chronic AFib. 5. Morbid obesity. 6. History of sepsis, was hospitalized in 12/2018 for 2 months at [facility] with sepsis and PE at that time, diagnosis of tracheobronchomalacia, was performed by bronchoscopy. ALLERGIES: PENICILLIN, SULFA, AND LEVAQUIN. FAMILY HISTORY: Diabetes. SOCIAL HISTORY: She has never smoked. She is currently retired. MEDICATIONS: List was reviewed. REVIEW OF SYSTEMS: As indicated above. Otherwise, a 10-point system was reviewed and negative. PHYSICAL EXAMINATION: GENERAL: Morbid obese individual in no respiratory distress, currently on 2 liters of oxygen supplementation. HEENT: Eyes: The sclerae were nonicteric. NECK: Jugular venous distention could not be assessed secondary to body habitus. CHEST: Full expansion. LUNGS: Adequate flow with no wheezes. CARDIOVASCULAR: Regular rate and rhythm with S1, S2, no S3. ABDOMEN: Obese. EXTREMITIES: No clubbing or cyanosis. Marked obesity. NEUROLOGIC: The patient was awake, alert, following commands. A detailed neuro exam was not performed. LABORATORY DATA: Reviewed. SARS-CoV-2 testing was negative. UA was noted. Electrolytes were noted. Arterial blood gas; pH of 7.43, PaCO2 of 38, pO2 of 105. White count was normal. Hemoglobin and hematocrit noted. Chest x-ray as indicated above. IMPRESSION: 1. Abnormal x-ray, compatible with pneumonia, gram-negative, possibly gram-positive. 2. Acute exacerbation of chronic obstructive pulmonary disease with an asthma component. 3. Obstructive sleep apnea, non-tolerant to CPAP, the patient failed CPAP. Will require an outpatient polysomnogram with BiPAP titration. 4. History of tracheobronchomalacia diagnosed during her stay for 2 months at [facility]. She was hospitalized with sepsis and PE. 5. Morbid obesity. 6. Other comorbidities as listed above. PLAN: 1. Continue IV antibiotics. 2. Repeat outpatient polysomnogram with BiPAP titration. 3. Continue bronchodilators and oxygen. 4. Continue home meds. 5. DVT prophylaxis. I do appreciate the privilege in sharing in the patient's care. STAN DR: Aleena TID: [id number]
[2021-11-17 03:22] VITALS: BP 125/80
[2021-11-17] MEDS: LEVOTHYROXINE 175 MCG TABLET PO SCH (05:40)
[2021-11-17 07:00] VITALS: BP 131/67
[2021-11-17] MEDS: IPRATRPIUM/ALBUTEROL 0.5/2.5MG 3 ML NEBU. NEB SCH ×4 (07:48→18:27)
[2021-11-17] MEDS: BUDESONIDE 0.5 MG/2 ML NEBU. NEB SCH ×2 (07:48→18:27)
[2021-11-17] MEDS: POTASSIUM CHLORIDE 20 MEQ TABLET.ER. PO SCH ×2 (09:00→21:26)
[2021-11-17] MEDS: methylPREDNISolone SOD SUCC PF 40 MG/ML VIAL. IV SCH ×2 (09:47→21:26)
[2021-11-17] MEDS: ONDANSETRON PF 4 MG/2 ML VIAL. IVP PRN (09:47)
[2021-11-17] MEDS: DOXYCYCLINE HYCLATE 100 MG in IV DEXTROSE 5% 100ML 100 ML IV SCH (09:47)
[2021-11-17] MEDS: GABAPENTIN 300 MG CAPSULE. PO SCH ×3 (10:43→21:27)
[2021-11-17] MEDS: DULoxetine HCL 30 MG CAPSULE.DR PO SCH (10:43)
[2021-11-17] MEDS: LACTOBACILLUS RHAMNOSUS GG 1 CAPSULE. PO SCH ×2 (10:43→21:26)
[2021-11-17] MEDS: METOPROLOL SUCC 24HR ER 50 MG TAB.ER.24H. PO SCH (10:44)
[2021-11-17] MEDS: DIGOXIN 125 MCG TABLET. PO SCH (10:45)
[2021-11-17] MEDS: FUROSEMIDE 40 MG TABLET. PO SCH ×2 (10:46→16:16)
[2021-11-17] MEDS: NYSTATIN TOPICAL POWDER 15GM BOTTLE. TP SCH ×2 (10:54→21:27)
[2021-11-17] MEDS: DICLOFENAC SODIUM 25 MG TABLET.DR PO SCH ×2 (10:57→21:33)
[2021-11-17 11:00] VITALS: BP 139/67
--- NOTE | 2021-11-17 11:02 | PDOC ---
PULMONARY PROGRESS NOTES DATE: 11/17/21 TIME: 11:01 Subjective Patient is experiencing dizziness today when she sits up in bed Could not tolerate her breakfast, had 1 episode of emesis Not more short of air Cough at times productive Vitals Vital Signs Date Time Temp Pulse Resp B/P (MAP) Pulse Ox O2 Delivery O2 Flow Rate FiO2 11/17/21 10:45 68 131/67 11/17/21 08:00 Nasal Cannula 3.0 11/17/21 07:49 95 11/17/21 07:00 97.7 18 97.7 Comments Dizziness room is spinning ROS: No Chest Pain, No Abdominal Pain, No Increase Cough General: Alert Lungs: Wheezing Cardiovascular: S1, S2 Extremities: No Edema Labs Laboratory Tests Test 11/15/21 13:28 11/15/21 13:50 11/15/21 13:55 11/15/21 15:25 O2 Saturation 97 % (92-99) Arterial Blood pH 7.43 (7.35-7.45) Arterial Blood pCO2 at Patient Temp 38 mmHg (35-46) Arterial Blood pO2 at Patient Temp 105 mmHg (65-108) Arterial Blood HCO3 25 mmol/L (21-28) Arterial Blood Base Excess 0 mmol/L (-3-3) Oxyhemoglobin 96.6 % Methemoglobin 0.4 % (0.0-1.9) Carbon Monoxide, Quantitative 0.3 % (0.0-1.9) FiO2 3l/nc Influenza Type A Antigen Negative (NEGATIVE) Influenza Type B Antigen Negative (NEGATIVE) SARS-CoV-2 Antigen (Rapid) Negative (NEGATIVE) White Blood Count 10.2 x10^3/uL (4.0-11.0) Red Blood Count 4.18 x10^6/uL (3.50-5.40) Hemoglobin 11.4 g/dL (12.0-15.5) Hematocrit 35.0 % (36.0-47.0) Mean Corpuscular Volume 84 fL (79-100) Mean Corpuscular Hemoglobin 27 pg (25-35) Mean Corpuscular Hemoglobin Concent 33 g/dL (31-37) Red Cell Distribution Width 16.7 % (11.5-14.5) Platelet Count 200 x10^3/uL (140-400) Neutrophils (%) (Auto) 72 % (31-73) Lymphocytes (%) (Auto) 16 % (24-48) Monocytes (%) (Auto) 8 % (0-9) Eosinophils (%) (Auto) 4 % (0-3) Basophils (%) (Auto) 1 % (0-3) Neutrophils # (Auto) 7.3 x10^3/uL (1.8-7.7) Lymphocytes # (Auto) 1.6 x10^3/uL (1.0-4.8) Monocytes # (Auto) 0.8 x10^3/uL (0.0-1.1) Eosinophils # (Auto) 0.4 x10^3/uL (0.0-0.7) Basophils # (Auto) 0.1 x10^3/uL (0.0-0.2) Prothrombin Time 14.3 SEC (11.7-14.0) Prothromb Time International Ratio 1.1 (0.8-1.1) Sodium Level 145 mmol/L (136-145) Potassium Level 3.2 mmol/L (3.5-5.1) Chloride Level 106 mmol/L (98-107) Carbon Dioxide Level 31 mmol/L (21-32) Anion Gap 8 (6-14) Blood Urea Nitrogen 5 mg/dL (7-20) Creatinine 0.8 mg/dL (0.6-1.0) Estimated GFR (Cockcroft-Gault) 71.5 BUN/Creatinine Ratio 6 (6-20) Glucose Level 113 mg/dL (70-99) Calcium Level 8.2 mg/dL (8.5-10.1) Phosphorus Level 2.7 mg/dL (2.6-4.7) Magnesium Level 1.4 mg/dL (1.8-2.4) Total Bilirubin 0.5 mg/dL (0.2-1.0) Aspartate Amino Transf (AST/SGOT) 26 U/L (15-37) Alanine Aminotransferase (ALT/SGPT) 30 U/L (14-59) Alkaline Phosphatase 84 U/L (46-116) Troponin I High Sensitivity 19 ng/L (4-50) AQ-Byl-I-Type Natriuretic Peptide 1026 pg/mL (0-124) Total Protein 6.9 g/dL (6.4-8.2) Albumin 2.9 g/dL (3.4-5.0) Albumin/Globulin Ratio 0.7 (1.0-1.7) Urine Collection Type Unknown Urine Color (Auto) Light orange Urine Turbidity Turbid Urine pH (Auto) 5.5 (<5.0-8.0) Urine Specific [place] 1.023 (1.000-1.030) Urine Protein (Auto) Negative mg/dL (Negative) Urine Glucose (Auto)(UA) Negative mg/dL (Negative) Urine Ketones (Auto) 10 mg/dL (Negative) Urine Blood (Auto) Negative (Negative) Urine Nitrite Negative (Negative) Urine Bilirubin (Auto) Negative (Negative) Urine Urobilinogen (Auto) 2 mg/dL (Normal) Urine Leukocyte Esterase (Auto) Negative (Negative) Urine RBC 0 /HPF (0-2) Urine WBC 0 /HPF (0-4) Urine Squamous Epithelial Cells Few /LPF Urine Amorphous Sediment Present /HPF Urine Bacteria Moderate /HPF (0-FEW) Urine Mucus Slight /LPF Test 11/15/21 17:20 11/15/21 19:05 11/16/21 08:20 Troponin I High Sensitivity 18 ng/L (4-50) 18 ng/L (4-50) Sodium Level 142 mmol/L (136-145) Potassium Level 4.9 mmol/L (3.5-5.1) Chloride Level 103 mmol/L (98-107) Carbon Dioxide Level 29 mmol/L (21-32) Anion Gap 10 (6-14) Blood Urea Nitrogen 4 mg/dL (7-20) Creatinine 0.8 mg/dL (0.6-1.0) Estimated GFR (Cockcroft-Gault) 71.5 Glucose Level 172 mg/dL (70-99) Calcium Level 8.3 mg/dL (8.5-10.1) Magnesium Level 1.9 mg/dL (1.8-2.4) Medications Active Scripts Medications Dose Route/Sig Max Daily Dose Days Date Category Lipitor (Atorvastatin Calcium) 20 Mg Tablet 20 Mg PO HS 11/16/21 Reported Toprol Xl (Metoprolol Succinate) 25 Mg Tab.er.24h 2 Tab PO DAILY 30 11/16/21 Reported Gabapentin (Gabapentin) 300 Mg Capsule 900 Mg PO BID 11/15/21 Reported Lanoxin (Digoxin) 62.5 Mcg Tablet 1 Tab PO DAILY 30 12/25/20 Reported Protonix (Pantoprazole Sodium) 20 Mg Tablet.dr 1 Tab PO DAILY 12/25/20 Reported Furosemide 40 Mg Tablet 40 Mg PO DAILY 04/09/19 Reported Ferrous Sulfate 325 Mg Tablet 325 Mg PO HS 04/09/19 Reported Diltiazem 24HR Cd (Diltiazem Hcl) 180 Mg Cap.er.24h 300 Mg PO DAILY 04/09/19 Reported Vitamin D (Cholecalciferol (Vitamin D3)) 1,000 Unit Capsule 5,000 Unit PO HS 04/04/19 Reported Promethazine Hcl 25 Mg Tablet 1 Tab PO PRN Q6HRS 01/15/19 Reported Spiriva (Tiotropium [place]) 18 Mcg Cap.w.dev 1 Inh IH DAILY 12/16/18 Reported Proair Hfa Inhaler (Albuterol Sulfate) 8.5 Gm Hfa.aer.ad 2 Puff INH PRN Q6HRS PRN 12/16/18 Reported Potassium Chloride (Potassium Chloride) 20 Meq Tablet.er 20 Meq PO BID 12/16/18 Reported Digoxin 125 Mcg Tablet 125 Mcg PO DAILY 12/16/18 Reported Cyclobenzaprine Hcl 10 Mg Tablet 1 Tab PO PRN TID PRN 04/22/18 Reported Hydrocodone-Apap 7.5-325 (Hydrocodone Bit/Acetaminophen) 1 Each Tablet 1 Tab PO PRN Q6HRS PRN 04/22/18 Reported Clonazepam (Clonazepam) 0.5 Mg Tablet 1 Tab PO PRN DAILY PRN 04/22/18 Reported Ventolin Hfa Inhaler (Albuterol Sulfate) 18 Gm Hfa.aer.ad 2 Puff INH Q4HRS 04/22/18 Reported Dulera 200 Mcg/5 Mcg Inhaler (Mometasone/Formoterol) 13 Gm Hfa.aer.ad 2 Puff IH BID 04/22/18 Reported Montelukast Sodium Tablet (Montelukast Sodium) 10 Mg Tablet 1 Tab PO HS 10/09/16 Reported Ropinirole Hcl 1 Mg Tablet 1 Mg PO HS 10/09/16 Reported Xarelto (Rivaroxaban) 20 Mg Tablet 20 Mg PO DAILY16 10/09/16 Reported Prednisone (Prednisone) 10 Mg Tablet 15 Mg PO PRN PRN 10/09/16 Reported Diclofenac Sodium 75 Mg Tablet.dr 1 Tab PO BID 10/09/16 Reported Cymbalta (Duloxetine Hcl) 60 Mg Capsule.dr [place] Cap PO DAILY 10/09/16 Reported Levothyroxine Sodium 150 Mcg Tablet 175 Mcg PO DAILY 10/09/16 Reported Impression . IMPRESSION: 1. Abnormal x-ray, compatible with pneumonia, gram-negative, possibly gram-positive. 2. Acute exacerbation of chronic obstructive pulmonary disease with an asthma component. 3. Obstructive sleep apnea, non-tolerant to CPAP, the patient failed CPAP. Will require an outpatient polysomnogram with BiPAP titration. 4. History of tracheobronchomalacia diagnosed during her stay for 2 months at [facility]. She was hospitalized with sepsis and PE. 5. Morbid obesity. 6. Other comorbidities as listed above. 7. Vertigo Plan . Updated 11/17 Add Zyrtec Trial of BiPAP this evening Continue antibiotics Oxygen supplementation DVT prophylaxis 11/16 PLAN: 1. Continue IV antibiotics. 2. Repeat outpatient polysomnogram with BiPAP titration. 3. Continue bronchodilators and oxygen. 4. Continue home meds. 5. DVT prophylaxis. I do appreciate the privilege in sharing in the patient's care. TANK GROVER MD November 17, 2021 11:02
[2021-11-17] MEDS ORDERED: CETIRIZINE HCL 10 MG TABLET. PO STA (13:29)
--- NOTE | 2021-11-17 14:59 | PDOC ---
GENERAL General: Patient examined chart reviewed today is hospital day 3 for this patient with dl mendeztanding dyspnea on effort related to her severe obesity, tracheomalacia, chronic asthma, and general debility. She also tells me that she has had diastolic congestive heart failure in the past she also has atrial fibrillation. She sees Kenzie Rdz here at [place] for primary care but her pulmonary care has been over at [facility] as she lives closer to [place]. She believes she is going to switch over to Dr. Wong for care. She has been on CPAP for many years and does not feel that it has been adequate in fact she and Dr. Wong have planned on a trial of BiPAP while she is here. Patient tells me she has been having trouble with her breathing since March 2021. She does not believe she had COVID at that point but there was some inciting event that has led to months of trouble. She also tells me that she has had diarrhea for the last 8 weeks or so. She has been on and off antibiotics since March. She lives with her sister and niece. Patient herself has had the first 2 coronavirus vaccines completed them in July 2020. She just did not feel well enough to proceed with the booster last fall. She has had a rapid antigen negative here but we will proceed with PCR given her combination of symptoms. Appreciate pulmonary support. 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 She is on Lasix we will increase that dose. Appreciate subspecialty support. I have asked for stool cultures which should result negative prior to use of more Imodium. Her diarrhea is watery and brown and associated with abdominal cramping and nausea. Time spent today is 30 minutes with greater than 50% in counseling and coordination of care most of which in discussion with patient and nursing regarding care plan and progress. Problems: (1) Morbid obesity (2) Dyspnea on exertion (3) Pulmonary edema (4) Afib VITAL SIGNS Vital Signs/I&O: Vital Signs Date Time Temp Pulse Resp B/P (MAP) Pulse Ox O2 Delivery O2 Flow Rate FiO2 11/17/21 11:00 98.1 71 18 139/67 (91) 96 Nasal Cannula 3.0 98.1 I & O 11/16/21 11/16/21 11/17/21 15:00 23:00 07:00 Intake Total 560 ml 600 ml 150 ml Output Total 1150 ml Balance 560 ml -550 ml 150 ml Patient is quite dyspneic this afternoon resting in bed otherwise comfortable HEENT exam is unremarkable for acute abnormality Neck is soft and supple no adenopathy or thyromegaly noted Chest bilateral equal air entry though diminished throughout no crackles or wheezes are noted Heart S1-S2 normal regular rate and rhythm no murmurs or gallops are noted Abdomen obese soft nontender nondistended no masses organomegaly noted Extremity exam is notable for 1+ bipedal edema ALLERGIES Allergies: Allergies Coded Allergies Type Severity Reaction Last Updated Verified levofloxacin Allergy Severe Anaphylaxis 11/15/21 Yes I S O L A T I O N *CONTACT* Allergy Unknown 11/15/21 Yes Influenza Virus Vaccines Adverse Reaction Intermediate 11/15/21 Yes Penicillins Adverse Reaction Intermediate Rash 11/15/21 Yes Sulfa (Sulfonamide Antibiotics) Adverse Reaction Intermediate Rash 11/15/21 Yes MEDS Medications: Current Medications Medications (Trade) Dose Ordered Sig/Ijeoma Start Time Stop Time Status Last Admin Dose Admin Acetaminophen/ Hydrocodone Bitart (Lortab 5/325) 1 tab 1X ONCE 11/15/21 14:00 11/15/21 14:01 DC 11/15/21 14:03 Acetaminophen/ Hydrocodone Bitart (Lortab 7.5/325) 1 tab PRN Q6HRS PRN 11/15/21 22:45 11/16/21 16:23 Albuterol Sulfate (Ventolin Neb Soln) 2.5 mg PRN Q6HRS PRN 11/15/21 22:45 Albuterol/ Ipratropium (Duoneb) 3 ml RTQID 11/15/21 20:00 11/17/21 07:48 Budesonide (Pulmicort) 0.5 mg RTBID 11/16/21 08:00 11/17/21 07:48 Cefdinir (Omnicef) 300 mg BID 11/18/21 09:00 Ceftriaxone Sodium (Rocephin) 1 gm Q24H 11/15/21 18:00 11/17/21 21:00 11/16/21 17:28 Cetirizine HCl (ZyrTEC) 10 mg 1X STAT 11/17/21 13:29 11/17/21 13:35 DC 11/17/21 14:20 Clonazepam (KlonoPIN) 0.5 mg PRN DAILY PRN 11/15/21 22:45 Cyclobenzaprine HCl (Flexeril) 10 mg PRN TID PRN 11/15/21 22:45 Diclofenac Sodium (Voltaren) 75 mg BID 11/16/21 09:00 11/17/21 10:57 Digoxin (Lanoxin) 125 mcg DAILY 11/16/21 09:00 11/17/21 10:45 Diltiazem HCl (Cardizem 24hr Cd) 300 mg DAILY 11/16/21 09:00 11/17/21 10:45 Doxycycline Hyclate (Vibra-Tab) 100 mg BID 11/17/21 21:00 Doxycycline Hyclate 100 mg/ Dextrose 100 ml @ 50 mls/hr Q12HR 11/15/21 18:00 11/17/21 12:00 DC 11/17/21 09:47 Duloxetine HCl (Cymbalta) 60 mg DAILY 11/16/21 09:00 11/17/21 10:43 Enoxaparin Sodium (Lovenox 40mg Syringe) 40 mg Q12HR 11/16/21 14:00 Cancel Ferrous Sulfate (Feosol) 325 mg HS 11/16/21 00:00 11/16/21 20:02 Furosemide (Lasix) 40 mg BID 11/17/21 21:00 UNV Gabapentin (Neurontin) 900 mg TID 11/16/21 12:00 11/17/21 14:20 Info (Anti-Coagulation Monitoring By Pharmacy) 1 each PRN DAILY PRN 11/15/21 23:00 11/16/21 02:55 Lactobacillus Rhamnosus (Culturelle) 1 cap BID 11/16/21 21:00 11/17/21 10:43 Levothyroxine Sodium (Synthroid) 175 mcg DAILY06 11/16/21 06:00 11/17/21 05:40 Loperamide HCl (Imodium) 2 mg PRN Q15MIN PRN 11/15/21 22:45 11/15/21 22:56 Magnesium Sulfate 50 ml @ 25 mls/hr 1X ONCE 11/15/21 15:30 11/15/21 17:29 DC 11/15/21 16:32 Methylprednisolone Sodium Succinate (SOLU-Medrol 40MG VIAL) 40 mg BID 11/15/21 21:00 11/17/21 09:47 Metoprolol Succinate (Toprol Xl) 50 mg DAILY 11/16/21 09:00 11/17/21 10:44 Montelukast Sodium (Singulair) 10 mg HS 11/16/21 00:00 11/16/21 20:03 Non-Formulary Medication (Digoxin (Lanoxin)) 1 tab DAILY 11/16/21 09:00 UNV Non-Formulary Medication (Tiotropium [place] (Spiriva)) 1 inh DAILY 11/16/21 09:00 UNV Nystatin (Nystop) 1 sea BID 11/16/21 09:00 11/17/21 10:54 Ondansetron HCl (Zofran) 4 mg PRN Q6HRS PRN 11/15/21 22:45 11/17/21 09:47 Pantoprazole Sodium (Protonix) 40 mg DAILYAC 11/16/21 07:30 11/16/21 08:46 Potassium Chloride (Klor-Con) 20 meq BID 11/16/21 00:00 11/16/21 20:02 Rivaroxaban (Xarelto) 20 mg DAILY16 11/16/21 16:00 11/16/21 16:23 Ropinirole HCl (Requip) 1 mg HS 11/16/21 00:00 11/16/21 20:03 Vitamin D (Vitamin D3) 5,000 unit HS 11/16/21 00:00 11/16/21 20:08 Current Medications Medications (Trade) Dose Ordered Sig/Ijeoma Route PRN Reason Start Time Stop Time Status Last Admin Dose Admin Rivaroxaban (Xarelto) 20 mg DAILY16 PO 11/16/21 16:00 11/16/21 16:23 Lactobacillus Rhamnosus (Culturelle) 1 cap BID PO 11/16/21 21:00 11/17/21 10:43 Cetirizine HCl (ZyrTEC) 10 mg 1X STAT PO 11/17/21 13:29 11/17/21 13:35 DC 11/17/21 14:20 ASSESSMENT & PLAN A&P Plan as noted above This note was created using [employer] and may have omissions and/or errors due to the nature of real-time voice valve maker. Justifications for Admission Other Justification Problem Qualifiers (1) Pulmonary edema: Chronicity: acute Qualified Codes: J81.0 - Acute pulmonary edema MANUELA HOGAN MD November 17, 2021 14:59
[2021-11-17 15:00] VITALS: BP 149/67
[2021-11-17] MEDS: HYDROcodone/APAP 7.5/325MG 1 TAB TABLET PO PRN ×2 (16:14→21:40)
[2021-11-17] MEDS: RIVAROXABAN 10 MG TABLET. PO SCH (16:15)
[2021-11-17] MEDS: cefTRIAXone IV Push 1 GM VIAL. IVP SCH (18:34)
[2021-11-17 19:28] VITALS: BP 129/66
[2021-11-17] MEDS: FERROUS SULFATE 325 MG TABLET. PO SCH (21:26)
[2021-11-17] MEDS: MONTELUKAST SODIUM 10 MG TABLET. PO SCH (21:26)
[2021-11-17] MEDS: CHOLECALCIFEROL (VITAMIN D3) 5,000 UNIT CAPSULE PO SCH (21:26)
[2021-11-17] MEDS: rOPINIRole 1 MG TABLET. PO SCH (21:27)
[2021-11-17] MEDS: DOXYCYCLINE HYCLATE 100 MG TABLET PO SCH (21:27)
[2021-11-17 22:30] VITALS: BP 138/67
[2021-11-18 02:33] VITALS: BP 138/73
[2021-11-18 05:13] LABS: BASO % 0 % (0-3); EOS % 0 % (0-3); HEMOGLOBIN 10.4 g/dL (12.0-15.5); LYMPH # 0.7 x10^3/uL (1.0-4.8); LYMPH % 5 % (24-48); MEAN CORPUSCULAR HEMOGLOBIN 27 pg (25-35); MEAN CORPUSCULAR HGB CONC 32 g/dL (31-37); MEAN CORPUSCULAR VOLUME 85 fL (79-100); MONO # 0.4 x10^3/uL (0.0-1.1); MONO % 2 % (0-9); NEUT # 14.6 x10^3/uL (1.8-7.7); NEUT % 93 % (31-73); PLATELET COUNT 208 x10^3/uL (140-400); RED BLOOD COUNT 3.89 x10^6/uL (3.50-5.40); RED CELL DISTRIBUTION WIDTH 17.2 % (11.5-14.5); WHITE BLOOD COUNT 15.7 x10^3/uL (4.0-11.0)
[2021-11-18 05:32] LABS: ALBUMIN/GLOBULIN RATIO 0.7 (1.0-1.7); CALCIUM 8.1 mg/dL (8.5-10.1); CREATININE 1.1 mg/dL (0.6-1.0); GFR 49.5; POTASSIUM 4.6 mmol/L (3.5-5.1); TOTAL BILIRUBIN 0.2 mg/dL (0.2-1.0); TOTAL PROTEIN 7.1 g/dL (6.4-8.2)
[2021-11-18] MEDS: LEVOTHYROXINE 175 MCG TABLET PO SCH (05:46)
[2021-11-18 06:08] VITALS: BP 127/74
[2021-11-18 07:10] LABS: % LYMPHS 9 % (24-48); % MONOS 2 % (0-10); % SEGS 89 % (35-66); PLT ESTIMATE ADEQUATE (ADEQUATE)
[2021-11-18] MEDS: IPRATRPIUM/ALBUTEROL 0.5/2.5MG 3 ML NEBU. NEB SCH ×4 (08:00→20:06)
[2021-11-18] MEDS: BUDESONIDE 0.5 MG/2 ML NEBU. NEB SCH ×2 (08:01→20:06)
[2021-11-18] MEDS: CETIRIZINE HCL 10 MG TABLET. PO SCH (08:51)
[2021-11-18] MEDS: PANTOPRAZOLE 40 MG TABLET.DR. PO SCH (08:51)
[2021-11-18] MEDS: methylPREDNISolone SOD SUCC PF 40 MG/ML VIAL. IV SCH ×2 (08:51→20:47)
[2021-11-18] MEDS: METOPROLOL SUCC 24HR ER 50 MG TAB.ER.24H. PO SCH (08:51)
[2021-11-18] MEDS: DICLOFENAC SODIUM 25 MG TABLET.DR PO SCH ×2 (08:51→20:47)
[2021-11-18] MEDS: LACTOBACILLUS RHAMNOSUS GG 1 CAPSULE. PO SCH ×2 (08:52→20:47)
[2021-11-18] MEDS: POTASSIUM CHLORIDE 20 MEQ TABLET.ER. PO SCH ×2 (08:52→20:46)
[2021-11-18] MEDS: DIGOXIN 125 MCG TABLET. PO SCH (08:52)
[2021-11-18] MEDS: DULoxetine HCL 30 MG CAPSULE.DR PO SCH (08:52)
[2021-11-18] MEDS: GABAPENTIN 300 MG CAPSULE. PO SCH ×3 (08:52→20:46)
[2021-11-18] MEDS: DOXYCYCLINE HYCLATE 100 MG TABLET PO SCH ×2 (08:53→20:46)
[2021-11-18] MEDS: CEFDINIR 300 MG CAPSULE PO SCH ×2 (08:53→20:46)
[2021-11-18] MEDS: FUROSEMIDE 40 MG TABLET. PO SCH ×2 (08:53→13:28)
--- NOTE | 2021-11-18 09:07 | PDOC2 ---
CONSULT Date of Consult Date of Consult DATE: 11/18/21 TIME: 09:07 Reason for Consult Reason for Consult: Congestive heart failure Referring Physician Referring Physician: Dr. Matthews Identification/Chief Complaint Chief Complaint Shortness of breath Source Source: Chart review, Patient History of Present Illness Reason for Visit: 66-year-old female with history of chronic diastolic heart failure, atrial fibrillation and DVT/PE presented with progressive shortness of breath and was found to have pneumonia and acute COPD exacerbation. She also complained of right-sided chest pain not related to exertion or food intake. She denied any palpitations or syncope. She did complain of dizziness associated with nausea that appears to be vertigo based on her description. She was apparently treated at [facility] in May for congestive heart failure and usually follows up with Dr. Strange. She has follow-up wants to switch care to [facility] and our group for cardiology. Past Medical History Cardiovascular: AFIB, CHF, HTN Pulmonary: Asthma, Pulmonary embolus, Pneumonia, Other CENTRAL NERVOUS SYSTEM: Migraine, Other GI: GERD, Hemorrhoids Heme/Onc: Anemia NOS, Other Hepatobiliary: Cholelithiasis Psych: Depression Musculoskeletal: Osteoarthritis Infectious disease: Other Renal/: UTI Endocrine: Hypothyroidism Past Surgical History Past Surgical History: Cholecystectomy, Tonsillectomy, Other Family History Family History: Heart Disease, Other Social History ALCOHOL: occassional Drugs: None Lives: with Family Current Problem List Problem List Problems Medical Problems: (1) Chest pain Status: Acute (2) CHF exacerbation Status: Acute (3) Dyspnea on exertion Status: Acute (4) Pulmonary edema Status: Acute Current Medications Current Medications Current Medications Albuterol/ Ipratropium (Duoneb) 3 ml 1X ONCE NEB Last administered on 11/15/21at 14:06; Start 11/15/21 at 14:00; Stop 11/15/21 at 14:01; Status DC Ondansetron HCl (Zofran) 4 mg 1X ONCE IVP Last administered on 11/15/21at 14:02; Start 11/15/21 at 14:00; Stop 11/15/21 at 14:01; Status DC Acetaminophen/ Hydrocodone Bitart (Lortab 5/325) 1 tab 1X ONCE PO Last administered on 11/15/21at 14:03; Start 11/15/21 at 14:00; Stop 11/15/21 at 14:01; Status DC Potassium Chloride (Klor-Con) 40 meq 1X ONCE PO Last administered on 11/15/21at 16:32; Start 11/15/21 at 15:30; Stop 11/15/21 at 15:31; Status DC Magnesium Sulfate 50 ml @ 25 mls/hr 1X ONCE IV Last administered on 11/15/21at 16:32; Start 11/15/21 at 15:30; Stop 11/15/21 at 17:29; Status DC Furosemide (Lasix) 80 mg 1X ONCE IVP Last administered on 11/15/21at 17:07; Start 11/15/21 at 17:00; Stop 11/15/21 at 17:01; Status DC Ceftriaxone Sodium (Rocephin) 1 gm Q24H IVP Last administered on 11/17/21at 18:34; Start 11/15/21 at 18:00; Stop 11/17/21 at 21:00; Status DC Methylprednisolone Sodium Succinate (SOLU-Medrol 40MG VIAL) 40 mg BID IV Last administered on 11/18/21at 08:51; Start 11/15/21 at 21:00 Albuterol/ Ipratropium (Duoneb) 3 ml RTQID NEB Last administered on 11/18/21at 08:00; Start 11/15/21 at 20:00 Doxycycline Hyclate 100 mg/ Dextrose 100 ml @ 50 mls/hr Q12HR IV Last administered on 11/17/21at 09:47; Start 11/15/21 at 18:00; Stop 11/17/21 at 12:00; Status DC Ondansetron HCl (Zofran) 4 mg PRN Q6HRS PRN IVP NAUSEA/VOMITING 1ST CHOICE Last administered on 11/17/21at 09:47; Start 11/15/21 at 22:45 Loperamide HCl (Imodium) 2 mg PRN Q15MIN PRN PO DIARRHEA Last administered on 11/15/21at 22:56; Start 11/15/21 at 22:45 Albuterol Sulfate (Ventolin Neb Soln) 2.5 mg PRN Q6HRS PRN INH SHORTNESS OF BREATH; Start 11/15/21 at 22:45 Clonazepam (KlonoPIN) 0.5 mg PRN DAILY PRN PO ANXIETY / AGITATION; Start 11/15/21 at 22:45 Cyclobenzaprine HCl (Flexeril) 10 mg PRN TID PRN PO MUSCLE SPASMS; Start 11/15/21 at 22:45 Digoxin (Lanoxin) 125 mcg DAILY PO Last administered on 11/18/21 08:52; Start 11/16/21 at 09:00 Diltiazem HCl (Cardizem 24hr Cd) 300 mg DAILY PO Last administered on 11/18/21 08:52; Start 11/16/21 at 09:00 Ferrous Sulfate (Feosol) 325 mg HS PO Last administered on 11/17/21 21:26; Start 11/16/21 at 00:00 Furosemide (Lasix) 40 mg DAILY PO Last administered on 11/17/21at 10:46; Start 11/16/21 at 09:00; Stop 11/17/21 at 14:47; Status DC Gabapentin (Neurontin) 900 mg BID PO Last administered on 11/16/21at 08:46; Start 11/16/21 at 00:00; Stop 11/16/21 at 11:44; Status DC Acetaminophen/ Hydrocodone Bitart (Lortab 7.5/325) 1 tab PRN Q6HRS PRN PO MODERATE PAIN 4-6 Last administered on 11/17/21at 21:40; Start 11/15/21 at 22:45 Levothyroxine Sodium (Synthroid) 175 mcg DAILY06 PO Last administered on 11/18 05:46; Start 11/16/21 at 06:00 Montelukast Sodium (Singulair) 10 mg HS PO Last administered on 11/17/21 21:26; Start 11/16/21 at 00:00 Potassium Chloride (Klor-Con) 20 meq BID PO Last administered on 11/18/21 08:52; Start 11/16/21 at 00:00 Ropinirole HCl (Requip) 1 mg HS PO Last administered on 11/17/21 21:27; Start 11/16/21 at 00:00 Vitamin D (Vitamin D3) 5,000 unit HS PO Last administered on 11/17/21 21:26; Start 11/16/21 at 00:00 Diclofenac Sodium (Voltaren) 75 mg BID PO Last administered on 11/18/21at 08:51; Start 11/16/21 at 09:00 Non-Formulary Medication (Digoxin (Lanoxin)) 1 tab DAILY PO ; Start 11/16/21 at 09:00; Status UNV Duloxetine HCl (Cymbalta) 60 mg DAILY PO Last administered on 11/18/21at 08:52; Start 11/16/21 at 09:00 Budesonide (Pulmicort) 0.5 mg RTBID NEB Last administered on 11/18/21at 08:01; Start 11/16/21 at 08:00 Pantoprazole Sodium (Protonix) 40 mg DAILYAC PO Last administered on 11/18/21at 08:51; Start 11/16/21 at 07:30 Rivaroxaban (Xarelto) 20 mg DAILY16 PO Last administered on 11/17/21at 16:15; Start 11/16/21 at 16:00 Non-Formulary Medication (Tiotropium [place] (Spiriva)) 1 inh DAILY IH ; Start 11/16/21 at 09:00; Status UNV Info (Anti-Coagulation Monitoring By Pharmacy) 1 each PRN DAILY PRN MC PER PROTOCOL Last administered on 11/16/21at 02:55; Start 11/15/21 at 23:00 Metoprolol Succinate (Toprol Xl) 50 mg DAILY PO Last administered on 11/18/21at 08:51; Start 11/16/21 at 09:00 Nystatin (Nystop) 1 sea BID TP Last administered on 11/17/21at 21:27; Start 11/16/21 at 09:00 Gabapentin (Neurontin) 900 mg TID PO Last administered on 11/18/21at 08:52; Start 11/16/21 at 12:00 Furosemide (Lasix) 80 mg 1X ONCE IVP Last administered on 11/16/21at 12:28; Start 11/16/21 at 12:00; Stop 11/16/21 at 12:01; Status DC Enoxaparin Sodium (Lovenox 40mg Syringe) 40 mg Q12HR SQ ; Start 11/16/21 at 14:00; Status Cancel Lactobacillus Rhamnosus (Culturelle) 1 cap BID PO Last administered on 11/18/21at 08:52; Start 11/16/21 at 21:00 Doxycycline Hyclate (Vibra-Tab) 100 mg BID PO Last administered on 11/18/21at 08:53; Start 11/17/21 at 21:00 Cetirizine HCl (ZyrTEC) 10 mg DAILY PO Last administered on 11/18/21at 08:51; Start 11/18/21 at 09:00 Cetirizine HCl (ZyrTEC) 10 mg 1X STAT PO Last administered on 11/17/21at 14:20; Start 11/17/21 at 13:29; Stop 11/17/21 at 13:35; Status DC Cefdinir (Omnicef) 300 mg BID PO Last administered on 11/18/21at 08:53; Start 11/18/21 at 09:00 Furosemide (Lasix) 40 mg BID92 PO Last administered on 11/18/21at 08:53; Start 11/17/21 at 16:00 Active Scripts Active Reported Lipitor (Atorvastatin Calcium) 20 Mg Tablet 20 Mg PO HS Toprol Xl (Metoprolol Succinate) 25 Mg Tab.er.24h 2 Tab PO DAILY 30 Days Gabapentin (Gabapentin) 300 Mg Capsule 900 Mg PO BID Lanoxin (Digoxin) 62.5 Mcg Tablet 1 Tab PO DAILY 30 Days Protonix (Pantoprazole Sodium) 20 Mg Tablet.dr 1 Tab PO DAILY Furosemide 40 Mg Tablet 40 Mg PO DAILY Ferrous Sulfate 325 Mg Tablet 325 Mg PO HS Diltiazem 24HR Cd (Diltiazem Hcl) 180 Mg Cap.er.24h 300 Mg PO DAILY Vitamin D (Cholecalciferol (Vitamin D3)) 1,000 Unit Capsule 5,000 Unit PO HS Promethazine Hcl 25 Mg Tablet 1 Tab PO PRN Q6HRS Spiriva (Tiotropium [place]) 18 Mcg Cap.w.dev 1 Inh IH DAILY Proair Hfa Inhaler (Albuterol Sulfate) 8.5 Gm Hfa.aer.ad 2 Puff INH PRN Q6HRS PRN Potassium Chloride (Potassium Chloride) 20 Meq Tablet.er 20 Meq PO BID Digoxin 125 Mcg Tablet 125 Mcg PO DAILY Cyclobenzaprine Hcl 10 Mg Tablet 1 Tab PO PRN TID PRN Hydrocodone-Apap 7.5-325 (Hydrocodone Bit/Acetaminophen) 1 Each Tablet 1 Tab PO PRN Q6HRS PRN Clonazepam (Clonazepam) 0.5 Mg Tablet 1 Tab PO PRN DAILY PRN Ventolin Hfa Inhaler (Albuterol Sulfate) 18 Gm Hfa.aer.ad 2 Puff INH Q4HRS Dulera 200 Mcg/5 Mcg Inhaler (Mometasone/Formoterol) 13 Gm Hfa.aer.ad 2 Puff IH BID Montelukast Sodium Tablet (Montelukast Sodium) 10 Mg Tablet 1 Tab PO HS Ropinirole Hcl 1 Mg Tablet 1 Mg PO HS Xarelto (Rivaroxaban) 20 Mg Tablet 20 Mg PO DAILY16 Prednisone (Prednisone) 10 Mg Tablet 15 Mg PO PRN PRN Diclofenac Sodium 75 Mg Tablet. 1 Tab PO BID Cymbalta (Duloxetine Hcl) 60 Mg Capsule. 1 Cap PO DAILY Levothyroxine Sodium 150 Mcg Tablet 175 Mcg PO DAILY Allergies Allergies: Coded Allergies: levofloxacin (Verified Allergy, Severe, Anaphylaxis, 11/15/21) I S O L A T I O N *CONTACT* (Verified Allergy, Unknown, 11/15/21) mrsa Influenza Virus Vaccines (Verified Adverse Reaction, Intermediate, 11/15/21) asthma attack/reaction Penicillins (Verified Adverse Reaction, Intermediate, Rash, 11/15/21) also dyspnea. TOLERATES CEFTRIAXONE Sulfa (Sulfonamide Antibiotics) (Verified Adverse Reaction, Intermediate, Rash, 11/15/21) ROS PSYCHOLOGICAL ROS: No: Hallucinations Eyes: No Loss of vision HEENT: No: Epistaxis Respiratory: YES: Shortness of breath; No: Hemoptysis Cardiovascular: yes Chest Pain Gastrointestinal: Yes Nausea; No Vomiting Genitourinary: No Hematuria Neurological: Yes Dizziness; No Seizures Physical Exam General: Alert, No acute distress HEENT: Atraumatic Lungs: Other (Bilateral scattered crepitations) Heart: Other (Heart rate irregular) Abdomen: Soft Extremities: Other (Lymphedema) Neuro: Normal speech Psych/Mental Status: Mood NL Vitals VITALS Vital Signs Date Time Temp Pulse Resp B/P (MAP) Pulse Ox O2 Delivery O2 Flow Rate FiO2 11/18/21 08:52 74 127/74 11/18/21 08:13 97 Nasal Cannula 3.0 11/18/21 06:08 98.3 16 98.3 Labs Labs Laboratory Tests Test 11/18/21 04:20 White Blood Count 15.7 x10^3/uL (4.0-11.0) Red Blood Count 3.89 x10^6/uL (3.50-5.40) Hemoglobin 10.4 g/dL (12.0-15.5) Hematocrit 33.0 % (36.0-47.0) Mean Corpuscular Volume 85 fL (79-100) Mean Corpuscular Hemoglobin 27 pg (25-35) Mean Corpuscular Hemoglobin Concent 32 g/dL (31-37) Red Cell Distribution Width 17.2 % (11.5-14.5) Platelet Count 208 x10^3/uL (140-400) Neutrophils (%) (Auto) 93 % (31-73) Lymphocytes (%) (Auto) 5 % (24-48) Monocytes (%) (Auto) 2 % (0-9) Eosinophils (%) (Auto) 0 % (0-3) Basophils (%) (Auto) 0 % (0-3) Neutrophils # (Auto) 14.6 x10^3/uL (1.8-7.7) Lymphocytes # (Auto) 0.7 x10^3/uL (1.0-4.8) Monocytes # (Auto) 0.4 x10^3/uL (0.0-1.1) Eosinophils # (Auto) 0.0 x10^3/uL (0.0-0.7) Basophils # (Auto) 0.0 x10^3/uL (0.0-0.2) Segmented Neutrophils % 89 % (35-66) Lymphocytes % 9 % (24-48) Monocytes % 2 % (0-10) Platelet Estimate Adequate (ADEQUATE) Sodium Level 141 mmol/L (136-145) Potassium Level 4.6 mmol/L (3.5-5.1) Chloride Level 101 mmol/L (98-107) Carbon Dioxide Level 30 mmol/L (21-32) Anion Gap 10 (6-14) Blood Urea Nitrogen 25 mg/dL (7-20) Creatinine 1.1 mg/dL (0.6-1.0) Estimated GFR (Cockcroft-Gault) 49.5 BUN/Creatinine Ratio 23 (6-20) Glucose Level 167 mg/dL (70-99) Calcium Level 8.1 mg/dL (8.5-10.1) Total Bilirubin 0.2 mg/dL (0.2-1.0) Aspartate Amino Transf (AST/SGOT) 11 U/L (15-37) Alanine Aminotransferase (ALT/SGPT) 21 U/L (14-59) Alkaline Phosphatase 81 U/L (46-116) Total Protein 7.1 g/dL (6.4-8.2) Albumin 3.0 g/dL (3.4-5.0) Albumin/Globulin Ratio 0.7 (1.0-1.7) Laboratory Tests Test 11/18/21 04:20 White Blood Count 15.7 x10^3/uL (4.0-11.0) Red Blood Count 3.89 x10^6/uL (3.50-5.40) Hemoglobin 10.4 g/dL (12.0-15.5) Hematocrit 33.0 % (36.0-47.0) Mean Corpuscular Volume 85 fL (79-100) Mean Corpuscular Hemoglobin 27 pg (25-35) Mean Corpuscular Hemoglobin Concent 32 g/dL (31-37) Red Cell Distribution Width 17.2 % (11.5-14.5) Platelet Count 208 x10^3/uL (140-400) Neutrophils (%) (Auto) 93 % (31-73) Lymphocytes (%) (Auto) 5 % (24-48) Monocytes (%) (Auto) 2 % (0-9) Eosinophils (%) (Auto) 0 % (0-3) Basophils (%) (Auto) 0 % (0-3) Neutrophils # (Auto) 14.6 x10^3/uL (1.8-7.7) Lymphocytes # (Auto) 0.7 x10^3/uL (1.0-4.8) Monocytes # (Auto) 0.4 x10^3/uL (0.0-1.1) Eosinophils # (Auto) 0.0 x10^3/uL (0.0-0.7) Basophils # (Auto) 0.0 x10^3/uL (0.0-0.2) Segmented Neutrophils % 89 % (35-66) Lymphocytes % 9 % (24-48) Monocytes % 2 % (0-10) Platelet Estimate Adequate (ADEQUATE) Sodium Level 141 mmol/L (136-145) Potassium Level 4.6 mmol/L (3.5-5.1) Chloride Level 101 mmol/L (98-107) Carbon Dioxide Level 30 mmol/L (21-32) Anion Gap 10 (6-14) Blood Urea Nitrogen 25 mg/dL (7-20) Creatinine 1.1 mg/dL (0.6-1.0) Estimated GFR (Cockcroft-Gault) 49.5 BUN/Creatinine Ratio 23 (6-20) Glucose Level 167 mg/dL (70-99) Calcium Level 8.1 mg/dL (8.5-10.1) Total Bilirubin 0.2 mg/dL (0.2-1.0) Aspartate Amino Transf (AST/SGOT) 11 U/L (15-37) Alanine Aminotransferase (ALT/SGPT) 21 U/L (14-59) Alkaline Phosphatase 81 U/L (46-116) Total Protein 7.1 g/dL (6.4-8.2) Albumin 3.0 g/dL (3.4-5.0) Albumin/Globulin Ratio 0.7 (1.0-1.7) Assessment/Plan Assessment/Plan 1. Acute respiratory failure secondary to combination of acute COPD exacerbation, pneumonia and mild acute on chronic diastolic heart failure. Continue treatment per pulmonary team including intravenous antibiotics. 2. Mild acute on chronic diastolic heart failure. We will give 1 dose of intravenous Lasix today. Check 2D echo to assess LV systolic function. 3. Chest pain with atypical features. Myocardial infarction has been ruled out. Ischemic evaluation could be considered as an outpatient. 4. Permanent atrial fibrillation with heart rate well controlled. Continue diltiazem for rate control and Xarelto for stroke prophylaxis. 5. Dizziness, most probably benign positional vertigo based on her description. Treat per IM 6. 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 Hypertension: Controlled 8. Hypothyroidism: Continue levothyroxine 9. Hyperlipidemia: Continue statin therapy Thank you for your consultation Total critical care time spent evaluating and managing patient 40 mins BRYANT SOTELO MD November 18, 2021 09:07
[2021-11-18 11:00] VITALS: BP 152/60
[2021-11-18] MEDS ORDERED: FUROSEMIDE 40 MG/4 ML VIAL. IVP ONE (11:45)
[2021-11-18] MEDS: NYSTATIN TOPICAL POWDER 15GM BOTTLE. TP SCH ×2 (12:45→20:47)
[2021-11-18] MEDS ORDERED: MECLIZINE HCL 12.5 MG TABLET. PO PRN (13:30)
--- NOTE | 2021-11-18 13:35 | PDOC ---
GENERAL General: Patient examined chart reviewed she is feeling a little stronger today less dyspneic. She has however bothered by more vertigo which is a new issue for her. She has some buzzing in her right ear. No hearing loss and no pain. She may need an outpatient ENT consult depending on her progress. We will go ahead and start meclizine as needed and continue to follow closely clinic. Appreciate subspecialty support. Continue current management otherwise. Problems: (1) Morbid obesity (2) CHF exacerbation (3) Pulmonary edema (4) Asthma exacerbation VITAL SIGNS Vital Signs/I&O: Vital Signs Date Time Temp Pulse Resp B/P (MAP) Pulse Ox O2 Delivery O2 Flow Rate FiO2 11/18/21 11:45 100 Nasal Cannula 3.0 11/18/21 11:00 98.0 55 18 152/60 (90) 98.0 I & O 11/17/21 11/17/21 11/18/21 15:00 23:00 07:00 Intake Total 380 ml 600 ml 0 ml Output Total 200 ml 200 ml 500 ml Balance 180 ml 400 ml -500 ml Patient is laying in bed resting comfortably alert and oriented x3 no acute distress HEENT exam is unremarkable for acute abnormality Neck is soft and supple no adenopathy or thyromegaly noted Chest bilateral equal air entry though diminished throughout inspiratory and expiratory wheezes at the bilateral bases Heart S1-S2 normal regular rate and rhythm no murmurs or gallops are noted Abdomen soft nontender nondistended no masses organomegaly noted Extremity exam is unremarkable for acute abnormality ALLERGIES Allergies: Allergies Coded Allergies Type Severity Reaction Last Updated Verified levofloxacin Allergy Severe Anaphylaxis 11/15/21 Yes I S O L A T I O N *CONTACT* Allergy Unknown 11/15/21 Yes Influenza Virus Vaccines Adverse Reaction Intermediate 11/15/21 Yes Penicillins Adverse Reaction Intermediate Rash 11/15/21 Yes Sulfa (Sulfonamide Antibiotics) Adverse Reaction Intermediate Rash 11/15/21 Yes MEDS Medications: Current Medications Medications (Trade) Dose Ordered Sig/Ijeoma Start Time Stop Time Status Last Admin Dose Admin Acetaminophen/ Hydrocodone Bitart (Lortab 5/325) 1 tab 1X ONCE 11/15/21 14:00 11/15/21 14:01 DC 11/15/21 14:03 Acetaminophen/ Hydrocodone Bitart (Lortab 7.5/325) 1 tab PRN Q6HRS PRN 11/15/21 22:45 11/17/21 21:40 Albuterol Sulfate (Ventolin Neb Soln) 2.5 mg PRN Q6HRS PRN 11/15/21 22:45 Albuterol/ Ipratropium (Duoneb) 3 ml RTQID 11/15/21 20:00 11/18/21 11:43 Budesonide (Pulmicort) 0.5 mg RTBID 11/16/21 08:00 11/18/21 08:01 Cefdinir (Omnicef) 300 mg BID 11/18/21 09:00 11/18/21 08:53 Ceftriaxone Sodium (Rocephin) 1 gm Q24H 11/15/21 18:00 11/17/21 21:00 DC 11/17/21 18:34 Cetirizine HCl (ZyrTEC) 10 mg 1X STAT 11/17/21 13:29 11/17/21 13:35 DC 11/17/21 14:20 Clonazepam (KlonoPIN) 0.5 mg PRN DAILY PRN 11/15/21 22:45 Cyclobenzaprine HCl (Flexeril) 10 mg PRN TID PRN 11/15/21 22:45 Diclofenac Sodium (Voltaren) 75 mg BID 11/16/21 09:00 11/18/21 08:51 Digoxin (Lanoxin) 125 mcg DAILY 11/16/21 09:00 11/18/21 08:52 Diltiazem HCl (Cardizem 24hr Cd) 300 mg DAILY 11/16/21 09:00 11/18/21 08:52 Doxycycline Hyclate (Vibra-Tab) 100 mg BID 11/17/21 21:00 11/18/21 08:53 Doxycycline Hyclate 100 mg/ Dextrose 100 ml @ 50 mls/hr Q12HR 11/15/21 18:00 11/17/21 12:00 DC 11/17/21 09:47 Duloxetine HCl (Cymbalta) 60 mg DAILY 11/16/21 09:00 11/18/21 08:52 Enoxaparin Sodium (Lovenox 40mg Syringe) 40 mg Q12HR 11/16/21 14:00 Cancel Ferrous Sulfate (Feosol) 325 mg HS 11/16/21 00:00 11/17/21 21:26 Furosemide (Lasix) 40 mg 1X ONCE 11/18/21 11:45 11/18/21 11:46 DC 11/18/21 12:44 Gabapentin (Neurontin) 900 mg TID 11/16/21 12:00 11/18/21 08:52 Info (Anti-Coagulation Monitoring By Pharmacy) 1 each PRN DAILY PRN 11/15/21 23:00 11/16/21 02:55 Lactobacillus Rhamnosus (Culturelle) 1 cap BID 11/16/21 21:00 11/18/21 08:52 Levothyroxine Sodium (Synthroid) 175 mcg DAILY06 11/16/21 06:00 11/18/21 05:46 Loperamide HCl (Imodium) 2 mg PRN Q15MIN PRN 11/15/21 22:45 11/15/21 22:56 Magnesium Sulfate 50 ml @ 25 mls/hr 1X ONCE 11/15/21 15:30 11/15/21 17:29 DC 11/15/21 16:32 Methylprednisolone Sodium Succinate (SOLU-Medrol 40MG VIAL) 40 mg BID 11/15/21 21:00 11/18/21 08:51 Metoprolol Succinate (Toprol Xl) 50 mg DAILY 11/16/21 09:00 11/18/21 08:51 Montelukast Sodium (Singulair) 10 mg HS 11/16/21 00:00 11/17/21 21:26 Non-Formulary Medication (Digoxin (Lanoxin)) 1 tab DAILY 11/16/21 09:00 UNV Non-Formulary Medication (Tiotropium [place] (Spiriva)) 1 inh DAILY 11/16/21 09:00 UNV Nystatin (Nystop) 1 sea BID 11/16/21 09:00 11/18/21 12:45 Ondansetron HCl (Zofran) 4 mg PRN Q6HRS PRN 11/15/21 22:45 11/17/21 09:47 Pantoprazole Sodium (Protonix) 40 mg DAILYAC 11/16/21 07:30 11/18/21 08:51 Potassium Chloride (Klor-Con) 20 meq BID 11/16/21 00:00 11/18/21 08:52 Rivaroxaban (Xarelto) 20 mg DAILY16 11/16/21 16:00 11/17/21 16:15 Ropinirole HCl (Requip) 1 mg HS 11/16/21 00:00 11/17/21 21:27 Vitamin D (Vitamin D3) 5,000 unit HS 11/16/21 00:00 11/17/21 21:26 Current Medications Medications (Trade) Dose Ordered Sig/Ijeoma Route PRN Reason Start Time Stop Time Status Last Admin Dose Admin Doxycycline Hyclate (Vibra-Tab) 100 mg BID PO 11/17/21 21:00 11/18/21 08:53 Cetirizine HCl (ZyrTEC) 10 mg DAILY PO 11/18/21 09:00 11/18/21 08:51 Cefdinir (Omnicef) 300 mg BID PO 11/18/21 09:00 11/18/21 08:53 Furosemide (Lasix) 40 mg BID92 PO 11/17/21 16:00 11/18/21 08:53 Furosemide (Lasix) 40 mg 1X ONCE IVP 11/18/21 11:45 11/18/21 11:46 DC 11/18/21 12:44 LAB Lab: Laboratory Tests Test 11/18/21 04:20 White Blood Count 15.7 x10^3/uL (4.0-11.0) H Red Blood Count 3.89 x10^6/uL (3.50-5.40) Hemoglobin 10.4 g/dL (12.0-15.5) L Hematocrit 33.0 % (36.0-47.0) L Mean Corpuscular Volume 85 fL (79-100) Mean Corpuscular Hemoglobin 27 pg (25-35) Mean Corpuscular Hemoglobin Concent 32 g/dL (31-37) Red Cell Distribution Width 17.2 % (11.5-14.5) H Platelet Count 208 x10^3/uL (140-400) Neutrophils (%) (Auto) 93 % (31-73) H Lymphocytes (%) (Auto) 5 % (24-48) L Monocytes (%) (Auto) 2 % (0-9) Eosinophils (%) (Auto) 0 % (0-3) Basophils (%) (Auto) 0 % (0-3) Neutrophils # (Auto) 14.6 x10^3/uL (1.8-7.7) H Lymphocytes # (Auto) 0.7 x10^3/uL (1.0-4.8) L Monocytes # (Auto) 0.4 x10^3/uL (0.0-1.1) Eosinophils # (Auto) 0.0 x10^3/uL (0.0-0.7) Basophils # (Auto) 0.0 x10^3/uL (0.0-0.2) Segmented Neutrophils % 89 % (35-66) H Lymphocytes % 9 % (24-48) L Monocytes % 2 % (0-10) Platelet Estimate Adequate (ADEQUATE) Sodium Level 141 mmol/L (136-145) Potassium Level 4.6 mmol/L (3.5-5.1) Chloride Level 101 mmol/L (98-107) Carbon Dioxide Level 30 mmol/L (21-32) Anion Gap 10 (6-14) Blood Urea Nitrogen 25 mg/dL (7-20) H Creatinine 1.1 mg/dL (0.6-1.0) H Estimated GFR (Cockcroft-Gault) 49.5 BUN/Creatinine Ratio 23 (6-20) H Glucose Level 167 mg/dL (70-99) H Calcium Level 8.1 mg/dL (8.5-10.1) L Total Bilirubin 0.2 mg/dL (0.2-1.0) Aspartate Amino Transferase (AST) 11 U/L (15-37) L Alanine Aminotransferase (ALT) 21 U/L (14-59) Alkaline Phosphatase 81 U/L (46-116) Total Protein 7.1 g/dL (6.4-8.2) Albumin 3.0 g/dL (3.4-5.0) L Albumin/Globulin Ratio 0.7 (1.0-1.7) L Laboratory Tests 11/18/21 04:20 Laboratory Tests 11/18/21 04:20 ASSESSMENT & PLAN A&P Plan as noted above This note was created using ioBridge and may have omissions and/or errors due to the nature of real-time voice imagery intelligence. Justifications for Admission Other Justification Problem Qualifiers (1) CHF exacerbation: Heart failure type: unspecified Qualified Codes: I50.9 - Heart failure, unspecified (2) Pulmonary edema: Chronicity: acute Qualified Codes: J81.0 - Acute pulmonary edema MANUELA HOGAN MD November 18, 2021 13:35
--- NOTE | 2021-11-18 14:36 | PDOC ---
PULMONARY PROGRESS NOTES DATE: 11/18/21 TIME: 14:31 Subjective Did better with BIpap Patient is experiencing dizziness today when she sits up in bed Could not tolerate her breakfast, had 1 episode of emesis Not more short of air Cough at times productive Vitals Vital Signs Date Time Temp Pulse Resp B/P (MAP) Pulse Ox O2 Delivery O2 Flow Rate FiO2 11/18/21 11:45 100 Nasal Cannula 3.0 11/18/21 11:00 98.0 55 18 152/60 (90) 98.0 Comments Dizziness room is spinning ROS: No Chest Pain, No Abdominal Pain, No Increase Cough General: Alert Lungs: Wheezing Cardiovascular: S1, S2 Extremities: No Edema Labs Laboratory Tests Test 11/18/21 04:20 White Blood Count 15.7 x10^3/uL (4.0-11.0) Red Blood Count 3.89 x10^6/uL (3.50-5.40) Hemoglobin 10.4 g/dL (12.0-15.5) Hematocrit 33.0 % (36.0-47.0) Mean Corpuscular Volume 85 fL (79-100) Mean Corpuscular Hemoglobin 27 pg (25-35) Mean Corpuscular Hemoglobin Concent 32 g/dL (31-37) Red Cell Distribution Width 17.2 % (11.5-14.5) Platelet Count 208 x10^3/uL (140-400) Neutrophils (%) (Auto) 93 % (31-73) Lymphocytes (%) (Auto) 5 % (24-48) Monocytes (%) (Auto) 2 % (0-9) Eosinophils (%) (Auto) 0 % (0-3) Basophils (%) (Auto) 0 % (0-3) Neutrophils # (Auto) 14.6 x10^3/uL (1.8-7.7) Lymphocytes # (Auto) 0.7 x10^3/uL (1.0-4.8) Monocytes # (Auto) 0.4 x10^3/uL (0.0-1.1) Eosinophils # (Auto) 0.0 x10^3/uL (0.0-0.7) Basophils # (Auto) 0.0 x10^3/uL (0.0-0.2) Segmented Neutrophils % 89 % (35-66) Lymphocytes % 9 % (24-48) Monocytes % 2 % (0-10) Platelet Estimate Adequate (ADEQUATE) Sodium Level 141 mmol/L (136-145) Potassium Level 4.6 mmol/L (3.5-5.1) Chloride Level 101 mmol/L (98-107) Carbon Dioxide Level 30 mmol/L (21-32) Anion Gap 10 (6-14) Blood Urea Nitrogen 25 mg/dL (7-20) Creatinine 1.1 mg/dL (0.6-1.0) Estimated GFR (Cockcroft-Gault) 49.5 BUN/Creatinine Ratio 23 (6-20) Glucose Level 167 mg/dL (70-99) Calcium Level 8.1 mg/dL (8.5-10.1) Total Bilirubin 0.2 mg/dL (0.2-1.0) Aspartate Amino Transf (AST/SGOT) 11 U/L (15-37) Alanine Aminotransferase (ALT/SGPT) 21 U/L (14-59) Alkaline Phosphatase 81 U/L (46-116) Total Protein 7.1 g/dL (6.4-8.2) Albumin 3.0 g/dL (3.4-5.0) Albumin/Globulin Ratio 0.7 (1.0-1.7) Laboratory Tests Test 11/18/21 04:20 White Blood Count 15.7 x10^3/uL (4.0-11.0) Red Blood Count 3.89 x10^6/uL (3.50-5.40) Hemoglobin 10.4 g/dL (12.0-15.5) Hematocrit 33.0 % (36.0-47.0) Mean Corpuscular Volume 85 fL (79-100) Mean Corpuscular Hemoglobin 27 pg (25-35) Mean Corpuscular Hemoglobin Concent 32 g/dL (31-37) Red Cell Distribution Width 17.2 % (11.5-14.5) Platelet Count 208 x10^3/uL (140-400) Neutrophils (%) (Auto) 93 % (31-73) Lymphocytes (%) (Auto) 5 % (24-48) Monocytes (%) (Auto) 2 % (0-9) Eosinophils (%) (Auto) 0 % (0-3) Basophils (%) (Auto) 0 % (0-3) Neutrophils # (Auto) 14.6 x10^3/uL (1.8-7.7) Lymphocytes # (Auto) 0.7 x10^3/uL (1.0-4.8) Monocytes # (Auto) 0.4 x10^3/uL (0.0-1.1) Eosinophils # (Auto) 0.0 x10^3/uL (0.0-0.7) Basophils # (Auto) 0.0 x10^3/uL (0.0-0.2) Segmented Neutrophils % 89 % (35-66) Lymphocytes % 9 % (24-48) Monocytes % 2 % (0-10) Platelet Estimate Adequate (ADEQUATE) Sodium Level 141 mmol/L (136-145) Potassium Level 4.6 mmol/L (3.5-5.1) Chloride Level 101 mmol/L (98-107) Carbon Dioxide Level 30 mmol/L (21-32) Anion Gap 10 (6-14) Blood Urea Nitrogen 25 mg/dL (7-20) Creatinine 1.1 mg/dL (0.6-1.0) Estimated GFR (Cockcroft-Gault) 49.5 BUN/Creatinine Ratio 23 (6-20) Glucose Level 167 mg/dL (70-99) Calcium Level 8.1 mg/dL (8.5-10.1) Total Bilirubin 0.2 mg/dL (0.2-1.0) Aspartate Amino Transf (AST/SGOT) 11 U/L (15-37) Alanine Aminotransferase (ALT/SGPT) 21 U/L (14-59) Alkaline Phosphatase 81 U/L (46-116) Total Protein 7.1 g/dL (6.4-8.2) Albumin 3.0 g/dL (3.4-5.0) Albumin/Globulin Ratio 0.7 (1.0-1.7) Medications Active Scripts Medications Dose Route/Sig Max Daily Dose Days Date Category Lipitor (Atorvastatin Calcium) 20 Mg Tablet 20 Mg PO HS 11/16/21 Reported Toprol Xl (Metoprolol Succinate) 25 Mg Tab.er.24h 2 Tab PO DAILY 30 11/16/21 Reported Gabapentin (Gabapentin) 300 Mg Capsule 900 Mg PO BID 11/15/21 Reported Lanoxin (Digoxin) 62.5 Mcg Tablet 1 Tab PO DAILY 30 6/28/21 Reported Protonix (Pantoprazole Sodium) 20 Mg Tablet.dr 1 Tab PO DAILY 12/25/20 Reported Furosemide 40 Mg Tablet 40 Mg PO DAILY 04/09/19 Reported Ferrous Sulfate 325 Mg Tablet 325 Mg PO HS 04/09/19 Reported Diltiazem 24HR Cd (Diltiazem Hcl) 180 Mg Cap.er.24h 300 Mg PO DAILY 04/09/19 Reported Vitamin D (Cholecalciferol (Vitamin D3)) 1,000 Unit Capsule 5,000 Unit PO HS 04/04/19 Reported Promethazine Hcl 25 Mg Tablet 1 Tab PO PRN Q6HRS 01/15/19 Reported Spiriva (Tiotropium [place]) 18 Mcg Cap.w.dev 1 Inh IH DAILY 12/16/18 Reported Proair Hfa Inhaler (Albuterol Sulfate) 8.5 Gm Hfa.aer.ad 2 Puff INH PRN Q6HRS PRN 12/16/18 Reported Potassium Chloride (Potassium Chloride) 20 Meq Tablet.er 20 Meq PO BID 12/16/18 Reported Digoxin 125 Mcg Tablet 125 Mcg PO DAILY 12/16/18 Reported Cyclobenzaprine Hcl 10 Mg Tablet 1 Tab PO PRN TID PRN 04/22/18 Reported Hydrocodone-Apap 7.5-325 (Hydrocodone Bit/Acetaminophen) 1 Each Tablet 1 Tab PO PRN Q6HRS PRN 04/22/18 Reported Clonazepam (Clonazepam) 0.5 Mg Tablet 1 Tab PO PRN DAILY PRN 04/22/18 Reported Ventolin Hfa Inhaler (Albuterol Sulfate) 18 Gm Hfa.aer.ad 2 Puff INH Q4HRS 04/22/18 Reported Dulera 200 Mcg/5 Mcg Inhaler (Mometasone/Formoterol) 13 Gm Hfa.aer.ad 2 Puff IH BID 04/22/18 Reported Montelukast Sodium Tablet (Montelukast Sodium) 10 Mg Tablet 1 Tab PO HS 10/09/16 Reported Ropinirole Hcl 1 Mg Tablet 1 Mg PO HS 10/09/16 Reported Xarelto (Rivaroxaban) 20 Mg Tablet 20 Mg PO DAILY16 10/09/16 Reported Prednisone (Prednisone) 10 Mg Tablet 15 Mg PO PRN PRN 10/09/16 Reported Diclofenac Sodium 75 Mg Tablet.dr 1 Tab PO BID 10/09/16 Reported Cymbalta (Duloxetine Hcl) 60 Mg Capsule.dr [place] Cap PO DAILY 10/09/16 Reported Levothyroxine Sodium 150 Mcg Tablet 175 Mcg PO DAILY 10/09/16 Reported Impression . IMPRESSION: 1. Abnormal x-ray, compatible with pneumonia, gram-negative, possibly gram-positive. 2. Acute exacerbation of chronic obstructive pulmonary disease with an asthma component. 3. Obstructive sleep apnea, non-tolerant to CPAP, the patient failed CPAP. Will require an outpatient polysomnogram with BiPAP titration. 4. History of tracheobronchomalacia diagnosed during her stay for 2 months at . She was hospitalized with sepsis and PE. 5. Morbid obesity. 6. Other comorbidities as listed above. 7. Vertigo 8. Acute/Chronic diastolic CHF Plan . Updated 11/18 Card consulted, suspect Pulm HTN will d/w possible outpt RHC Vertigo per PCP Add Zyrtec Trial of BiPAP this evening, will check noct desat Continue antibiotics Oxygen supplementation DVT prophylaxis TANK GROVER MD November 18, 2021 14:36
[2021-11-18 15:35] VITALS: BP 134/71
[2021-11-18] MEDS: RIVAROXABAN 10 MG TABLET. PO SCH (15:46)
[2021-11-18 19:04] VITALS: BP 140/61
[2021-11-18] MEDS: FERROUS SULFATE 325 MG TABLET. PO SCH (20:46)
[2021-11-18] MEDS: CHOLECALCIFEROL (VITAMIN D3) 5,000 UNIT CAPSULE PO SCH (20:46)
[2021-11-18] MEDS: rOPINIRole 1 MG TABLET. PO SCH (20:46)
[2021-11-18] MEDS: MONTELUKAST SODIUM 10 MG TABLET. PO SCH (20:47)
[2021-11-18 22:34] VITALS: BP 140/67
[2021-11-19 03:06] VITALS: BP 135/67
[2021-11-19 04:04] LABS: BASO % 0 % (0-3); EOS % 0 % (0-3); HEMATOCRIT 32.5 % (36.0-47.0); HEMOGLOBIN 10.3 g/dL (12.0-15.5); LYMPH # 0.6 x10^3/uL (1.0-4.8); LYMPH % 5 % (24-48); MEAN CORPUSCULAR HEMOGLOBIN 27 pg (25-35); MEAN CORPUSCULAR HGB CONC 32 g/dL (31-37); MEAN CORPUSCULAR VOLUME 86 fL (79-100); MONO # 0.4 x10^3/uL (0.0-1.1); MONO % 3 % (0-9); NEUT # 12.3 x10^3/uL (1.8-7.7); NEUT % 92 % (31-73); PLATELET COUNT 181 x10^3/uL (140-400); RED BLOOD COUNT 3.79 x10^6/uL (3.50-5.40); RED CELL DISTRIBUTION WIDTH 16.9 % (11.5-14.5); WHITE BLOOD COUNT 13.3 x10^3/uL (4.0-11.0)
[2021-11-19 04:32] LABS: ALBUMIN 3.1 g/dL (3.4-5.0); ALBUMIN/GLOBULIN RATIO 0.8 (1.0-1.7); CALCIUM 8.5 mg/dL (8.5-10.1); CREATININE 1.4 mg/dL (0.6-1.0); GFR 37.5; POTASSIUM 4.7 mmol/L (3.5-5.1); TOTAL BILIRUBIN 0.2 mg/dL (0.2-1.0); TOTAL PROTEIN 7.1 g/dL (6.4-8.2)
[2021-11-19] MEDS: PANTOPRAZOLE 40 MG TABLET.DR. PO SCH (05:33)
[2021-11-19] MEDS: LEVOTHYROXINE 175 MCG TABLET PO SCH (05:33)
[2021-11-19 07:00] VITALS: BP 126/66
[2021-11-19] MEDS: IPRATRPIUM/ALBUTEROL 0.5/2.5MG 3 ML NEBU. NEB SCH ×4 (07:09→20:06)
[2021-11-19] MEDS: BUDESONIDE 0.5 MG/2 ML NEBU. NEB SCH ×2 (07:09→20:06)
--- NOTE | 2021-11-19 07:21 | NUR ---
Pt remainded safe overnight no acute distress, CPAP worn overnight. No complaints of pain, will conrinue to monitor.
[2021-11-19] MEDS: LACTOBACILLUS RHAMNOSUS GG 1 CAPSULE. PO SCH ×2 (08:12→21:01)
[2021-11-19] MEDS: FUROSEMIDE 40 MG TABLET. PO SCH ×2 (08:13→14:12)
[2021-11-19] MEDS: METOPROLOL SUCC 24HR ER 50 MG TAB.ER.24H. PO SCH (08:13)
[2021-11-19] MEDS: POTASSIUM CHLORIDE 20 MEQ TABLET.ER. PO SCH ×2 (08:14→21:01)
[2021-11-19] MEDS: DOXYCYCLINE HYCLATE 100 MG TABLET PO SCH ×2 (08:14→21:02)
[2021-11-19] MEDS: CEFDINIR 300 MG CAPSULE PO SCH ×2 (08:15→21:04)
[2021-11-19] MEDS: DIGOXIN 125 MCG TABLET. PO SCH (08:15)
[2021-11-19] MEDS: DULoxetine HCL 30 MG CAPSULE.DR PO SCH (08:16)
[2021-11-19] MEDS: CETIRIZINE HCL 10 MG TABLET. PO SCH (08:16)
[2021-11-19] MEDS: GABAPENTIN 300 MG CAPSULE. PO SCH ×3 (08:16→21:01)
[2021-11-19] MEDS: methylPREDNISolone SOD SUCC PF 40 MG/ML VIAL. IV SCH ×2 (08:17→21:04)
[2021-11-19] MEDS: NYSTATIN TOPICAL POWDER 15GM BOTTLE. TP SCH ×2 (08:24→21:04)
[2021-11-19] MEDS: DICLOFENAC SODIUM 25 MG TABLET.DR PO SCH (09:00)
--- NOTE | 2021-11-19 09:06 | PDOC ---
PULMONARY PROGRESS NOTES DATE: 11/19/21 TIME: 09:06 Subjective Patient wore BiPAP last night for short period of time Not more short of air Vitals Vital Signs Date Time Temp Pulse Resp B/P (MAP) Pulse Ox O2 Delivery O2 Flow Rate FiO2 11/19/21 08:15 75 126/60 11/19/21 08:00 Nasal Cannula 3.0 11/19/21 07:09 95 11/19/21 07:00 97.3 16 97.3 Comments Dizziness room is spinning ROS: No Chest Pain, No Abdominal Pain, No Increase Cough General: Alert Lungs: Wheezing Cardiovascular: S1, S2 Extremities: No Edema Labs Laboratory Tests Test 11/17/21 16:20 11/18/21 04:20 11/19/21 03:25 Coronavirus (COVID-19)(PCR) Not detected (NOT DETECTD) White Blood Count 15.7 x10^3/uL (4.0-11.0) 13.3 x10^3/uL (4.0-11.0) Red Blood Count 3.89 x10^6/uL (3.50-5.40) 3.79 x10^6/uL (3.50-5.40) Hemoglobin 10.4 g/dL (12.0-15.5) 10.3 g/dL (12.0-15.5) Hematocrit 33.0 % (36.0-47.0) 32.5 % (36.0-47.0) Mean Corpuscular Volume 85 fL (79-100) 86 fL (79-100) Mean Corpuscular Hemoglobin 27 pg (25-35) 27 pg (25-35) Mean Corpuscular Hemoglobin Concent 32 g/dL (31-37) 32 g/dL (31-37) Red Cell Distribution Width 17.2 % (11.5-14.5) 16.9 % (11.5-14.5) Platelet Count 208 x10^3/uL (140-400) 181 x10^3/uL (140-400) Neutrophils (%) (Auto) 93 % (31-73) 92 % (31-73) Lymphocytes (%) (Auto) 5 % (24-48) 5 % (24-48) Monocytes (%) (Auto) 2 % (0-9) 3 % (0-9) Eosinophils (%) (Auto) 0 % (0-3) 0 % (0-3) Basophils (%) (Auto) 0 % (0-3) 0 % (0-3) Neutrophils # (Auto) 14.6 x10^3/uL (1.8-7.7) 12.3 x10^3/uL (1.8-7.7) Lymphocytes # (Auto) 0.7 x10^3/uL (1.0-4.8) 0.6 x10^3/uL (1.0-4.8) Monocytes # (Auto) 0.4 x10^3/uL (0.0-1.1) 0.4 x10^3/uL (0.0-1.1) Eosinophils # (Auto) 0.0 x10^3/uL (0.0-0.7) 0.0 x10^3/uL (0.0-0.7) Basophils # (Auto) 0.0 x10^3/uL (0.0-0.2) 0.0 x10^3/uL (0.0-0.2) Segmented Neutrophils % 89 % (35-66) Lymphocytes % 9 % (24-48) Monocytes % 2 % (0-10) Platelet Estimate Adequate (ADEQUATE) Sodium Level 141 mmol/L (136-145) 142 mmol/L (136-145) Potassium Level 4.6 mmol/L (3.5-5.1) 4.7 mmol/L (3.5-5.1) Chloride Level 101 mmol/L (98-107) 100 mmol/L (98-107) Carbon Dioxide Level 30 mmol/L (21-32) 32 mmol/L (21-32) Anion Gap 10 (6-14) 10 (6-14) Blood Urea Nitrogen 25 mg/dL (7-20) 37 mg/dL (7-20) Creatinine 1.1 mg/dL (0.6-1.0) 1.4 mg/dL (0.6-1.0) Estimated GFR (Cockcroft-Gault) 49.5 37.5 BUN/Creatinine Ratio 23 (6-20) 26 (6-20) Glucose Level 167 mg/dL (70-99) 175 mg/dL (70-99) Calcium Level 8.1 mg/dL (8.5-10.1) 8.5 mg/dL (8.5-10.1) Total Bilirubin 0.2 mg/dL (0.2-1.0) 0.2 mg/dL (0.2-1.0) Aspartate Amino Transf (AST/SGOT) 11 U/L (15-37) 21 U/L (15-37) Alanine Aminotransferase (ALT/SGPT) 21 U/L (14-59) 28 U/L (14-59) Alkaline Phosphatase 81 U/L (46-116) 78 U/L (46-116) Total Protein 7.1 g/dL (6.4-8.2) 7.1 g/dL (6.4-8.2) Albumin 3.0 g/dL (3.4-5.0) 3.1 g/dL (3.4-5.0) Albumin/Globulin Ratio 0.7 (1.0-1.7) 0.8 (1.0-1.7) Laboratory Tests Test 11/19/21 03:25 White Blood Count 13.3 x10^3/uL (4.0-11.0) Red Blood Count 3.79 x10^6/uL (3.50-5.40) Hemoglobin 10.3 g/dL (12.0-15.5) Hematocrit 32.5 % (36.0-47.0) Mean Corpuscular Volume 86 fL (79-100) Mean Corpuscular Hemoglobin 27 pg (25-35) Mean Corpuscular Hemoglobin Concent 32 g/dL (31-37) Red Cell Distribution Width 16.9 % (11.5-14.5) Platelet Count 181 x10^3/uL (140-400) Neutrophils (%) (Auto) 92 % (31-73) Lymphocytes (%) (Auto) 5 % (24-48) Monocytes (%) (Auto) 3 % (0-9) Eosinophils (%) (Auto) 0 % (0-3) Basophils (%) (Auto) 0 % (0-3) Neutrophils # (Auto) 12.3 x10^3/uL (1.8-7.7) Lymphocytes # (Auto) 0.6 x10^3/uL (1.0-4.8) Monocytes # (Auto) 0.4 x10^3/uL (0.0-1.1) Eosinophils # (Auto) 0.0 x10^3/uL (0.0-0.7) Basophils # (Auto) 0.0 x10^3/uL (0.0-0.2) Sodium Level 142 mmol/L (136-145) Potassium Level 4.7 mmol/L (3.5-5.1) Chloride Level 100 mmol/L (98-107) Carbon Dioxide Level 32 mmol/L (21-32) Anion Gap 10 (6-14) Blood Urea Nitrogen 37 mg/dL (7-20) Creatinine 1.4 mg/dL (0.6-1.0) Estimated GFR (Cockcroft-Gault) 37.5 BUN/Creatinine Ratio 26 (6-20) Glucose Level 175 mg/dL (70-99) Calcium Level 8.5 mg/dL (8.5-10.1) Total Bilirubin 0.2 mg/dL (0.2-1.0) Aspartate Amino Transf (AST/SGOT) 21 U/L (15-37) Alanine Aminotransferase (ALT/SGPT) 28 U/L (14-59) Alkaline Phosphatase 78 U/L (46-116) Total Protein 7.1 g/dL (6.4-8.2) Albumin 3.1 g/dL (3.4-5.0) Albumin/Globulin Ratio 0.8 (1.0-1.7) Medications Active Scripts Medications Dose Route/Sig Max Daily Dose Days Date Category Lipitor (Atorvastatin Calcium) 20 Mg Tablet 20 Mg PO HS 11/16/21 Reported Toprol Xl (Metoprolol Succinate) 25 Mg Tab.er.24h 2 Tab PO DAILY 30 11/16/21 Reported Gabapentin (Gabapentin) 300 Mg Capsule 900 Mg PO BID 11/15/21 Reported Lanoxin (Digoxin) 62.5 Mcg Tablet 1 Tab PO DAILY 30 12/25/20 Reported Protonix (Pantoprazole Sodium) 20 Mg Tablet.dr 1 Tab PO DAILY 12/25/20 Reported Furosemide 40 Mg Tablet 40 Mg PO DAILY 04/09/19 Reported Ferrous Sulfate 325 Mg Tablet 325 Mg PO HS 04/09/19 Reported Diltiazem 24HR Cd (Diltiazem Hcl) 180 Mg Cap.er.24h 300 Mg PO DAILY 04/09/19 Reported Vitamin D (Cholecalciferol (Vitamin D3)) 1,000 Unit Capsule 5,000 Unit PO HS 04/04/19 Reported Promethazine Hcl 25 Mg Tablet 1 Tab PO PRN Q6HRS 01/15/19 Reported Spiriva (Tiotropium [place]) 18 Mcg Cap.w.dev 1 Inh IH DAILY 12/16/18 Reported Proair Hfa Inhaler (Albuterol Sulfate) 8.5 Gm Hfa.aer.ad 2 Puff INH PRN Q6HRS PRN 12/16/18 Reported Potassium Chloride (Potassium Chloride) 20 Meq Tablet.er 20 Meq PO BID 12/16/18 Reported Digoxin 125 Mcg Tablet 125 Mcg PO DAILY 12/16/18 Reported Cyclobenzaprine Hcl 10 Mg Tablet 1 Tab PO PRN TID PRN 04/22/18 Reported Hydrocodone-Apap 7.5-325 (Hydrocodone Bit/Acetaminophen) 1 Each Tablet 1 Tab PO PRN Q6HRS PRN 04/22/18 Reported Clonazepam (Clonazepam) 0.5 Mg Tablet 1 Tab PO PRN DAILY PRN 04/22/18 Reported Ventolin Hfa Inhaler (Albuterol Sulfate) 18 Gm Hfa.aer.ad 2 Puff INH Q4HRS 04/22/18 Reported Dulera 200 Mcg/5 Mcg Inhaler (Mometasone/Formoterol) 13 Gm Hfa.aer.ad 2 Puff IH BID 04/22/18 Reported Montelukast Sodium Tablet (Montelukast Sodium) 10 Mg Tablet 1 Tab PO HS 10/09/16 Reported Ropinirole Hcl 1 Mg Tablet 1 Mg PO HS 10/09/16 Reported Xarelto (Rivaroxaban) 20 Mg Tablet 20 Mg PO DAILY16 10/09/16 Reported Prednisone (Prednisone) 10 Mg Tablet 15 Mg PO PRN PRN 10/09/16 Reported Diclofenac Sodium 75 Mg Tablet.dr 1 Tab PO BID 10/09/16 Reported Cymbalta (Duloxetine Hcl) 60 Mg Capsule.dr 1 Cap PO DAILY 10/09/16 Reported Levothyroxine Sodium 150 Mcg Tablet 175 Mcg PO DAILY 10/09/16 Reported Impression . IMPRESSION: 1. Abnormal x-ray, compatible with pneumonia, gram-negative, possibly gram-positive. 2. Acute exacerbation of chronic obstructive pulmonary disease with an asthma component. 3. Obstructive sleep apnea, non-tolerant to CPAP, the patient failed CPAP. Will require an outpatient polysomnogram with BiPAP titration. 4. History of tracheobronchomalacia diagnosed during her stay for 2 months at [facility]. She was hospitalized with sepsis and PE. 5. Morbid obesity. 6. Other comorbidities as listed above. 7. Vertigo 8. Acute/Chronic diastolic CHF Plan . Updated 11/18 Change to oral antibiotics Social service to arrange for discharge, [facility] Card consulted, suspect Pulm HTN will d/w possible outpt [facility] Vertigo per PCP Add Zyrtec Continue antibiotics Oxygen supplementation DVT prophylaxis Outpatient polysomnogram with BiPAP titration TANK GROVER MD November 19, 2021 09:06
[2021-11-19 11:00] VITALS: BP 125/60
--- NOTE | 2021-11-19 11:14 | PDOC ---
ZEYAD LYNN JAGDEEP 11/19/21 1114: CARDIO Progress Notes Date and Time Date of Service 11/19/21 Time of Evaluation 1100 Subjective Subjective: No Chest Pain, No Palpitations, Other (breathing improved, decreased urine output ) Vitals Vitals Vital Signs Date Time Temp Pulse Resp B/P (MAP) Pulse Ox O2 Delivery O2 Flow Rate FiO2 11/19/21 08:15 75 126/60 11/19/21 08:00 Nasal Cannula 3.0 11/19/21 07:09 95 11/19/21 07:00 97.3 16 97.3 Weight Weight [ ] Input and Output Intake and Output Intake and Output 11/19/21 07:00 Intake Total 910 ml Output Total 2350 ml Balance -1440 ml Intake Oral 910 ml Output Urine Total 2350 ml Laboratory Labs Laboratory Tests Test 11/19/21 03:25 White Blood Count 13.3 x10^3/uL (4.0-11.0) Red Blood Count 3.79 x10^6/uL (3.50-5.40) Hemoglobin 10.3 g/dL (12.0-15.5) Hematocrit 32.5 % (36.0-47.0) Mean Corpuscular Volume 86 fL (79-100) Mean Corpuscular Hemoglobin 27 pg (25-35) Mean Corpuscular Hemoglobin Concent 32 g/dL (31-37) Red Cell Distribution Width 16.9 % (11.5-14.5) Platelet Count 181 x10^3/uL (140-400) Neutrophils (%) (Auto) 92 % (31-73) Lymphocytes (%) (Auto) 5 % (24-48) Monocytes (%) (Auto) 3 % (0-9) Eosinophils (%) (Auto) 0 % (0-3) Basophils (%) (Auto) 0 % (0-3) Neutrophils # (Auto) 12.3 x10^3/uL (1.8-7.7) Lymphocytes # (Auto) 0.6 x10^3/uL (1.0-4.8) Monocytes # (Auto) 0.4 x10^3/uL (0.0-1.1) Eosinophils # (Auto) 0.0 x10^3/uL (0.0-0.7) Basophils # (Auto) 0.0 x10^3/uL (0.0-0.2) Sodium Level 142 mmol/L (136-145) Potassium Level 4.7 mmol/L (3.5-5.1) Chloride Level 100 mmol/L (98-107) Carbon Dioxide Level 32 mmol/L (21-32) Anion Gap 10 (6-14) Blood Urea Nitrogen 37 mg/dL (7-20) Creatinine 1.4 mg/dL (0.6-1.0) Estimated GFR (Cockcroft-Gault) 37.5 BUN/Creatinine Ratio 26 (6-20) Glucose Level 175 mg/dL (70-99) Calcium Level 8.5 mg/dL (8.5-10.1) Total Bilirubin 0.2 mg/dL (0.2-1.0) Aspartate Amino Transf (AST/SGOT) 21 U/L (15-37) Alanine Aminotransferase (ALT/SGPT) 28 U/L (14-59) Alkaline Phosphatase 78 U/L (46-116) Total Protein 7.1 g/dL (6.4-8.2) Albumin 3.1 g/dL (3.4-5.0) Albumin/Globulin Ratio 0.8 (1.0-1.7) Microbiology Micro Microbiology 11/15/21 Urine Culture - Final, Complete Klebsiella Pneumoniae Physical Exam HEENT: Neck Supple W Full Motion Chest: Symmetric LUNGS: Other (diminished bases ) Heart: irregularly irregular (AFIB) Abdomen: Soft N/T, Other (obese) Extremities: Other (1+ bilateral LE edema ) Neurology: alert, oriented, follow commands Assessment Assessment 1. Acute on chronic respiratory failure; multifactorial with AE COPD, PNA, and mild acute on chronic dCHF. Continue treatment per pulmonary team including intravenous antibiotics. 2. Mild acute on chronic diastolic heart failure. s/p IV Lasix . Check 2D echo to assess LV systolic function. continue oral Lasix 3. Chest pain with atypical features. Myocardial infarction has been ruled out. Ischemic evaluation could be considered as an outpatient. 4. Permanent atrial fibrillation with heart rate well controlled. Continue diltiazem and digoxin for rate control and Xarelto for stroke prophylaxis. 5. Dizziness, most probably benign positional vertigo based on her description. Treat per IM 6. 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 Hypertension: Controlled 8. Hypothyroidism: Continue levothyroxine 9. Hyperlipidemia: Continue statin therapy 10. BOBO; Cr ^ 1.4 s/p Iv Lasix Justicifation of Admission Dx: Justifications for Admission: Justification of Admission Dx: Yes Comments: Acute on chronic respiratory failure AECOPD, PNA Acute on chronic diastolic CHF BRYANT SOTELO MD 11/19/21 1822: CARDIO Progress Notes Assessment Assessment Patient seen and examined. Agree with WHITE SUGAR PAN TANK OPERATOR's assessment and plan. Ac on chr diast HF better compensated Permanent atrial fib rate controlled - continue xarelto for stroke prophylaxis CP with atypical features - consider ischemic eval as outpatient ZEYAD LYNN APRN November 19, 2021 11:14 BRYANT SOTELO MD November 19, 2021 18:22
[2021-11-19 15:00] VITALS: BP 135/60
--- NOTE | 2021-11-19 15:42 | NUR ---
SS following up with discharge planning. SS reviewed pt chart and discussed with pt RN. Pt is currently requiring oxygen at three liters nasal canula. COVID19 negative. Pt on IV Solu-Medrol. PT/OT recommended long term unit. Pt has home oxygen. SS met with pt and discussed discharge planning and long term unit. Pt requesting referrals to [facility], ; fax [phone], and [facility], ; fax [phone]. Referrals sent as requested. SS will continue to follow for discharge planning.
[2021-11-19] MEDS: RIVAROXABAN 10 MG TABLET. PO SCH (16:07)
--- NOTE | 2021-11-19 16:33 | PDOC ---
[employer] PROGRESS NOTE Date of Service DOS: DATE: 11/19/21 TIME: 16:29 Chief Complaint Chief Complaint Acute on chronic respiratory failure - multifactorial with acute COPD, PNA, and mild acute on chronic dCHF. Status post IV diuresis and aggressive nebulizers and IV steroids. Pulmonology and cardiology following Mild acute on chronic diastolic heart failure - s/p IV Lasix . Echo pending. Cardiology following Chest pain - acute [place] ruled out Permanent atrial fibrillation with heart rate well controlled. Continue diltiazem and digoxin for rate control and Xarelto for stroke prophylaxis. 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 Hold voltaren for now FEN - Cardiac diet Deep venous thrombosis prophylaxis. Full code. Consult Pulmonary. student services director consult for longterm. Long-term prognosis is guarded. PT OT History of Present Illness History of Present Illness 11/16: Patient seen and examined at bedside. Sitting up in bed pretty harsh cough throughout interview. Says breathing a little bit improved since presentation however. Is complaining some burning at the bottom of her feet will increase home gabapentin. Given degree of fluid overload give an extra do se IV Lasix today. Continue antibiotics steroids as needed breathing treatments. Consult recommendations reviewed. Discussed with bedside RN. 11/19: Wore BiPAP last night had 2.3 L urine output over the last 24 hours less prior. She still complaining of lower extremity edema and vertigo symptoms that improved with repositioning with physical therapy but upon sitting up and look ing down toward her feet worsens worse on the left. Therapy recommending SNF. Still requiring O2 and did not wear BiPAP last night she felt this is more effective than her home CPAP. Cr up to 1.4 today. Vitals/I&O Vitals/I&O: Vital Signs Date Time Temp Pulse Resp B/P (MAP) Pulse Ox O2 Delivery O2 Flow Rate FiO2 11/19/21 15:38 98 Nasal Cannula 3.0 11/19/21 15:00 97.7 63 18 135/60 (85) 97.7 I & O 11/18/21 11/18/21 11/19/21 15:00 23:00 07:00 Intake Total 480 ml 280 ml 150 ml Output Total 2200 ml 150 ml Balance 480 ml -1920 ml 0 ml Physical Exam General: Alert, No acute distress Heart: Other (Heart rate irregular) Lungs: Wheezing Abdomen: Soft Extremities: Other (Lymphedema) Skin: No significant lesion Labs Labs: Laboratory Tests Test 11/19/21 03:25 White Blood Count 13.3 x10^3/uL (4.0-11.0) Red Blood Count 3.79 x10^6/uL (3.50-5.40) Hemoglobin 10.3 g/dL (12.0-15.5) Hematocrit 32.5 % (36.0-47.0) Mean Corpuscular Volume 86 fL (79-100) Mean Corpuscular Hemoglobin 27 pg (25-35) Mean Corpuscular Hemoglobin Concent 32 g/dL (31-37) Red Cell Distribution Width 16.9 % (11.5-14.5) Platelet Count 181 x10^3/uL (140-400) Neutrophils (%) (Auto) 92 % (31-73) Lymphocytes (%) (Auto) 5 % (24-48) Monocytes (%) (Auto) 3 % (0-9) Eosinophils (%) (Auto) 0 % (0-3) Basophils (%) (Auto) 0 % (0-3) Neutrophils # (Auto) 12.3 x10^3/uL (1.8-7.7) Lymphocytes # (Auto) 0.6 x10^3/uL (1.0-4.8) Monocytes # (Auto) 0.4 x10^3/uL (0.0-1.1) Eosinophils # (Auto) 0.0 x10^3/uL (0.0-0.7) Basophils # (Auto) 0.0 x10^3/uL (0.0-0.2) Sodium Level 142 mmol/L (136-145) Potassium Level 4.7 mmol/L (3.5-5.1) Chloride Level 100 mmol/L (98-107) Carbon Dioxide Level 32 mmol/L (21-32) Anion Gap 10 (6-14) Blood Urea Nitrogen 37 mg/dL (7-20) Creatinine 1.4 mg/dL (0.6-1.0) Estimated GFR (Cockcroft-Gault) 37.5 BUN/Creatinine Ratio 26 (6-20) Glucose Level 175 mg/dL (70-99) Calcium Level 8.5 mg/dL (8.5-10.1) Total Bilirubin 0.2 mg/dL (0.2-1.0) Aspartate Amino Transf (AST/SGOT) 21 U/L (15-37) Alanine Aminotransferase (ALT/SGPT) 28 U/L (14-59) Alkaline Phosphatase 78 U/L (46-116) Total Protein 7.1 g/dL (6.4-8.2) Albumin 3.1 g/dL (3.4-5.0) Albumin/Globulin Ratio 0.8 (1.0-1.7) Assessment and Plan Assessmemt and Plan Problems Medical Problems: (1) Chest pain Status: Acute (2) CHF exacerbation Status: Acute (3) Dyspnea on exertion Status: Acute (4) Pulmonary edema Status: Acute Comment Review of Relevant I have reviewed the following items jorge (where applicable) has been applied. Justifications for Admission Other Justification AMBAR RANGEL MD November 19, 2021 16:33
[2021-11-19 19:28] VITALS: BP 136/70
[2021-11-19] MEDS: rOPINIRole 1 MG TABLET. PO SCH (21:01)
[2021-11-19] MEDS: CHOLECALCIFEROL (VITAMIN D3) 5,000 UNIT CAPSULE PO SCH (21:01)
[2021-11-19] MEDS: MONTELUKAST SODIUM 10 MG TABLET. PO SCH (21:01)
[2021-11-19] MEDS: FERROUS SULFATE 325 MG TABLET. PO SCH (21:01)
[2021-11-19] MEDS: HYDROcodone/APAP 7.5/325MG 1 TAB TABLET PO PRN (21:26)
[2021-11-19 22:40] VITALS: BP 155/64
[2021-11-20] VITALS (7 sets, daily range): BP systolic 113–185; BP diastolic 65–99
[2021-11-20 01:08] LABS: HEMOGLOBIN A1C 5.8 % (4.8-5.6)
[2021-11-20 04:21] LABS: CALCIUM 8.5 mg/dL (8.5-10.1); CREATININE 1.6 mg/dL (0.6-1.0); GFR 32.2; POTASSIUM 5.1 mmol/L (3.5-5.1)
[2021-11-20] MEDS: LEVOTHYROXINE 175 MCG TABLET PO SCH (05:02)
[2021-11-20] MEDS ORDERED: PERFLUTREN PROTEIN-A MICROSPHR 0.22 MG/ML 3 ML VIAL. IVP ONE (07:15)
[2021-11-20] MEDS: BUDESONIDE 0.5 MG/2 ML NEBU. NEB SCH ×2 (07:19→20:59)
[2021-11-20] MEDS: IPRATRPIUM/ALBUTEROL 0.5/2.5MG 3 ML NEBU. NEB SCH ×4 (07:19→20:59)
--- NOTE | 2021-11-20 07:27 | PDOC ---
[employer] PROGRESS NOTE Date of Service DOS: DATE: 11/20/21 TIME: 07:27 Chief Complaint Chief Complaint Acute on chronic respiratory failure - multifactorial with acute COPD, PNA, and mild acute on chronic dCHF. Status post IV diuresis and aggressive nebulizers and IV steroids. Pulmonology and cardiology following Mild acute on chronic diastolic heart failure - s/p IV Lasix . Echo pending. Cardiology following Chest pain - acute [place] ruled out Permanent atrial fibrillation with heart rate well controlled. Continue diltiazem and digoxin for rate control and Xarelto for stroke prophylaxis. 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 Hold voltaren for now FEN - Cardiac diet Deep venous thrombosis prophylaxis. Full code. Consult Pulmonary. veterans services specialist consult for senior living. Long-term prognosis is guarded. PT OT History of Present Illness History of Present Illness 11/16: Patient seen and examined at bedside. Sitting up in bed pretty harsh cough throughout interview. Says breathing a little bit improved since presentation however. Is complaining some burning at the bottom of her feet will increase home gabapentin. Given degree of fluid overload give an extra do se IV Lasix today. Continue antibiotics steroids as needed breathing treatments. Consult recommendations reviewed. Discussed with bedside RN. 11/19: Wore BiPAP last night had 2.3 L urine output over the last 24 hours less prior. She still complaining of lower extremity edema and vertigo symptoms that improved with repositioning with physical therapy but upon sitting up and look ing down toward her feet worsens worse on the left. Therapy recommending SNF. Still requiring O2 and did not wear BiPAP last night she felt this is more effective than her home CPAP. Cr up to 1.4 today. 11/20: BiPAP last night. Additional 1.3 L urine output over the last 24 hours. CRP 1.6 HCO3 33. She feels more short of breath and feels her vertigo is only improved when she lays at 30 degrees to 45 degrees in the bed worse if she sits up. Attempted repositioning canalith bedside with minimal improvement today. To CT chest per pulmonology to better elucidate her pulmonary symptoms which seem to initially improve now worsened. Vitals/I&O Vitals/I&O: Vital Signs Date Time Temp Pulse Resp B/P (MAP) Pulse Ox O2 Delivery O2 Flow Rate FiO2 11/20/21 07:21 96 Nasal Cannula 3.0 11/20/21 03:07 97.6 73 18 175/82 (113) 97.6 I & O 11/19/21 11/19/21 11/20/21 15:00 23:00 07:00 Intake Total 180 ml 390 ml 0 ml Output Total 100 ml 200 ml 1000 ml Balance 80 ml 190 ml -1000 ml Physical Exam General: Alert, No acute distress Heart: Other (Heart rate irregular) Lungs: Wheezing Abdomen: Soft Extremities: Other (Lymphedema) Skin: No significant lesion Labs Labs: Laboratory Tests Test 11/19/21 14:45 11/20/21 02:45 Coronavirus (COVID-19)(PCR) Not detected (NOT DETECTD) Sodium Level 142 mmol/L (136-145) Potassium Level 5.1 mmol/L (3.5-5.1) Chloride Level 101 mmol/L (98-107) Carbon Dioxide Level 33 mmol/L (21-32) Anion Gap 8 (6-14) Blood Urea Nitrogen 50 mg/dL (7-20) Creatinine 1.6 mg/dL (0.6-1.0) Estimated GFR (Cockcroft-Gault) 32.2 Glucose Level 166 mg/dL (70-99) Calcium Level 8.5 mg/dL (8.5-10.1) Assessment and Plan Assessmemt and Plan Problems Medical Problems: (1) Chest pain Status: Acute (2) CHF exacerbation Status: Acute (3) Dyspnea on exertion Status: Acute (4) Pulmonary edema Status: Acute Comment Review of Relevant I have reviewed the following items jorge (where applicable) has been applied. Justifications for Admission Other Justification AMBAR RANGEL MD November 20, 2021 07:27
[2021-11-20] MEDS: DICLOFENAC SODIUM 1% TOPICAL GEL 100GM TUBE. TP SCH ×2 (09:00→20:13)
[2021-11-20] MEDS: CEFDINIR 300 MG CAPSULE PO SCH ×2 (09:11→20:12)
[2021-11-20] MEDS: DULoxetine HCL 30 MG CAPSULE.DR PO SCH (09:12)
[2021-11-20] MEDS: GABAPENTIN 300 MG CAPSULE. PO SCH ×3 (09:12→20:12)
[2021-11-20] MEDS: CETIRIZINE HCL 10 MG TABLET. PO SCH (09:13)
[2021-11-20] MEDS: LACTOBACILLUS RHAMNOSUS GG 1 CAPSULE. PO SCH ×2 (09:13→20:11)
[2021-11-20] MEDS: DIGOXIN 125 MCG TABLET. PO SCH (09:13)
[2021-11-20] MEDS: POTASSIUM CHLORIDE 20 MEQ TABLET.ER. PO SCH ×2 (09:13→20:12)
[2021-11-20] MEDS: PANTOPRAZOLE 40 MG TABLET.DR. PO SCH (09:14)
[2021-11-20] MEDS: METOPROLOL SUCC 24HR ER 50 MG TAB.ER.24H. PO SCH (09:14)
[2021-11-20] MEDS: DOXYCYCLINE HYCLATE 100 MG TABLET PO SCH ×2 (09:14→20:13)
[2021-11-20] MEDS: methylPREDNISolone SOD SUCC PF 40 MG/ML VIAL. IV SCH ×2 (09:15→20:11)
[2021-11-20] MEDS: FUROSEMIDE 40 MG TABLET. PO SCH ×2 (09:15→09:45)
[2021-11-20] MEDS: NYSTATIN TOPICAL POWDER 15GM BOTTLE. TP SCH ×2 (09:16→20:13)
[2021-11-20] MEDS: BENZONATATE 100 MG CAPSULE. PO SCH ×3 (09:18→20:14)
[2021-11-20 09:34] LABS: DIG 0.8 ng/mL (0.9-2.0)
--- NOTE | 2021-11-20 09:37 | PDOC ---
ZEYAD LYNN NICKEL PLANT OPERATOR 11/20/21 0937: CARDIO Progress Notes Date and Time Date of Service 11/20/21 Time of Evaluation 0930 Subjective Subjective: No Chest Pain, No Palpitations, Other (breathing improved, c/o LE edema ) Vitals Vitals Vital Signs Date Time Temp Pulse Resp B/P (MAP) Pulse Ox O2 Delivery O2 Flow Rate FiO2 11/20/21 09:15 71 113/68 11/20/21 07:21 96 Nasal Cannula 3.0 11/20/21 07:00 97.0 18 97.0 Weight Weight [ ] Input and Output Intake and Output Intake and Output 11/20/21 07:00 Intake Total 570 ml Output Total 1300 ml Balance -730 ml Intake Oral 570 ml Output Urine Total 1300 ml Laboratory Labs Laboratory Tests Test 11/19/21 14:45 11/20/21 02:45 Coronavirus (COVID-19)(PCR) Not detected (NOT DETECTD) Sodium Level 142 mmol/L (136-145) Potassium Level 5.1 mmol/L (3.5-5.1) Chloride Level 101 mmol/L (98-107) Carbon Dioxide Level 33 mmol/L (21-32) Anion Gap 8 (6-14) Blood Urea Nitrogen 50 mg/dL (7-20) Creatinine 1.6 mg/dL (0.6-1.0) Estimated GFR (Cockcroft-Gault) 32.2 Glucose Level 166 mg/dL (70-99) Calcium Level 8.5 mg/dL (8.5-10.1) Microbiology Micro Microbiology 11/15/21 Urine Culture - Final, Complete Klebsiella Pneumoniae Physical Exam HEENT: Neck Supple W Full Motion Chest: Symmetric LUNGS: Other (diminished bases ) Heart: irregularly irregular (AFIB) Abdomen: Soft N/T, Other (obese) Extremities: Other (1+ bilateral LE edema ) Neurology: alert, oriented, follow commands Assessment Assessment 1. Acute on chronic respiratory failure; multifactorial with AE COPD, PNA, and mild acute on chronic dCHF. Continue treatment per pulmonary team including intravenous antibiotics. 2. Mild acute on chronic diastolic heart failure. s/p IV Lasix . Check 2D echo to assess LV systolic function. continue oral Lasix- decreased to daily given ^ Cr 3. Chest pain with atypical features. Myocardial infarction has been ruled out. Ischemic evaluation could be considered as an outpatient. 4. Permanent atrial fibrillation with heart rate well controlled. Continue diltiazem and digoxin for rate control and Xarelto for stroke prophylaxis. 5. Dizziness, most probably benign positional vertigo based on her description. improved 6. 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 Hypertension: Controlled 8. Hypothyroidism: Continue levothyroxine 9. Hyperlipidemia: Continue statin therapy 10. BOBO; Cr ^ 1.6 Justicifation of Admission Dx: Justifications for Admission: Justification of Admission Dx: Yes BRYANT SOTELO MD 11/20/21 1841: CARDIO Progress Notes Assessment Assessment Patient seen and examined. Agree with FOOD PREPARATION SUPERVISOR's assessment and plan. Ac on chr diast HF better compensated Permanent atrial fib rate controlled - continue xarelto for stroke prophylaxis CP with atypical features - consider ischemic eval as outpatient ZEYAD LYNN APRN November 20, 2021 09:37 BRYANT SOTELO MD November 20, 2021 18:41
--- NOTE | 2021-11-20 09:45 | PDOC ---
PULMONARY PROGRESS NOTES DATE: 11/20/21 TIME: 09:41 Subjective Patient is liking the BiPAP. She feels better with the BiPAP. Vitals Vital Signs Date Time Temp Pulse Resp B/P (MAP) Pulse Ox O2 Delivery O2 Flow Rate FiO2 11/20/21 09:15 71 113/68 11/20/21 07:21 96 Nasal Cannula 3.0 11/20/21 07:00 97.0 18 97.0 Comments Slowly improving breathing ROS: No Chest Pain, No Abdominal Pain, No Increase Cough General: Alert Lungs: Other Cardiovascular: S1, S2 Extremities: Other (2+ pitting edema) Labs Laboratory Tests Test 11/19/21 03:25 11/19/21 14:45 11/20/21 02:45 White Blood Count 13.3 x10^3/uL (4.0-11.0) Red Blood Count 3.79 x10^6/uL (3.50-5.40) Hemoglobin 10.3 g/dL (12.0-15.5) Hematocrit 32.5 % (36.0-47.0) Mean Corpuscular Volume 86 fL (79-100) Mean Corpuscular Hemoglobin 27 pg (25-35) Mean Corpuscular Hemoglobin Concent 32 g/dL (31-37) Red Cell Distribution Width 16.9 % (11.5-14.5) Platelet Count 181 x10^3/uL (140-400) Neutrophils (%) (Auto) 92 % (31-73) Lymphocytes (%) (Auto) 5 % (24-48) Monocytes (%) (Auto) 3 % (0-9) Eosinophils (%) (Auto) 0 % (0-3) Basophils (%) (Auto) 0 % (0-3) Neutrophils # (Auto) 12.3 x10^3/uL (1.8-7.7) Lymphocytes # (Auto) 0.6 x10^3/uL (1.0-4.8) Monocytes # (Auto) 0.4 x10^3/uL (0.0-1.1) Eosinophils # (Auto) 0.0 x10^3/uL (0.0-0.7) Basophils # (Auto) 0.0 x10^3/uL (0.0-0.2) Sodium Level 142 mmol/L (136-145) 142 mmol/L (136-145) Potassium Level 4.7 mmol/L (3.5-5.1) 5.1 mmol/L (3.5-5.1) Chloride Level 100 mmol/L (98-107) 101 mmol/L (98-107) Carbon Dioxide Level 32 mmol/L (21-32) 33 mmol/L (21-32) Anion Gap 10 (6-14) 8 (6-14) Blood Urea Nitrogen 37 mg/dL (7-20) 50 mg/dL (7-20) Creatinine 1.4 mg/dL (0.6-1.0) 1.6 mg/dL (0.6-1.0) Estimated GFR (Cockcroft-Gault) 37.5 32.2 BUN/Creatinine Ratio 26 (6-20) Glucose Level 175 mg/dL (70-99) 166 mg/dL (70-99) Hemoglobin A1c 5.8 % (4.8-5.6) Calcium Level 8.5 mg/dL (8.5-10.1) 8.5 mg/dL (8.5-10.1) Total Bilirubin 0.2 mg/dL (0.2-1.0) Aspartate Amino Transf (AST/SGOT) 21 U/L (15-37) Alanine Aminotransferase (ALT/SGPT) 28 U/L (14-59) Alkaline Phosphatase 78 U/L (46-116) Total Protein 7.1 g/dL (6.4-8.2) Albumin 3.1 g/dL (3.4-5.0) Albumin/Globulin Ratio 0.8 (1.0-1.7) Coronavirus (COVID-19)(PCR) Not detected (NOT DETECTD) Digoxin Level 0.8 ng/mL (0.9-2.0) Digoxin Last Dose Date 11/19/21 Digoxin Last Dose Time 0900 Laboratory Tests Test 11/19/21 14:45 11/20/21 02:45 Coronavirus (COVID-19)(PCR) Not detected (NOT DETECTD) Sodium Level 142 mmol/L (136-145) Potassium Level 5.1 mmol/L (3.5-5.1) Chloride Level 101 mmol/L (98-107) Carbon Dioxide Level 33 mmol/L (21-32) Anion Gap 8 (6-14) Blood Urea Nitrogen 50 mg/dL (7-20) Creatinine 1.6 mg/dL (0.6-1.0) Estimated GFR (Cockcroft-Gault) 32.2 Glucose Level 166 mg/dL (70-99) Calcium Level 8.5 mg/dL (8.5-10.1) Digoxin Level 0.8 ng/mL (0.9-2.0) Digoxin Last Dose Date 11/19/21 Digoxin Last Dose Time 0900 Medications Active Scripts Medications Dose Route/Sig Max Daily Dose Days Date Category Lipitor (Atorvastatin Calcium) 20 Mg Tablet 20 Mg PO HS 11/16/21 Reported Toprol Xl (Metoprolol Succinate) 25 Mg Tab.er.24h 2 Tab PO DAILY 30 11/16/21 Reported Gabapentin (Gabapentin) 300 Mg Capsule 900 Mg PO BID 11/15/21 Reported Lanoxin (Digoxin) 62.5 Mcg Tablet 1 Tab PO DAILY 30 12/25/20 Reported Protonix (Pantoprazole Sodium) 20 Mg Tablet.dr 1 Tab PO DAILY 12/25/20 Reported Furosemide 40 Mg Tablet 40 Mg PO DAILY 04/09/19 Reported Ferrous Sulfate 325 Mg Tablet 325 Mg PO HS 04/09/19 Reported Diltiazem 24HR Cd (Diltiazem Hcl) 180 Mg Cap.er.24h 300 Mg PO DAILY 04/09/19 Reported Vitamin D (Cholecalciferol (Vitamin D3)) 1,000 Unit Capsule 5,000 Unit PO HS 04/04/19 Reported Promethazine Hcl 25 Mg Tablet 1 Tab PO PRN Q6HRS 01/15/19 Reported Spiriva (Tiotropium Medon) 18 Mcg Cap.w.dev 1 Inh IH DAILY 12/16/18 Reported Proair Hfa Inhaler (Albuterol Sulfate) 8.5 Gm Hfa.aer.ad 2 Puff INH PRN Q6HRS PRN 12/16/18 Reported Potassium Chloride (Potassium Chloride) 20 Meq Tablet.er 20 Meq PO BID 12/16/18 Reported Digoxin 125 Mcg Tablet 125 Mcg PO DAILY 12/16/18 Reported Cyclobenzaprine Hcl 10 Mg Tablet 1 Tab PO PRN TID PRN 04/22/18 Reported Hydrocodone-Apap 7.5-325 (Hydrocodone Bit/Acetaminophen) 1 Each Tablet 1 Tab PO PRN Q6HRS PRN 04/22/18 Reported Clonazepam (Clonazepam) 0.5 Mg Tablet 1 Tab PO PRN DAILY PRN 04/22/18 Reported Ventolin Hfa Inhaler (Albuterol Sulfate) 18 Gm Hfa.aer.ad 2 Puff INH Q4HRS 04/22/18 Reported Dulera 200 Mcg/5 Mcg Inhaler (Mometasone/Formoterol) 13 Gm Hfa.aer.ad 2 Puff IH BID 04/22/18 Reported Montelukast Sodium Tablet (Montelukast Sodium) 10 Mg Tablet 1 Tab PO HS 10/09/16 Reported Ropinirole Hcl 1 Mg Tablet 1 Mg PO HS 10/09/16 Reported Xarelto (Rivaroxaban) 20 Mg Tablet 20 Mg PO DAILY16 10/09/16 Reported Prednisone (Prednisone) 10 Mg Tablet 15 Mg PO PRN PRN 10/09/16 Reported Diclofenac Sodium 75 Mg Tablet.dr 1 Tab PO BID 10/09/16 Reported Cymbalta (Duloxetine Hcl) 60 Mg Capsule.dr 1 Cap PO DAILY 10/09/16 Reported Levothyroxine Sodium 150 Mcg Tablet 175 Mcg PO DAILY 10/09/16 Reported Impression . IMPRESSION: 1. Abnormal x-ray, compatible with right lower lobe pneumonia, gram-negative, possibly gram-positive. 2. Acute exacerbation of asthma. Patient has a history of asthma as a childhood. She also has secondhand tobacco use. 3. Obstructive sleep apnea, non-tolerant to CPAP, she prefers BiPAP. She is tolerating it well in the hospital. Will require an outpatient polysomnogram with BiPAP titration. 4. History of tracheobronchomalacia diagnosed during her stay for 2 months at [facility]. She was hospitalized with sepsis and PE. 5. Morbid obesity/cor pulmonale. 6. Other comorbidities as listed above. 7. Vertigo 8. Acute/Chronic diastolic CHF. 9. Worsening azotemia. Likely secondary to diuretics. 10. History of PE, on Xarelto Plan . Patient is slowly clinically improving. She has oxygen 3 L at home at nighttime but does not use it during the day. We will order a noncontrast CT chest to better assess for right lower lobe pneumonia versus a component of CHF as well. Awaiting echo to assess for pulmonary hypertension. oral antibiotics Social service to arrange for discharge, [facility] Card consulted, suspect Pulm HTN will d/w possible outpt [facility] Vertigo per PCP Zyrtec Oxygen supplementation DVT prophylaxis Outpatient polysomnogram with BiPAP titration Reduce Lasix due to worsening azotemia. Follow renal function Continue Xarelto. GONZÁLEZ JONES MD November 20, 2021 09:44
--- NOTE | 2021-11-20 11:02 | RAD ---
CT THORAX WO History: Pneumonia. Technique: Noncontrast CT of the chest was performed. Coronal and sagittal reconstructions were perfo rmed. Exposure: One or more of the following individualized dose reduction techniques were utilized for thi s examination: 1. Automated exposure control 2. Adjustment of the mA and/or kV according to patient size 3. Use of iterative reconstruction technique. Comparison: April 13, 2019 Findings: Chest: No pathologic lymphadenopathy. Bilateral most plaque within the aorta. Mild coronary artery ca lcifications. Mitral annular calcifications. Mild scattered linear atelectasis bilaterally most prominent within the lower lobes. No consolidation . No pneumothorax. No pleural effusion. Upper abdomen: Prior cholecystectomy. Hepatic steatosis. The liver appears enlarged. Postop changes t o the stomach. Anterior abdominal wall mesh hernia repair partially imaged. Bones: No pathologic osseous lesions. Impression: 1. Mild scattered linear atelectasis bilaterally most prominent within the lower lobes. Electronically signed by: Nico Azar DO (11/20/2021 11:00 AM) [id number]
--- NOTE | 2021-11-20 14:13 | NUR ---
SS following up with discharge planning. SS reviewed pt chart and discussed with pt RN. Pt is currently requiring oxygen at three liters nasal canula. COVID19 negative. PT/OT recommended prison unit. Pt has home oxygen. Pt accepted at [facility], ; fax [phone]. [facility] still pending acceptance. SS will continue to follow for discharge planning.
[2021-11-20] MEDS: ONDANSETRON PF 4 MG/2 ML VIAL. IVP PRN (14:45)
[2021-11-20] MEDS ORDERED: ONDANSETRON PF 4 MG/2 ML VIAL. IVP PRN (14:45)
[2021-11-20] MEDS: RIVAROXABAN 10 MG TABLET. PO SCH (16:36)
--- NOTE | 2021-11-20 18:48 | NUR ---
PT PVR <99 AT 1700.
[2021-11-20] MEDS: FERROUS SULFATE 325 MG TABLET. PO SCH (20:11)
[2021-11-20] MEDS: rOPINIRole 1 MG TABLET. PO SCH (20:12)
[2021-11-20] MEDS: MONTELUKAST SODIUM 10 MG TABLET. PO SCH (20:12)
[2021-11-20] MEDS: CHOLECALCIFEROL (VITAMIN D3) 5,000 UNIT CAPSULE PO SCH (20:13)
[2021-11-21 02:31] VITALS: BP 189/85
[2021-11-21] MEDS: PANTOPRAZOLE 40 MG TABLET.DR. PO SCH (06:10)
[2021-11-21] MEDS: LEVOTHYROXINE 175 MCG TABLET PO SCH (06:10)
[2021-11-21 07:00] VITALS: BP 154/61
[2021-11-21] MEDS: IPRATRPIUM/ALBUTEROL 0.5/2.5MG 3 ML NEBU. NEB SCH ×3 (08:00→16:37)
[2021-11-21] MEDS: BUDESONIDE 0.5 MG/2 ML NEBU. NEB SCH (08:00)
[2021-11-21] MEDS: METOPROLOL SUCC 24HR ER 50 MG TAB.ER.24H. PO SCH (08:12)
[2021-11-21] MEDS: CETIRIZINE HCL 10 MG TABLET. PO SCH (08:12)
[2021-11-21] MEDS: methylPREDNISolone SOD SUCC PF 40 MG/ML VIAL. IV SCH (08:12)
[2021-11-21] MEDS: CEFDINIR 300 MG CAPSULE PO SCH (08:13)
[2021-11-21] MEDS: DOXYCYCLINE HYCLATE 100 MG TABLET PO SCH (08:13)
[2021-11-21] MEDS: BENZONATATE 100 MG CAPSULE. PO SCH (08:13)
[2021-11-21] MEDS: GABAPENTIN 300 MG CAPSULE. PO SCH (08:13)
[2021-11-21] MEDS: DIGOXIN 125 MCG TABLET. PO SCH (08:13)
[2021-11-21] MEDS: DULoxetine HCL 30 MG CAPSULE.DR PO SCH (08:14)
[2021-11-21] MEDS: LACTOBACILLUS RHAMNOSUS GG 1 CAPSULE. PO SCH (08:16)
[2021-11-21 08:44] LABS: BASO % 0 % (0-3); EOS % 0 % (0-3); HEMOGLOBIN 10.9 g/dL (12.0-15.5); LYMPH # 0.5 x10^3/uL (1.0-4.8); LYMPH % 5 % (24-48); MEAN CORPUSCULAR HEMOGLOBIN 27 pg (25-35); MEAN CORPUSCULAR HGB CONC 32 g/dL (31-37); MEAN CORPUSCULAR VOLUME 85 fL (79-100); MONO # 0.5 x10^3/uL (0.0-1.1); MONO % 4 % (0-9); NEUT # 9.7 x10^3/uL (1.8-7.7); NEUT % 91 % (31-73); PLATELET COUNT 171 x10^3/uL (140-400); RED BLOOD COUNT 4.02 x10^6/uL (3.50-5.40); RED CELL DISTRIBUTION WIDTH 17.4 % (11.5-14.5); WHITE BLOOD COUNT 10.7 x10^3/uL (4.0-11.0)
--- NOTE | 2021-11-21 08:44 | PDOC ---
ZEYAD LYNN CASH POSTING CLERK 11/21/21 0844: CARDIO Progress Notes Date and Time Date of Service 11/21/21 Time of Evaluation 0840 Subjective Subjective: No Chest Pain, No Palpitations, Other (breathing improved, c/o LE edema ) Vitals Vitals Vital Signs Date Time Temp Pulse Resp B/P (MAP) Pulse Ox O2 Delivery O2 Flow Rate FiO2 11/21/21 08:13 81 154/61 11/21/21 08:00 98 Nasal Cannula 3.0 11/21/21 07:00 97.7 18 97.7 Weight Weight [ ] Input and Output Intake and Output Intake and Output 11/21/21 07:00 Intake Total 220 ml Output Total 900 ml Balance -680 ml Intake Oral 220 ml Output Urine Total 900 ml # Bowel Movements 1 Laboratory Labs Laboratory Tests Test 11/21/21 08:02 Glucose (Fingerstick) 163 mg/dL (70-99) Microbiology Micro Microbiology 11/15/21 Urine Culture - Final, Complete Klebsiella Pneumoniae Physical Exam HEENT: Neck Supple W Full Motion Chest: Symmetric LUNGS: Other (diminished bases ) Heart: irregularly irregular (AFIB) Abdomen: Soft N/T, Other (obese) Extremities: Other (1+ bilateral LE edema ) Neurology: alert, oriented, follow commands Assessment Assessment 1. Acute on chronic respiratory failure; multifactorial with AE COPD, PNA, and mild acute on chronic diastolic CHF. Continue treatment per pulmonary team including intravenous antibiotics. 2. Mild acute on chronic diastolic heart failure. better compensated following s/p IV Lasix . Echo pending continue oral Lasix 3. Chest pain with atypical features. Myocardial infarction has been ruled out. Ischemic evaluation could be considered as an outpatient. Follow up in our office has been arranged 4. Permanent atrial fibrillation with heart rate well controlled. Continue diltiazem and digoxin for rate control and Xarelto for stroke prophylaxis. 5. Dizziness, most probably benign positional vertigo based on her description. improved 6. 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 Hypertension: Controlled 8. Hypothyroidism: Continue levothyroxine 9. Hyperlipidemia: Continue statin therapy 10. BOBO; Cr better at 1.3 Justicifation of Admission Dx: Justifications for Admission: Justification of Admission Dx: Yes BRYANT SOTELO MD 11/21/21 5817: CARDIO Progress Notes Assessment Assessment Patient seen and examined. Agree with ACLS SPECIALIST's assessment and plan. Ac on chr diast HF better compensated Permanent atrial fib rate controlled - continue xarelto for stroke prophylaxis CP with atypical features 2D echo showed normal LVF, we will consider ischemic eval as outpatient ZEYAD LYNN APRN November 21, 2021 08:44 BRYANT SOTELO MD November 21, 2021 18:39
[2021-11-21 08:54] LABS: CALCIUM 8.3 mg/dL (8.5-10.1); CREATININE 1.3 mg/dL (0.6-1.0); GFR 40.9; POTASSIUM 4.9 mmol/L (3.5-5.1)
[2021-11-21] MEDS: NYSTATIN TOPICAL POWDER 15GM BOTTLE. TP SCH (09:00)
[2021-11-21] MEDS: DICLOFENAC SODIUM 1% TOPICAL GEL 100GM TUBE. TP SCH (09:00)
--- NOTE | 2021-11-21 09:47 | PDOC ---
PULMONARY PROGRESS NOTES DATE: 11/21/21 TIME: 09:44 Subjective Patient denies any shortness of breath. She did not had a good night sleep. Vitals Vital Signs Date Time Temp Pulse Resp B/P (MAP) Pulse Ox O2 Delivery O2 Flow Rate FiO2 11/21/21 08:13 81 154/61 11/21/21 08:00 98 Nasal Cannula 3.0 11/21/21 07:00 97.7 18 97.7 Comments Slowly improving breathing ROS: No Chest Pain, No Abdominal Pain, No Increase Cough General: Alert Lungs: Other Cardiovascular: S1, S2 Extremities: Other (2+ pitting edema) Labs Laboratory Tests Test 11/19/21 14:45 11/20/21 02:45 11/21/21 08:01 11/21/21 08:02 Coronavirus (COVID-19)(PCR) Not detected (NOT DETECTD) Sodium Level 142 mmol/L (136-145) 142 mmol/L (136-145) Potassium Level 5.1 mmol/L (3.5-5.1) 4.9 mmol/L (3.5-5.1) Chloride Level 101 mmol/L (98-107) 100 mmol/L (98-107) Carbon Dioxide Level 33 mmol/L (21-32) 32 mmol/L (21-32) Anion Gap 8 (6-14) 10 (6-14) Blood Urea Nitrogen 50 mg/dL (7-20) 47 mg/dL (7-20) Creatinine 1.6 mg/dL (0.6-1.0) 1.3 mg/dL (0.6-1.0) Estimated GFR (Cockcroft-Gault) 32.2 40.9 Glucose Level 166 mg/dL (70-99) 167 mg/dL (70-99) Calcium Level 8.5 mg/dL (8.5-10.1) 8.3 mg/dL (8.5-10.1) Digoxin Level 0.8 ng/mL (0.9-2.0) Digoxin Last Dose Date 11/19/21 Digoxin Last Dose Time 0900 White Blood Count 10.7 x10^3/uL (4.0-11.0) Red Blood Count 4.02 x10^6/uL (3.50-5.40) Hemoglobin 10.9 g/dL (12.0-15.5) Hematocrit 34.0 % (36.0-47.0) Mean Corpuscular Volume 85 fL (79-100) Mean Corpuscular Hemoglobin 27 pg (25-35) Mean Corpuscular Hemoglobin Concent 32 g/dL (31-37) Red Cell Distribution Width 17.4 % (11.5-14.5) Platelet Count 171 x10^3/uL (140-400) Neutrophils (%) (Auto) 91 % (31-73) Lymphocytes (%) (Auto) 5 % (24-48) Monocytes (%) (Auto) 4 % (0-9) Eosinophils (%) (Auto) 0 % (0-3) Basophils (%) (Auto) 0 % (0-3) Neutrophils # (Auto) 9.7 x10^3/uL (1.8-7.7) Lymphocytes # (Auto) 0.5 x10^3/uL (1.0-4.8) Monocytes # (Auto) 0.5 x10^3/uL (0.0-1.1) Eosinophils # (Auto) 0.0 x10^3/uL (0.0-0.7) Basophils # (Auto) 0.0 x10^3/uL (0.0-0.2) Thyroid Stimulating Hormone (TSH) 0.119 uIU/mL (0.358-3.74) Glucose (Fingerstick) 163 mg/dL (70-99) Laboratory Tests Test 11/21/21 08:01 11/21/21 08:02 White Blood Count 10.7 x10^3/uL (4.0-11.0) Red Blood Count 4.02 x10^6/uL (3.50-5.40) Hemoglobin 10.9 g/dL (12.0-15.5) Hematocrit 34.0 % (36.0-47.0) Mean Corpuscular Volume 85 fL (79-100) Mean Corpuscular Hemoglobin 27 pg (25-35) Mean Corpuscular Hemoglobin Concent 32 g/dL (31-37) Red Cell Distribution Width 17.4 % (11.5-14.5) Platelet Count 171 x10^3/uL (140-400) Neutrophils (%) (Auto) 91 % (31-73) Lymphocytes (%) (Auto) 5 % (24-48) Monocytes (%) (Auto) 4 % (0-9) Eosinophils (%) (Auto) 0 % (0-3) Basophils (%) (Auto) 0 % (0-3) Neutrophils # (Auto) 9.7 x10^3/uL (1.8-7.7) Lymphocytes # (Auto) 0.5 x10^3/uL (1.0-4.8) Monocytes # (Auto) 0.5 x10^3/uL (0.0-1.1) Eosinophils # (Auto) 0.0 x10^3/uL (0.0-0.7) Basophils # (Auto) 0.0 x10^3/uL (0.0-0.2) Sodium Level 142 mmol/L (136-145) Potassium Level 4.9 mmol/L (3.5-5.1) Chloride Level 100 mmol/L (98-107) Carbon Dioxide Level 32 mmol/L (21-32) Anion Gap 10 (6-14) Blood Urea Nitrogen 47 mg/dL (7-20) Creatinine 1.3 mg/dL (0.6-1.0) Estimated GFR (Cockcroft-Gault) 40.9 Glucose Level 167 mg/dL (70-99) Calcium Level 8.3 mg/dL (8.5-10.1) Thyroid Stimulating Hormone (TSH) 0.119 uIU/mL (0.358-3.74) Glucose (Fingerstick) 163 mg/dL (70-99) Medications Active Scripts Medications Dose Route/Sig Max Daily Dose Days Date Category Lipitor (Atorvastatin Calcium) 20 Mg Tablet 20 Mg PO HS 11/16/21 Reported Toprol Xl (Metoprolol Succinate) 25 Mg Tab.er.24h 2 Tab PO DAILY 30 11/16/21 Reported Gabapentin (Gabapentin) 300 Mg Capsule 900 Mg PO BID 11/15/21 Reported Lanoxin (Digoxin) 62.5 Mcg Tablet 1 Tab PO DAILY 30 12/25/20 Reported Protonix (Pantoprazole Sodium) 20 Mg Tablet.dr 1 Tab PO DAILY 12/25/20 Reported Furosemide 40 Mg Tablet 40 Mg PO DAILY 04/09/19 Reported Ferrous Sulfate 325 Mg Tablet 325 Mg PO HS 04/09/19 Reported Diltiazem 24HR Cd (Diltiazem Hcl) 180 Mg Cap.er.24h 300 Mg PO DAILY 04/09/19 Reported Vitamin D (Cholecalciferol (Vitamin D3)) 1,000 Unit Capsule 5,000 Unit PO HS 04/04/19 Reported Promethazine Hcl 25 Mg Tablet 1 Tab PO PRN Q6HRS 01/15/19 Reported Spiriva (Tiotropium [place]) 18 Mcg Cap.w.dev 1 Inh IH DAILY 12/16/18 Reported Proair Hfa Inhaler (Albuterol Sulfate) 8.5 Gm Hfa.aer.ad 2 Puff INH PRN Q6HRS PRN 12/16/18 Reported Potassium Chloride (Potassium Chloride) 20 Meq Tablet.er 20 Meq PO BID 12/16/18 Reported Digoxin 125 Mcg Tablet 125 Mcg PO DAILY 12/16/18 Reported Cyclobenzaprine Hcl 10 Mg Tablet 1 Tab PO PRN TID PRN 04/22/18 Reported Hydrocodone-Apap 7.5-325 (Hydrocodone Bit/Acetaminophen) 1 Each Tablet 1 Tab PO PRN Q6HRS PRN 04/22/18 Reported Clonazepam (Clonazepam) 0.5 Mg Tablet 1 Tab PO PRN DAILY PRN 04/22/18 Reported Ventolin Hfa Inhaler (Albuterol Sulfate) 18 Gm Hfa.aer.ad 2 Puff INH Q4HRS 04/22/18 Reported Dulera 200 Mcg/5 Mcg Inhaler (Mometasone/Formoterol) 13 Gm Hfa.aer.ad 2 Puff IH BID 04/22/18 Reported Montelukast Sodium Tablet (Montelukast Sodium) 10 Mg Tablet 1 Tab PO HS 10/09/16 Reported Ropinirole Hcl 1 Mg Tablet 1 Mg PO HS 10/09/16 Reported Xarelto (Rivaroxaban) 20 Mg Tablet 20 Mg PO DAILY16 10/09/16 Reported Prednisone (Prednisone) 10 Mg Tablet 15 Mg PO PRN PRN 10/09/16 Reported Diclofenac Sodium 75 Mg Tablet.dr 1 Tab PO BID 10/09/16 Reported Cymbalta (Duloxetine Hcl) 60 Mg Capsule.dr 1 Cap PO DAILY 10/09/16 Reported Levothyroxine Sodium 150 Mcg Tablet 175 Mcg PO DAILY 10/09/[address] chest reviewed 11/20/2021 Impression: 1. Mild scattered linear atelectasis bilaterally most prominent within the lower lobes. Impression . IMPRESSION: 1. Abnormal x-ray, compatible with right lower lobe pneumonia, gram-negative, possibly gram-positive. 2. Acute exacerbation of asthma. Patient has a history of asthma as a childhood. She also has secondhand tobacco use. 3. Obstructive sleep apnea, non-tolerant to CPAP, she prefers BiPAP. She is tolerating it well in the hospital. Will require an outpatient polysomnogram with BiPAP titration. 4. History of tracheobronchomalacia diagnosed during her stay for 2 months at [facility]. She was hospitalized with sepsis and PE. 5. Morbid obesity/cor pulmonale. 6. Other comorbidities as listed above. 7. Vertigo 8. Acute/Chronic diastolic CHF. 9. Worsening azotemia. Likely secondary to diuretics. Improving since the dose was reduced. 10. History of PE, on Xarelto Plan . Patient is slowly clinically improving. She has oxygen 3 L at home at nighttime but does not use it during the day. CT chest from 11/20/2021 was reviewed. No obvious CHF. No definite consolidation. There is mild bibasilar atelectasis. There is an area of rounded atelectasis of the right lower lobe posterior medially. And there are tiny pleural effusions. Awaiting echo to assess for pulmonary hypertension. oral antibiotics Social service to arrange for discharge, SNU Card consulted, suspect Pulm HTN will d/w possible outpt [facility] Hallucinations per PCP Zyrtec Oxygen supplementation DVT prophylaxis Outpatient polysomnogram with BiPAP titration Renal function improving after reducing the dose of Lasix. Continue Xarelto. GONZÁLEZ JONES MD November 21, 2021 09:47
[2021-11-21] MEDS: POTASSIUM CHLORIDE 20 MEQ TABLET.ER. PO SCH (10:10)
[2021-11-21] MEDS: FUROSEMIDE 40 MG TABLET. PO SCH (10:10)
[2021-11-21 11:00] VITALS: BP 152/78
--- NOTE | 2021-11-21 11:45 | PDOC ---
[employer] PROGRESS NOTE Date of Service DOS: DATE: 11/21/21 TIME: 11:44 Chief Complaint Chief Complaint Acute on chronic respiratory failure - multifactorial with acute COPD, PNA, and mild acute on chronic dCHF. Status post IV diuresis and aggressive nebulizers and IV steroids. Pulmonology and cardiology following Mild acute on chronic diastolic heart failure - s/p IV Lasix . Echo pending. Cardiology following Chest pain - acute GA ruled out Permanent atrial fibrillation with heart rate well controlled. Continue diltiazem and digoxin for rate control and Xarelto for stroke prophylaxis. 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 Hold voltaren for now FEN - Cardiac diet Deep venous thrombosis prophylaxis. Full code. Consult Pulmonary. coordinator of genetic services consult for long term. Long-term prognosis is guarded. PT OT History of Present Illness History of Present Illness 11/16: Patient seen and examined at bedside. Sitting up in bed pretty harsh cough throughout interview. Says breathing a little bit improved since presentation however. Is complaining some burning at the bottom of her feet will increase home gabapentin. Given degree of fluid overload give an extra do se IV Lasix today. Continue antibiotics steroids as needed breathing treatments. Consult recommendations reviewed. Discussed with bedside RN. 11/19: Wore BiPAP last night had 2.3 L urine output over the last 24 hours less prior. She still complaining of lower extremity edema and vertigo symptoms that improved with repositioning with physical therapy but upon sitting up and look ing down toward her feet worsens worse on the left. Therapy recommending SNF. Still requiring O2 and did not wear BiPAP last night she felt this is more effective than her home CPAP. Cr up to 1.4 today. 11/20: BiPAP last night. Additional 1.3 L urine output over the last 24 hours. CRP 1.6 HCO3 33. She feels more short of breath and feels her vertigo is only improved when she lays at 30 degrees to 45 degrees in the bed worse if she sits up. Attempted repositioning canalith bedside with minimal improvement today. To CT chest per pulmonology to better elucidate her pulmonary symptoms which seem to initially improve now worsened. 11/21: Tolerated BiPAP last night, CR improved to 1.3. Still having some vertigo symptoms but they are improving did repositioning bedside today. Still complaining of lower extremity edema recommended compressive stockings she says most of her stomach fit. She is amenable to going to skilled rehab and has echocardiogram pending prior to discharge Vitals/I&O Vitals/I&O: Vital Signs Date Time Temp Pulse Resp B/P (MAP) Pulse Ox O2 Delivery O2 Flow Rate FiO2 11/21/21 08:13 81 154/61 11/21/21 08:00 98 Nasal Cannula 3.0 11/21/21 07:00 97.7 18 97.7 I & O 11/20/21 11/20/21 11/21/21 15:00 23:00 07:00 Intake Total 220 ml Output Total 300 ml 600 ml Balance 220 ml -300 ml -600 ml Physical Exam General: Alert, No acute distress Heart: Other (Heart rate irregular) Lungs: Other Abdomen: Soft Extremities: Other (Lymphedema) Skin: No significant lesion Labs Labs: Laboratory Tests Test 11/21/21 08:01 11/21/21 08:02 11/21/21 11:26 White Blood Count 10.7 x10^3/uL (4.0-11.0) Red Blood Count 4.02 x10^6/uL (3.50-5.40) Hemoglobin 10.9 g/dL (12.0-15.5) Hematocrit 34.0 % (36.0-47.0) Mean Corpuscular Volume 85 fL (79-100) Mean Corpuscular Hemoglobin 27 pg (25-35) Mean Corpuscular Hemoglobin Concent 32 g/dL (31-37) Red Cell Distribution Width 17.4 % (11.5-14.5) Platelet Count 171 x10^3/uL (140-400) Neutrophils (%) (Auto) 91 % (31-73) Lymphocytes (%) (Auto) 5 % (24-48) Monocytes (%) (Auto) 4 % (0-9) Eosinophils (%) (Auto) 0 % (0-3) Basophils (%) (Auto) 0 % (0-3) Neutrophils # (Auto) 9.7 x10^3/uL (1.8-7.7) Lymphocytes # (Auto) 0.5 x10^3/uL (1.0-4.8) Monocytes # (Auto) 0.5 x10^3/uL (0.0-1.1) Eosinophils # (Auto) 0.0 x10^3/uL (0.0-0.7) Basophils # (Auto) 0.0 x10^3/uL (0.0-0.2) Sodium Level 142 mmol/L (136-145) Potassium Level 4.9 mmol/L (3.5-5.1) Chloride Level 100 mmol/L (98-107) Carbon Dioxide Level 32 mmol/L (21-32) Anion Gap 10 (6-14) Blood Urea Nitrogen 47 mg/dL (7-20) Creatinine 1.3 mg/dL (0.6-1.0) Estimated GFR (Cockcroft-Gault) 40.9 Glucose Level 167 mg/dL (70-99) Calcium Level 8.3 mg/dL (8.5-10.1) Thyroid Stimulating Hormone (TSH) 0.119 uIU/mL (0.358-3.74) Glucose (Fingerstick) 163 mg/dL (70-99) 178 mg/dL (70-99) Assessment and Plan Assessmemt and Plan Problems Medical Problems: (1) Chest pain Status: Acute (2) CHF exacerbation Status: Acute (3) Dyspnea on exertion Status: Acute (4) Pulmonary edema Status: Acute Comment Review of Relevant I have reviewed the following items jorge (where applicable) has been applied. Justifications for Admission Other Justification AMBAR RANGEL MD November 21, 2021 11:45
[2021-11-21] MEDS ORDERED: HYDR-2765 PO (12:26)
[2021-11-21] MEDS ORDERED: MECL12.582 PO (12:26)
[2021-11-21] MEDS ORDERED: CEFD300C PO (12:26)
[2021-11-21] MEDS ORDERED: DOXY100T PO (12:26)
[2021-11-21] MEDS ORDERED: PRED20TA PO (12:26)
[2021-11-21] MEDS ORDERED: CETI10TA16 PO (12:26)
--- NOTE | 2021-11-21 12:29 | SNU/HH DC ---
DISCHARGE ORDERS DISCHARGE INFORMATION: DISCHARGE DATE: November 21, 2021 FINAL DIAGNOSIS Problems Medical Problems: (1) Chest pain Status: Acute (2) CHF exacerbation Status: Acute (3) Dyspnea on exertion Status: Acute (4) Pulmonary edema Status: Acute CONDITION ON DISCHARGE: Stable CODE STATUS: Code Status: Full RETIREMENT: SNF STAY <30 DAYS: Yes POST DISCHARGE ORDERS: ACTIVITY ORDERS: No restrictions WEIGHT BEARING STATUS: No restrictions DIET AFTER DISCHARGE: Regular CHECKS AFTER DISCHARGE: CHECKS AFTER DISCHARGE: Check blood press - daily, Check your Temp as needed, Weigh Yourself Daily FOLLOW-UP: Additional Instructions: Call to follow up with cardiology [id number], [address] [place] [address] BiPAP 14/4 tidal volume 400, 2 L/min TREATMENT/EQUIPMENT ORDERS: ADAPTIVE EQUIPMENT NEEDED: None RESPIRATORY EQUIPMENT NEEDED: Oxygen, BiPAP (BiPAP 14/4 tidal volume 400, 2 L/min) Physical Therapy For: Evalulation/Treatment Occupational Therapy For: Evaluation/Treatment DISCHARGE MEDICATIONS: Home Meds Active Scripts Prednisone (PREDNISONE) 20 Mg Tablet, 1 TAB PO DAILY for Bronchitis for 5 Days, #5 TAB Prov:AMBAR RANGEL MD 11/21/21 Meclizine Hcl (MECLIZINE HCL) 12.5 Mg Tablet, 25 MG PO PRN TID PRN for VERTIGO f or 6 Days, #18 TAB Prov:AMBAR RANGEL MD 11/21/21 Cefdinir (CEFDINIR) 300 Mg Capsule, 300 MG PO BID for Pneumonia for 5 Days, #10 CAP Prov:AMBAR RANGEL MD 11/21/21 Cetirizine Hcl (CETIRIZINE HCL) 10 Mg Tablet, 10 MG PO DAILY for Allergic rhinitis for 30 Days, #30 TAB 5 Refills Prov:AMBAR RANGEL MD 11/21/21 Doxycycline Hyclate (DOXYCYCLINE HYCLATE) 100 Mg Tablet, 100 MG PO BID for Pneumonia for 5 Days, #10 TAB Prov:AMBAR RANGEL MD 11/21/21 Hydrocodone Bit/Acetaminophen (HYDROCODONE-APAP 7.5-325 ) 1 Tab Tablet, 1 TAB PO PRN Q6HRS PRN for PAIN for 6 Days, #24 TAB 0 Refills Prov:AMBAR RANGEL MD 11/21/21 Reported Medications Atorvastatin Calcium (LIPITOR) 20 Mg Tablet, 20 MG PO HS for FOR CHOLESTEROL, #30 TAB 0 Refills 11/16/21 Metoprolol Succinate (TOPROL XL) 25 Mg Tab.er.24h, 2 TAB PO DAILY for for 30 Days, #60 TAB 0 Refills 11/16/21 Gabapentin (GABAPENTIN ) 300 Mg Capsule, 900 MG PO BID for NEUROGENIC PAIN, CAP 11/15/21 Digoxin (LANOXIN) 62.5 Mcg Tablet, 1 TAB PO DAILY for heart for 30 Days, #30 TAB 0 Refills 12/25/20 Pantoprazole Sodium (PROTONIX) 20 Mg Tablet.dr, 1 TAB PO DAILY for gerd, #30 TAB 12/25/20 Furosemide (FUROSEMIDE) 40 Mg Tablet, 40 MG PO DAILY for CHF, TAB 04/09/19 Ferrous Sulfate (FERROUS SULFATE) 325 Mg Tablet, 325 MG PO HS for anemia, TAB 04/09/19 Diltiazem Hcl (DILTIAZEM 24HR CD) 180 Mg Cap.er.24h, 300 MG PO DAILY for Afib, CAP.SR 04/09/19 Cholecalciferol (Vitamin D3) (VITAMIN D) 1,000 Unit Capsule, 5000 UNIT PO HS for supplement, CAP 04/04/19 Promethazine Hcl (PROMETHAZINE HCL) 25 Mg Tablet, 1 TAB PO PRN Q6HRS for nausea, #20 TAB 01/15/19 Tiotropium [place] (SPIRIVA) 18 Mcg Cap.w.dev, 1 INH IH DAILY for treat asthma, #1 INH 0 Refills 12/16/18 Albuterol Sulfate (PROAIR HFA INHALER) 8.5 Gm Hfa.aer.ad, 2 PUFF INH PRN Q6HRS PRN for SHORTNESS OF BREATH, INHALER 0 Refills 12/16/18 Potassium Chloride (POTASSIUM CHLORIDE ) 20 Meq Tablet.er, 20 MEQ PO BID for ttreat low K+ level, TAB.SR 12/16/18 Cyclobenzaprine Hcl (CYCLOBENZAPRINE HCL) 10 Mg Tablet, 1 TAB PO PRN TID PRN for , #90 TAB 04/22/18 Albuterol Sulfate (VENTOLIN HFA INHALER) 18 Gm Hfa.aer.ad, 2 PUFF INH Q4HRS for FOR ASTHMA, INHALER 0 Refills 04/22/18 Mometasone/Formoterol (DULERA 200 MCG/5 MCG INHALER) 13 Gm Hfa.aer.ad, 2 PUFF IH BID, #13 GM 5 Refills 04/22/18 Montelukast Sodium (MONTELUKAST SODIUM TABLET ) 10 Mg Tablet, 1 TAB PO HS for treat allergies/asthma, #30 TAB 5 Refills 10/09/16 Ropinirole Hcl (ROPINIROLE HCL) 1 Mg Tablet, 1 MG PO HS for treat restless leg syndrome, TAB 10/09/16 Rivaroxaban (XARELTO) 20 Mg Tablet, 20 MG PO DAILY16 for prevent pe due to a fib, TAB 10/09/16 Prednisone (PREDNISONE ) 10 Mg Tablet, 15 MG PO PRN PRN for , TAB 10/09/16 Diclofenac Sodium (DICLOFENAC SODIUM) 75 Mg Tablet.dr, 1 TAB PO BID, #60 TAB 1 Refill 10/09/16 Duloxetine Hcl (CYMBALTA) 60 Mg Capsule.dr, 1 CAP PO DAILY, #90 CAP 3 Refills 10/09/16 Levothyroxine Sodium (LEVOTHYROXINE SODIUM) 150 Mcg Tablet, 175 MCG PO DAILY for hypothyroidism, #30 TAB 5 Refills 10/09/16 Discontinued Reported Medications Digoxin (DIGOXIN) 125 Mcg Tablet, 125 MCG PO DAILY for AFIB/HEART FAILURE, TAB 12/16/18 Clonazepam (CLONAZEPAM ) 0.5 Mg Tablet, 1 TAB PO PRN DAILY PRN for , #30 TAB 04/22/18 AMBAR RANGEL MD November 21, 2021 12:29
--- NOTE | 2021-11-21 12:33 | PDOC3 ---
Discharge Summary Visit Information Date of Admission: November 15, 2021 Date of Discharge: November 21, 2021 Admitting Diagnosis: Acute bronchitis, CHF exacerbation Final Diagnosis Problems Medical Problems: (1) Chest pain Status: Acute (2) CHF exacerbation Status: Acute (3) Dyspnea on exertion Status: Acute (4) Pulmonary edema Status: Acute Brief Hospital Course Allergies Allergies Coded Allergies Type Severity Reaction Last Updated Verified levofloxacin Allergy Severe Anaphylaxis 11/15/21 Yes I S O L A T I O N *CONTACT* Allergy Unknown 11/15/21 Yes Influenza Virus Vaccines Adverse Reaction Intermediate 11/15/21 Yes Penicillins Adverse Reaction Intermediate Rash 11/15/21 Yes Sulfa (Sulfonamide Antibiotics) Adverse Reaction Intermediate Rash 11/15/21 Yes Vital Signs Vital Signs Date Time Temp Pulse Resp B/P (MAP) Pulse Ox O2 Delivery O2 Flow Rate FiO2 11/21/21 12:02 98 Nasal Cannula 3.0 11/21/21 11:00 97.8 64 19 152/78 (102) 97.8 Lab Results Laboratory Tests Test 11/19/21 14:45 11/20/21 02:45 11/21/21 08:01 11/21/21 08:02 Coronavirus (COVID-19)(PCR) Not detected (NOT DETECTD) Sodium Level 142 mmol/L (136-145) 142 mmol/L (136-145) Potassium Level 5.1 mmol/L (3.5-5.1) 4.9 mmol/L (3.5-5.1) Chloride Level 101 mmol/L (98-107) 100 mmol/L (98-107) Carbon Dioxide Level 33 mmol/L (21-32) 32 mmol/L (21-32) Anion Gap 8 (6-14) 10 (6-14) Blood Urea Nitrogen 50 mg/dL (7-20) 47 mg/dL (7-20) Creatinine 1.6 mg/dL (0.6-1.0) 1.3 mg/dL (0.6-1.0) Estimated GFR (Cockcroft-Gault) 32.2 40.9 Glucose Level 166 mg/dL (70-99) 167 mg/dL (70-99) Calcium Level 8.5 mg/dL (8.5-10.1) 8.3 mg/dL (8.5-10.1) Digoxin Level 0.8 ng/mL (0.9-2.0) Digoxin Last Dose Date 11/19/21 Digoxin Last Dose Time 0900 White Blood Count 10.7 x10^3/uL (4.0-11.0) Red Blood Count 4.02 x10^6/uL (3.50-5.40) Hemoglobin 10.9 g/dL (12.0-15.5) Hematocrit 34.0 % (36.0-47.0) Mean Corpuscular Volume 85 fL (79-100) Mean Corpuscular Hemoglobin 27 pg (25-35) Mean Corpuscular Hemoglobin Concent 32 g/dL (31-37) Red Cell Distribution Width 17.4 % (11.5-14.5) Platelet Count 171 x10^3/uL (140-400) Neutrophils (%) (Auto) 91 % (31-73) Lymphocytes (%) (Auto) 5 % (24-48) Monocytes (%) (Auto) 4 % (0-9) Eosinophils (%) (Auto) 0 % (0-3) Basophils (%) (Auto) 0 % (0-3) Neutrophils # (Auto) 9.7 x10^3/uL (1.8-7.7) Lymphocytes # (Auto) 0.5 x10^3/uL (1.0-4.8) Monocytes # (Auto) 0.5 x10^3/uL (0.0-1.1) Eosinophils # (Auto) 0.0 x10^3/uL (0.0-0.7) Basophils # (Auto) 0.0 x10^3/uL (0.0-0.2) Thyroid Stimulating Hormone (TSH) 0.119 uIU/mL (0.358-3.74) Glucose (Fingerstick) 163 mg/dL (70-99) Test 11/21/21 11:26 Glucose (Fingerstick) 178 mg/dL (70-99) Laboratory Tests Test 11/21/21 08:01 11/21/21 08:02 11/21/21 11:26 White Blood Count 10.7 x10^3/uL (4.0-11.0) Red Blood Count 4.02 x10^6/uL (3.50-5.40) Hemoglobin 10.9 g/dL (12.0-15.5) Hematocrit 34.0 % (36.0-47.0) Mean Corpuscular Volume 85 fL (79-100) Mean Corpuscular Hemoglobin 27 pg (25-35) Mean Corpuscular Hemoglobin Concent 32 g/dL (31-37) Red Cell Distribution Width 17.4 % (11.5-14.5) Platelet Count 171 x10^3/uL (140-400) Neutrophils (%) (Auto) 91 % (31-73) Lymphocytes (%) (Auto) 5 % (24-48) Monocytes (%) (Auto) 4 % (0-9) Eosinophils (%) (Auto) 0 % (0-3) Basophils (%) (Auto) 0 % (0-3) Neutrophils # (Auto) 9.7 x10^3/uL (1.8-7.7) Lymphocytes # (Auto) 0.5 x10^3/uL (1.0-4.8) Monocytes # (Auto) 0.5 x10^3/uL (0.0-1.1) Eosinophils # (Auto) 0.0 x10^3/uL (0.0-0.7) Basophils # (Auto) 0.0 x10^3/uL (0.0-0.2) Sodium Level 142 mmol/L (136-145) Potassium Level 4.9 mmol/L (3.5-5.1) Chloride Level 100 mmol/L (98-107) Carbon Dioxide Level 32 mmol/L (21-32) Anion Gap 10 (6-14) Blood Urea Nitrogen 47 mg/dL (7-20) Creatinine 1.3 mg/dL (0.6-1.0) Estimated GFR (Cockcroft-Gault) 40.9 Glucose Level 167 mg/dL (70-99) Calcium Level 8.3 mg/dL (8.5-10.1) Thyroid Stimulating Hormone (TSH) 0.119 uIU/mL (0.358-3.74) Glucose (Fingerstick) 163 mg/dL (70-99) 178 mg/dL (70-99) Brief Hospital Course Ms Caban is a 66-year-old female with history of chronic diastolic heart failure, atrial fibrillation and DVT/PE, FREEMAN never tolerated CPAP of cor pulmonale on chronic 3 L/min CO2 presented with progressive shortness of breath and was found to have pneumonia and acute COPD exacerbation. She also complained of right-sided chest pain not related to exertion or food intake. She denied any palpitations or syncope. She did complain of dizziness associated with nausea that appears to be vertigo based on her description. 11/16: Patient seen and examined at bedside. Sitting up in bed pretty harsh cough throughout interview. Says breathing a little bit improved since presentation however. Is complaining some burning at the bottom of her feet will increase home gabapentin. Given degree of fluid overload give an extra dose IV Lasix today. Continue antibiotics steroids as needed breathing treatments. Consult recommendations reviewed. Discussed with bedside RN. 11/19: Wore BiPAP last night had 2.3 L urine output over the last 24 hours less prior. She still complaining of lower extremity edema and vertigo symptoms that improved with repositioning with physical therapy but upon sitting up and looking down toward her feet worsens worse on the left. Therapy recommending SNF. Still requiring O2 and did not wear BiPAP last night she felt this is more effective than her home CPAP. Cr up to 1.4 today. 11/20: BiPAP last night. Additional 1.3 L urine output over the last 24 hours. CRP 1.6 HCO3 33. She feels more short of breath and feels her vertigo is only improved when she lays at 30 degrees to 45 degrees in the bed worse if she sits up. Attempted repositioning canalith bedside with minimal improvement today. To CT chest per pulmonology to better elucidate her pulmonary symptoms which seem to initially improve now worsened. 11/21: Tolerated BiPAP last night, CR improved to 1.3. Still having some vertigo symptoms but they are improving did repositioning bedside today. Still complaining of lower extremity edema recommended compressive stockings she says most of her stomach fit. She is amenable to going to skilled rehab and has e chocardiogram pending prior to discharge Overall tolerated diuresis well but had worsening renal function and was changed back to oral furosemide once daily continued on digoxin and Xarelto transition to p.o. antibiotics and p.o. steroids for bronchitis flare. CT chest with improvement. Due to deconditioning and worsening edema she is going to SNF for further rehabilitation Consults: Cardiology, pulmonology, nephrology Problem list: Acute on chronic respiratory failure - multifactorial with acute COPD, PNA, and mild acute on chronic dCHF. Status post IV diuresis and aggressive nebulizers and IV steroids. Pulmonology and cardiology following Mild acute on chronic diastolic heart failure - s/p IV Lasix . Echo pending. Cardiology following Chest pain - acute AK ruled out Permanent atrial fibrillation with heart rate well controlled. Continue diltiazem and digoxin for rate control and Xarelto for stroke prophylaxis. 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 Hold voltaren for now FEN - Cardiac diet Deep venous thrombosis prophylaxis. Full code. Consult Pulmonary. security services specialist consult for care home. Long-term prognosis is guarded. PT OT Greater than 30 minutes spent in discharge to SNF Discharge Information Condition at Discharge: Improved Follow Up: Weeks (1) Disposition/Orders: D/C to Another Facility ([facility]) Scheduled Albuterol Sulfate (Ventolin Hfa Inhaler) 18 Gm Hfa.aer.ad, 2 PUFF INH Q4HRS for FOR ASTHMA, Ref 0 (Reported) Entered as Reported by: COMFORT MONAE on 04/22/18 1524 Last Action: Reviewed on 11/15/211957 by Keyur Hewitt Atorvastatin Calcium (Lipitor) 20 Mg Tablet, 20 MG PO HS for FOR CHOLESTEROL, #30 Ref 0 (Reported) Entered as Reported by: Keyur Hewitt on 11/16/21 0056 Last Action: Reviewed on 11/16/2156 by Keyur Hewitt Cefdinir (Cefdinir) 300 Mg Capsule, 300 MG PO BID for Pneumonia for 5 Days, #10 Prescribed by: AMBAR RANGEL MD on 11/21/21 1226 Cetirizine Hcl (Cetirizine Hcl) 10 Mg Tablet, 10 MG PO DAILY for Allergic rhinitis for 30 Days, #30 Ref 5 Prescribed by: AMBAR RANGEL MD on 11/21/21 1226 Cholecalciferol (Vitamin D3) (Vitamin D) 1,000 Unit Capsule, 5,000 UNIT PO HS f or supplement, (Reported) Entered as Reported by: Dereck Hernandez on 04/04/19 0151 Last Action: Converted on 11/15/212241 by Keyur Hewitt Diclofenac Sodium (Diclofenac Sodium) 75 Mg Tablet.dr, 1 TAB PO BID, #60 Ref 1 (Reported) Entered as Reported by: MARK FALCON on 10/09/16 1321 Last Action: Converted on 11/15/212241 by Keyur Hewitt Digoxin (Lanoxin) 62.5 Mcg Tablet, 1 TAB PO DAILY for heart for 30 Days, #30 Ref 0 (Reported) Entered as Reported by: MARK FALCON on 12/25/20 1606 Last Action: Converted on 11/15/212241 by Keyur Hewitt Diltiazem Hcl (Diltiazem 24HR Cd) 180 Mg Cap.er.24h, 300 MG PO DAILY for Afib, (Reported) Entered as Reported by: YEISON HERNANDEZ on 04/09/191134 Last Action: Continued on 11/15/212241 by Keyur Hewitt Doxycycline Hyclate (Doxycycline Hyclate) 100 Mg Tablet, 100 MG PO BID for Pneumonia for 5 Days, #10 Prescribed by: AMBAR RANGEL MD on 11/21/21 1226 Duloxetine Hcl (Cymbalta) 60 Mg Capsule.dr, 1 CAP PO DAILY, #90 Ref 3 (Reported) Entered as Reported by: MARK FALCON on 10/09/16 132 Last Action: Converted on 11/15/212241 by Keyur Hewitt Ferrous Sulfate (Ferrous Sulfate) 325 Mg Tablet, 325 MG PO HS for anemia, (Rep orted) Entered as Reported by: YEISON HERNANDEZ on 04/09/191135 Last Action: Continued on 11/15/212241 by Keyur Hewitt Furosemide (Furosemide) 40 Mg Tablet, 40 MG PO DAILY for CHF, (Reported) Entered as Reported by: YEISON HERNANDEZ on 04/09/191136 Last Action: Continued on 11/15/212241 by Keyur Hewitt Gabapentin (Gabapentin ) 300 Mg Capsule, 900 MG PO BID for NEUROGENIC PAIN, (Reported) Entered as Reported by: Keyur Hewitt on 11/15/211956 Last Action: Continued on 11/15/212241 by Keyur Hewitt Levothyroxine Sodium (Levothyroxine Sodium) 150 Mcg Tablet, 175 MCG PO DAILY for hypothyroidism, #30 Ref 5 (Reported) Entered as Reported by: MARK FALCON on 10/09/16 1321 Last Action: Continued on 11/15/212241 by Keyur Hewitt Metoprolol Succinate (Toprol Xl) 25 Mg Tab.er.24h, 2 TAB PO DAILY for for 30 Days, #60 Ref 0 (Reported) Entered as Reported by: Keyur Hewitt on 11/16/21 0054 Last Action: Continued on 11/16/2154 by Keyur Hewitt Mometasone/Formoterol (Dulera 200 Mcg/5 Mcg Inhaler) 13 Gm Hfa.aer.ad, 2 PUFF IH BID, #13 Ref 5 (Reported) Entered as Reported by: COMFORT MONAE on 04/22/18 1524 Last Action: Converted on 11/15/212241 by Keyur Hewitt Montelukast Sodium (Montelukast Sodium Tablet ) 10 Mg Tablet, 1 TAB PO HS for treat allergies/asthma, #30 Ref 5 (Reported) Entered as Reported by: MARK FALCON on 10/09/16 1326 Last Action: Continued on 11/15/212241 by Keyur Hewitt Pantoprazole Sodium (Protonix) 20 Mg Tablet.dr, 1 TAB PO DAILY for gerd, #30 (Reported) Entered as Reported by: MARK FALCON on 12/25/20 1606 Last Action: Converted on 11/15/212241 by Keyur Hewitt Potassium Chloride (Potassium Chloride ) 20 Meq Tablet.er, 20 MEQ PO BID for ttreat low K+ level, (Reported) Entered as Reported by: JASVIR AMANDA on 12/16/18 1530 Last Action: Continued on 11/15/212241 by Keyur Hewitt Prednisone (Prednisone) 20 Mg Tablet, 1 TAB PO DAILY for Bronchitis for 5 Days, #5 Prescribed by: AMBAR RANGEL MD on 11/21/21 1226 Promethazine Hcl (Promethazine Hcl) 25 Mg Tablet, 1 TAB PO PRN Q6HRS for nausea, #20 (Reported) Entered as Reported by: MONIKA HUGGINS RN on 01/15/19 0838 Last Action: Reviewed on 11/15/211957 by Keyur Hewitt Rivaroxaban (Xarelto) 20 Mg Tablet, 20 MG PO DAILY16 for prevent pe due to a fib, (Reported) Entered as Reported by: MARK FALCON on 10/09/16 1326 Last Action: Converted on 11/15/212241 by Keyur Hewitt Ropinirole Hcl (Ropinirole Hcl) 1 Mg Tablet, 1 MG PO HS for treat restless leg syndrome, (Reported) Entered as Reported by: MARK FALCON on 10/09/16 1326 Last Action: Continued on 11/15/212241 by Keyur Hewitt Tiotropium [place] (Spiriva) 18 Mcg Cap.w.dev, 1 INH IH DAILY for treat asthma, #1 Ref 0 (Reported) Entered as Reported by: JASVIR AMANDA on 12/16/181529 Last Action: Converted on 11/15/212241 by Keyur Hewitt Scheduled PRN Albuterol Sulfate (Proair Hfa Inhaler) 8.5 Gm Hfa.aer.ad, 2 PUFF INH PRN Q6HRS PRN for SHORTNESS OF BREATH, Ref 0 (Reported) Entered as Reported by: JASVIR AMANDA on 12/16/181529 Last Action: Continued on 11/15/212241 by Keyur Hewitt Cyclobenzaprine Hcl (Cyclobenzaprine Hcl) 10 Mg Tablet, 1 TAB PO PRN TID PRN for , #90 (Reported) Entered as Reported by: ELODIA MOON REGENCY MERIDIANMARLYN on 04/22/18 1524 Last Action: Continued on 11/15/212241 by Keyur Hewitt Hydrocodone Bit/Acetaminophen (Hydrocodone-Apap 7.5-325 ) 1 Tab Tablet, 1 TAB PO PRN Q6HRS PRN for PAIN for 6 Days, #24 Ref 0 Prescribed by: AMBAR RANGEL MD on 11/21/21 1227 Meclizine Hcl (Meclizine Hcl) 12.5 Mg Tablet, 25 MG PO PRN TID PRN for VERTIGO for 6 Days, #18 Prescribed by: AMBAR RANGEL MD on 11/21/21 1226 Prednisone (Prednisone ) 10 Mg Tablet, 15 MG PO PRN PRN for , (Reported) Entered as Reported by: MARK FALCON on 10/09/16 132 Last Action: Reviewed on 11/15/211957 by Keyur Hewitt Discontinued Medications Clonazepam (Clonazepam ) 0.5 Mg Tablet, 1 TAB PO PRN DAILY PRN for , #30 (Reported) Entered as Reported by: COMFORT MONAE on 04/22/18 1524 Last Action: Continued on 11/15/212241 by Keyur Hewitt Digoxin (Digoxin) 125 Mcg Tablet, 125 MCG PO DAILY for AFIB/HEART FAILURE, (Reported) Entered as Reported by: JASVIR AMANDA on 12/16/18 1530 Last Action: Continued on 11/15/212241 by Keyur Hewitt Justicifation of Admission Dx: Justifications for Admission: Justification of Admission Dx: Yes AMBAR RANGEL MD November 21, 2021 12:33
--- NOTE | 2021-11-21 12:55 | NUR ---
SS following up with discharge planning. SS reviewed pt chart and discussed with pt RN. Pt is currently requiring oxygen at three liters nasal canula. COVID19 negative. PT/OT recommended [facility] unit. Pt accepted at [facility], ; fax [phone], and [facility], ; fax [phone]. SS met with pt and discussed. Pt reported that her preference would be to go to [facility] because it is closer to family. Discharge orders received and sent to [facility]. Pt will discharge today and go to [facility] at 1500. [facility] to provide transportation. Pt and pt's RN notified.
--- NOTE | 2021-11-21 17:04 | CARD ---
MR#: [id number] Date of Study: 11/21/2021 Ordering Physician: ZEYAD LYNN, Referring Physician: ZEYAD LYNN, Tech: Bishop Ferrari [facility] APPROVED REPORT EXAM: Two-dimensional and M-mode echocardiogram with Doppler and color Doppler. Other Information Quality : FairHR: 64bpm Rhythm : NSRTechnically limited study due to body habitus. INDICATION Congestive Heart Failure RISK FACTORS Hypertension Obesity Hyperlipidemia COPD 2D DIMENSIONS Left Atrium(2D)5.0 (1.6-4.0cm)IVSd1.1 (0.7-1.1cm) Aortic Root(2D)3.2 (2.0-3.7cm)LVDd5.2 (3.9-5.9cm) LVOT Diameter1.9 (1.8-2.4cm)PWd1.1 (0.7-1.1cm) LA Sbtntv811 (18-58mL)LVDs2.8 (2.5-4.0cm) FS (%) 47.0 %SV101.8 ml Aortic Valve AoV Peak Martin.165.0cm/sAoV VTI31.9cm AO Peak GR.10.9mmHgLVOT Peak Martin.108.3cm/s LVOT VTI 22.81cmAO Mean GR.6mmHg MAYTE (VMAX)1.79jf2NIY (VTI)2.06cm2 Mitral Valve MV E Jibetjij865.1cm/sMV DECEL [id number] MV A Celylaiq15.6cm/sMV E Mean Gr.6mmHg MV SLV67wzX/A Ratio2.7 MVA (PHT)3.79cm2 TDI E/Lateral E'15.2E/Medial E'18.5 Pulmonary Valve PV Peak Emefkrse564.4cm/sPV Peak Grad.6mmHg Tricuspid Valve TR P. Gaqsetvj563kz/sTR Peak Gr.30mmHg Pulmonary Vein S1 Mhigpwqs95.6cm/sD2 Iddhsvre08.6cm/s LEFT VENTRICLE The left ventricle is normal size. There is normal left ventricular wall thickness. The left ventricu lar systolic function is normal. LV ejection fraction of 55 to 60%. There is normal LV segmental wall motion. Transmitral Doppler flow pattern is Grade III-reversible restrictive diastolic dysfunction. No left ventricle thrombus noted on this study. There is no ventricular septal defect visualized. The re is no left ventricular aneurysm. There is no mass noted in the left ventricle. RIGHT VENTRICLE The right ventricle is normal size. There is normal right ventricular wall thickness. The right ventr icular systolic function is normal. ATRIA The left atrium is mild to moderately dilated. The right atrium is mildly dilated. The interatrial se ptum is intact with no evidence for an atrial septal defect or patent foramen ovale as noted on 2-D o r Doppler imaging. AORTIC VALVE The aortic valve is thickened but opens well. Doppler and Color Flow revealed no significant aortic r egurgitation. There is no significant aortic valvular stenosis. There is no aortic valvular vegetatio n. MITRAL VALVE The mitral valve is thickened but opens well. There is no evidence of mitral valve prolapse. There is no mitral valve stenosis. Doppler and Color-flow revealed mild mitral regurgitation. TRICUSPID VALVE The tricuspid valve is normal in structure and function. Doppler and Color Flow revealed trace tricus pid regurgitation. There is no tricuspid valve prolapse or vegetation. There is no tricuspid valve st enosis. PULMONIC VALVE The pulmonic valve is not well seen. Doppler and Color Flow revealed no pulmonic valvular regurgitati on. There is no pulmonic valvular stenosis. GREAT VESSELS The aortic root is normal in size. The ascending aorta is normal in size. The pulmonary artery is nor mal. The IVC is dilated with blunted inspiratory response. PERICARDIAL EFFUSION There is no pleural effusion. There is no evidence of significant pericardial effusion. Critical Notification Critical Value: No <Conclusion> The left ventricle is normal size. The left ventricular systolic function is normal. LV ejection fraction of 55 to 60%. Doppler and Color Flow revealed no significant aortic regurgitation. There is no significant aortic valvular stenosis. Doppler and Color-flow revealed mild mitral regurgitation. Doppler and Color Flow revealed trace tricuspid regurgitation. Signed by : Dayo Billy MD Electronically Approved : 11/21/2021 17:03:52
--- NOTE | 2021-11-21 17:32 | NUR ---
Discharge Note: AARON ANTHONY [address] Discharge instructions and discharge home medications [facility] and a copy snet. All questions have been answered and understanding verbalized.
== END 2021-11-21 17:34 | DRG 177 ==
LOC: ER 12:54 → 6 SOUTH 16:15
PROVIDERS: ADMIT Internal Medicine; ATTEND Internal Medicine
PROC: 5A09357 Assistance with Respiratory Ventilation, Less than 24 Consecutive Hours, Continuous Positive Airway Pressure (ICD-10-PCS; principal; 2021-11-21)
DX: J15.6 Pneumonia due to other Gram-negative bacteria (principal); I50.33 Acute on chronic diastolic (congestive) heart failure; J96.20 Acute and chronic respiratory failure, unspecified whether with hypoxia or hypercapnia; N17.0 Acute kidney failure with tubular necrosis; I48.21 Permanent atrial fibrillation; J44.0 Chronic obstructive pulmonary disease with (acute) lower respiratory infection; J44.1 Chronic obstructive pulmonary disease with (acute) exacerbation; J45.901 Unspecified asthma with (acute) exacerbation; J98.11 Atelectasis; Z68.43 Body mass index [BMI] 50.0-59.9, adult; E03.9 Hypothyroidism, unspecified; E66.01 Morbid (severe) obesity due to excess calories; E78.5 Hyperlipidemia, unspecified; G47.33 Obstructive sleep apnea (adult) (pediatric); H81.10 Benign paroxysmal vertigo, unspecified ear; I11.0 Hypertensive heart disease with heart failure; I27.81 Cor pulmonale (chronic); J20.9 Acute bronchitis, unspecified; T50.2X5A Adverse effect of carbonic-anhydrase inhibitors, benzothiadiazides and other diuretics, initial encounter; Z83.3 Family history of diabetes mellitus; Z86.711 Personal history of pulmonary embolism; Z86.718 Personal history of other venous thrombosis and embolism; F32.A Depression, unspecified; G43.909 Migraine, unspecified, not intractable, without status migrainosus; M19.90 Unspecified osteoarthritis, unspecified site; Z88.0 Allergy status to penicillin; Z88.2 Allergy status to sulfonamides; Z88.8 Allergy status to other drugs, medicaments and biological substances; Z20.822 Contact with and (suspected) exposure to COVID-19
CPT/HCPCS: 36415; 36600; 71046; 71250; 80048; 80053; 80162; 81001; 82805; 82962; 83036; 83735; 83880; 84100; 84443; 84484; 85007; 85025; 85610; 87077; 87086; 87186; 87428; 87493; 93005; 93306; 94640; 94660; 94760; 96365; 96366; 96375; J0696; J1940; J2405; J2920; J3475; J3490; J7060; U0003; 95992-GP; 97110-GO; 97110-GP; 97530-GO; 97530-GP; 97535-GO; 99285-25; C8929; G0378; J7626; J8597